=== PATIENT | male | born 1960 | race Caucasian/White ===

== ENCOUNTER → 2017-11-07 12:58 | Outpatient (CLI) | payer BC, MEDICAID, SELFPAY ==
--- NOTE | 2017-11-07 13:02 | VDLE_ITS ---
Reason For Study: F/U DVT LLE - previous exam not performed here RIGHT LEFT CFV is compressible, spontaneous, phasic, GSV is normal. competent and demonstrates normal CFV is compressible, spontaneous, phasic, augmentation. competent, and demonstrates normal Procedure augmentation. Exam performed in department. FV is compressible, spontaneous, phasic, A preliminary report was called and/or faxed competent and demonstrates normal to Dr. Colvin. augmentation. POP V is compressible, spontaneous, phasic, competent and demonstrates normal augmentation. T/P Trunk is compressible. PTV is compressible. LT PerV is compressible. Interpretation Summary Deep veins of the left lower extremity are patent and compressible segmentally. There is no evidence of left lower extremity deep vein thrombosis. Valvular competence appears intact within the proximal deep venous system on the left . The left greater saphenous vein appears patent and compressible segmentally. Ordering Physician: Dale Colvin Referring Physician: Dale Colvin Performed By: Destiny Hong RVT
== END ==
PROVIDERS: Family Provider Family Medicine; PCP Family Medicine; Visit Provider Family Medicine
DX: I82.402 Acute embolism and thrombosis of unspecified deep veins of left lower extremity (principal); S70.02XA Contusion of left hip, initial encounter; X58.XXXA Exposure to other specified factors, initial encounter; M79.89 Other specified soft tissue disorders
CPT/HCPCS: 93971

== ENCOUNTER → 2017-11-29 08:04 | Outpatient (CLI) | payer BC, MEDICAID, SELFPAY ==
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
== END ==
PROVIDERS: Family Provider Family Medicine; PCP Family Medicine; Visit Provider Nurse Practitioner Acute Care
DX: R20.0 Anesthesia of skin (principal); R20.2 Paresthesia of skin
CPT/HCPCS: 95886; 95909

== ENCOUNTER 2018-02-12 13:00 | Outpatient (RCR) | payer BC, MEDICAID, SELFPAY ==
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
== END 2018-02-12 19:00 | disposition home or self-care (01) ==
LOC: PT 13:00
PROVIDERS: Family Provider Family Medicine; PCP Family Medicine; Visit Provider Psychiatry & Neurology Neurology
DX: S32.10XD Unspecified fracture of sacrum, subsequent encounter for fracture with routine healing (principal); S32.402D Unspecified fracture of left acetabulum, subsequent encounter for fracture with routine healing; S72.142D Displaced intertrochanteric fracture of left femur, subsequent encounter for closed fracture with routine healing; S32.009D Unspecified fracture of unspecified lumbar vertebra, subsequent encounter for fracture with routine healing; X58.XXXD Exposure to other specified factors, subsequent encounter; R41.0 Disorientation, unspecified; R41.3 Other amnesia
CPT/HCPCS: 97110; 97116; 97140; 97163; 97530

== ENCOUNTER → 2018-02-27 11:51 | Outpatient (CLI) | payer BC, MEDICAID, SELFPAY ==
[2018-02-27 12:33] LABS: Absolute Lymphocyte Count 0.99 X10^3/ul (0.83-4.51); Absolute Neutrophil Count 4.1 X10^3/uL (2.0-7.7); Basophil# 0.01 X10^3/uL; Basophil% 0.2 % (0-1); Eosinophil# 0.14 X10^3/uL; Eosinophils% 2.5 % (0-5); Hematocrit 42.5 % (40-54); Hemoglobin 14.2 g/dl (13.0-16.5); Lymphocyte # 0.99 X10^3/ul (4.0); Lymphocyte % 17.4 % (19-41); Mean Corp Hgb Conc 33.4 g/gl (32-36); Mean Corpuscular Hgb 29.8 pg (27.0-32.0); Mean Corpuscular Volume 89.3 fL (80-94); Mean Platelet Vol. 9.2 fl (6.2-12.0); Monocyte# 0.47 X10^3/uL; Monocyte% 8.3 % (0-10); Neutrophil # 4.08 X10^3/uL (2.7-7.7); Neutrophil % 71.6 % (47-70); Platelet Count 237 K/mm3 (150-450); RBC Distribution Width CV 13.5 % (11.6-14.6); RBC Distribution Width SD 43.6 fl (35.1-43.9); Red Blood Count 4.76 M/mm3 (4.6-6.2); White Blood Count 5.7 K/mm3 (4.4-11.0)
[2018-02-27 12:37] LABS: POSITIVE COUNT NO; POSITIVE DIFFERENTIAL NO; POSITIVE MORPHOLOGY NO
[2018-02-27 13:18] LABS: AST(SGOT) 26 U/L (15-37); Alanine Aminotransfer ALT/SGPT 22 U/L (16-61); Albumin, Serum 3.8 g/dL (3.2-5.0); Alkaline Phosphatase 153 U/L (45-117); Anion Gap 6 (5-15); BUN 18 mg/dL (7-18); BUN/Creat Ratio 15.8 RATIO (10-20); Bilirubin, Direct 0.15 mg/dL (0.00-0.30); Chloride 105 mmol/L (98-107); Cholesterol 139 mg/dL (200); Creatinine, Serum 1.14 mg/dL (0.70-1.30); EST Glomerular Filtration Rate 70 mL/min (>60); Est Glom Filt Rate - Afr Amer 85 mL/min (>60); Globulin 4.2 g/dL (2.2-4.2); Glucose 91 mg/dL (74-106); High Density Lipoprotein 42 mg/dL; Potassium 4.1 mmol/L (3.5-5.1); Sodium Level 142 mmol/L (136-145); Thyroid Stim Hormone (TSH) 0.71 uIU/mL (0.358-3.74); Triglycerides 108 mg/dL; Very Low Density Lipoprotein 22 mg/dL (5-40)
== END ==
PROVIDERS: Family Provider Family Medicine; PCP Family Medicine; Visit Provider Internal Medicine Cardiovascular Disease
DX: I10 Essential (primary) hypertension (principal); E78.5 Hyperlipidemia, unspecified; B35.1 Tinea unguium; Z79.899 Other long term (current) drug therapy
CPT/HCPCS: 36415; 80048; 80061; 80076; 83735; 84443; 85025

== ENCOUNTER 2018-05-24 14:54 | Outpatient (RCR) | payer BC, MEDICAID, SELFPAY ==
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
== END 2018-05-24 19:00 | disposition home or self-care (01) ==
LOC: OT 14:54
PROVIDERS: Family Provider Family Medicine; PCP Family Medicine; Visit Provider Nurse Practitioner Acute Care
DX: R26.89 Other abnormalities of gait and mobility (principal)
CPT/HCPCS: 97165; 97166

== ENCOUNTER 2018-05-28 10:00 | Outpatient (RCR) | payer BC, MEDICAID, SELFPAY ==
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
== END 2018-05-28 19:00 | disposition home or self-care (01) ==
LOC: PT 10:00
PROVIDERS: Family Provider Family Medicine; PCP Family Medicine; Visit Provider Psychiatry & Neurology Neurology
DX: M25.562 Pain in left knee (principal); M17.12 Unilateral primary osteoarthritis, left knee
CPT/HCPCS: 97110; 97116; 97140; 97164; 97530

== ENCOUNTER → 2018-06-07 10:47 | Outpatient (CLI) | payer BC, MEDICAID, SELFPAY ==
[2018-06-07 11:34] LABS: Calcium,Total 9.1 mg/dL (8.5-10.1); Magnesium 1.9 mg/dL (1.6-2.6)
[2018-06-08 09:09] LABS: Vitamin B12 419 pg/mL (211-911)
== END ==
PROVIDERS: Family Provider Family Medicine; PCP Family Medicine; Visit Provider Clinical Nurse Specialist Acute Care
DX: R20.2 Paresthesia of skin (principal); R20.0 Anesthesia of skin
CPT/HCPCS: 36415; 82310; 82607; 83735

== ENCOUNTER → 2018-11-19 16:54 | Outpatient (CLI) | payer BC, SELFPAY ==
[2018-02-20 15:20] VITALS: BMI 33.2
--- NOTE | 2018-11-19 17:10 | RAD_ITS ---
STUDY: X-RAY - RIGHT FOOT CLINICAL: Male, 58 years old. Fissure in the right plantar surface of foot. Pain TECHNIQUE: 3 view(s) of the foot. COMPARISON: None. FINDINGS: Degenerative changes involving the interphalangeal joint of the big toe and the first and fourth MTP joints. No acute fractures of the forefoot. There is a severe deformity of the hindfoot with arthrodesis of the ankle mortise and subtalar joints and almost all the tarsal joints. There are no acute fractures. The soft tissues are within normal limits. RAD/Foot min 3 Views IMPRESSION: No acute fractures. Severe deformity of the hindfoot with fusion of the ankle mortise and subtalar joints and almost all the tarsal joints. Degenerative changes of the interphalangeal joint of the patella and at the first and fourth and joints. No cellulitis Electronically Signed: Mert Preston MD at 1:53 EST Tel , Service support ,
== END ==
PROVIDERS: Family Provider Family Medicine; PCP Family Medicine
DX: M79.671 Pain in right foot (principal)
CPT/HCPCS: 73630

== ENCOUNTER → 2018-12-10 16:27 | Outpatient (CLI) | payer BC, SELFPAY ==
--- NOTE | 2018-12-10 16:31 | VDLE_ITS ---
Reason For Study: Leg Pain/Swelling Procedure LEFT Exam performed in department. GSV is normal. A preliminary report was called and/or faxed CFV is compressible, spontaneous, phasic, to Dr. Colvin. competent, and demonstrates normal augmentation. FV is compressible, spontaneous, phasic, competent and demonstrates normal augmentation. POP V is compressible, spontaneous, phasic, competent and demonstrates normal augmentation. T/P Trunk is compressible. PTV is compressible. LT PerV is compressible. Vein wall thickening noted Lt GastrocV. Interpretation Summary Chronic vein wall thickening is noted in the left gastrocnemius vein. The remainder of the left lower extremity deep venous system is patent and compressible. Valvular competence appears intact within the proximal deep venous system on the left . The left greater saphenous vein appears patent and compressible segmentally. Ordering Physician: Dale Colvin Referring Physician: Nico Maldonado Performed By: Theresa Mishra RDCS, RVT
--- NOTE | 2018-12-10 17:12 | RAD_ITS ---
STUDY: X-RAY - LEFT HIP REASON FOR EXAM: Male, 58 years old. Pain in the left groin. TECHNIQUE: 2 views of the hip. COMPARISON: Comparison is made with prior study dated May 06, 2017. FINDINGS: The patient is status post intramedullary dio and compression screw fixation of the right intertrochanteric fracture. The fracture is healed. There is a widening of the right femoral neck suggestive of a impingement. There is osteoarthritic spur formation of the acetabular rim. There is moderate articular joint space narrowing. There is evidence of a open reduction and internal fixation of the left acetabular fracture utilizing mesh and screw fixation device. Healed left superior and inferior pubic rami fractures. RAD/HIP, UNI W/ Pelvis 2-3 Views IMPRESSION: Degenerative changes of the hip. Prior fixation of the right intertrochanteric fracture and left acetabular fracture. Electronically Signed: Bc Mayfield, at 13:15 EST , Service support ,
== END ==
PROVIDERS: Family Provider Family Medicine; PCP Family Medicine; Referring Provider Family Medicine; Visit Provider Family Medicine
DX: M25.552 Pain in left hip (principal); M79.605 Pain in left leg; Z86.718 Personal history of other venous thrombosis and embolism
CPT/HCPCS: 73502; 93971

== ENCOUNTER → 2019-01-07 07:25 | Outpatient (CLI) | payer BC, SELFPAY ==
[2019-01-07 08:00] LABS: Absolute Lymphocyte Count 1.12 X10^3/ul (0.83-4.51); Absolute Neutrophil Count 3.6 X10^3/uL (2.0-7.7); Basophil# 0.03 X10^3/uL; Basophil% 0.6 % (0-1); Eosinophil# 0.24 X10^3/uL; Eosinophils% 4.5 % (0-5); Hematocrit 44.3 % (40-54); Hemoglobin 14.9 g/dl (13.0-16.5); Lymphocyte # 1.12 X10^3/ul (4.0); Lymphocyte % 20.9 % (19-41); Mean Corp Hgb Conc 33.6 g/gl (32-36); Mean Corpuscular Volume 89.1 fL (80-94); Mean Platelet Vol. 9.4 fl (6.2-12.0); Monocyte# 0.41 X10^3/uL; Monocyte% 7.6 % (0-10); Neutrophil # 3.56 X10^3/uL (2.7-7.7); Neutrophil % 66.2 % (47-70); Platelet Count 237 K/mm3 (150-450); RBC Distribution Width CV 12.6 % (11.6-14.6); Red Blood Count 4.97 M/mm3 (4.6-6.2); White Blood Count 5.4 K/mm3 (4.4-11.0)
[2019-01-07 08:03] LABS: POSITIVE COUNT NO; POSITIVE DIFFERENTIAL NO; POSITIVE MORPHOLOGY NO
[2019-01-07 08:22] LABS: AST(SGOT) 23 U/L (15-37); Alanine Aminotransfer ALT/SGPT 27 U/L (16-61); Albumin, Serum 3.8 g/dL (3.2-5.0); Alkaline Phosphatase 139 U/L (45-117); Anion Gap 5 (5-15); BUN 20 mg/dL (7-18); BUN/Creat Ratio 17.1 RATIO (10-20); Calcium,Total 8.7 mg/dL (8.5-10.1); Chloride 105 mmol/L (98-107); Cholesterol 151 mg/dL (200); Creatinine, Serum 1.17 mg/dL (0.70-1.30); EST Glomerular Filtration Rate 68 mL/min (>60); Est Glom Filt Rate - Afr Amer 82 mL/min (>60); Globulin 3.7 g/dL (2.2-4.2); Glucose 98 mg/dL (74-106); High Density Lipoprotein 47 mg/dL; PSA,Total - Annual Screen 1.93 ng/mL (0.00-4.00); Potassium 4.1 mmol/L (3.5-5.1); Protein, Total 7.5 g/dL (6.4-8.2); Sodium Level 140 mmol/L (136-145); Triglycerides 97 mg/dL; Very Low Density Lipoprotein 19 mg/dL (5-40)
== END ==
PROVIDERS: Family Provider Family Medicine; PCP Family Medicine; Referring Provider Family Medicine; Visit Provider Family Medicine
DX: Z00.00 Encounter for general adult medical examination without abnormal findings (principal); Z12.5 Encounter for screening for malignant neoplasm of prostate; I25.10 Atherosclerotic heart disease of native coronary artery without angina pectoris; I10 Essential (primary) hypertension; E78.5 Hyperlipidemia, unspecified
CPT/HCPCS: 36415; 80053; 80061; 84153; 85025; G0103

== ENCOUNTER → 2019-02-22 | Outpatient (CLI) | payer BC, SELFPAY ==
--- NOTE | 2019-02-22 09:50 | ART_ITS ---
Reason For Study: Right foot ulcer Procedure A bilateral lower extremity continuous wave Doppler with analog waveform analysis,segmental pressures,and ankle brachial indexes without exercise. Left Segmental Pressures Left brachial= 106mmHg. Left posterior tibial artery = 142mmHg. Left dorsalis pedis artery = 129mmHg. Left digit = 103 mmHg. The left dorsalis pedis waveforms are triphasic. The left posterior tibial artery waveforms are triphasic. Right Segmental Pressures Right brachial= 109mmHg. Right calf = 134mmHg. Right posterior tibial artery = 23mmHg. Right dorsalis pedis artery = 86mmHg. Right digit = 41 mmHg. The right dorsalis pedis waveforms are biphasic. The right posterior tibial artery waveforms are monophasic. Indices The right ankle brachial index by the dorsalis pedis is 0.79. The right ankle brachial index by the posterior tibial artery is 0.21. The right digital-brachial index is 0.38. The left ankle brachial index by the dorsalis pedis is 1.18. The left ankle brachial index by the posterior tibial artery is 1.30. The left digital-brachial index is 0.94. Interpretation Summary Monophasic and biphasic Doppler waveforms are noted at ankle level on the right. Triphasic Doppler waveforms are noted at ankle level on the left. Pulse-volume recording waveform amplitudes are diminished at calf, ankle, and digital level on the right. The resting right ankle-brachial index is moderately diminished, though with evidence of severe arterial occlusive disease in certain angiosomal distributions. The resting left ankle-brachial index is normal. The right digital- brachial index is moderately diminished. The left digital-brachial index is normal. There is evidence of [id number] arterial occlusive disease in the right lower extremity. There is no evidence of significant arterial occlusive disease in the left lower extremity. Ordering Physician: Elsa Macario Referring Physician: Dale Colvin Performed By: Willinger, Vera, RVT
== END | disposition home or self-care (01) ==
PROVIDERS: Family Provider Family Medicine; PCP Family Medicine; Referring Provider Podiatrist; Visit Provider Podiatrist
DX: I73.9 Peripheral vascular disease, unspecified (principal); L97.519 Non-pressure chronic ulcer of other part of right foot with unspecified severity
CPT/HCPCS: 93923

== ENCOUNTER → 2019-03-27 | Outpatient (CLI) | payer BC, SELFPAY ==
[2019-03-05 10:28] VITALS: BMI 32.6
--- NOTE | 2019-03-27 06:39 | ECHOCS_ITS ---
Reason For Study: Chest Pain Procedure This was a 2D Doppler, Color Flow transthoracic echocardiogram. Contrast injection was performed. Exam performed in department. Left Ventricle Normal LV size. Left ventricular systolic function is normal. The estimated ejection fraction is 60 %. Stage 2 diastolic dysfunction. No regional wall motion abnormalities noted. Right Ventricle Normal RV size. Normal systolic function. Atria Normal left atrium. Normal right atrium. Mitral Valve Normal mitral valve. Tricuspid Valve Normal tricuspid valve. Aortic Valve The aortic valve is not well visualized. Pulmonic Valve The pulmonic valve is not well visualized. Great Vessels Normal aortic root. Pericardium/Pleural No pericardial effusion. Medication Diluted definity 3ml given slow IV push to enhance endocardial definition. MMode/2D Measurements & Calculations LVIDd: 6.1 cm IVSd: 1.3 cm Ao root diam: 3.5 cm LVIDs: 3.8 cm LVPWd: 1.2 cm RVDd: 5.0 cm FS: 37.2 % LAV(MOD-bp): 51.1 ml LVAd ap4: 36.2 cm2 SV(MOD-sp4): 73.4 ml LAV(MOD-bp) Indexed: 22.2 ml/m2 EDV(MOD-sp4): 111.0 ml LAV(MOD-sp2): 46.9 ml EDV(sp4-el): 114.1 ml LAV(MOD-sp4): 54.0 ml LVAs ap4: 18.5 cm2 ESV(MOD-sp4): 37.6 ml ESV(sp4-el): 34.7 ml EF(MOD-sp4): 66.1 % EF(sp4-el): 69.6 % SV(sp4-el): 79.4 ml LA A4 area: 19.2 cm2 LA dimension(2D): 4.3 cm RA A4 area: 16.6 cm2 Doppler Measurements & Calculations MV E max christo: 95.5 cm/sec Lat Peak E' Christo: 12.2 cm/sec Med Peak E' Christo: 8.8 cm/sec MV A max christo: 72.9 cm/sec E/E' lat: 7.8 E/E' med: 10.8 MV E/A: 1.3 Ao V2 max: 137.5 cm/sec LV V1 max: 117.8 cm/sec PA V2 max: 96.3 cm/sec Ao max P.6 mmHg LV V1 max P.5 mmHg Ao V2 mean: 89.5 cm/sec Ao mean P.6 mmHg Ao V2 VTI: 32.3 cm Interpretation Summary Normal LV size. Left ventricular systolic function is normal. The estimated ejection fraction is 60 %. Stage 2 diastolic dysfunction. Contrast injection was performed. Ordering Physician: Jimenez Nowak Referring Physician: Dale Colvin Performed By: Theresa Mishra, ROGER, RVT
--- NOTE | 2019-03-27 12:12 | STRESSREP ---
Stress Test Report Pharmacologic myocardial perfusion stress test. 59-year-old male with a history of previous angioplasty and stenting of the left circumflex artery. Stress protocol: Resting EKG demonstrates sinus bradycardia with a rate of 52 bpm normal intervals are noted resting blood pressures 146/78 mmHg. 0.4 mg of regadenoson was infused per usual protocol followed by rapid intravenous saline flush injection continuous EKG monitoring was performed. At rest there were no ST or T wave changes noted suggest abnormal flow reserve the maximum heart rate attained was 82 bpm which was 50% of maximum predicted heart rate. At peak infusion nonspecific ST-T wave changes were noted. The resting blood pressure was 146/78 final blood pressure was 138/78. Myocardial perfusion protocol. 14.3 mCi of technetium 99m sestamibi was injected at rest. 0.4 mg of regadenoson was infused per usual protocol peak infusion 44.5 mCi of technetium 99m sestamibi was injected stress images were obtained stress and rest images were reconstructed and compared in short axis vertical and horizontal long axis. Gated images were also obtained Perfusion SPECT analysis: Review of the stress images demonstrate normal uptake of tracer noted in all areas of the myocardium the resting images similarly demonstrate normal uptake of tracer noted in all areas of myocardium. No areas of reversibility are noted suggest ischemia. Gated SPECT analysis: The gated ejection fraction is noted to be 57%. Conclusion: Normal pharmacologic myocardial perfusion stress test. Preserved ejection fraction.
== END | disposition home or self-care (01) ==
LOC: CVS 06:38
PROVIDERS: Family Provider Family Medicine; PCP Family Medicine; Referring Provider Internal Medicine Cardiovascular Disease; Visit Provider Internal Medicine Cardiovascular Disease
DX: I25.10 Atherosclerotic heart disease of native coronary artery without angina pectoris (principal); I10 Essential (primary) hypertension
CPT/HCPCS: 78452; 93017; 93306; A9500; Q9957; A4216; C8929; J2785

== ENCOUNTER → 2019-05-01 | Outpatient (CLI) | payer BC, SELFPAY ==
[2019-03-05 10:28] VITALS: BMI 32.6
--- NOTE | 2019-05-01 17:11 | CT_ITS ---
We are attempting to reach an attending provider to discuss findings. An addendum with communication details will be sent when the communication is complete. STUDY: CTA OF THE ABDOMINAL AORTA AND BILATERAL LOWER EXTREMITIES REASON FOR EXAM: Male, 59 years old. Atherosclerosis of the right leg with ulceration of the foot RADIATION DOSAGE (If Supplied By Facility): CTDIvol = ( 7.61 ) mGy, DLP = ( 1693.19 ) mGycm TECHNIQUE: Axial CT angiography multi-detector data acquisition was obtained from the to the following intravenous administration of 100 IV Isovue 370. Axial images and MIP images were reconstructed from the axial data set. Post-processing of the angiographic images was performed, with multiplanar reformation and 3D reconstruction. Individualized dose optimization techniques were used for this CT. TECHNICAL QUALITY: Good COMPARISON: None. Descriptors of Narrowing: None (0%) Mild (< 50%) Moderate (50-70%) Severe (70-90%) Subtotal/Total Occlusion (90-100%) Non-Evaluable (technically non-diagnostic FINDINGS: Abdominal aorta: Mild multifocal calcification but no significant narrowing. Celiac and superior mesenteric arteries: No demonstrated narrowing. Inferior mesenteric artery: No demonstrated narrowing. Right renal artery(arteries): No demonstrated narrowing. Left renal artery(arteries): No demonstrated narrowing. Right common iliac artery: No demonstrated narrowing. Right external iliac artery: No demonstrated narrowing. Right internal iliac artery: No demonstrated narrowing. Left common iliac artery: No demonstrated narrowing. Left external iliac artery: No demonstrated narrowing. Left internal iliac artery: No demonstrated narrowing. RIGHT LOWER EXTREMITY Right common femoral artery: No demonstrated narrowing. Right profundus femoris: No demonstrated narrowing. Right superficial femoral: Distal superficial femoral artery is occluded Right popliteal artery: Diffusely calcified thrombosed popliteal artery. Reconstituted calf vessels with two-vessel runoff. LEFT LOWER EXTREMITY Left common femoral artery: No demonstrated narrowing. Left profundus femoris: No demonstrated narrowing. Left superficial femoral: No demonstrated narrowing. Left popliteal artery: No demonstrated narrowing. The calf vessels are patent and there is three-vessel runoff although there is mild multifocal calcific plaque. Incidental findings include mild fatty infiltration of the liver. Tiny calcified gallstones without evidence for acute inflammation. Small right renal cyst. Diverticular disease of the descending colon without evidence for acute diverticulitis CT/CTA Abd w/Runoff W/WO Contrast IMPRESSION: Atherosclerotic disease with most severe involvement of the right lower extremity with there is occlusion of the distal superficial femoral artery and popliteal with reconstitution of the runoff vessels with two-vessel runoff. Mild atherosclerotic changes involving the calf vessels in the left lower extremity Electronically Signed: Gerry Elizalde MD at 18:58 EDT , Service support ,
== END | disposition home or self-care (01) ==
LOC: CT 17:08
PROVIDERS: Family Provider Family Medicine; PCP Family Medicine; Referring Provider Surgery Vascular Surgery; Visit Provider Surgery Vascular Surgery
DX: I70.235 Atherosclerosis of native arteries of right leg with ulceration of other part of foot (principal); L97.919 Non-pressure chronic ulcer of unspecified part of right lower leg with unspecified severity
CPT/HCPCS: 75635; Q9967

== ENCOUNTER 2019-09-04 06:45 | Day surgery (SDC) | payer BC, SELFPAY ==
[2019-03-05 10:28] VITALS: BMI 32.6
[2019-09-02 14:32] VITALS: BMI 32.5
[2019-09-04 07:01] LABS: Hematocrit 44.6 % (40-54); Hemoglobin 14.8 g/dL (13.0-16.5); Mean Corp Hgb Conc 33.2 g/dL (32-36); Mean Corpuscular Hgb 30.5 pg (27.0-32.0); Mean Platelet Vol. 9.4 fl (6.2-12.0); Platelet Count 203 K/mm3 (150-450); RBC Distribution Width CV 12.2 % (11.6-14.6); RBC Distribution Width SD 41.1 fl (35.1-43.9); Red Blood Count 4.85 M/mm3 (4.6-6.2); White Blood Count 5.5 K/mm3 (4.4-11.0)
[2019-09-04 07:22] LABS: Albumin, Serum 4.2 g/dL (3.2-5.0); BUN 25 mg/dL (7-18); BUN/Creat Ratio 21.2 RATIO (10-20); Calcium,Total 9.3 mg/dL (8.5-10.1); Chloride 107 mmol/L (98-107); Creatinine, Serum 1.18 mg/dL (0.70-1.30); EST Glomerular Filtration Rate 67 mL/min (>60); Est Glom Filt Rate - Afr Amer 81 mL/min (>60); Estimated Creatinine Clearance 73.98 ml/min; Glucose 100 mg/dL (74-106); Phosphorus 3.1 mg/dL (2.5-4.9); Potassium 4.1 mmol/L (3.5-5.1); Sodium Level 142 mmol/L (136-145)
--- NOTE | 2019-09-04 10:59 | PCM.OPRPT ---
Problem List (1) PAD (peripheral artery disease) Status: Acute Report of Operation Date of Procedure: 09/04/19 Pre-Operative Diagnosis: Patient with PAD and previous slow healing wound Post-Operative Diagnosis: The same Surgery/Procedure Performed:: 1. Ultrasound-guided access retrograde left common femoral artery. 2. Right leg angiogram with catheter placed past the third order into the peroneal artery. 3. Balloon angioplasty from the tibial peroneal trunk through the popliteal artery with a 3.5-4.0 x 210 balloon. 4. Closure with Star close Type of Anesthesia:: Sedation,Conscious Description of Procedure: Patient brought to the operating room. Underwent the appropriate timeout consent. Underwent sedation. Was prepped and draped in a sterile fashion. We did ultrasound-guided access retrograde left common femoral artery and put in a 5 Bulgarian sheath. He was given 5000 units of heparin. We got up and over the bifurcation and did an angiogram from the right external iliac artery. This showed the common femoral artery, profunda, and SFA were widely patent. We put the catheter down the SFA and did an angiogram from here. It showed from the proximal to mid popliteal artery was occluded and had recanalized flow into the tibial peroneal trunk and anterior tibial artery. Posterior tibial artery was occluded throughout, anterior tibial and peroneal with a runoff into the ankle. We brought in a long 6 Bulgarian sheath and then using the quick cross and Glidewire got through the occlusion. We confirm we are into the tibioperoneal trunk to peroneal artery. We put in a 1 4 wire and then balloon through this lesion with a 3 mm balloon. We then ballooned with a 3.5 x 4 x 210 balloon for over 4 minutes. Completion was markedly improved with good inline flow now through the anterior tibial and the peroneal artery into the foot. We then removed out the sheath put a stiff Glidewire in. Deployed a Star close with good hemostasis. Sedation: This 59-year-old gentleman underwent moderate sedation given by Dr. Dale Gill. He was monitored EKG blood pressure and pulse ox for over the 30 minutes of the procedure. See the EMR for the complete record.
== END 2019-09-04 12:55 | disposition home or self-care (01) ==
PROVIDERS: Family Provider Family Medicine; PCP Family Medicine; Referring Provider Surgery Vascular Surgery; Visit Provider Surgery Vascular Surgery
DX: I70.235 Atherosclerosis of native arteries of right leg with ulceration of other part of foot (principal); I83.019 Varicose veins of right lower extremity with ulcer of unspecified site; L97.919 Non-pressure chronic ulcer of unspecified part of right lower leg with unspecified severity; M19.90 Unspecified osteoarthritis, unspecified site; E78.00 Pure hypercholesterolemia, unspecified; I11.9 Hypertensive heart disease without heart failure; I25.2 Old myocardial infarction; Z86.718 Personal history of other venous thrombosis and embolism; Z86.2 Personal history of diseases of the blood and blood-forming organs and certain disorders involving the immune mechanism; Z95.5 Presence of coronary angioplasty implant and graft; Z79.82 Long term (current) use of aspirin; Z79.899 Other long term (current) drug therapy
CPT/HCPCS: 36245; 36415; 37224; 75710; 76937; 80069; 85027; 99152; 99153; J7040; Q9967; C1725; C1760; C1769; C1887; C1894

== ENCOUNTER → 2019-10-28 13:39 | Outpatient (CLI) | payer BC, SELFPAY ==
[2019-09-02 14:32] VITALS: BMI 32.5
== END ==
PROVIDERS: PCP Family Medicine; Visit Provider Family Medicine
DX: R35.0 Frequency of micturition (principal); R31.9 Hematuria, unspecified
CPT/HCPCS: 87077; 87086; 87088; 87186

== ENCOUNTER → 2019-11-25 08:22 | Outpatient (CLI) | payer BC, SELFPAY ==
[2019-09-02 14:32] VITALS: BMI 32.5
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
== END ==
PROVIDERS: PCP Family Medicine; Referring Provider Psychiatry & Neurology Neurology; Visit Provider Psychiatry & Neurology Neurology
DX: R41.3 Other amnesia (principal)
CPT/HCPCS: 70450

== ENCOUNTER 2020-01-08 18:32 | Emergency (ER) | payer BC, SELFPAY ==
[2019-09-02 14:32] VITALS: BMI 32.5
[2020-01-08 18:33] VITALS: BP 101/71; PULSE 79; RESP 15; TEMP 37.7; O2SAT 98; BMI 32.5
--- NOTE | 2020-01-08 19:11 | ED.DCSUM_ITS ---
History of Present Illness Chief Complaint: Cough Informant: Patient Onset: Weeks Context: Gradual Onset Timing: Continuous Quality: Negative for: Dyspnea on exertion, Orthopnea, PND, Wheezing Associated Symptoms: Clear sputum, Cough. Negative for: Fever, Rhinorrhea, Sore throat Chest Pain: None Narrative: Patient is a 59-year-old male presenting with worsening chest congestion. He states for the past 2 weeks he has had cold. He has had a cough with clear sputum production. He states he feels like the cough moving more into his chest. He is worried is a pneumonia. He also notes he is been feeling more rundown and fatigued. He denies any fever. Denies any runny nose, sore throat or ear congestion. He denies any nausea, vomiting or diarrhea. He denies any chest pain. He had a telehealth of visit with his PCP 2 days ago. He was told just to watch out for signs of worsening symptoms or developing pneumonia. He denies any other complaints at this time. He does not use tobacco. Past Medical History - Allergies and Home Meds Allergies/Adverse Reactions: Allergies atorvastatin [From Lipitor] Adverse Reaction (Verified 01/08/20 18:33) Other Primary Care Physician: Dale Colvin DO [Primary Care Provider] - Past Medical History: - - Coronary artery disease, peripheral vascular disease Surgical History: - - ORIF right hip and Left Acetabulum Smoking Status: Never smoker - Family History Maternal Family History: Family History (Last Reviewed 03/05/19 @ 12:[address] Jimenez Nowak MD) Mother Hypertension Diabetes Father Hypertension CAD (coronary artery disease) Brother Cancer Family History: Reports: No pertinent history Paternal Family History: Family History (Last Reviewed 03/05/19 @ 12:[address] Jimenez Nowak MD) Mother Hypertension Diabetes Father Hypertension CAD (coronary artery disease) Brother Cancer Family History: Reports: No pertinent history Review of Systems General: Reports: Chills, Malaise. Denies: Fever, Sweats Cardiovascular: Denies: Chest pain, Palpitations Respiratory: Reports: Cough. Denies: Dyspnea, Dyspnea on exertion Gastrointestinal: Denies: Abdominal pain, Nausea, Vomiting, Diarrhea, Melena, Hematochezia Genitourinary: Denies: Dysuria, Hematuria, Frequency Skin: Denies: Rash Neurological: Denies: Headache, Weakness, Numbness Physical Exam Vital Signs/Narrative: Vital Signs Temp Pulse Resp BP Pulse Ox 01/08/20 18:33 99.8 F H 79 15 101/71 98 Inital Vital Signs reviewed: Yes General: Well nourished, Well developed Head: Normocephalic, Atraumatic Eyes: Perrl, EOMI Neck: Supple, Nontender Cardiovascular: Regular rate, Regular rhythm, No murmurs Respiratory: No distress, CTA bilaterally. Negative for: Rales, Rhonchi, Wheezing Abdomen: Soft, Nontender, Nondistended, Normal bowel sounds Back: Nontender, Normal Inspection Extremities: Nontender, No edema Skin: Normal color, No rash Neurological: Alert, Oriented x3, Cranial nerves II-XII grossly intact, Normal Strength, Normal Sensation Psychological: Normal affect Diagnostic/Tx/Re-eval Chest X-Ray - ED: 2 View, Read by ED Physician, Read by Radiologist, Left Infiltrate Re-Evaluation and Other Treatments: She is evaluated for worsening chest tightness and myalgias. He is a generalized fatigue. Patient is otherwise well-appearing. He has normal vital signs. X-ray does show a left lower lobe infiltrate. Clinically this fits his picture. Patient be treated with doxycycline. He is given first dose in the emergency room. He is given information on coronavirus however I am not convinced this is covid 19. Patient is counseled on return precautions. He verbalizes agreement understand this plan. He is discharged home in stable condition. He does not have associated chest pain. Is not have any hypoxia or tachycardia. Do not think blood work is indicated at this time. ED Disposition - Plan for ED Patient: Disposition: Home or Assisted Living Diagnosis: Left lower lobe pneumonia Instructions: ED PNEUMONITIS Adult Prescriptions: Doxycycline 100 mg PO BID #20 cap Transmission Status: Pending to [id number] Referrals: Dale Colvin DO [Primary Care Provider] -
--- NOTE | 2020-01-08 19:40 | RAD_ITS ---
STUDY: X-RAY CHEST REASON FOR EXAM: Male, 59 years old. Cough with sob TECHNIQUE: PA and lateral views of the chest. COMPARISON: 08/18/2017 FINDINGS: Cardiac silhouette unremarkable. Pulmonary vascularity unremarkable. Aorta unremarkable. Patchy opacity within the left base. No pleural effusions. Upper abdomen unremarkable. Osseous structures intact. No pneumothorax. RAD/Chest PA and Lateral IMPRESSION: Patchy left basilar opacity may indicate pneumonia in the proper clinical setting. Electronically Signed: Ramon Gallego, at 19:59 EDT Tel , Service support ,
[2020-01-08 20:09] VITALS: BP 101/71; PULSE 79; RESP 15; O2SAT 98
[2020-01-08] MEDS: Doxycycline 100 MG CAPSULE PO (20:14)
== END 2020-01-08 20:16 | disposition home or self-care (01) ==
PROVIDERS: Emergency Provider Emergency Medicine; PCP Family Medicine
DX: J18.9 Pneumonia, unspecified organism (principal); I25.10 Atherosclerotic heart disease of native coronary artery without angina pectoris; I73.9 Peripheral vascular disease, unspecified; Z79.82 Long term (current) use of aspirin; Z79.01 Long term (current) use of anticoagulants; Z79.899 Other long term (current) drug therapy
CPT/HCPCS: 71046; 99283

== ENCOUNTER → 2020-09-28 10:05 | Outpatient (CLI) | payer BC, SELFPAY ==
[2020-05-26 09:43] VITALS: BMI 34.2
--- NOTE | 2020-09-28 10:09 | RAD_ITS ---
CLINICAL HISTORY: Male, 60 years old. Chronic left shoulder pain. PROCEDURE: ARTHROGRAM - LEFT SHOULDER CONSENT: The procedure as well as the benefits and possible complications including infection and bleeding were explained to the patient. Informed consent was obtained. FLUOROSCOPY TIME (if supplied): (41 seconds) minutes/seconds. 4 images were obtained. Injection Information: 10 cc of dilute MRI contrast. Number of images obtained: 4 TECHNIQUE: (All elements of maximal sterile barrier technique followed, including US elements as applicable) The patient was in the supine position. The overlying skin was prepped and draped in the usual sterile fashion. Following local anesthetic application and under direct fluoroscopic guidance, a 22-gauge spinal needle was placed into the shoulder joint. 2 cc of ISOVUE-300 was injected for confirmation. Following this, 10 cc of dilute MRI contrast was injected. The patient tolerated the procedure well. A CT scan will be obtained. There is evidence of a rotator cuff tear. RAD/Arthrogram Shoulder IMPRESSION: Right shoulder arthrogram for CT examination. Evidence of a rotator cuff tear. The patient tolerated the procedure well. Electronically Signed: Bc Mayfield, at 11:09 EST , Service support ,
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
[2020-09-28 11:35] LABS: Absolute Lymphocyte Count 1.09 X10^3/uL (0.83-4.51); Absolute Neutrophil Count 2.9 X10^3/uL (2.0-7.7); Basophil# 0.05 X10^3/uL; Basophil% 1.1 % (0-1); Eosinophils% 4.3 % (0-5); Hematocrit 44.6 % (40-54); Hemoglobin 14.7 g/dL (13.0-16.5); Lymphocyte # 1.09 X10^3/ul (4.0); Lymphocyte % 23.6 % (19-41); Mean Corpuscular Hgb 30.8 pg (27.0-32.0); Mean Corpuscular Volume 93.3 fL (80-94); Mean Platelet Vol. 9.4 fl (6.2-12.0); Monocyte# 0.39 X10^3/uL; Monocyte% 8.5 % (0-10); NRBC Flagged by Analyzer 0 % (0-5); Neutrophil # 2.87 X10^3/uL (2.7-7.7); Neutrophil % 62.3 % (47-70); Platelet Count 196 K/mm3 (150-450); RBC Distribution Width CV 11.9 % (11.6-14.6); RBC Distribution Width SD 40.4 fl (35.1-43.9); Red Blood Count 4.78 M/mm3 (4.6-6.2); White Blood Count 4.6 K/mm3 (4.4-11.0)
[2020-09-28 12:12] LABS: ALB/GLOB Ratio 1.1 RATIO (0.9-2.4); AST(SGOT) 28 U/L (15-37); Alanine Aminotransfer ALT/SGPT 30 U/L (16-61); Albumin, Serum 3.8 g/dL (3.2-5.0); Alkaline Phosphatase 105 U/L (45-117); Anion Gap 5 (5-15); BUN 21 mg/dL (7-18); BUN/Creat Ratio 18.9 RATIO (10-20); Calcium,Total 8.8 mg/dL (8.5-10.1); Chloride 104 mmol/L (98-107); Cholesterol 159 mg/dL (200); Creatinine, Serum 1.11 mg/dL (0.70-1.30); EST Glomerular Filtration Rate 72 mL/min (>60); Est Glom Filt Rate - Afr Amer 87 mL/min (>60); Globulin 3.5 g/dL (2.2-4.2); Glucose 90 mg/dL (74-106); High Density Lipoprotein 55 mg/dL; PSA,Total - Annual Screen 1.32 ng/mL (0.00-4.00); Potassium 4.1 mmol/L (3.5-5.1); Protein, Total 7.3 g/dL (6.4-8.2); Sodium Level 140 mmol/L (136-145); Triglycerides 65 mg/dL; Very Low Density Lipoprotein 13 mg/dL (5-40)
[2020-09-29 06:59] LABS: SARS-COV-2 TOTAL ABS Reactive (Nonreactive)
== END ==
PROVIDERS: PCP Family Medicine; Referring Provider Physician Assistant; Visit Provider Physician Assistant
DX: M19.012 Primary osteoarthritis, left shoulder (principal); M75.42 Impingement syndrome of left shoulder; N29 Other disorders of kidney and ureter in diseases classified elsewhere
CPT/HCPCS: 23350; 36415; 73040; 73201; 80053; 80061; 84153; 85025; 86769; Q9967; A9575; G0103

== ENCOUNTER → 2020-11-16 07:53 | Outpatient (CLI) | payer BC, SELFPAY ==
[2020-05-26 09:43] VITALS: BMI 34.2
--- NOTE | 2020-11-16 08:20 | ART_ITS ---
Reason For Study: Atherosclerosis Procedure A bilateral lower extremity continuous wave Doppler with analog waveform analysis and ankle brachial indexes. Left Segmental Pressures Left brachial= 125mmHg. Left posterior tibial artery = 172mmHg. Left dorsalis pedis artery = 162mmHg. Left digit = 98 mmHg. The left dorsalis pedis waveforms are triphasic. The left posterior tibial artery waveforms are triphasic. Right Segmental Pressures Right brachial= 123mmHg. Right posterior tibial artery = 38mmHg. Right dorsalis pedis artery = 100mmHg. Right digit = 68 mmHg. The right dorsalis pedis waveforms are monophasic. The right posterior tibial artery waveforms are monophasic. Indices The right ankle brachial index by the dorsalis pedis is 0.80. The right ankle brachial index by the posterior tibial artery is 0.30. The right digital-brachial index is 0.54. The left ankle brachial index by the dorsalis pedis is 1.30. The left ankle brachial index by the posterior tibial artery is 1.38. The left digital-brachial index is 0.78. Interpretation Summary Right monophasic flow and RYAN 0.8 and left triphasic and RYAN 1.38. DBI 0.54 and 0.78. Ordering Physician: Dale Gill Referring Physician: Dale Colvin Performed By: Vera Thomas RVT
--- NOTE | 2020-11-16 08:20 | VDLE_ITS ---
Reason For Study: Varicose veins RIGHT CFV is compressible, spontaneous, phasic, competent and demonstrates normal augmentation. FV is compressible, spontaneous, phasic, competent and demonstrates normal augmentation. POP V is compressible, spontaneous, phasic, competent and demonstrates normal augmentation. T/P Trunk is compressible. PTV is compressible. RT PerV is compressible. SFJ is competent and measures 0.67 x 0.62 cm. GSV proximal thigh measures 0.42 x 0.41 cm. GSV at knee measures 0.32 x 0.37 cm. GSV INCOMPETENT throughout for greater than 0.5 seconds. ASV mid calf is INCOMPETENT for greater than 0.5 seconds and measures 0.27 x 0.30 cm. SSV at junction is competent and measures 0.45 x 0.49 cm. Procedure This is a venous duplex using B-mode, color flow and spectral Doppler. Exam performed in department. Interpretation Summary Right leg no DVT or SVT. Right GSV 4.2mm reflux throughout. Ordering Physician: Dale Gill Referring Physician: Dale Colvin Performed By: Vera Thomas RVT
--- NOTE | 2020-11-16 08:20 | ADUL_ITS ---
Reason For Study: Atherosclerosis Right Velocities Ext. Iliac Artery, dist = 124.2 cm./sec. Common Femoral Artery, mid = 86.9 cm./sec. Supf Femoral Artery, prox = 103.9 cm./sec. Supf Femoral Artery, mid = 69.5 cm./sec. Supf Femoral Artery, dist. = 107 cm./sec. Profunda Femoral Artery = 67.1 cm./sec. No flow noted in the Lucho and ACCELERATOR OPERATOR. Peroneal Artery, prox = 24.2 cm./sec. Peroneal Artery, mid = 27 cm./sec. Peroneal Artery,dist = 25.1 cm./sec. Ant. Tibial Artery, prox = 44 cm./sec. Ant. Tibial Artery, mid = 42.1 cm./sec. Ant. Tibial Artery, dist = 37.4 cm./sec. Procedure Exam performed in department. Interpretation Summary Right popliteal and posterior tibial artery occlussions. Ordering Physician: Dale Gill Referring Physician: Dale Colvin Performed By: Vera Thomas RVT
== END ==
PROVIDERS: PCP Family Medicine; Referring Provider Surgery Vascular Surgery; Visit Provider Surgery Vascular Surgery
DX: I83.891 Varicose veins of right lower extremity with other complications (principal); I70.213 Atherosclerosis of native arteries of extremities with intermittent claudication, bilateral legs; M79.89 Other specified soft tissue disorders; M21.379 Foot drop, unspecified foot; Z86.718 Personal history of other venous thrombosis and embolism; E78.00 Pure hypercholesterolemia, unspecified; I11.9 Hypertensive heart disease without heart failure
CPT/HCPCS: 93922; 93926; 93971

== ENCOUNTER → 2021-03-03 07:51 | Outpatient (CLI) | payer BC, SELFPAY ==
[2020-05-26 09:43] VITALS: BMI 34.2
--- NOTE | 2021-03-03 07:53 | ART_ITS ---
Reason For Study: Atherosclerosis Procedure A bilateral lower extremity continuous wave Doppler with analog waveform analysis and ankle brachial indexes. Left Segmental Pressures Left brachial= 115mmHg. Left posterior tibial artery = 183mmHg. Left dorsalis pedis artery = 174mmHg. Left digit = 97 mmHg. Right Segmental Pressures Right brachial= 115mmHg. Right posterior tibial artery = 81mmHg. Right dorsalis pedis artery = 125mmHg. Right digit = 41 mmHg. Indices The right ankle brachial index by the posterior tibial artery is 0.70. The right ankle brachial index by the dorsalis pedis is 1.09. The right digital-brachial index is 0.36. The left ankle brachial index by the posterior tibial artery is 1.59. The left ankle brachial index by the dorsalis pedis is 1.51. The left digital-brachial index is 0.84. VL/Ankle Brachial Index Interpretation Summary Right leg with an RYAN 1.09 and 0.7 with monophasic flow noted. Left leg with tr iphasic flow and an RYAN of 1.51 and 1.59. Digit brachial index 0.36 on the right 0.84 on the left. Ordering Physician: Dale Gill Referring Physician: Dale Gill Performed By: Theresa Mishra RDCS/RVT
== END ==
PROVIDERS: PCP Family Medicine; Referring Provider Surgery Vascular Surgery; Visit Provider Surgery Vascular Surgery
DX: I70.213 Atherosclerosis of native arteries of extremities with intermittent claudication, bilateral legs (principal); M79.89 Other specified soft tissue disorders; M79.606 Pain in leg, unspecified; I77.1 Stricture of artery; I83.891 Varicose veins of right lower extremity with other complications; M21.379 Foot drop, unspecified foot; Z86.718 Personal history of other venous thrombosis and embolism; E78.00 Pure hypercholesterolemia, unspecified; I11.9 Hypertensive heart disease without heart failure
CPT/HCPCS: 93922

== ENCOUNTER 2021-10-12 10:17 | Outpatient (CLI) | payer BC, SELFPAY ==
--- NOTE | 2021-10-12 10:20 | ART_ITS ---
Reason For Study: Atherosclerosis Procedure A bilateral lower extremity continuous wave Doppler with analog waveform analysis and ankle brachial indexes. Left Segmental Pressures Left brachial= 121mmHg. Left posterior tibial artery = 164mmHg. Left dorsalis pedis artery = 141mmHg. Left digit = 113 mmHg. The left dorsalis pedis waveforms are triphasic. The left posterior tibial artery waveforms are triphasic. Right Segmental Pressures Right brachial= 117mmHg. Right posterior tibial artery = 69mmHg. Right dorsalis pedis artery = 136mmHg. Right digit = 38 mmHg. The right dorsalis pedis waveforms are monophasic. The right posterior tibial artery waveforms are monophasic. Indices The right ankle brachial index by the dorsalis pedis is 1.12. The right ankle brachial index by the posterior tibial artery is 0.57. The right digital-brachial index is 0.31. The left ankle brachial index by the dorsalis pedis is 1.17. The left ankle brachial index by the posterior tibial artery is 1.36. The left digital-brachial index is 0.93. VL/Ankle Brachial Index Interpretation Summary Right lower extremity with monophasic flow and an RYAN of 0.57 and 1.12. Based o n waveform the 0.57 is probably the more accurate. Left lower extremity with triphasic flow and an RYAN of 1.36 and 1.17. Digit brachial index of 0.31 on the right 0.93 on the left. Ordering Physician: Dale Gill Referring Physician: Dale Colvin Performed By: Vera Thomas RVT
[2021-10-12 11:54] LABS: AST(SGOT) 24 U/L (15-37); Alanine Aminotransfer ALT/SGPT 33 U/L (16-61); Albumin, Serum 3.9 g/dL (3.2-5.0); Alkaline Phosphatase 121 U/L (45-117); Bilirubin, Direct 0.16 mg/dL (0.00-0.30); Cholesterol 176 mg/dL (200); Globulin 3.9 g/dL (2.2-4.2); High Density Lipoprotein 62 mg/dL; Protein, Total 7.8 g/dL (6.4-8.2); Triglycerides 78 mg/dL; Very Low Density Lipoprotein 16 mg/dL (5-40)
== END 2021-10-12 23:59 | disposition short-term general hospital (02) ==
PROVIDERS: PCP Family Medicine; Referring Provider Physician Assistant Medical; Visit Provider Surgery Vascular Surgery
DX: I25.10 Atherosclerotic heart disease of native coronary artery without angina pectoris (principal); I73.9 Peripheral vascular disease, unspecified; I48.92 Unspecified atrial flutter; I10 Essential (primary) hypertension; E78.00 Pure hypercholesterolemia, unspecified
CPT/HCPCS: 36415; 80061; 80076; 93922

== ENCOUNTER 2021-10-22 08:30 | Outpatient (RCR) | payer BC, SELFPAY ==
--- NOTE | 2021-07-28 17:43 | HP.PTEVAL_ITS ---
Patient's Visit Information MALDONADO BRIONES is a 61 year old M referred to Physical Therapy by Dr. 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 Date of Evaluation: 07/28/21 Physical Therapist: CANDY Bryant - Visit Plan Frequency: 2x /Week Duration: 3 Months Plan: 2X/ week for 12 weeks to follow protocol: (Protocol in the folder). for PROM 30 degrees ER and 130 degrees flexion (weeks 1-3). Week 4-6 start AAROM (see protocol). +++Sling use for 4 weeks ++++. HEP: pendulums - Subjective Pt reports that he had a L reverse total shoulder on 07-19-21. He spent the night in the hospital. He is Right handed. Pt did PT prior to surgery. The patient reports that his only restriction is that he can not work. He is in a sling. He goes back to see the Dr in 3-4 weeks and wants him in the sling that long. He is sleeping at night in the recliner. He works at the [employer]... he will probably go back in Oct sometime. 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 - Pain L shoulder pain Pain Intensity (Out of 10): 5 - Objective L shoulder PROM: 14 degrees PROM ER. 110 degrees PROM flexion. Instructed pt in L shoulder pendulums - Balance/Special Test Scores Quick DASH Score: 52.2725 - Goals Goal 1:: I HEP Goal Time Frame: 6-8 Weeks Goal 2:: Be able to complete AROM flex to 170 and ER to 70 Goal Time Frame: 6-8 Weeks Goal 3:: Increase L shoulder strength to 4/5 flex/abd and ER/IR Goal Time Frame: 6-8 Weeks Goal 4:: Complete ADL's with no pain Goal Time Frame: 8-12 Weeks - Rehabilitation Potential Rehabilitation Potential: Good - Anticipated Interventions Patient/Client Instruction: Educate patient on: Condition, Plan of Care For the Purpose of:: To decrease pain, To increase ROM, To improve nutrient delivery to tissue, To improve muscle performance and motor function, To improve ability to perform ADL's, To increase tolerance to activity/condition/position, To improve performance and independence with ADL's, To decrease level of supervision to perform tasks, To improve ability of physical actions for home/community/work/leisure, To improve health of tissue, To decrease soft tissue restriction, To increase flexibility/ROM Therapeutic Exercise to Include: Strength training, Postural training, Flexibilty training, Passive ROM, Active ROM, Scapular Strength/Stabilization For the Purpose of:: To decrease pain, To increase ROM, To improve nutrient delivery to tissue, To improve muscle performance and motor function, To improve ability to perform ADL's, To increase tolerance to activity/condition/position, To improve performance and independence with ADL's, To decrease level of supervision to perform tasks, To improve ability of physical actions for home /community/work/leisure, To improve health of tissue, To decrease soft tissue restriction, To increase flexibility/ROM Manual Therapy Techniques to Include: Passive ROM, Soft tissue mobilization For the Purpose of:: To decrease pain, To decrease swelling/inflammation, To increase ROM, To improve nutrient delivery to tissue, To improve muscle perfor lucien and motor function, To improve ability to perform ADL's, To increase tolerance to activity/condition/position, To improve performance and independence with ADL's, To decrease level of supervision to perform tasks, To improve ability of physical actions for home/community/work/leisure, To improve gait and locomotor functions, To improve health of tissue, To decrease soft tissue restriction, To increase flexibility/ROM Thank you for the opportunity to evaluate your patient. For Medicare and Medicare HMO plans, please review the plan of care and approve it. It will need to be FAXED BACK to us at [phone] for Medicare purposes. For Medicare only, by signing this I certify the plan of care. Please let me know if there are questions or concerns regarding this plan of care. Physician Signature: Date:
--- NOTE | 2021-10-12 09:34 | HP.PTREVAL ---
Dr. 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 Please see the progress note below for an update on the physical therapy plan of care! Subjective: Pt reports that he went to the Dr and he feels that he is doing ok. Pt feels that he is doing ok. He still can not lay flat. Pt reports that he is being release back to work on the . Objective/Function: Flex 134. ABD 134. ER 27 degrees. IR L4. ER/ IR 4-/5. Flex and abd 4/5 Plan Plan: Continue with PRE's as tolerated Balance/Gait/Functional tests - Balance/Special Test Scores Quick DASH Score: 27.0887 Goals Goal 1:: I HEP Goal Time Frame: 6-8 Weeks Goal 2:: Be able to complete AROM flex to 170 and ER to 70 Goal Time Frame: 6-8 Weeks Goal 3:: Increase L shoulder strength to 4/5 flex/abd and ER/IR Goal Time Frame: 6-8 Weeks Goal 4:: Complete ADL's with no pain Goal Time Frame: 8-12 Weeks Anticipated Interventions Patient/Client Instruction: Educate patient on: Condition, Plan of Care For the Purpose of:: To decrease pain, To increase ROM, To improve nutrient delivery to tissue, To improve muscle performance and motor function, To improve ability to perform ADL's, To increase tolerance to activity/condition/position, To improve performance and independence with ADL's, To decrease level of supervision to perform tasks, To improve ability of physical actions for home/community/work/leisure, To improve health of tissue, To decrease soft tissue restriction, To increase flexibility/ROM Therapeutic Exercise to Include: Strength training, Postural training, Flexibilty training, Passive ROM, Active ROM, Scapular Strength/Stabilization For the Purpose of:: To decrease pain, To increase ROM, To improve nutrient delivery to tissue, To improve muscle performance and motor function, To improve ability to perform ADL's, To increase tolerance to activity/condition/position, To improve performance and independence with ADL's, To decrease level of supervision to perform tasks, To improve ability of physical actions for home/community/work/leisure, To improve health of tissue, To decrease soft tissue restriction, To increase flexibility/ROM Manual Therapy Techniques to Include: Passive ROM, Soft tissue mobilization For the Purpose of:: To decrease pain, To decrease swelling/inflammation, To increase ROM, To improve nutrient delivery to tissue, To improve muscle performance and motor function, To improve ability to perform ADL's, To increase tolerance to activity/condition/position, To improve performance and independence with ADL's, To decrease level of supervision to perform tasks, To improve ability of physical actions for home/community/work/leisure, To improve gait and locomotor functions, To improve health of tissue, To decrease soft tissue restriction, To increase flexibility/ROM Please do not hesitate to contact me at [phone] by phone or if you have questions or concerns regarding this new plan of care! Sincerely, Keshia Mora MPT
--- NOTE | 2021-11-16 11:10 | HP.PTDCNRP_ITS ---
MALDONADO BRIONES was seen in my office for initial evaluation on 07/28/21. The following Plan of Care was established for this patient: Initial Frequency: 2x /Week Initial Duration: 3 Months Patient/Client Instruction: Educate patient on: Condition, Plan of Care For the Purpose of:: To decrease pain, To increase ROM, To improve nutrient delivery to tissue, To improve muscle performance and motor function, To improve ability to perform ADL's, To increase tolerance to activity/condition/position, To improve performance and independence with ADL's, To decrease level of supervision to perform tasks, To improve ability of physical actions for home/community/work/leisure, To improve health of tissue, To decrease soft tissue restriction, To increase flexibility/ROM Therapeutic Exercise to Include: Strength training, Postural training, Flexibilty training, Passive ROM, Active ROM, Scapular Strength/Stabilization For the Purpose of:: To decrease pain, To increase ROM, To improve nutrient delivery to tissue, To improve muscle performance and motor function, To improve ability to perform ADL's, To increase tolerance to activity/condition/position, To improve performance and independence with ADL's, To decrease level of supervi luzma to perform tasks, To improve ability of physical actions for home/community/work/leisure, To improve health of tissue, To decrease soft tissue restriction, To increase flexibility/ROM Manual Therapy Techniques to Include: Passive ROM, Soft tissue mobilization For the Purpose of:: To decrease pain, To decrease swelling/inflammation, To increase ROM, To improve nutrient delivery to tissue, To improve muscle performance and motor function, To improve ability to perform ADL's, To increase tolerance to activity/condition/position, To improve performance and independence with ADL's, To decrease level of supervision to perform tasks, To improve ability of physical actions for home/community/work/leisure, To improve gait and locomotor functions, To improve health of tissue, To decrease soft tissue restriction, To increase flexibility/ROM This patient was last seen in our office 10/22/21. Pertinent comments regarding their Physical therapy will appear below: DEANN PT. Pt called in and said he was released to go back to work and wishes to be discharged at this time. At this point I will be discontinuing this patient from physical therapy. I would be happy to see this patient again in the future if found appropriate by the physician. Thank you! Keshia Mora, MPT Balance/Gait/Functional tests - Balance/Special Test Scores Quick DASH Score: 27.8939
== END 2021-10-22 19:00 | disposition home or self-care (01) ==
LOC: PT 08:30
PROVIDERS: PCP Family Medicine; Referring Provider Orthopaedic Surgery; Visit Provider Orthopaedic Surgery
DX: Z96.612 Presence of left artificial shoulder joint (principal)
CPT/HCPCS: 97110; 97161

== ENCOUNTER → 2022-07-05 | Outpatient (CLI) | payer BC, SELFPAY ==
--- NOTE | 2022-07-05 13:47 | RAD_ITS ---
STUDY: X-RAY - PELVIS AND LEFT HIP REASON FOR EXAM: Male, 62 years old. Follow-up of fractures. TECHNIQUE: 4 views of the pelvis and hip. COMPARISON: 12/10/2018. FINDINGS: There is a non-specific bowel gas pattern. Normal visualized soft tissue structures. Stable intramedullary dio within the right femur with dynamic hip screw and distal interlocking cancellus screw. Healed intertrochanteric fracture with deformity, unchanged from comparison study. Mild arthrosis of the right hip. Malleable plate and screw fixation of the left acetabulum with increase in osteoarthritic changes of the left hip. Phleboliths. RAD/HIP, UNI W/ Pelvis 2-3 Views IMPRESSION: ORIF of right femur and left acetabulum unchanged without complications. Increased osteoarthritic changes of the left hip since the prior study. Electronically Signed: Hammad Baptiste, at 10:39 EDT ,
== END | disposition home or self-care (01) ==
LOC: RAD 13:46
PROVIDERS: PCP Family Medicine; Referring Provider Chiropractor; Visit Provider Chiropractor
DX: S76.012A Strain of muscle, fascia and tendon of left hip, initial encounter (principal); Z98.890 Other specified postprocedural states
CPT/HCPCS: 73502

== ENCOUNTER → 2022-08-19 | Outpatient (CLI) | payer BC, SELFPAY ==
[2022-08-19 11:49] LABS: Absolute Lymphocyte Count 0.88 X10^3/uL (0.83-4.51); Absolute Neutrophil Count 3.2 X10^3/uL (2.0-7.7); Basophil# 0.05 X10^3/uL; Eosinophil# 0.27 X10^3/uL; Eosinophils% 5.5 % (0-5); Hematocrit 43.6 % (40-54); Hemoglobin 14.7 g/dL (13.0-16.5); Lymphocyte # 0.88 X10^3/ul (0.83-4.51); Mean Corp Hgb Conc 33.7 g/dL (32-36); Mean Corpuscular Hgb 31.4 pg (27.0-32.0); Mean Corpuscular Volume 93.2 fL (80-94); Mean Platelet Vol. 9.5 fl (6.2-12.0); Monocyte# 0.43 X10^3/uL; Monocyte% 8.8 % (0-10); NRBC Flagged by Analyzer 0 % (0-5); Neutrophil # 3.19 X10^3/uL (2.7-7.7); Neutrophil % 65.1 % (47-70); Platelet Count 224 K/mm3 (150-450); RBC Distribution Width CV 11.9 % (11.6-14.6); RBC Distribution Width SD 40.9 fl (35.1-43.9); Red Blood Count 4.68 M/mm3 (4.6-6.2); White Blood Count 4.9 K/mm3 (4.4-11.0)
[2022-08-19 12:21] LABS: ALB/GLOB Ratio 1.1 RATIO (0.9-2.4); AST(SGOT) 21 U/L (15-37); Alanine Aminotransfer ALT/SGPT 27 U/L (16-61); Albumin, Serum 3.9 g/dL (3.2-5.0); Alkaline Phosphatase 114 U/L (45-117); Anion Gap 8 (5-15); BUN 29 mg/dL (7-18); BUN/Creat Ratio 20.7 RATIO (10-20); Chloride 106 mmol/L (98-107); Cholesterol 140 mg/dL (200); EST Glomerular Filtration Rate 55 mL/min (>60); Est Glom Filt Rate - Afr Amer 66 mL/min (>60); Globulin 3.7 g/dL (2.2-4.2); Glucose 94 mg/dL (74-106); High Density Lipoprotein 58 mg/dL; PSA,Total - Annual Screen 1.66 ng/mL (0.00-4.00); Potassium 4.1 mmol/L (3.5-5.1); Protein, Total 7.6 g/dL (6.4-8.2); Sodium Level 141 mmol/L (136-145); Triglycerides 45 mg/dL; Very Low Density Lipoprotein 9 mg/dL (5-40)
== END | disposition home or self-care (01) ==
LOC: BFHLAB 08:03
PROVIDERS: PCP Family Medicine; Visit Provider Family Medicine
DX: Z00.00 Encounter for general adult medical examination without abnormal findings (principal); Z12.5 Encounter for screening for malignant neoplasm of prostate
CPT/HCPCS: 36415; 80053; 80061; 84153; 85025; G0103

== ENCOUNTER → 2022-10-24 | Outpatient (CLI) | payer BC, SELFPAY ==
--- NOTE | 2022-10-24 15:18 | STRESSREP ---
Stress Test Report Pharmacologic myocardial perfusion stress test. 62-year-old man with a history of coronary artery disease Resting EKG demonstrates sinus bradycardia with a rate of 54 bpm. Resting blood pressure is 126/82 mmHg. 0.4 mg of regadenoson was infused per usual protocol followed by rapid intravenous saline flush injection. Continuous EKG monitoring was performed. The maximum heart rate was 68 bpm which was 43% max predicted heart rate the maximum workload was 1 metabolic equivalent. At rest there were no ST or T wave changes noted to suggest ischemia and at peak infusion nonspecific ST changes were noted with did not meet the criteria for ischemia. No clinical angina is noted. The final blood pressure was 118/78 mmHg. Myocardial perfusion protocol. 14.6 mCi of technetium 99m sestamibi was injected at rest. 0.4 mg of regadenoson was infused per usual protocol. At peak infusion 44.7 mCi of technetium 99m sestamibi was injected stress images were obtained stress and rest images were reconstructed and compared in the short axis vertical long and horizontal long axis. Gated images were also obtained. Perfusion SPECT analysis: Review of the stress images demonstrate normal uptake of tracer noted in all areas of the myocardium. The resting images similar demonstrated normal uptake of tracer noted in all areas of the myocardium. No areas of reversibility are noted to suggest ischemia and no previous infarct is noted. Gated SPECT analysis: The gated ejection fraction is 58%. Conclusion: Normal pharmacologic myocardial perfusion stress test. Preserved ejection fraction.
== END | disposition home or self-care (01) ==
LOC: CVS 06:49
PROVIDERS: PCP Family Medicine; Visit Provider Internal Medicine Cardiovascular Disease
DX: Z95.5 Presence of coronary angioplasty implant and graft (principal); R00.1 Bradycardia, unspecified; I25.10 Atherosclerotic heart disease of native coronary artery without angina pectoris
CPT/HCPCS: 78452; 93017; A9500; A4216; J2785

== ENCOUNTER → 2023-01-27 | Outpatient (CLI) | payer BC, SELFPAY ==
--- NOTE | 2023-01-27 09:23 | ART_ITS ---
Reason For Study: Aftercare Procedure A bilateral lower extremity continuous wave Doppler with analog waveform analysis and ankle brachial indexes. Left Segmental Pressures Left brachial= 120mmHg. Left posterior tibial artery = 171mmHg. Left dorsalis pedis artery = 124mmHg. Left digit = 129 mmHg. The left posterior tibial artery waveforms are triphasic. The left dorsalis pedis waveforms are triphasic. Right Segmental Pressures Right brachial= 112mmHg. Right posterior tibial artery = 57mmHg. Right dorsalis pedis artery = 95mmHg. Right digit = 32 mmHg. The right posterior tibial artery waveforms are monophasic. The right dorsalis pedis waveforms are monophasic. Indices The right ankle brachial index by the posterior tibial artery is 0.48. The right ankle brachial index by the dorsalis pedis is 0.79. The right digital-brachial index is 0.27. The left ankle brachial index by the posterior tibial artery is 1.43. The left ankle brachial index by the dorsalis pedis is 1.03. The left digital-brachial index is 1.08. VL/Ankle Brachial Index Interpretation Summary Right moderate with monophasic flow and RYAN 0.79. Left normal triphasic and RYAN 1.43. DBI 0.27 and 1.08. Ordering Physician: Dale Gill Referring Physician: Dale Colvin Performed By: Kike Lindsay RVT
== END | disposition home or self-care (01) ==
PROVIDERS: PCP Family Medicine; Referring Provider Surgery Vascular Surgery; Visit Provider Family Medicine
DX: G47.10 Hypersomnia, unspecified (principal); I77.1 Stricture of artery; I73.9 Peripheral vascular disease, unspecified; G47.30 Sleep apnea, unspecified; R06.83 Snoring; Z48.812 Encounter for surgical aftercare following surgery on the circulatory system
CPT/HCPCS: 93922; 95806

== ENCOUNTER → 2023-09-25 | Outpatient (CLI) | payer BC, SELFPAY ==
[2023-09-25 17:49] LABS: Absolute Neutrophil Count 4.1 X10^3/uL (2.0-7.7); Basophil# 0.04 X10^3/uL; Basophil% 0.7 % (0-1); Eosinophil# 0.18 X10^3/uL; Eosinophils% 3.2 % (0-5); Hematocrit 41.9 % (40-54); Hemoglobin 13.5 g/dL (13.0-16.5); Lymphocyte % 15.9 % (19-41); Mean Corp Hgb Conc 32.2 g/dL (32-36); Mean Corpuscular Hgb 30.3 pg (27.0-32.0); Mean Corpuscular Volume 93.9 fL (80-94); Mean Platelet Vol. 9.2 fl (6.2-12.0); Monocyte# 0.41 X10^3/uL; Monocyte% 7.2 % (0-10); NRBC Flagged by Analyzer 0 % (0-5); Neutrophil # 4.13 X10^3/uL (2.7-7.7); Neutrophil % 72.8 % (47-70); Platelet Count 261 K/mm3 (150-450); RBC Distribution Width SD 41.3 fl (35.1-43.9); Red Blood Count 4.46 M/mm3 (4.6-6.2); White Blood Count 5.7 K/mm3 (4.4-11.0)
[2023-09-25 18:35] LABS: ALB/GLOB Ratio 1.2 RATIO (0.9-2.4); AST(SGOT) 21 U/L (15-37); Alanine Aminotransfer ALT/SGPT 22 U/L (16-61); Albumin, Serum 3.8 g/dL (3.2-5.0); Alkaline Phosphatase 89 U/L (45-117); Anion Gap 6 (5-15); BUN 22 mg/dL (7-18); BUN/Creat Ratio 17.6 RATIO (10-20); Calcium,Total 8.7 mg/dL (8.5-10.1); Chloride 105 mmol/L (98-107); Cholesterol 149 mg/dL (200); Creatinine, Serum 1.25 mg/dL (0.70-1.30); EST Glomerular Filtration Rate 62 mL/min (>60); Est Glom Filt Rate - Afr Amer 75 mL/min (>60); Globulin 3.3 g/dL (2.2-4.2); Glucose 108 mg/dL (74-106); High Density Lipoprotein 57 mg/dL; PSA,Total - Annual Screen 1.74 ng/mL (0.00-4.00); Potassium 3.9 mmol/L (3.5-5.1); Protein, Total 7.1 g/dL (6.4-8.2); Sodium Level 141 mmol/L (136-145); Triglycerides 95 mg/dL; Very Low Density Lipoprotein 19 mg/dL (5-40)
== END | disposition home or self-care (01) ==
LOC: BFHLAB 14:13
PROVIDERS: PCP Family Medicine; Visit Provider Family Medicine
DX: I25.10 Atherosclerotic heart disease of native coronary artery without angina pectoris (principal); N18.31 Chronic kidney disease, stage 3a; I12.9 Hypertensive chronic kidney disease with stage 1 through stage 4 chronic kidney disease, or unspecified chronic kidney disease; Z12.5 Encounter for screening for malignant neoplasm of prostate
CPT/HCPCS: 36415; 80053; 80061; 84153; 85025; G0103

== ENCOUNTER → 2023-10-23 | Outpatient (CLI) | payer BC, SELFPAY ==
--- NOTE | 2023-10-23 15:05 | RAD_ITS ---
STUDY: X-RAY CHEST REASON FOR EXAM: Male, 63 years old. COUGH/MILD RALES RLL TECHNIQUE: PA and lateral views of the chest. COMPARISON: 01/08/2020 FINDINGS: Mild prominent interstitial markings with left lower lung basilar atelectasis present. There is no demonstrated pleural abnormality. Normal size heart. Normal mediastinum and corby. Normal visualized pulmonary arteries. Normal visualized aortic arch and descending thoracic aorta. Normal visualized thoracic spine. Normal visualized ribs, clavicles, and shoulders. There is no demonstrated abnormality of the visualized soft tissue structures of the upper abdomen. RAD/Chest PA and Lateral IMPRESSION: Left lower lung basilar atelectasis with mild superimposed infiltrate not excluded in the infectious setting. Electronically Signed: Sundar Catalan DO at 16:27 EST ,
== END | disposition home or self-care (01) ==
LOC: MTRAD 15:02
PROVIDERS: PCP Family Medicine; Referring Provider Family Medicine; Visit Provider Family Medicine
DX: R05.9 Cough, unspecified (principal)
CPT/HCPCS: 71046

== ENCOUNTER 2024-02-02 10:00 | Outpatient (RCR) | payer BC, SELFPAY ==
--- NOTE | 2024-01-02 16:16 | HP.PTEVAL_ITS ---
Patient's Visit Information Visit Information Visit Information: MALDONADO BRIONES is a 63 year old M referred to Physical Therapy by MARÍA HSIEH with a diagnosis of L SADAF (DOS: 12/20/23). Date of Evaluation: 01/02/24 Physical Therapist: Kurtis Ga DPT Visit Plan Frequency: 2x /Week Duration: 6 Weeks Plan: posterolateral L hip precautions -hip and knee strengthening (gave GTB for HEP....ask about level of soreness, could use ankle weights, pt fairly strong but muscular endurance lacking) -static and dynamic balance act -gait training, progressing to use no AD -hip/LE stretching as needed (HEP: standing hip circles, GTB 3 way hip, supine ITB strap assisted stretch (NO MIDLINE), standing banded march, STS from elevated surface) Subjective Subjective: Pt presents to PT s/p L posterolateral SADAF performed on 12/19/23. Pt presents using FWW, but has been weaning to a cane and went on a walk with it yesterday for approx. 10 minutes (sore afterwards). Pt as been sleeping in both a bed and recliner at home with some discomfort, has stairs in house but no issues with them so far. Pt lives with his and major thing she is helping with is putting pts shoes on for him d/t hip precautions. Rest, ice, and pain meds have been helping with pain. 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 Pt has a f/u with surgeon next Monday. Goals: be able to return to work, be able to get in and out of boat when fishing, and spend time with grandkids (getting up off the floor). Pain Left Hip: Pain Intensity (Out of 10): 4 Pain Intensity Range: 2 and 7 Objective Objective: ROM: L hip - ext approx 10 deg, hip flex 85 deg with tightness in post hip MMT: L - hip flex 4-/5, knee flex 4/5, knee ext 4+/5 R - hip flex 4/5, knee flex 4+/5, knee ext 4+/5 did not test prone hip ext d/t pt having hx of back pain/sx and is unable to obtain position, pt wears darling AFOs and has difficulty attempting a bridge GAIT: pt arrived to therapy using FWW, trialed SPC and pt had no difficulty, did not achieve full hip ext in L stance phase but pt able to correct with VCs STAIRS: step-to pattern to ascend and descend using HR and SPC, pt has darling AFOs affecting pattern STS: using darling UE to push up, especially from low chair TU.97s with SPC OBSERVATIONS: incision healing well, no sign of infection, late stage healing bruise with some swelling Pt overall doing very well, able to increase ex to using GTB with no difficulty and good ROM, some difficulty with balance. Pt demo's good understanding of hip precautions, I did decide to give supine L ITB strap assisted stretch as needed d/t reports of tightness/irritation but pt HEAVILY educated on proper technique to maintain precautions (do not cross midline, do not flex above 90, do not IR foot to end range). Balance/Special Test Scores Lower Extremity Functional Score: 33 Goals Goal 1:: Pt will demonstrate full L hip ROM with 0/10 pain Goal Time Frame: 4-6 Weeks Goal 2:: Pt demonstrates symmetrical hip strength with <2/10 pain Goal Time Frame: 6-8 Weeks Goal 3:: Pt is able to amb. for 30+ minutes with no breaks and no AD Goal Time Frame: 6-8 Weeks Goal 4:: Pt will be able to stand for 1+ hours with no AD and <2/10 pain Goal Time Frame: 6-8 Weeks Goal 5:: Pt will perform floor transfer indep with <2/10 pain Goal Time Frame: 8-12 Weeks Goal 6:: Pt will be able to don/doff shoes indep with 0/10 pain Goal Time Frame: 6-8 Weeks Rehabilitation Potential Physical Therapy Diagnosis: Pt presents to PT with L hip pain, decreased ROM, decreased tissue extensibility, weakness, and gait deficits. Pt would benefit from skilled PT services to address pain, indep with ADLs, hip strength, and gait with no AD to allow pt to return to [place]. Rehabilitation Potential: Excellent Anticipated Interventions Patient/Client Instruction: Educate patient on: Plan of Care For the Purpose of:: To decrease pain, To decrease swelling/inflammation, To increase ROM, To improve nutrient delivery to tissue, To improve muscle performance and motor function, To improve ability to perform ADL's, To increase tolerance to activity/condition/position, To improve performance and independence with ADL's, To decrease level of supervision to perform tasks, To improve ability of physical actions for home/community/work/leisure, To improve gait and locomotor functions, To improve health of tissue, To decrease soft tissue restriction, To increase flexibility/ROM, To improve balance, To improve safety with gait, To assume or resume ADL's, To improve safety, To improve health and function, To foster healthy habits, To improve decision making, To improve self management, To improve ability to perform tasks related to life management and To improve tolerance to ADL's Therapeutic Exercise to Include: Strength training, Balance training, Body mechanics, Postural training, Flexibilty training, Gait and locomotor training, Neuromotor development, Passive ROM and Active ROM For the Purpose of:: To decrease pain, To decrease swelling/inflammation, To increase ROM, To improve muscle performance and motor function, To improve ability to perform ADL's, To increase tolerance to activity/condition/position, To improve performance and independence with ADL's, To improve ability of physical actions for home/community/work/leisure, To improve gait and locomotor functions, To improve health of tissue, To decrease soft tissue restriction, To increase flexibility/ROM, To improve balance, To improve safety with gait, To assume or resume ADL's, To improve safety, To improve health and function, To foster healthy habits, To improve self management, To improve ability to perform tasks related to life management and To improve tolerance to ADL's Manual Therapy Techniques to Include: Scar massage, Mobilization, Passive ROM and Soft tissue mobilization For the Purpose of:: To decrease pain, To decrease swelling/inflammation, To increase ROM, To improve ability to perform ADL's, To improve health of tissue, To decrease soft tissue restriction and To increase flexibility/ROM Cryotherapy (ice pack, ice massage): Yes For the Purpose of:: To decrease pain, To decrease swelling/inflammation and To increase ROM Text: Thank you for the opportunity to evaluate your patient. For Medicare and Medicare HMO plans, please review the plan of care and approve it. It will need to be FAXED BACK to us at [phone] for Medicare purposes. For Medicare only, by signing this I certify the plan of care. Please let me know if there are questions or concerns regarding this plan of care. Physician Signature: Date:
== END 2024-02-02 19:00 | disposition home or self-care (01) ==
LOC: PT 10:00
PROVIDERS: PCP Family Medicine
DX: M16.52 Unilateral post-traumatic osteoarthritis, left hip (principal)
CPT/HCPCS: 97110; 97161

== ENCOUNTER → 2024-03-01 | Outpatient (CLI) | payer BC, SELFPAY ==
--- NOTE | 2024-03-01 10:53 | ART_ITS ---
Reason For Study: Stricture of artery Procedure A bilateral lower extremity continuous wave Doppler with analog waveform analysis and ankle brachial indexes. Left Segmental Pressures Left brachial= 120mmHg. Left posterior tibial artery = 188mmHg. Left dorsalis pedis artery = 165mmHg. Left digit = 127 mmHg. The left dorsalis pedis waveforms are triphasic. The left posterior tibial artery waveforms are triphasic. Right Segmental Pressures Right brachial= 122mmHg. Right posterior tibial artery = 86mmHg. Right dorsalis pedis artery = 157mmHg. Right digit = 30 mmHg. The right dorsalis pedis waveforms are monophasic. The right posterior tibial artery waveforms are monophasic. Indices The right ankle brachial index by the dorsalis pedis is 1.29. The right ankle brachial index by the posterior tibial artery is 0.70. The right digital-brachial index is 0.25. The left ankle brachial index by the dorsalis pedis is 1.35. The left ankle brachial index by the posterior tibial artery is 1.54. The left digital-brachial index is 1.04. VL/Ankle Brachial Index Interpretation Summary Right RYAN 0.7 and 1.29 and monophasic flow. Left triphasic flow and RYAN 1.35. D igits 0.25 and 1.04. Ordering Physician: Dale Gill Referring Physician: Dale Colvin Performed By: Vera Thomas RVT
== END | disposition home or self-care (01) ==
LOC: CVS 10:51
PROVIDERS: PCP Family Medicine; Referring Provider Surgery Vascular Surgery; Visit Provider Surgery Vascular Surgery
DX: I77.1 Stricture of artery (principal); Z48.812 Encounter for surgical aftercare following surgery on the circulatory system; I73.9 Peripheral vascular disease, unspecified
CPT/HCPCS: 93922

== ENCOUNTER → 2024-05-14 | Outpatient (CLI) | payer BC, SELFPAY ==
--- NOTE | 2024-05-14 16:07 | RAD_ITS ---
EXAM: XR LEFT FOOT COMPLETE, 3 OR MORE VIEWS CLINICAL INDICATION: LEFT GREAT TOE PAIN TECHNIQUE: Frontal, lateral and oblique views of the left foot. COMPARISON: No relevant prior studies available. FINDINGS: BONES/JOINTS: Old postoperative changes 5th metatarsal. 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 No acute fracture. No subluxation. Normal alignment. No sclerotic or destructive changes observed. SOFT TISSUES: Soft tissue swelling of the great toe. No radiopaque foreign body. VASCULATURE: Diffuse vascular calcifications. RAD/Foot min 3 Views IMPRESSION: 1. Soft tissue swelling of the great toe. 2. 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 Electronically Signed: Marco A Jensen MD at 4:14 EDT ,
== END | disposition home or self-care (01) ==
LOC: MTRAD 16:05
PROVIDERS: PCP Family Medicine; Referring Provider Nurse Practitioner Family; Visit Provider Nurse Practitioner Family
DX: M79.675 Pain in left toe(s) (principal)
CPT/HCPCS: 73630

== ENCOUNTER → 2024-10-14 | Outpatient (CLI) | payer BC, SELFPAY ==
[2024-10-14 10:26] LABS: Absolute Lymphocyte Count 1.03 X10^3/uL (0.83-4.51); Absolute Neutrophil Count 3.6 X10^3/uL (2.0-7.7); Basophil# 0.04 X10^3/uL; Basophil% 0.7 % (0-1); Color, Urine Yellow (Yellow); Eosinophil# 0.39 X10^3/uL; Glucose, Dipstick Normal (Normal); Hematocrit 44.3 % (40-54); Hemoglobin 14.6 g/dL (13.0-16.5); Ketone-Dipstick Negative (Negative); Leukocyte Esterase-Dipstick Negative /ul (Negative); Lymphocyte # 1.03 X10^3/ul (0.83-4.51); Lymphocyte % 18.5 % (19-41); Mean Corpuscular Hgb 30.2 pg (27.0-32.0); Mean Corpuscular Volume 91.5 fL (80-94); Mean Platelet Vol. 9.2 fl (6.2-12.0); Monocyte# 0.47 X10^3/uL; Monocyte% 8.5 % (0-10); NRBC Flagged by Analyzer 0 % (0-5); Neutrophil # 3.61 X10^3/uL (2.7-7.7); Neutrophil % 64.9 % (47-70); Nitrite-Dipstick Negative (Negative); Occult Blood-Urine Negative /ul (Negative); Platelet Count 230 K/mm3 (150-450); Protein-Dipstick 15 mg/dl (Negative); RBC Distribution Width CV 12.6 % (11.6-14.6); RBC Distribution Width SD 41.5 fl (35.1-43.9); Red Blood Count 4.84 M/mm3 (4.6-6.2); Urine Bilirubin Dipstick Negative (Negative); Urine Clarity Clear (Clear); Urine Urobilinogen Normal (Normal); White Blood Count 5.6 K/mm3 (4.4-11.0)
[2024-10-14 11:17] LABS: ALB/GLOB Ratio 1.1 RATIO (0.9-2.4); AST(SGOT) 21 U/L (15-37); Alanine Aminotransfer ALT/SGPT 32 U/L (16-61); Albumin, Serum 4.1 g/dL (3.2-5.0); Alkaline Phosphatase 97 U/L (45-117); Anion Gap 4 (5-15); BUN 28 mg/dL (7-18); Calcium,Total 9.5 mg/dL (8.5-10.1); Chloride 106 mmol/L (98-107); Cholesterol 164 mg/dL (200); Creatinine, Serum 1.27 mg/dL (0.70-1.30); EST Glomerular Filtration Rate 61 mL/min (>60); Est Glom Filt Rate - Afr Amer 73 mL/min (>60); Globulin 3.8 g/dL (2.2-4.2); Glucose 100 mg/dL (74-106); High Density Lipoprotein 70 mg/dL; Potassium 4.2 mmol/L (3.5-5.1); Protein, Total 7.9 g/dL (6.4-8.2); Sodium Level 140 mmol/L (136-145); Triglycerides 54 mg/dL; Very Low Density Lipoprotein 11 mg/dL (5-40)
[2024-10-14 12:20] LABS: Hemoglobin A1c 5.1 % (3.8-5.6)
== END | disposition home or self-care (01) ==
PROVIDERS: PCP Family Medicine; Referring Provider Family Medicine; Visit Provider Family Medicine
DX: Z00.00 Encounter for general adult medical examination without abnormal findings (principal); Z12.5 Encounter for screening for malignant neoplasm of prostate; R73.01 Impaired fasting glucose
CPT/HCPCS: 36415; 80053; 80061; 81002; 83036; 84153; 85025; G0103

== ENCOUNTER → 2024-10-24 | Outpatient (CLI) | payer BC, SELFPAY ==
--- NOTE | 2024-10-24 10:00 | RAD_ITS ---
STUDY: X-RAY - PELVIS AND RIGHT HIP REASON FOR EXAM: Male, 64 years old. PAIN / HX ORIF TECHNIQUE: 4 views of the pelvis and right hip. COMPARISON: Pelvis and left hip radiographs dated 07/05/2022. FINDINGS: There is a non-specific bowel gas pattern. Normal visualized soft tissue structures. Stable intramedullary nail within the right femur with dynamic hip screw and distal interlocking cancellus screw. Healed intertrochanteric fracture with deformity, unchanged from comparison study. Stable mild arthrosis of the right hip. There is an unchanged malleable plate and screw fixation of the left acetabulum. There is a new left hip arthroplasty in place, with no periprosthetic fracture. RAD/HIP, UNI W/ Pelvis 2-3 Views IMPRESSION: ORIF of right femur and left acetabulum unchanged without complications. Stable mild arthrosis of the right hip. New left hip arthroplasty in place, with no periprosthetic fracture. Electronically Signed: Zander Villareal MD at 14:42 EST ,
== END | disposition home or self-care (01) ==
LOC: RAD 09:53
PROVIDERS: PCP Family Medicine; Referring Provider Family Medicine; Visit Provider Family Medicine
DX: M25.551 Pain in right hip (principal)
CPT/HCPCS: 73502

== ENCOUNTER → 2025-05-13 | Outpatient (CLI) | payer BC, SELFPAY ==
--- NOTE | 2025-05-13 12:38 | RAD_ITS ---
PROCEDURE: FOOT MIN 3 VIEWS 05/13/2025 REASON FOR EXAM: LEFT LATERAL PAIN, BASE OF 5TH MT, INJURY/FALL TECHNIQUE: FOOT MIN 3 VIEWS COMPARISON: Prior study dated May 16, 2024. FINDINGS: Bones: The patient is status post screw fixation of the distal 5th metatarsal. Joints: Moderate degree of joint space narrowing at the 1st metatarsophalangeal joint with Berto valgus deformity. Soft tissues: Vascular calcification. Other: Calcaneal spurs. RAD/Foot min 3 Views IMPRESSION: 2 screws are seen in the distal shaft of the 5th metatarsal. This is unchanged. Degenerative changes of the 1st metatarsophalangeal joint with hallux valgus de formity. Calcaneal spurs. Reading Location: [facility]
--- OUTSIDE RECORDS SUMMARY | 2025-05-13 19:09 | XMS RPT_ITS | CCD ---
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 1.002-1.030 [facility] Comment on above: Order Comment: Urine , Random Performed By: #### L 501.9910, L500.4100, L501.9985, L400.2011, L100.0100, L500.4050 #### [facility] [address] [place], [address] UROBILI Normal Normal Normal [facility] Comment on above: Order Comment: Urine , Random Performed By: #### L 501.9910, L500.4100, L501.9985, L400.2011, L100.0100, L500.4050 #### [facility] [address] [place], [address] Foot min 3 Viewson 4 Foot min 3 Views [facility] [address] [place] [address] Foot min 3 Views MR#: [id number] Acct: [id number] Name: MALDONADO BRIONES Rep #: [id number] : 1960 M 64 From: Marco A Vincent PCP: Dr. Macho Colvin, DO Status: REG CLI Study: Foot min 3 Views Date of Exam: 05/14/24 Exam# [id number] Ordering Dr: Theresa Miller [employer] [id number] EXAM: XR LEFT FOOT COMPLETE, 3 OR MORE VIEWS CLINICAL INDICATION: LEFT GREAT TOE PAIN TECHNIQUE: Frontal, lateral and oblique views of the left foot. COMPARISON: No relevant prior studies available. FINDINGS: BONES/JOINTS: Old postoperative changes 5th metatarsal. 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 No acute fracture. No subluxation. Normal alignment. No sclerotic or destructive changes observed. SOFT TISSUES: Soft tissue swelling of the great toe. No radiopaque foreign body. VASCULATURE: Diffuse vascular calcifications. RAD/Foot min 3 Views IMPRESSION: 1. Soft tissue swelling of the great toe. 2. 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 Electronically Signed: Marco A Jensen MD at 4:14 EDT , CC: DAVID Miller; Dr. Macho Colvin DO Plugger Man: Signed [facility] 12-27-2023 CNPN Telephone (HCSIND) MALDONADO BRIONES ([id number]) 1960 M Date Time Provider Department 12/27/23 MEALNIE SOTELO HCSIND During your visit today, we recorded the following information about you: Allergies As of Date: 12/27/2023 Noted Allergy Reaction LIPITOR (ATORVASTATIN CALCIUM) 04/30/2009 5 - Intolerance Comments: crippled POISON MAYRA 05/23/2005 Date Reviewed: 12/25/2023 Reviewed by: Porsha Mccullough PTA - Fully Assessed Reason for Visit: Home Care [4073] Cmt: Dressing removal Prescriptions as of 12/27/2023 - aspirin (ASPIR-81 ORAL) Take 1 tablet by mouth once daily. - omeprazole (PRILOSEC) 20 mg capsule Take 20 mg by mouth once daily. - TURMERIC ORAL Take 1 capsule by mouth once daily. - lisinopril (ZESTRIL) 20 mg tablet Take 20 mg by mouth two times a day. - aspirin 81 mg chewable tablet Take 1 tablet by mouth two times a day for 21 days. Once 2 times a day dosing completed in 21 days, then resume daily home dose. Patient should start on December 20, 2023. - oxyCODONE IR (ROXICODONE) 5 mg immediate release tablet Take 1 tablet by mouth every 6 hours as needed for pain for up to 7 days. - cilostazol (PLETAL) 100 mg tablet Take 1 tablet by mouth every 12 hours. - temazepam (RESTORIL) 30 mg cap Take 30 mg by mouth at bedtime as needed (insomnia). - Glucosamine HCl 1,500 mg tab Take 1,500 mg by mouth once daily. - diphenhydrAMINE (BENADRYL) 25 mg capsule Take 25 mg by mouth at bedtime as needed for sedation. Patient should start on December 21, 2023. - hydroCHLOROthiazide 25 mg tablet Take 25 mg by mouth once daily. - metoprolol tartrate, short acting, (LOPRESSOR) 25 mg tablet Take 25 mg by mouth two times a day. - rosuvastatin (CRESTOR) 20 mg tablet Take 1 tablet by mouth every 48 hours. - meclizine (ANTIVERT) 25 mg tab Take 1 tablet by mouth every 6 hours as needed. FOR DIZZINESS - clopidogrel (PLAVIX) 75 mg ORAL Tab Take one(1) tablet by mouth daily. 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] 10/12/2011 Hypotestosteronism [E34.9] 12/13/2011 ED (erectile dysfunction) [N52.9] 12/13/2011 ASHD (arteriosclerotic heart disease) [I25.10] 08/12/2012 Presence of stent in coronary artery [Z95.5] 08/12/2012 Coronary artery disease [I25.10] 11/30/2012 Chronic leg pain [M79.606, G89.29] 03/04/2014 Pain management [R52] 06/13/2014 Closed displaced intertrochanteric fracture of *07/12/2017 Closed pelvic ring fracture (HCC) [S32.810A] 07/13/2017 Displaced fracture of posterior column of left *07/13/2017 Left foot drop [M21.372] 07/13/2017 Post-traumatic osteoarthritis of left hip [M16.*09/02/2022 Paroxysmal atrial flutter (HCC) [I48.92] 10/10/2023 Peripheral vascular disease (HCC) [I73.9] 10/10/2023 Essential (primary) hypertension [I10] 07/07/2017 Pre-op exam [Z01.818] 10/10/2023 PEA (Pulseless electrical activity) (HCC) [I46.*10/10/2023 Gastroesophageal reflux disease without esophag*10/10/2023 Primary osteoarthritis of left hip [M16.12] 12/02/2023 Arthritis, hip [M16.10] 12/19/2023 Encounter Status:Closed by MELANIE SOTELO on 12/27/[address] [facility] Juanito 12-20-2023 CNPN Telephone (HCSIND) MALDONADO BRIONES ([id number]) 1960 M Date Time Provider Department 12/20/23 LICHA BAE HCSIND During your visit today, we recorded the following information about you: Licha Bae PSS 12/20/2023 9:54 AM Signed ATTEMPT Date/Time: 12/20/2023 9:43 AM No answer in patient room [id number] [phone]. Messages left on patient' cell [phone] and spouse's cell ( Emi) [phone]. BLAIR Rich 12/20/2023 9:54 AM Licha Bae PSS 12/20/2023 1:11 PM Signed Date/Time: 12/20/2023 1:06 PM Spoke with PATIENT @ phone #: [phone] - Preferred # for contact: [phone] Have you received help from a home care company in the last 60 days? NO Are you agreeable to [facility] services? YES What address will we be seeing you at? [address] [address] Do you have any upcoming appointments or things we need to schedule around? NO Do you have a teachable CG or can you manage your care independently? YES Allergies As of Date: 12/20/2023 Noted Allergy Reaction LIPITOR (ATORVASTATIN CALCIUM) 04/30/2009 5 - Intolerance Comments: crippled POISON MAYRA 05/23/2005 Date Reviewed: 12/19/2023 Reviewed by: Apurva Greco RN - Fully Assessed Reason for Visit: Home Care [4073] Cmt: CONFIRMATION CALL Prescriptions as of 12/20/2023 - lisinopril (ZESTRIL) 20 mg tablet Take 20 mg by mouth two times a day. - aspirin 81 mg chewable tablet Take 1 tablet by mouth two times a day for 21 days. Once 2 times a day dosing completed in 21 days, then resume daily home dose. Patient should start on December 20, 2023. - oxyCODONE IR (ROXICODONE) 5 mg immediate release tablet Take 1 tablet by mouth every 6 hours as needed for pain for up to 7 days. - cilostazol (PLETAL) 100 mg tablet Take 1 tablet by mouth every 12 hours. - temazepam (RESTORIL) 30 mg cap Take 30 mg by mouth at bedtime as needed. - Glucosamine HCl 1,500 mg tab Take 1,500 mg by mouth. - diphenhydrAMINE (BENADRYL) 25 mg capsule Take 25 mg by mouth at bedtime as needed. - hydroCHLOROthiazide 25 mg tablet Take 25 mg by mouth once daily. - metoprolol tartrate, short acting, (LOPRESSOR) 25 mg tablet Take 25 mg by mouth two times a day. - pantoprazole (PROTONIX) 40 mg grps Take 40 mg by mouth DAILY (6 AM). - rosuvastatin (CRESTOR) 20 mg tablet Take 1 tablet by mouth every 48 hours. - meclizine (ANTIVERT) 25 mg tab Take 1 tablet by mouth every 6 hours as needed. FOR DIZZINESS - ASPIRIN 81 MG TAB Take by mouth once daily. - clopidogrel (PLAVIX) 75 mg ORAL Tab Take one(1) tablet daily. Facility-Administered Medications as of 12/20/2023 - rosuvastatin 20 mg tab(s) (CRESTOR) - cilostazol 100 mg tab(s) (PLETAL) - clopidogrel 75 mg tab(s) (PLAVIX) - pantoprazole 40 mg oral liquid (PROTONIX) - temazepam 30 mg cap(s) (RESTORIL) - NaCl 0.9% iv flush bag - NaCl 0.9% iv infusion - acetaminophen 1,000 mg CUP (TYLENOL) - ondansetron 4 mg tab(s) (ZOFRAN) - ondansetron (PF) 4 mg injection (ZOFRAN) - magnesium hydroxide 400 mg/5 mL 30 mL (MOM) - bisacodyl EC 10 mg tab(s) (DULCOLAX) - aluminum-magnesium hydroxide-simethicone 200-200-20 mg/5 mL 30 mL - ferrous sulfate 325 mg tab(s) - ascorbic acid (vitamin C) 500 mg tab(s) (VITAMIN C) - senna 17.2 mg tab(s) (SENOKOT) - aspirin 81 mg chewable tab(s) - metoprolol tartrate (short acting) 25 mg tab(s) (LOPRESSOR) - lisinopril 20 mg tab(s) (ZESTRIL) - hydroCHLOROthiazide 25 mg tab(s) - oxyCODONE IR 5-10 mg tab(s) (ROXICODONE) - HYDROmorphone (PF) 0.4 mg injection (DILAUDID) Problem List As Of Date 12/20/2023 Noted Resolved CELLULITIS OF ARM [[id number]] 05/23/2005 Unspecified essential hypertension [I10] 10/18/2005 Pure hypercholesterolemia [E78.00] 03/20/2007 ACUTE CORONARY INSUFF [I24.89] 03/20/2007 SKIN HYPERTRO/ATROPH NOS [L91.9, L90.9] 06/19/2007 VIRAL WARTS NOS [B07.9] 06/19/2007 SEBORRHEIC KERATOSIS NOS [L82.1] 06/19/2007 CHR SOLAR SKIN DAMAGE NOS [L57.8] 06/19/2007 Carpal Tunnel Syndrome [G56.00] 08/03/2009 Trigger Finger (Acquired) [M65.30] 09/17/2009 Osteoarthritis [M19.90] 08/31/2010 Hand arthritis [M19.049] 03/02/2011 Neuropathy [G62.9] 05/02/2011 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] 10/12/2011 Hypotestosteronism [E34.9] 12/13/2011 ED (erectile dysfunction) [N52.9] 12/13/2011 ASHD (arteriosclerotic heart disease) [I25.10] 08/12/2012 Presence of stent in coronary artery [Z95.5] 08/12/2012 Coronary artery disease [I25.10] 11/30/2012 Chronic leg pain [M79.606, G89.29] 03/04/2014 Pain management [R52] 06/13/2014 Closed displaced intertrochanteric fracture of *07/12/2017 Closed pelvic ring fracture (HCC) [S32.810A] 07/13/2017 Displaced fracture of posterior column of left *07/13/2017 Left foot drop [M21.372] 07/13/2017 Post-traumatic osteoarthritis of left hip [M16.*09/02/2022 Paroxysmal atrial flutter (HCC) [I48.92] 10/10 (more content not included)... Normal [facility] Absolute lymphocyte countOrd ered By: Macoh Colvin on 09-25-2023 Lymphocytes Auto (Unsp spec) [#/Vol] 0.90 10*3/uL 0.83-4.51 [facility] Basophil percentageOrdered B y: Macho Criselda on 09-25-2023 Basophils/100 WBC (Bld) 0.7 % 0-1 [facility] Bilirubin [Mass/Vol] 0.50 mg/dL 0.20-1.00 [facility] Comment on above: For patients on eltr ombopag therapy, use of Dim[employer] [place] TBIL is not recommended. Chloride [Moles/Vol] 105 mmol/L 98-107 [facility] Cholesterol [Mass/Vol] 149 mg/dL <200 [facility] Comment on above: <200 mg/dL Desirable 200-240 mg/dL Borderline >240 mg/dL High Risk Eosinophils/100 WBC (Bld) 3.2 % 0-5 [facility] Glucose [Mass/Vol] 108 mg/dL 74-106 [facility] Comment on above: Fasting Glucose resu lt from 100 to 125 mg/dL suggests IMPAIRED HOMEOSTASIS per A.D.A. criteria. Neutrophils (Bld) [#/Vol] 4.1 10*3/uL 2.0-7.7 [facility] Neutrophils/100 WBC (Bld) 72.8 % 47-70 [facility] Potassium [Moles/Vol] 3.9 mmol/L 3.5-5.1 [facility] Protein [Mass/Vol] 7.1 g/dL 6.4-8.2 [facility] Sodium [Moles/Vol] 141 mmol/L 136-145 [facility] Triglyceride [Mass/Vol] 95 mg/dL <199 [facility] Comment on above: The drugs N-Acetylcy steine and Metamizole may falsely depress this assay.Serum Triglycerides Reference Interval Normal <150 mg/dL Borderline high 150 - 199 mg/dL High 200 - 499 mg/dL Very High > or = 500 mg/dL WBC (Bld) [#/Vol] 5.7 10*3/uL 4.4-11.0 [facility] Blood erythrocytes count (nu mber/volume)Ordered By: Macho Colvin on 09-25-2023 RBC (Bld) [#/Vol] 4.46 10*6/uL 4.6-6.2 [facility] Blood hemoglobin measurement (mass/volume)Ordered By: Macho Colvin on 09-25-2023 Hemoglobin (Bld) [Mass/Vol] 13.5 g/dL 13.0-16.5 [facility] Blood lymphocytes/100 leukoc ytesOrdered By: Macho Colvin on 09-25-2023 Lymphocytes/100 WBC (Bld) 15.9 % 19-41 [facility] Blood monocytes/100 leukocyt esOrdered By: Macho Colvin on 09-25-2023 Monocytes/100 WBC (Bld) 7.2 % 0-10 [facility] Blood platelet mean volumeOr dered By: Macho Colvin on 09-25-2023 Platelet mean volume (Bld) [Entitic vol] 9.2 fL 6.2-12.0 [facility] Determination of erythrocyte mean corpuscular volume (MCV)Ordered By: Macho Colvin on 09-25-2023 MCV (RBC) [Entitic vol] 93.9 fL 80-94 [facility] Hematocrit Auto (Bld) [Volum e fraction]Ordered By: Macho Colvin on 09-25-2023 Hematocrit (Bld) [Volume fraction] 41.9 % 40-54 [facility] - Chemistry and C hemistry - challengeOrdered By: Macoh Colvin on 09-25-2023 ALP [Catalytic activity/Vol] 89 U/L 45-117 [facility] ALT [Catalytic activity/Vol] 22 U/L 16-61 [facility] CO2 [Moles/Vol] 30.0 mmol/L 21.0-32.0 [facility] Globulin (S) [Mass/Vol] 3.3 g/dL 2.2-4.2 [facility] Urea nitrogen/Creatinine [Mass ratio] 17.6 mg/mg 10-20 [facility] - Hematology and Cell countsOrdered By: Macho Colvin on 09-25-2023 Erythrocyte distribution width (RBC) [Entitic vol] 41.3 fL 35.1-43.9 [facility] Erythrocyte distribution width (RBC) [Ratio] 12.0 % 11.6-14.6 [facility] Immature granulocytes/100 WBC (Bld) 0.200 % 0.0-0.9 [facility] Comment on above: IG% - Immature Granu locytes (promyelocytes, myelocytes and metamyelocytes) > 1% indicates that a LEFT SHIFT is Present. MCH (RBC) [Entitic mass] 30.3 pg 27.0-32.0 [facility] Nucleated RBC/100 WBC (Bld) [Ratio] 0 % 0-5 [facility] MCHC Auto (RBC) [Mass/Vol]Or dered By: Macho Colvin on 09-25-2023 MCHC (RBC) [Mass/Vol] 32.2 g/dL 32-36 [facility] No Panel InformationOrdered By: Macho Colvin on 09-25-2023 Estimated GFR (MDRD) Amer 75 mL/min >60 [facility] Comment on above: GFR Calc Estimated GFR (MDRD) Non-Af Amer 62 mL/min >60 [facility] Comment on above: Non- GFR Calc Prostate Specific Antigen Screen 1.74 ng/mL 0.00-4.00 [facility] Comment on above: This test was perfor med using the TPSA assay method for [employer] chemistry system. Values obtained with differentassay methods cannot be used interchangably.When changing PSA assays in the course of monitoring apatient, additional sequential testing should be carriedout to confirm baseline values. Platelets bldOrdered By: Yanna Colvin on 09-25-2023 Platelets (Bld) [#/Vol] 261 10*3/uL 150-450 [facility] Serum or plasma albumin andrea urement (mass/volume)Ordered By: Macho Colvin on 09-25-2023 Albumin [Mass/Vol] 3.8 g/dL 3.2-5.0 [facility] Serum or plasma albumin/glob ulin mass ratioOrdered By: Macho Colvin on 09-25-2023 Albumin/Globulin [Mass ratio] 1.2 {ratio} 0.9-2.4 [facility] Serum or plasma calcium andrea urement (mass/volume)Ordered By: Macho Colvin on 09-25-2023 Calcium [Mass/Vol] 8.7 mg/dL 8.5-10.1 [facility] Serum or plasma cholesterol in HDL measurement (mass/volume)Ordered By: Macho Colvin on 09-25-2023 Cholesterol in HDL [Mass/Vol] 57 mg/dL >40 [facility] Comment on above: The drugs N-Acetylcy steine and Metamizole may falsely depress this assay. Reference Range HDL <40 mg/dL Low HDL Cholesterol HDL >or= 60 mg/dL High HDL Cholesterol Serum or plasma cholesterol in VLDL measurement (mass/volume)Ordered By: Macho Colvin on 12-18-2023 Cholesterol in VLDL [Mass/Vol] 19 mg/dL 5-40 [facility] Serum or plasma creatinine m easurement (mass/volume)Ordered By: Macho Colvin on 09-25-2023 Creatinine [Mass/Vol] 1.25 mg/dL 0.70-1.30 [facility] Comment on above: The validity of the calculated GFR & GFRAA in patients over 70 years has not been determined. Clinical correlation is essential. Serum or plasma low density lipoprotein (LDL) cholesterol measurement (mass/volume)Ordered By: Macho Colvin on 09-25-2023 Cholesterol in LDL [Mass/Vol] 73 mg/dL 0-130 [facility] Serum or plasma urea nitroge n measurement (mass/volume)Ordered By: Macho Colvin on 09-25-2023 Urea nitrogen [Mass/Vol] 22 mg/dL -18 [facility] Thin prep Papanicolaou smear with manual screeningOrdered By: Macho Colvin on 09-25-2023 Thin prep Papanicolaou smear with manual screening 21 U/L 15-37 [facility] Thin prep Papanicolaou smear with manual screening 6 5-15 [facility] IR INJECTION LARGE JT/BURSA LT (AK)on 03-27-2023 [facility] Absolute lymphocyte countOrd ered By: Dr. Colvin on 08-19-2022 Lymphocytes Auto (Unsp spec) [#/Vol] 0.88 10*3/uL 0.83-4.51 [facility] Basophil percentageOrdered B y: Dr. Colvin on 08-19-2022 Basophils/100 WBC (Bld) 1.0 % 0-1 [facility] Bilirubin [Mass/Vol] 0.40 mg/dL 0.20-1.00 [facility] [facility] Comment on above: For patients on eltr ombopag therapy, use of [employer] TBIL is not recommended. Chloride [Moles/Vol] 106 mmol/L 98-107 [facility] Cholesterol [Mass/Vol] 140 mg/dL <200 [facility] Comment on above: <200 mg/dL Desirable 200-240 mg/dL Borderline >240 mg/dL High Risk Eosinophils/100 WBC (Bld) 5.5 % 0-5 [facility] Glucose [Mass/Vol] 94 mg/dL 74-106 [facility] Neutrophils (Bld) [#/Vol] 3.2 10*3/uL 2.0-7.7 [facility] Neutrophils/100 WBC (Bld) 65.1 % 47-70 [facility] Potassium [Moles/Vol] 4.1 mmol/L 3.5-5.1 [facility] Protein [Mass/Vol] 7.6 g/dL 6.4-8.2 [facility] Sodium [Moles/Vol] 141 mmol/L 136-145 [facility] Triglyceride [Mass/Vol] 45 mg/dL <199 [facility] Comment on above: The drugs N-Acetylcy steine and Metamizole may falsely depress this assay.Serum Triglycerides Reference Interval Normal <150 mg/dL Borderline high 150 - 199 mg/dL High 200 - 499 mg/dL Very High > or = 500 mg/dL WBC (Bld) [#/Vol] 4.9 10*3/uL 4.4-11.0 [facility] Blood erythrocytes count (nu mber/volume)Ordered By: Dr. Colvin on 08-19-2022 RBC (Bld) [#/Vol] 4.68 10*6/uL 4.6-6.2 [facility] Blood hemoglobin measurement (mass/volume)Ordered By: Dr. Colvin on 08-19-2022 Hemoglobin (Bld) [Mass/Vol] 14.7 g/dL 13.0-16.5 [facility] Blood lymphocytes/100 leukoc ytesOrdered By: Dr. Colvin on 08-19-2022 Lymphocytes/100 WBC (Bld) 18.0 % 19-41 [facility] Blood monocytes/100 leukocyt esOrdered By: Dr. Colvin on 08-19-2022 Monocytes/100 WBC (Bld) 8.8 % 0-10 [facility] Blood platelet mean volumeOr dered By: Dr. Colvin on 08-19-2022 Platelet mean volume (Bld) [Entitic vol] 9.5 fL 6.2-12.0 [facility] Determination of erythrocyte mean corpuscular volume (MCV)Ordered By: Dr. Colvin on 08-19-2022 MCV (RBC) [Entitic vol] 93.2 fL 80-94 [facility] Hematocrit Auto (Bld) [Volum e fraction]Ordered By: Dr. Colvin on 08-19-2022 Hematocrit (Bld) [Volume fraction] 43.6 % 40-54 [facility] Laboratory - Chemistry and C hemistry - challengeOrdered By: Dr. Colvin on 08-19-2022 ALP [Catalytic activity/Vol] 114 U/L 45-117 [facility] ALT [Catalytic activity/Vol] 27 U/L 16-61 [facility] CO2 [Moles/Vol] 27.0 mmol/L 21.0-32.0 [facility] Globulin (S) [Mass/Vol] 3.7 g/dL 2.2-4.2 [facility] Urea nitrogen/Creatinine [Mass ratio] 20.7 mg/mg 10-20 [facility] Laboratory - Hematology and Cell countsOrdered By: Dr. Colvin on 08-19-2022 Erythrocyte distribution width (RBC) [Entitic vol] 40.9 fL 35.1-43.9 [facility] Erythrocyte distribution width (RBC) [Ratio] 11.9 % 11.6-14.6 [facility] Immature granulocytes/100 WBC (Bld) 1.600 % 0.0-0.9 [facility] Comment on above: IG% - Immature Granu locytes (promyelocytes, myelocytes and metamyelocytes) > 1% indicates that a LEFT SHIFT is Present. MCH (RBC) [Entitic mass] 31.4 pg 27.0-32.0 [facility] Nucleated RBC/100 WBC (Bld) [Ratio] 0 % 0-5 [facility] MCHC Auto (RBC) [Mass/Vol]Or dered By: Dr. Colvin on 08-19-2022 MCHC (RBC) [Mass/Vol] 33.7 g/dL 32-36 [facility] No Panel InformationOrdered By: Dr. Colvin on 08-19-2022 Estimated GFR (MDRD) Amer 66 mL/min >60 [facility] Comment on above: GFR Calc Estimated GFR (MDRD) Non-Af Amer 55 mL/min >60 [facility] Comment on above: Non- GFR Calc Prostate Specific Antigen Screen 1.66 ng/mL 0.00-4.00 [facility] Comment on above: This test was perfor med using the TPSA assay method for the[employer] chemistry system. Values obtained with differentassay methods cannot be used interchangably.When changing PSA assays in the course of monitoring apatient, additional sequential testing should be carriedout to confirm baseline values. Platelets bldOrdered By: Dr. Colvin on 08-19-2022 Platelets (Bld) [#/Vol] 224 10*3/uL 150-450 [facility] Serum or plasma albumin andrea urement (mass/volume)Ordered By: Dr. Colvin on 08-19-2022 Albumin [Mass/Vol] 3.9 g/dL 3.2-5.0 [facility] Serum or plasma albumin/glob ulin mass ratioOrdered By: Dr. Clovin on 08-19-2022 Albumin/Globulin [Mass ratio] 1.1 {ratio} 0.9-2.4 [facility] Serum or plasma calcium andrea urement (mass/volume)Ordered By: Dr. Colvin on 08-19-2022 Calcium [Mass/Vol] 9.0 mg/dL 8.5-10.1 [facility] Serum or plasma cholesterol in HDL measurement (mass/volume)Ordered By: Dr. Colvin on 08-19-2022 Cholesterol in HDL [Mass/Vol] 58 mg/dL >40 [facility] Comment on above: The drugs N-Acetylcy steine and Metamizole may falsely depress this assay. Reference Range HDL <40 mg/dL Low HDL Cholesterol HDL >or= 60 mg/dL High HDL Cholesterol Serum or plasma cholesterol in VLDL measurement (mass/volume)Ordered By: Dr. Colvin on 08-19-2022 Cholesterol in VLDL [Mass/Vol] 9 mg/dL 5-40 [facility] Serum or plasma creatinine m easurement (mass/volume)Ordered By: Dr. Colvin on 08-19-2022 Creatinine [Mass/Vol] 1.40 mg/dL 0.70-1.30 [facility] Comment on above: The validity of the calculated GFR & GFRAA in patients over 70 years has not been determined. Clinical correlation is essential. Serum or plasma low density lipoprotein (LDL) cholesterol measurement (mass/volume)Ordered By: Dr. Colvin on 08-19-2022 Cholesterol in LDL [Mass/Vol] 73 mg/dL 0-130 [facility] Serum or plasma urea nitroge n measurement (mass/volume)Ordered By: Dr. Colvin on 08-19-2022 Urea nitrogen [Mass/Vol] 29 mg/dL 7-18 [facility] Thin prep Papanicolaou smear with manual screeningOrdered By: Dr. Colvin on 08-19-2022 Thin prep Papanicolaou smear with manual screening 21 U/L 15-37 [facility] Thin prep Papanicolaou smear with manual screening 8 5-15 [facility] BMPon 12-04-2020 Anion gap [Moles/Vol] 3 mmol/L Low 5-16 [facility] Comment on above: Order Comment: Campu s: M Performed By: #### L 500.93982, L500.81429 #### [facility] [address] [place] [address] Calcium [Mass/Vol] 9.7 mg/dL Normal 8.5-10.5 [facility] Comment on above: Order Comment: Campu s: M Result Comment: NOTE NEW NORMAL RANGE DUE TO REAGENT CHANGE Performed By: #### L 500.52320, L500.00196 #### [facility] [address] [place] [address] Chloride [Moles/Vol] 110 mmol/L High 98-107 [facility] Comment on above: Order Comment: Campu s: M Performed By: #### L 500.32132, L500.49274 #### [facility] [place] [address] CO2 [Moles/Vol] 30.0 mmol/L Normal 21-32 [facility] Comment on above: Order Comment: Campu s: M Performed By: #### L 500.98548, L500.93881 #### [facility] [place] [address] Creatinine [Mass/Vol] 1.22 mg/dL Normal 0.5-1.4 [facility] Comment on above: Order Comment: Campu s: M Result Comment: NOTE NEW NORMAL RANGE DUE TO REAGENT CHANGE Patients receiving either N-Acetylcysteine (NAC) or Metamizole prior to venipuncture, may have falsely depressed results. Performed By: #### L 500.53042, L500.34829 #### [facility] [place] [address] Glucose [Mass/Vol] 103 mg/dL High 70-100 [facility] Comment on above: Order Comment: Campu s: M Result Comment: 70-1 00- Normal Fasting; 100-125 Impaired Fasting; greater than 126 on more than one result- Diabetes. ADA guidelines. Results may be falsely elevated after the administration of Sulfapyridine. Results may be falsely depressed after the administration of Sulfasalazine. Performed By: #### L 500.86696, L500.93827 #### [facility] [address] [place] [address] Potassium [Moles/Vol] 4.7 mmol/L Normal 3.5-5.1 [facility] Comment on above: Order Comment: Campu s: M Performed By: #### L 500.37131, L500.44221 #### [facility] [address] [place] [address] Sodium [Moles/Vol] 142 mmol/L Normal 136-145 [facility] Comment on above: Order Comment: Campu s: M Performed By: #### L 500.56243, L500.50690 #### [facility] [address] [place] [address] Urea nitrogen [Mass/Vol] 29 mg/dL High 7-26 [facility] Comment on above: Order Comment: Campu s: M Performed By: #### L 500.31786, L500.02074 #### [facility] [address] [place], [place] [id number] Urea nitrogen/Creatinine [Mass ratio] 24 mg/mg Normal 15-24 [facility] Comment on above: Order Comment: Campu s: M Performed By: #### L 500.34988, L500.57170 #### [facility] [address] [place] [address] CBC W/DIFFon 12-04-2020 BASO ABS 0.10 K/CU MM Normal 0-0.2 [facility] Comment on above: Order Comment: Campu s: M Performed By: #### L 200.25873 #### [facility] [address]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 ability as evidenced by ambulation 100 feet with front wheeled walker independently with AD, to return to safe household and community ambulation, in order to transition to OP PT , to be achieved by 12/29/23 . PT Impaired gait No Improved Balance Description: LTG: Patient will demonstrate improved standing balance to meet functional goals as evidenced by TUG score of <40 to be achieved by 12/29/23. PT Impaired balance No Manage Orthopedic Condition Description: Improve patient and/or caregiver understanding of post surgical and/or non-surgical orthopedic intervention management as evidenced by patient and/or caregiver able to verbalize, demonstrate, and teach back instruction, to be achieved by 12/29/23 . PT Orthopedic Condition No Demonstrate understanding of education Description: Patient and/or caregiver will understand educational instruction to be achieved by 12/29/23 . PT Learning Assessment No Interventions Intervention Associated Problem/Goal Status Variance Visit Notes Medication Education Description: Evaluate/instruct patient/caregiver on obtaining, storing, identifying and administering ordered medications as well as keeping accurate medication list in the home and adhereing to medication schedule Problem:Medication Education Goal:Patient/caregi juan will demonstrate ability to obtain, store, identify and administer ordered medications, keep accurate medication list in home, and adhere to medication schedule Completed Patient instructed on importance of keeping accurate medication list in home. SPO2 Description: Notify Dr. [place] if pulse ox is <92% at rest. Problem:Physician Specific Parameters Goal:Patient to maintain parameters within physician-specified ranges throughout certification period Completed Instruct on individual fall risk factors and strategies to prevent falls and injuries caused by falls. Problem:Risk for Falls Goal:Manage Risk for falls Completed PT: Patient instructed on Managing Impaired Functional Mobility: Use assistive device(s): front wheeled walker Instruct on pain and instruct on strategies to control pain Problem:Pain Goal:Manage Pain Completed patient instructed on techniques to control pain including Pharmacological measures and Non-Pharmacological measures; positioning/elevatio n and use of thermal modalities, apply ice to affected area for the following prescribed frequency: prn. Opioids- educated on high risk medication Problem:High Risk Medications Goal:Patient/caregi juan will teach back high risk medication side effect and precaution education Completed patient educated on taking medication(s) as prescribed by provider. Do not stop medication or alter doses without speaking with your provider. Discuss medication effectiveness or side effect concerns with your provider and home care team. Only take opioids as prescribed, do not share your medications, and take proper precautions in storing and properly disposing of opioids once no longer needed. Possible side effects of opioid medication including sedation, decreased rate of breathing, and constipation. Report over sedation to prescribing provider and practice deep breathing techniques every hour while awake. Prevent constipation by increasing water and fiber intake, increasing activity as tolerated, and use stool softener(s) as prescribed. Instruct on ongoing discharge plan Problem:Discharge Goal:Manage discharge planning Completed Ongoing Discharge plan: Discharge plan discussed with patient including frequency and duration for home PT and plan for transition to: outpatient therapy. Instruct on importance of follow-up appts and continued monitoring with medical provider &/or chronic care clinic Problem:Discharge Goal:Manage discharge planning Completed Education provided on importance of compliance with follow-up appointment(s). Recommendations: None Physical Therapy Therapeutic Exercises Problem:PT Impaired muscle performance and/or ROM Goal:Improved Muscle Performance and/or ROM Completed patient instructed on strengthening exercises including quad and glut sets, hip abd and add, saq and heel slides x's 10 each. standing lle hip abd and hams curls x's 10 each with verbal, visual and written cues for correct form and hold times. patient instructed to perform home exercise program twice a day which included above ex. Physical Therapy Stair Training Problem:PT Impaired gait Goal:Improved Stair Climbing Patient requested to defer to next visit Physical Therapy Gait Training Problem:PT Impaired gait Goal:Improved Gait Completed Gait training and instruction to patient on safe ambulation with front wheeled walker for 2x's 20 and x's 50 feet with supervision, with verbal cues for corrections of gait deviations including increased step length and height.. Physical Therapy Balance Training Problem:PT Impaired balance Goal:Improved Balance Completed Developed, implemented, and instructed patient on standing balance exercises including side stepping at counter x's 4 laps . Instruct on orthopedic precautions and weight bearing restrictions Description: Orthopedic precautions including left posterior hip: no hip flexion > 90 degrees, no adduction and no IR/ER rotation of involved extermity. Weight bearing restrictions include: WBAT of involved extremity. Problem:PT Orthopedic Condition Goal:Manage Orthopedic Condition Completed patient instructed on orthopedic precautions. Instruct on management of edema Problem:PT Orthopedic Condition Goal:Manage Orthopedic Condition Completed Instruct patient on management of edema including elevation of LLE above the level of the heart and ice. Instruct on self-management of post surgical and/or non-surgical orthopedic intervention Problem:PT Orthopedic Condition Goal:Manage Orthopedic Condition Completed patient instructed on managagement of orthopedic condition, staying well hydrated, signs and symptoms of infection, signs and symptoms of DVT/PE, instructed on when to call provider and instructed on when to call 911. Instruct and educate on knowledge deficits Problem:PT Learning Assessment Goal:Demonstrate understanding of education Completed patient verbalize and/or demonstrate understanding of physical therapy education including surgical precautions, pain management and home exercise program. Education methods include: verbal cues. Further education required to improve knowledge and compliance with home exercise program. [facility] Visit Details Visit Type -PT ROUTINE Discipline -Physical Therapy Problems Problem Description Start Date Status Goals Interve ntions Physician Specific Parameters Disciplines: Skilled Services 12/21/2023 Active 1 goal linked to scheduled/document ed intervention 1 goal intervention scheduled/document ed in this visit Risk for Falls Disciplines: Skilled Services 12/21/2023 Active 1 goal linked to scheduled/document ed intervention 1 goal intervention scheduled/document ed in this visit Pain Disciplines: Skilled Services 12/21/2023 Active 1 goal linked to scheduled/document ed intervention 1 goal intervention scheduled/document ed in this visit PT Impaired muscle performance and/or ROM Disciplines: PT 12/21/2023 Active 1 goal linked to scheduled/document ed intervention 1 goal intervention scheduled/document ed in this visit PT Impaired gait Disciplines: PT 12/21/2023 Active 1 goal linked to scheduled/document ed intervention 1 goal intervention scheduled/document ed in this visit PT Impaired balance Disciplines: PT 12/21/2023 Active 1 goal linked to scheduled/document ed intervention 1 goal intervention scheduled/document ed in this visit PT Orthopedic Condition Disciplines: PT 12/21/2023 Active 1 goal linked to scheduled/document ed intervention 4 goal interventions scheduled/document ed in this visit PT Learning Assessment Disciplines: PT 12/21/2023 Active 1 goal linked to scheduled/document ed intervention 1 goal intervention scheduled/document ed in this visit Goals Goal Associated Problem Outcome Goal Met? Visit Notes Patient to maintain parameters within physician-specified ranges throughout certification period Physician Specific Parameters No Manage Risk for falls Description: Patient/caregiver will verbalize knowledge of individualized fall prevention strategies by 02/18/24. . Risk for Falls No Manage Pain Description: Patient/caregiver will verbalize knowledge and understanding of appropriate techniques to control pain, including pain medication and non-pharmacological techniques. Patient will verbalize or demonstrate an acceptable level of pain as evidenced by a pain score of <5/10 and improvement in ability to perform activities of daily living to be achieved by 02/18/24. . Pain No Improved Muscle Performance and/or ROM Description: LTG: Patient will demonstrate improved muscle performance to meet functional goals as evidenced by ability to tolerate 5-8 minutes of standing activity, to be achieved by 12/29/23 . STG: Patient and/or caregiver will verbalize/demonstrate independence with home exercise program, to improve functional mobility, to be achieved by 12/25/23. PT Impaired muscle performance and/or ROM No Improved Gait Description: LTG: Patient will demonstrate improved gait ability as evidenced by ambulation 100 feet with front wheeled walker independently with AD, to return to safe household and community ambulation, in order to transition to OP PT , to be achieved by 12/29/23 . PT Impaired gait No Improved Balance Description: LTG: Patient will demonstrate improved standing balance to meet functional goals as evidenced by TUG score of <40 to be achieved by 12/29/23. PT Impaired balance No Manage Orthopedic Condition Description: Improve patient and/or caregiver understanding of post surgical and/or non-surgical orthopedic intervention management as evidenced by patient and/or caregiver able to verbalize, demonstrate, and teach back instruction, to be achieved by 12/29/23 . PT Orthopedic Condition No Demonstrate understanding of education Description: Patient and/or caregiver will understand educational instruction to be achieved by 12/29/23 . PT Learning Assessment No Interventions Intervention Associated Problem/Goal Status Variance Visit Notes SPO2 Description: Notify Dr. Montana if pulse ox is <92% at rest. Problem:Physician Specific Parameters Goal:Patient to maintain parameters within physician-specified ranges throughout certification period Completed Instruct on individual fall risk factors and strategies to prevent falls and injuries caused by falls. Problem:Risk for Falls Goal:Manage Risk for falls Completed PT: Patient instructed on Eliminating Environmental Hazards: Keep pathways clear, Remove unsafe rugs, Move furniture from pathways and Wear supportive shoes or non-skid socks Managing Impaired Functional Mobility: Use assistive device(s): front wheeled walker Managing Pain Instruct on pain and instruct on strategies to control pain Problem:Pain Goal:Manage Pain Completed patient instructed on techniques to control pain including Pharmacological measures and Non-Pharmacological measures; rest, positioning/elevation and use of thermal modalities, apply ice to affected area . Physical Therapy Therapeutic Exercises Problem:PT Impaired muscle performance and/or ROM Goal:Improved Muscle Performance and/or ROM Completed patient instructed on strengthening exercises including quad and glut sets, hip abd and add, saq and heel slides x's 10 each. standing lle hip abd and hams curls x's 10 each with verbal, visual and written cues for correct form and hold times. patient instructed to perform home exercise program twice a day which included above ex. Physical Therapy Gait Training Problem:PT Impaired gait Goal:Improved Gait Completed Gait training and instruction to patient on safe ambulation with front wheeled walker for 35' x 2 feet with supervision, with verbal cues for corrections of gait deviations including marching gait with no AFO's on . Physical Therapy Balance Training Problem:PT Impaired balance Goal:Improved Balance Completed Developed, implemented, and instructed patient on standing balance exercises including side stepping at the counter . Instruct on orthopedic precautions and weight bearing restrictions Description: Orthopedic precautions including left posterior hip: no hip flexion > 90 degrees, no adduction and no IR/ER rotation of involved extermity. Weight bearing restrictions include: WBAT of involved extremity. Problem:PT Orthopedic Condition Goal:Manage Orthopedic Condition Completed patient instructed on weight bearing restrictions. Instruct on management of edema Problem:PT Orthopedic Condition Goal:Manage Orthopedic Condition Completed Instruct patient on management of edema including elevation of LLE above the level of the heart and ice. Physical therapy to perform surgical incision/wound management Description: Removal of post-op dressing on 7-10 ( 12/25/21). If no drainage is present, leave open to air; if drainage is present, cover with clean dressing and contact provider. Problem:PT Orthopedic Condition Goal:Manage Orthopedic Condition Completed Intervention completed this date. Dressign removed -incision clean dry and covered with steri strips . With pts pernmission a photo was uploaded for MD to review Instruct on self-management of post surgical and/or non-surgical orthopedic intervention Problem:PT Orthopedic Condition Goal:Manage Orthopedic Condition Completed patient instructed on managagement of orthopedic condition, staying well hydrated, eating foods with high protein, signs and symptoms of infection, signs and symptoms of DVT/PE and instructed on when to call provider. Instruct and educate on knowledge deficits Problem:PT Learning Assessment Goal:Demonstrate understanding of education Completed patient verbalize and/or demonstrate understanding of physical therapy education including orthopedic condition management, weight bearing precautions, pain management and fall prevention strategies. Education methods include: verbal cues. Further education required to improve knowledge and compliance with fall prevention strategies, home safety, functional activity and home exercise program. [facility] Visit Details Visit Type -PT AGENCY DEANN W Kayden MYERS Discipline -Physical Therapy Problems Problem Description Start Date Status Goals Interve ntions Medication Education Disciplines: Skilled Services 12/21/2023 Resolved on 12/29/2023 1 goal linked to scheduled/document ed intervention Physician Specific Parameters Disciplines: Skilled Services 12/21/2023 Resolved on 12/29/2023 1 goal linked to scheduled/document ed intervention 1 goal intervention scheduled/document ed in this visit Risk for Falls Disciplines: Skilled Services 12/21/2023 Resolved on 12/29/2023 1 goal linked to scheduled/document ed intervention 1 goal intervention scheduled/document ed in this visit Pain Disciplines: Skilled Services 12/21/2023 Resolved on 12/29/2023 1 goal linked to scheduled/document ed intervention 1 goal intervention scheduled/document ed in this visit High Risk Medications Disciplines: Skilled Services 12/21/2023 Resolved on 12/29/2023 1 goal linked to scheduled/document ed intervention Discharge Disciplines: Skilled Services 12/21/2023 Resolved on 12/29/2023 1 goal linked to scheduled/document ed intervention PT Impaired muscle performance and/or ROM Disciplines: PT 12/21/2023 Resolved on 12/29/2023 1 goal linked to scheduled/document ed intervention 1 goal intervention scheduled/document ed in this visit PT Impaired mobility Disciplines: PT 12/21/2023 Resolved on 12/29/2023 1 goal linked to scheduled/document ed intervention 1 goal intervention scheduled/document ed in this visit PT Impaired gait Disciplines: PT 12/21/2023 Resolved on 12/29/2023 2 goals linked to scheduled/document ed interventions 2 goal interventions scheduled/document ed in this visit PT Impaired balance Disciplines: PT 12/21/2023 Resolved on 12/29/2023 1 goal linked to scheduled/document ed intervention 1 goal intervention scheduled/document ed in this visit PT Orthopedic Condition Disciplines: PT 12/21/2023 Resolved on 12/29/2023 1 goal linked to scheduled/document ed intervention 3 goal interventions scheduled/document ed in this visit PT Learning Assessment Disciplines: PT 12/21/2023 Resolved on 12/29/2023 1 goal linked to scheduled/document ed intervention 1 goal intervention scheduled/document ed in this visit Goals Goal Associated Problem Outcome Goal Met? Visit Notes Patient/caregiver will demonstrate ability to obtain, store, identify and administer ordered medications, keep accurate medication list in home, and adhere to medication schedule Description: Patient/caregiver will demonstrate ability to obtain, store, identify and administer ordered medications, keep accurate medication list in home, and adhere to medication schedule by 02/18/24. Medication Education Completed Yes Patient to maintain parameters within physician-specified ranges throughout certification period Physician Specific Parameters Completed Yes Manage Risk for falls Description: Patient/caregiver will verbalize knowledge of individualized fall prevention strategies by 02/18/24. . Risk for Falls Completed Yes Manage Pain Description: Patient/caregiver will verbalize knowledge and understanding of appropriate techniques to control pain, including pain medication and non-pharmacological techniques. Patient will verbalize or demonstrate an acceptable level of pain as evidenced by a pain score of <5/10 and improvement in ability to perform activities of daily living to be achieved by 02/18/24. . Pain Completed Yes Patient/caregiver will teach back high risk medication side effect and precaution education Description: STG Patient/caregiver will verbalize understanding of high risk medication side effects and precautions to be achieved by 12/21/23. LTG Patient/caregiver will continue to verbalize understanding of high risk medication side effects and precautions throughout certification period. High Risk Medications Completed Yes Manage discharge planning Description: Patient/caregiver will verbalize understanding of ongoing discharge plan provided related to disease management, arrangements for outpatient and/or community services, obtaining medications, supplies, and DME, as needed throughout certification period. Discharge Completed Yes Improved Muscle Performance and/or ROM Description: LTG: Patient will demonstrate improved muscle performance to meet functional goals as evidenced by ability to tolerate 5-8 minutes of standing activity, to be achieved by 12/29/23 . STG: Patient and/or caregiver will verbalize/demonstrate independence with home exercise program, to improve functional mobility, to be achieved by 12/25/23. PT Impaired muscle performance and/or ROM Completed Yes Improved Transfers Description: LTG: Patient will demonstrate safe transfers to/from bed, chair, toilet, couch and car independently with AD, to be achieved by 12/29/23 . PT Impaired mobility Completed Yes Improved Stair Climbing Description: LTG: Patient will demonstrate improved stair negotiation as evidenced by ascend/descend 2 steps with railing and with cane independently, to safely access community and exit home, to be achieved by 12/29/23 . PT Impaired gait Completed Yes Improved Gait Description: LTG: Patient will demonstrate improved gait ability as evidenced by ambulation 100 feet with front wheeled walker independently with AD, to return to safe household and community ambulation, in order to transition to OP PT , to be achieved by 12/29/23 . PT Impaired gait Completed Yes Improved Balance Description: LTG: Patient will demonstrate improved standing balance to meet functional goals as evidenced by TUG score of <40 to be achieved by 12/29/23. PT Impaired balance Completed Yes Manage Orthopedic Condition Description: Improve patient and/or caregiver understanding of post surgical and/or non-surgical orthopedic intervention management as evidenced by patient and/or caregiver able to verbalize, demonstrate, and teach back instruction, to be achieved by 12/29/23 . PT Orthopedic Condition Completed Yes Demonstrate understanding of education Description: Patient and/or caregiver will understand educational instruction to be achieved by 12/29/23 . PT Learning Assessment Completed Yes Interventions Intervention Associated Problem/Goal Status Variance Visit Notes SPO2 Description: Notify Dr. Montana if pulse ox is <92% at rest. Problem:Physician Specific Parameters Goal:Patient to maintain parameters within physician-specified ranges throughout certification period Completed Instruct on individual fall risk factors and strategies to prevent falls and injuries caused by falls. Problem:Risk for Falls Goal:Manage Risk for falls Completed PT: Patient instructed on Eliminating Environmental Hazards: Keep pathways clear, Remove unsafe rugs, Move furniture from pathways, Keep rooms and walkways well lit and Wear supportive shoes or non-skid socks Managing Impaired Functional Mobility: Use assistive device(s): front wheeled walker and single point cane Managing Pain Instruct on pain and instruct on strategies to control pain Problem:Pain Goal:Manage Pain Completed patient instructed on techniques to control pain including Pharmacological measures and Non-Pharmacological measures; rest, positioning/elevation and use of thermal modalities, apply ice to affected area. Physical Therapy Therapeutic Exercises Problem:PT Impaired muscle performance and/or ROM Goal:Improved Muscle Performance and/or ROM Completed patient instructed on strengthening exercises including quad and glut sets, hip abd and add, saq and heel slides x's 10 each. standing knee flexion, hip flexion, hip abd 10 each bilaterally .with verbal, visual and written cues for correct form and hold times. patient instructed to perform home exercise program twice a day which included above ex. Physical Therapy Transfer Training Problem:PT Impaired mobility Goal:Improved Transfers Completed KARON transfers with safe/ proper technque Physical Therapy Stair Training Problem:PT Impaired gait Goal:Improved Stair Climbing Completed up and down 1 flight with rail + cane and steps together sequence Physical Therapy Gait Training Problem:PT Impaired gait Goal:Improved Gait Completed Indep amb with WW or st cane with steady recip pattern , limp created by r ankle fusion and L foot fdrop with AFO Physical Therapy Balance Training Problem:PT Impaired balance Goal:Improved Balance Completed pt demonstrates improved dynamic standing balacne as evidenced by a tug of [address] cane Instruct on orthopedic precautions and weight bearing restrictions Description: Orthopedic precautions including left posterior hip: no hip flexion > 90 degrees, no adduction and no IR/ER rotation of involved extermity. Weight bearing restrictions include: WBAT of involved extremity. Problem:PT Orthopedic Condition Goal:Manage Orthopedic Condition Completed patient instructed on orthopedic precautions. Instruct on management of edema Problem:PT Orthopedic Condition Goal:Manage Orthopedic Condition Completed Instruct patient on management of edema including elevation of LLE above the level of the heart and ice. Instruct on self-management of post surgical and/or non-surgical orthopedic intervention Problem:PT Orthopedic Condition Goal:Manage Orthopedic Condition Completed patient instructed on measures to avoid skin breakdown, eating foods with high protein, signs and symptoms of infection, signs and symptoms of DVT/PE and instructed on when to call provider. Instruct and educate on knowledge deficits Problem:PT Learning Assessment Goal:Demonstrate understanding of education Completed patient verbalize and/or demonstrate understanding of physical therapy education including orthopedic condition management, surgical precautions, fall prevention strategies, home safety, functional activity and home exercise program. Education methods include: verbal cues. [facility] Diagnostic Procedure Only (Routine) - Pending Review Specialty Diagnoses / Procedures Referred By Carissa connor Referred To Contact XR IMAGING Diagnoses Status post left hip replacement Procedures XR PELVIS 1V AP RADIOLOGIC EXAMINATION PELVIS 1/2 VIEWS Ed Montana MD [address] [address] Xr Imaging [id number] Referral ID Status Reason Start Date Expiration Date Visits Requested Visits Authorized [id number] Pending Review Auto-Generat ed Referral 01/08/2024 02/06/2025 1 1 [facility] Summary Purpose Family History No Family History Records Found Relationship Condition Age at Onset Recorded Date/T osmany mother Hypertension Unknown Diabetes mellitus Unknown father Hypertension Unknown Coronary artery disease Unknown brother Malignant neoplasm Unknown Advance Directives No Advanced Directives Records Found Advance Directive Response Recorded Date/ Time Advance Directives No August 8:07am Living Will No January 08, 2020 6:53pm Power of It Compliance Analyst No January 07 0 6:53pm Advance Directive Response Recorded Date/ Time Advance Directives No August 7:07am Living Will No January 08, 2020 5:53pm Power of It Compliance Analyst No January 07 0 5:53pm Date Activated Date Inactivated Comments 12/21/2023 3:12 PM Date Activated Date Inactivated Comments 12/21/2023 3:12 PM Chief Complaint and Reason for Visit Chief Complaint hip strain Chief Complaint hip strain 1 Y FU Presence of coronary angioplasty implant and graft Presence of coronary angioplasty implant and graft Reason for Visit Essential (primary) hypertension Hyperlipemia PAD (peripheral artery disease) History of coronary artery stent placement Chief Complaint Presence of coronary angioplasty implant and graft Presence of coronary angioplasty implant and graft HYPERSOMNIA, WITNESS APNEA; AFTERCARE Chief Complaint 1 Y FU Reason for Visit Essential (primary) hypertension Hyperlipemia PAD (peripheral artery disease) History of coronary artery stent placement Medications Administered Section Inactive Administered Medications - up to 3 most recent administrations Medication Order MAR Action Action Date Dose Rate Site BUPivacaine (PF) 0.25 % (2.5 mg/mL) injection (SENSORCAINE MPF) INTRA-ARTICULAR, X (OR/PROCEDURE) PRN, Starting on Mon03/27/23 at 1007, Until Mon03/28/23 at 0303, Intraprocedure Given 03/27/2023 10:07 AM EDT 1.5 mL lidocaine (PF) 10 mg/mL (1 %) injection (XYLOCAINE) SUBCUTANEOUS, X (OR/PROCEDURE) PRN, Starting on Mon03/27/23 at 1004, Until Mon03/28/23 at 0303, Intraprocedure Given 03/27/2023 10:04 AM EDT 10 mL Hip, Left lidocaine (PF) 10 mg/mL (1 %) injection (XYLOCAINE) SUBCUTANEOUS, X (OR/PROCEDURE) PRN, Starting on Mon03/27/23 at 1006, Until Mon03/28/23 at 0303, Intraprocedure Given 03/27/2023 10:06 AM EDT 1.5 mL Hip, Left triamcinolone acetonide injection (KeNALog 40) INTRA-ARTICULAR, X (OR/PROCEDURE) PRN, Starting on Mon03/27/23 at 1007, Until Mon03/28/23 at 0303, Intraprocedure Given 03/27/2023 10:07 AM EDT 80 mg Hip, Left Reason for Referral Specialty Diagnoses / Procedures Referred By Carissa t Referred To Contact Orthopedics Diagnoses Closed displaced fracture of posterior column of left acetabulum with routine healing, subsequent encounter Post-traumatic osteoarthritis of left hip Procedures CONSULT TO ORTHOPAEDICS OFFICE/OUTPATIENT [facility] MDM [id number] MINUTES Jarad Phelan MD [address] [place] [address] Ed Montana MD [address] [place] [address] Referral ID Status Reason Start Date Expiration Date Visits Requested Visits Authorized [id number] Pending Review PCP Requested Referral 05/10/2023 08/08/2023 1 1 Specialty Diagnoses / Procedures Referred By Carissa connor Referred To Contact [facility] Diagnoses Post-traumatic osteoarthritis of left hip Procedures CONSULT TO PHYSICAL THERAPY PHYSICAL THERAPY EVALUATION [facility] 45 MINS Ed Montana MD [address] [place] [address] [facility] [facility] [address] [place] [id number] Referral ID Status Reason Start Date Expiration Date Visits Requested Visits Authorized [id number] Pending Review Auto-Generat ed Referral 11/08/2023 06/28/2024 1 1 Specialty Diagnoses / Procedures Referred By Carissa connor Referred To Contact Diagnoses Post-traumatic osteoarthritis of left hip Status post left hip replacement Ed Montana MD [address] [place] [address] Referral ID Status Reason Start Date Expiration Date Visits Re quested Visits Authorized [id number] Closed 1 1 Additional Source Comments (unrecognized sect ion and content) No Status Records FoundNo Status Records FoundNo Status Records FoundNo Status Records FoundNo Status Records FoundNo Status Records FoundNo Status Records FoundNo Status Records Found INFORMATION SOURCE (unrecogn ized section and content) DATE CREATED AUTHOR 04/04/2018 [employer] [facility] [employer] DATE CREATED AUTHOR AUTHOR'S ORGANIZ ATION 09/16/2018 [facility] DATE CREATED AUTHOR AUTHOR'S ORGANIZ ATION 12/09/2020 [facility] DATE CREATED AUTHOR AUTHOR'S ORGANIZ ATION 12/29/2023 [facility] DATE CREATED AUTHOR AUTHOR'S ORGANIZ ATION 03/15/2025 [facility] DATE CREATED AUTHOR AUTHOR'S ORGANIZ ATION 05/05/2025 [facility] DATE CREATED AUTHOR AUTHOR'S ORGANIZ ATION 05/05/2025 [facility] DATE CREATED AUTHOR AUTHOR'S ORGANIZ ATION 05/13/2025 [facility] Source Comments (unrecognize d section and content) In the event this informatio n is protected by the Federal Confidentiality of Alcohol and Drug Abuse Patient Records regulations: The Federal rules restrict any use of the information to criminally investigate or prosecute any alcohol or drug abuse patient.[facility] the event this information is protected by the Federal Confidentiality of Alcohol and Drug Abuse Patient Records regulations: The Federal rules restrict any use of the information to criminally investigate or prosecute any alcohol or drug abuse patient.[facility] the event this information is protected by the Federal Confidentiality of Alcohol and Drug Abuse Patient Records regulations: The Federal rules restrict any use of the information to criminally investigate or prosecute any alcohol or drug abuse patient.[facility] the event this information is protected by the Federal Confidentiality of Alcohol and Drug Abuse Patient Records regulations: The Federal rules restrict any use of the information to criminally investigate or prosecute any alcohol or drug abuse patient.[facility] HospitalIn the event this information is protected by the Federal Confidentiality of Alcohol and Drug Abuse Patient Records regulations: The Federal rules restrict any use of the information to criminally investigate or prosecute any alcohol or drug abuse patient.[facility] HospitalIn the event this information is protected by the Federal Confidentiality of Alcohol and Drug Abuse Patient Records regulations: The Federal rules restrict any use of the information to criminally investigate or prosecute any alcohol or drug abuse patient.[facility]In the event this information is protected by the Federal Confidentiality of Alcohol and Drug Abuse Patient Records regulations: The Federal rules restrict any use of the information to criminally investigate or prosecute any alcohol or drug abuse patient.[facility] HospitalIn the event this information is protected by the Federal Confidentiality of Alcohol and Drug Abuse Patient Records regulations: The Federal rules restrict any use of the information to criminally investigate or prosecute any alcohol or drug abuse patient.[facility] HospitalIn the event this information is protected by the Federal Confidentiality of Alcohol and Drug Abuse Patient Records regulations: The Federal rules restrict any use of the information to criminally investigate or prosecute any alcohol or drug abuse patient.[facility] HospitalIn the event this information is protected by the Federal Confidentiality of Alcohol and Drug Abuse Patient Records regulations: The Federal rules restrict any use of the information to criminally investigate or prosecute any alcohol or drug abuse patient.[facility] HospitalIn the event this information is protected by the Federal Confidentiality of Alcohol and Drug Abuse Patient Records regulations: The Federal rules restrict any use of the information to criminally investigate or prosecute any alcohol or drug abuse patient.[facility] HospitalIn the event this information is protected by the Federal Confidentiality of Alcohol and Drug Abuse Patient Records regulations: The Federal rules restrict any use of the information to criminally investigate or prosecute any alcohol or drug abuse patient.[facility] HospitalIn the event this information is protected by the Federal Confidentiality of Alcohol and Drug Abuse Patient Records regulations: The Federal rules restrict any use of the information to criminally investigate or prosecute any alcohol or drug abuse patient.[facility] HospitalIn the event this information is protected by the Federal Confidentiality of Alcohol and Drug Abuse Patient Records regulations: The Federal rules restrict any use of the information to criminally investigate or prosecute any alcohol or drug abuse patient.[facility] HospitalIn the event this information is protected by the Federal Confidentiality of Alcohol and Drug Abuse Patient Records regulations: The Federal rules restrict any use of the information to criminally investigate or prosecute any alcohol or drug abuse patient.[facility] HospitalIn the event this information is protected by the Federal Confidentiality of Alcohol and Drug Abuse Patient Records regulations: The Federal rules restrict any use of the information to criminally investigate or prosecute any alcohol or drug abuse patient.[facility] HospitalIn the event this information is protected by the Federal Confidentiality of Alcohol and Drug Abuse Patient Records regulations: The Federal rules restrict any use of the information to criminally investigate or prosecute any alcohol or drug abuse patient.[facility] HospitalIn the event this information is protected by the Federal Confidentiality of Alcohol and Drug Abuse Patient Records regulations: The Federal rules restrict any use of the information to criminally investigate or prosecute any alcohol or drug abuse patient.[facility] HospitalIn the event this information is protected by the Federal Confidentiality of Alcohol and Drug Abuse Patient Records regulations: The Federal rules restrict any use of the information to criminally investigate or prosecute any alcohol or drug abuse patient.[facility] HospitalIn the event this information is protected by the Federal Confidentiality of Alcohol and Drug Abuse Patient Records regulations: The Federal rules restrict any use of the information to criminally investigate or prosecute any alcohol or drug abuse patient.[facility] HospitalIn the event this information is protected by the Federal Confidentiality of Alcohol and Drug Abuse Patient Records regulations: The Federal rules restrict any use of the information to criminally investigate or prosecute any alcohol or drug abuse patient.[facility] HospitalIn the event this information is protected by the Federal Confidentiality of Alcohol and Drug Abuse Patient Records regulations: The Federal rules restrict any use of the information to criminally investigate or prosecute any alcohol or drug abuse patient.[facility] HospitalIn the event this information is protected by the Federal Confidentiality of Alcohol and Drug Abuse Patient Records regulations: The Federal rules restrict any use of the information to criminally investigate or prosecute any alcohol or drug abuse patient.[facility] HospitalIn the event this information is protected by the Federal Confidentiality of Alcohol and Drug Abuse Patient Records regulations: The Federal rules restrict any use of the information to criminally investigate or prosecute any alcohol or drug abuse patient.[facility] HospitalIn the event this information is protected by the Federal Confidentiality of Alcohol and Drug Abuse Patient Records regulations: The Federal rules restrict any use of the information to criminally investigate or prosecute any alcohol or drug abuse patient.[facility] HospitalIn the event this information is protected by the Federal Confidentiality of Alcohol and Drug Abuse Patient Records regulations: The Federal rules restrict any use of the information to criminally investigate or prosecute any alcohol or drug abuse patient.[facility] HospitalIn the event this information is protected by the Federal Confidentiality of Alcohol and Drug Abuse Patient Records regulations: The Federal rules restrict any use of the information to criminally investigate or prosecute any alcohol or drug abuse patient.[facility] HospitalIn the event this information is protected by the Federal Confidentiality of Alcohol and Drug Abuse Patient Records regulations: The Federal rules restrict any use of the information to criminally investigate or prosecute any alcohol or drug abuse patient.[facility] HospitalIn the event this information is protected by the Federal Confidentiality of Alcohol and Drug Abuse Patient Records regulations: The Federal rules restrict any use of the information to criminally investigate or prosecute any alcohol or drug abuse patient.[facility] HospitalIn the event this information is protected by the Federal Confidentiality of Alcohol and Drug Abuse Patient Records regulations: The Federal rules restrict any use of the information to criminally investigate or prosecute any alcohol or drug abuse patient.[facility] HospitalIn the event this information is protected by the Federal Confidentiality of Alcohol and Drug Abuse Patient Records regulations: The Federal rules restrict any use of the information to criminally investigate or prosecute any alcohol or drug abuse patient.[facility] HospitalIn the event this information is protected by the Federal Confidentiality of Alcohol and Drug Abuse Patient Records regulations: The Federal rules restrict any use of the information to criminally investigate or prosecute any alcohol or drug abuse patient.[facility] HospitalIn the event this information is protected by the Federal Confidentiality of Alcohol and Drug Abuse Patient Records regulations: The Federal rules restrict any use of the information to criminally investigate or prosecute any alcohol or drug abuse patient.[facility] HospitalIn the event this information is protected by the Federal Confidentiality of Alcohol and Drug Abuse Patient Records regulations: The Federal rules restrict any use of the information to criminally investigate or prosecute any alcohol or drug abuse patient.[facility] HospitalIn the event this information is protected by the Federal Confidentiality of Alcohol and Drug Abuse Patient Records regulations: The Federal rules restrict any use of the information to criminally investigate or prosecute any alcohol or drug abuse patient.[facility] HospitalIn the event this information is protected by the Federal Confidentiality of Alcohol and Drug Abuse Patient Records regulations: The Federal rules restrict any use of the information to criminally investigate or prosecute any alcohol or drug abuse patient.[facility] HospitalIn the event this information is protected by the Federal Confidentiality of Alcohol and Drug Abuse Patient Records regulations: The Federal rules restrict any use of the information to criminally investigate or prosecute any alcohol or drug abuse patient.[facility] HospitalIn the event this information is protected by the Federal Confidentiality of Alcohol and Drug Abuse Patient Records regulations: The Federal rules restrict any use of the information to criminally investigate or prosecute any alcohol or drug abuse patient.[facility] HospitalIn the event this information is protected by the Federal Confidentiality of Alcohol and Drug Abuse Patient Records regulations: The Federal rules restrict any use of the information to criminally investigate or prosecute any alcohol or drug abuse patient.[facility] HospitalIn the event this information is protected by the Federal Confidentiality of Alcohol and Drug Abuse Patient Records regulations: The Federal rules restrict any use of the information to criminally investigate or prosecute any alcohol or drug abuse patient.[facility] Reason for Visit (unrecogniz ed section and content) Reason Comments New Specialty Diagnoses / Procedures Referred By Contac t Referred To Contact Orthopedics Diagnoses Post-traumatic osteoarthritis of right hip Procedures CONSULT TO ORTHOPAEDICS OFFICE/OUTPATIENT NEW [facility] 60 MINUTES Ed Montana MD [address] [place] [address] Phone: tel: fax: Josh Koo MD [address] [place] [address] Phone: tel: fax: Referral ID Status Reason Start Date Expiration Date Visits Re quested Visits Authorized [id number] Closed 01/13/2025 04/13/2025 1 1 Reason Comments Appointment Reason Comments Established Patient Follow Up Reason Comments Orders Reason Comments Injections Reason Comments Patient Update Specialty Diagnoses / Procedures Referred By Contac t Referred To Contact Diagnoses Post-traumatic osteoarthritis of left hip Procedures ARTHROCENTESIS ASPIR&/INJ MAJOR JT/BURSA W/O US INJECT HIP LEFT [facility] Interventional Radiology [address] [place] [address] Referral ID Status Reason Start Date Expiration Date Visits Re quested Visits Authorized [id number] 1 1 Reason Comments Established Patient Reason Onset Date Comments PreOp Call 09/21/2023 Reason Onset Date Comments PreOp Call 09/28/2023 Reason Comments Home Care CONFIRMATION CALL Specialty Diagnoses / Procedures Referred By Contac t Referred To Contact HOME CARE SERVICES [facility] Home Care [address] [place] [address] Referral ID Status Reason Start Date Expiration Date Visits Re quested Visits Authorized [id number] 1 1 Reason Onset Date Comments Post Op Call 12/25/2023 Reason Comments Home Care Dressing removal Reason Comments Refill Request Reason Onset Date Comments Post Op Call 01/01/2024 Reason Comments Post Op Reason Comments Post Op Reason Comments Patient Question Reason Comments Established Patient Pain Reason Comments Established Patient Pain Pre-Op Visit Reason Onset Date Comments PreOp Call 04/22/2025 Reason Onset Date Comments 05/12/2025 Reason Onset Date Comments PreOp Call 05/12/2025 Care Teams (unrecognized sec tion and content) [employer] And [employer] Maker Relationship Specialty Start Date End Date Nico Maldonado MD PCP - General Family Medicine 07/12/17 Model And Mold Maker Relationship Specialty Start Date End Date Nico Maldonado MD PCP - General Family Medicine 07/12/17 Model And Mold Maker Relationship Specialty Start Date End Date Nico Maldonado MD PCP - General Family Medicine 07/12/17 Model And Mold Maker Relationship Specialty Start Date End Date Nico Maldonado MD PCP - General Family Medicine 07/12/17 Team Status: Active Member Role Status Dates Dr. Macho Colvin DO Family Provider Active Dr. Macho Colvin DO Primary Care Provider Active Team Status: Inactive Member Role Status Dates Dr. Macho Colvin DO Primary Care Provider, Referrin g Provider Active Dr. Jimenez Nowak MD Attending Provider Active Team Status: Active Member Role Status Dates Dr. Macho Colvin DO Primary Care Provider Active Dr. Jimenez Nowak MD Attending Provider, Other Provide r Active Team Status: Inactive Member Role Status Dates Dr. Macho Colvin DO Primary Care Provider Active Dr. Cullen Solorzano DC Attending Provider, Referring P bhargav Active Team Status: Inactive Member Role Status Dates Dr. Macho Colvin DO Primary Care Provider, Attendin g Provider Active Team Status: Inactive Member Role Status Dates Dr. Macho Colvin DO Primary Care Provider Active Dr. Jimenez Nowak MD Attending Provider Active Model And Mold Maker Relationship Specialty Start Date End Date Nico Maldonado MD PCP - General Family Medicine 07/12/17 Team Status: Inactive Member Role Status Dates Dr. Macho Colvin DO Primary Care Provider, Attendin g Provider Active Dr. Dale Feldman MD Referring Provider Active Model And Mold Maker Relationship Specialty Start Date End Date Nico Maldonado MD PCP - General Family Medicine 07/12/17 Model And Mold Maker Relationship Specialty Start Date End Date Nico Maldonado MD PCP - General Family Medicine 07/12/17 Model And Mold Maker Relationship Specialty Start Date End Date Nico Maldonado MD PCP - General Family Medicine 07/12/17 Model And Mold Maker Relationship Specialty Start Date End Date Nico Maldonado MD PCP - General Family Medicine 07/12/17 Model And Mold Maker Relationship Specialty Start Date End Date Nico Maldonado MD PCP - General Family Medicine 07/12/17 Model And Mold Maker Relationship Specialty Start Date End Date Nico Maldonado MD PCP - General Family Medicine 07/12/17 Team Status: Inactive Member Role Status Dates Dr. Macho Colvin DO Primary Care Provider, Referrin g Provider Active Vidhi Campos PA, PA Attending Provider Active Model And Mold Maker Relationship Specialty Start Date End Date Nico Maldonado MD PCP - General Family Medicine 07/12/17 Team Status: Inactive Member Role Status Dates Dr. Macho Colvin DO Primary Care Prov ider, Attending Provider, Referring Provider Active Model And Mold Maker Relationship Specialty Start Date End Date Nico Maldonado MD PCP - General Family Medicine 07/12/17 Model And Mold Maker Relationship Specialty [place] [address] [place] [address] PCP - General Family Medicine 12/19/23 Jacqui Waters, ADRIANNE Specialty Field Broomer Orthopedics 12/19/23 01/26/24 Ed Montana MD [address] [address] Home Care Provider Orthopedics 12/20/23 Mallika Paris APRN.DEALER ANALYST [address] [place] [address] Referring Internal Medicine 12/20/23 Melanie Sotelo, PT [address] [place] [address] Broadcast Correspondent Post Acute Care 12/20/23 Model And Mold Maker Relationship Specialty Start Date End Date CriseldaMacho DO [address] [place] [address] PCP - General Family Medicine 12/19/23 Jacqui Waters, ADRIANNE Specialty Field Broomer Orthopedics 12/19/23 01/26/24 Ed Montana MD [address] [address] Home Care Provider Orthopedics 12/20/23 Mallika Paris APRN.DEALER ANALYST [address] [place] [address] Referring Internal Medicine 12/20/23 Melanie Sotelo, PT [address] [place] [address] Broadcast Correspondent Post Acute Care 12/20/23 Model And Mold Maker Relationship Specialty Start Date End Date Macho Colvin DO [address] [facility] [place] [place] [address] PCP - General Family Medicine 12/19/23 Jacqui Waters, ADRIANNE Specialty Field Broomer Orthopedics 12/19/23 01/26/24 Ed Montana MD [address] [address] Home Care Provider Orthopedics 12/20/23 Mallika Paris APRN.DEALER ANALYST [address] [place] [address] Referring Internal Medicine 12/20/23 Melanie Sotelo, PT [address] [place], [place] [id number] Broadcast Correspondent Post Acute Care 12/20/23 Model And Mold Maker Relationship Specialty Start Date End Date CriseldaMacho TuckerDO [address] [place] [address] PCP - General Family Medicine 12/19/23 Jacqui Waters, ADRIANNE Specialty Field Broomer Orthopedics 12/19/23 01/26/24 Ed Montana MD [address] [address] Home Care Provider Orthopedics 12/20/23 Mallika Paris APRN.DEALER ANALYST [address] [place] [address] Referring Internal Medicine 12/20/23 Melanie Sotelo, PT [address] [place] [address] Broadcast Correspondent Post Acute Care 12/20/23 Model And Mold Maker Relationship Specialty Start Date End Date CriseldaMacho DO [address] [facility] [place] [place] [address] PCP - General Family Medicine 12/19/23 Jacqui Waters, ADRIANNE Specialty Field Broomer Orthopedics 12/19/23 01/26/24 Ed Montana MD [address] [address] Home Care Provider Orthopedics 12/20/23 Mallika Paris APRN.DEALER ANALYST [address] [place] [address] Referring Internal Medicine 12/20/23 Melanie Sotelo, PT [address] [place], [place] [id number] Broadcast Correspondent Post Acute Care 12/20/23 Model And Mold Maker Relationship Specialty Start Date End Date CriseldaMacho TuckerDO [address] [place] [address] PCP - General Family Medicine 12/19/23 Jacqui Waters, ADRIANNE Specialty Field Broomer Orthopedics 12/19/23 01/26/24 Ed Montana MD [address] [address] Home Care Provider Orthopedics 12/20/23 Mallika Paris APRN.DEALER ANALYST [address] [place] [address] Referring Internal Medicine 12/20/23 Melanie Sotelo, PT [address] [place] [address] Broadcast Correspondent Post Acute Care 12/20/23 Model And Mold Maker Relationship Specialty Start Date End Date CriseldaMacho DO [address] [facility] [place] [place] [address] PCP - General Family Medicine 12/19/23 Jacqui Waters, ADRIANNE Specialty Field Broomer Orthopedics 12/19/23 01/26/24 Ed Montana MD [address] [address] Home Care Provider Orthopedics 12/20/23 Mallika Paris APRN.DEALER ANALYST [address] [place] [address] Referring Internal Medicine 12/20/23 Melanie Sotelo, PT [address] [place], [place] [id number] Broadcast Correspondent Post Acute Care 12/20/23 Model And Mold Maker Relationship Specialty Start Date End Date Criselda Macho CeballosDO [address] [place], [place] [address] PCP - General Family Medicine 12/19/23 Jacqui Waters, ADRIANNE Specialty Field Broomer Orthopedics 12/19/23 01/26/24 Ed Montana MD [address] [place] [address] Home Care Provider Orthopedics 12/20/23 Mallika Paris, JULIETA.DEALER ANALYST [address] [place] [address] Referring Internal Medicine 12/20/23 Melanie Sotleo, PT [address] [place] [address] Broadcast Correspondent Post Acute Care 12/20/23 Model And Mold Maker Relationship Specialty Start Date End Date CriseldaMacho DO [address] [facility] [place] [place] [address] PCP - General Family Medicine 12/19/23 Ed Montana MD [address] [place] [address] Home Care Provider Orthopedics 12/20/23 Mallika Paris, JINGLE WRITER.DEALER ANALYST [address] [place] [address] Referring Internal Medicine 12/20/23 Melanie Sotelo, PT [address] [place] [address] Broadcast Correspondent Post Acute Care 12/20/23 Model And Mold Maker Relationship Specialty Start Date End Date Nico Maldonado MD PCP - General Family Medicine 07/12/17 12/18/23 CriseldaMacho DO [address] [place] [address] PCP - General Family Medicine 12/19/23 Jacqui Waters, ADRIANNE Specialty Field Broomer Orthopedics 12/19/23 01/26/24 Ed Montana MD [address] [address] Home Care Provider Orthopedics 12/20/23 Mallika Paris APRN.DEALER ANALYST [address] [place] [address] Referring Internal Medicine 12/20/23 Melanie Sotelo, PT [address] [place] [address] Broadcast Correspondent Post Acute Care 12/20/23 Model And Mold Maker Relationship Specialty Start Date End Date CriseldaMacho goldmanDO [address] [place] [address] PCP - General Family Medicine 12/19/23 Ed Montana MD [address] [address] Home Care Provider Orthopedics 12/20/23 Mallika Paris APRN.DEALER ANALYST [address] [place] [address] Referring Internal Medicine 12/20/23 Melanie Sotelo, PT [address] [place], [place] [id number] Broadcast Correspondent Post Acute Care 12/20/23 Model And Mold Maker Relationship Specialty Start Date End Date Macho Colvin DO [address] [place] [address] PCP - General Family Medicine 12/19/23 Ed Montana MD [address] [place] [address] Home Care Provider Orthopedics 12/20/23 Mallika Paris, JINGLE WRITER.DEALER ANALYST [address] [place], [place] [phone] Referring Internal Medicine 12/20/23 Melanie Sotelo, PT [address] [place] [address] Broadcast Correspondent Post Acute Care 12/20/23 Model And Mold Maker Relationship Specialty Start Date End Date Macho Colvin DO [address] [address] PCP - General Family Medicine 12/19/23 Ed Montana MD [address] [place] [id number] Home Care Provider Orthopedics 12/20/23 Mallika Paris, JINGLE WRITER.DEALER ANALYST [address] [place] [address] Referring Internal Medicine 12/20/23 Melanie Sotelo, PT [address] [place] [address] Broadcast Correspondent Post Acute Care 12/20/23 Model And Mold Maker Relationship Specialty Start Date End Date Macho Colvin DO [address] [address] PCP - General Family Medicine 12/19/23 Ed Montana MD [address] [place] [id number] Home Care Provider Orthopedics 12/20/23 Mallika Paris APRN.DEALER ANALYST 1 [place] [address] Referring Internal Medicine 12/20/23 Model And Mold Maker Relationship Specialty Start Date End Date Macho Colvin DO [address] [place] [address] PCP - General Family Medicine 12/19/23 Ed Montana MD [address] [address] Home Care Provider Orthopedics 12/20/23 Mallika Paris APRN.DEALER ANALYST 1 [facility] [place] [address] Referring Internal Medicine 12/20/23 Model And Mold Maker Relationship Specialty Start Date End Date Macho Colvin DO [address] [place] [address] PCP - General Family Medicine 12/19/23 Ed Montana MD [address] [address] Home Care Provider Orthopedics 12/20/23 Mallika Paris APRN.DEALER ANALYST 1 [place] [address] Referring Internal Medicine 12/20/23 Model And Mold Maker Relationship Specialty Start Date End Date Criselda Macho DO Tucker [address] [address] PCP - General Family Medicine 12/19/23 Ed Montana MD [address] [place], [place] [phone] Home Care Provider Orthopedics 12/20/23 Mallika Paris APRN.DEALER ANALYST [address] [place], [place] [phone] Referring Internal Medicine 12/20/23 Model And Mold Maker Relationship Specialty Start Date End Date Macho Colvin DO [address] [address] PCP - General Family Medicine 12/19/23 Ed Montana MD [address] [id number] Home Care Provider Orthopedics 12/20/23 Mallika Paris APRN.DEALER ANALYST 1 [place] [address] Referring Internal Medicine 12/20/23 Model And Mold Maker Relationship Specialty Start Date End Date Macho Colvin DO [address] [place] [place], [place] [address] PCP - General Family Medicine 12/19/23 Ed Montana MD [address] [address] Home Care Provider Orthopedics 12/20/23 Mallika Paris APRN.DEALER ANALYST [address] [place], [place] [phone] Referring Internal Medicine 12/20/23 Model And Mold Maker Relationship Specialty Start Date End Date CriseldaMacho DO [address] [place], [place] [address] PCP - General Family Medicine 12/19/23 Ed Montana MD [address] [place] [phone] Home Care Provider Orthopedics 12/20/23 Mallika aPris APRN.DEALER ANALYST [address] [place], [place] [phone] Referring Internal Medicine 12/20/23 Model And Mold Maker Relationship Specialty Start Date End Date Macho Colvin DO [address] [place] [place], [place] [address] PCP - General Family Medicine 12/19/23 Ed Montana MD [address] [place] [phone] Home Care Provider Orthopedics 12/20/23 Mallika Paris APRN.DEALER ANALYST [address] [place], [place] [phone] Referring Internal Medicine 12/20/23 Model And Mold Maker Relationship Specialty Start Date End Date Macho Colvin DO [address] [place] [address] PCP - General Family Medicine 12/19/23 Ed Montana MD [address] [place] [address] Home Care Provider Orthopedics 12/20/23 Mallika Paris APRN.CNP 1 [place] [address] Referring Internal Medicine 12/20/23 Goals (unrecognized section and content) Goals may be documented in a n alternate sectionGoals may be documented in an alternate sectionGoals may be documented in an alternate sectionGoals may be documented in an alternate sectionGoals may be documented in an alternate sectionGoals may be documented in an alternate section PRN Active and Recently Administ ered Medications (unrecognized section and content) Medication Order 03/25/2023 03/26/2023 03/27/2023 BUPivacaine (PF) 0.25 % (2.5 mg/mL) injection (SENSORCAINE MPF) INTRA-ARTICULAR, X (OR/PROCEDURE) PRN, Starting on Mon03/27/23 at 1007, Until Tu03/28/23 at 0303, Intraprocedure 1007 (Given - Provid er: Aurelio Gabriel APRN.CNP) lidocaine (PF) 10 mg/mL (1 %) injection (XYLOCAINE) SUBCUTANEOUS, X (OR/PROCEDURE) PRN, Starting on Mon03/27/23 at 1004, Until Mon03/28/23 at 0303, Intraprocedure 1004 (Given - Provid er: Aurelio Gabriel APRN.CNP) lidocaine (PF) 10 mg/mL (1 %) injection (XYLOCAINE) SUBCUTANEOUS, X (OR/PROCEDURE) PRN, Starting on Mon03/27/23 at 1006, Until Mon03/28/23 at 0303, Intraprocedure 1006 (Given - Provid er: Aurelio Gabriel APRN.CNP - Comment: joint space) triamcinolone acetonide injection (KeNALog 40) INTRA-ARTICULAR, X (OR/PROCEDURE) PRN, Starting on Mon03/27/23 at 1007, Until Tu23 at 0303, Intraprocedure 1007 (Given - Provid er: Aurelio Gabriel APRN.CNP) FOR RECORDS PERTAINING TO PATIENTS WHO ARE OR HAVE BEEN ENROLLED IN A CHEMICAL DEPENDENCY/SUBSTANCEABUSE PROGRAM, SOME INFORMATION MAY BE OMITTED. This clinical summary was aggregated from multiple sources. Caution should be exercised in using it in the provision of clinical care. This summary normalizes information from multiple sources, and as a consequence, information in this document may materially change the coding, format and clinical context of patient data. In addition, data may be omitted in some cases. CLINICAL DECISIONS SHOULD BE BASED ON THE PRIMARY CLINICAL RECORDS. [employer] [facility]. provides no warranty or guarantee of the accuracy or completeness of information in this document.
== END | disposition home or self-care (01) ==
LOC: MTRAD 12:37
PROVIDERS: PCP Family Medicine; Referring Provider Chiropractor; Visit Provider Chiropractor
DX: S93.602A Unspecified sprain of left foot, initial encounter (principal)
CPT/HCPCS: 73630

== ENCOUNTER 2025-07-22 10:30 | Outpatient (RCR) | payer BC, SELFPAY ==
--- NOTE | 2025-06-04 17:42 | HP.PTEVAL_ITS ---
Patient's Visit Information Visit Information Visit Information: MALDONADO BRIONES is a 65 year old M referred to Physical Therapy by MARÍA HSIEH with a diagnosis of RIGHT SADAF. Date of Evaluation: 06/04/25 Physical Therapist: Heath Gonzáles, PT, Cert MDT, OCS Visit Plan Frequency: 2x /Week Duration: 6 Weeks Plan: s/p SADAF RIGHT May WITH POSTERIOR LATERAL HIP PRECAUTIONS PRECAUTIONS DECREASE ROM RIGHT KNEE NEEDS TKA PT INTERVENTIONS ROM RIGHT HIP ,STRENGTHENING QUADS/HAMS/HIP ,FUNCTIONAL STRENGTHENING ,GAIT AND BALANCE TRAINING Subjective Subjective: This 65 y/o male presents to physical therapy with s/p right SADAF posterior lateral on May 14 at [facility] . Patient d/c May 16 . Patient surgery also consisted removing hardware from previous hip fx. Patient has right SADAF precautions . Patient had [facility] PT 2 weeks.Seen Monday x-rays looked good. Patient has mod edema in right leg/hip. Patient is on Antibiotic to prevent infection. Patient did have excess drainage. RTD in 2 weeks. Pain in right hip 2-3/10. Denies paresthesia/tingling -. Patient has left foot drop needs AFL and brace right ankle with fusion . Does need right TKA. Medication oxycodone . Pain affects sleeping ,sleeps in recliner or bed.Patient lives in 1 story home with steps with 3 rail. Walk-in shower. Spouse assist with dressing lower .Spouse does cooking cleaning. Patient condition comorbities influences condition. Patient goals walk normal and travel. 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 Pain Right Hip: Pain Intensity (Out of 10): 3 Pain Intensity Range: 5 Objective Objective: POSTURE: midl forward posture hips/knees flexed GAIT: ambulates with fww slow meliza hips/knees flexed reciprocal pattern with AFO bilateral ankles NEURO: denies paresthesia/tingling SKIN: well approximate did have prior drainage EDEMA: 2+ thigh AROM: supine knee flexion 80 degrees,hip flexion 40 degrees ,abduction 35 degrees MMT: ( peak force) left hip extension 0 ,hip flexion 10.2 ,quads 23.1,hamstrings 15.6 STAIRS: one step at time with rails Balance/Special Test Scores Lower Extremity Functional Score: 20 TUG Test Time Seconds: 24.6 WOMAC Total Score: 52 WOMAC Percentatge: 43.4800 Goals Goal 1:: Patient to be I with HEP for SADAF Goal Time Frame: 4-6 Weeks Goal 2:: Patient to improve AROM hip /knee by 5-10 degrees to improve gait and stairs Goal Time Frame: 4-6 Weeks Goal 3:: Patient to improve peak force quads/hams/hip by 5-10 # to improve function and gait Goal Time Frame: 4-6 Weeks Goal 4:: Patient to improve LFES score by 5 -10points to improve QOL Goal Time Frame: 4-6 Weeks Goal 5:: Patient to improve WOMAC by 5-10 points to improve QOL Goal Time Frame: 4-6 Weeks Goal 6:: Patient to improve TUG score ,20 seconds to improve safe gait Goal Time Frame: 4-6 Weeks Rehabilitation Potential Physical Therapy Diagnosis: This patient underwent s/p right SADAF posterior lateral with hip precautions with WBAT RLE with FWW with pain ,decrease ROM , weakness hip /knee but needs TKA impairs ADL's thus benefit from skilled PT Rehabilitation Potential: Good Anticipated Interventions Patient/Client Instruction: Educate patient on: Condition and Plan of Care For the Purpose of:: To decrease pain, To improve muscle performance and motor function, To increase tolerance to activity/condition/position, To improve ability of physical actions for home/community/work/leisure, To improve gait and locomotor functions, To increase flexibility/ROM, To improve endurance, To improve balance and To improve tolerance to ADL's Therapeutic Exercise to Include: Strength training, Endurance training, Gait and locomotor training and Active ROM Comment: QUADS/HAMS/HIP For the Purpose of:: To increase ROM, To improve muscle performance and motor function, To improve ability to perform ADL's, To increase tolerance to activity/condition/position, To improve ability of physical actions for home/community/work/leisure, To improve gait and locomotor functions, To improve health of tissue, To decrease soft tissue restriction, To increase flexibility/ROM, To improve endurance, To improve balance and To improve t olerance to ADL's Text: Thank you for the opportunity to evaluate your patient. For Medicare and Medicare HMO plans, please review the plan of care and approve it. It will need to be FAXED BACK to us at [phone] for Medicare purposes. For Medicare only, by signing this I certify the plan of care. Please let me know if there are questions or concerns regarding this plan of care. Physician Signature: Date:
--- NOTE | 2025-06-04 17:45 | HP.PTEVAL ---
Patient's Visit Information Visit Information Visit Information: MALDONADO BRIONES is a 65 year old M referred to Physical Therapy by MARÍA HSIEH with a diagnosis of POST TRAUMATIC HIP ARTHRITIS. Date of Evaluation: 06/04/25 Physical Therapist: Heath Gonzáles PT, Cert MDT, OCS Visit Plan Frequency: 2x /Week Duration: 6 Weeks Plan: s/p SADAF RIGHT May WITH POSTERIOR LATERAL HIP PRECAUTIONS PRECAUTIONS DECREASE ROM RIGHT KNEE NEEDS TKA PT INTERVENTIONS ROM RIGHT HIP ,STRENGTHENING QUADS/HAMS/HIP ,FUNCTIONAL STRENGTHENING ,GAIT AND BALANCE TRAINING Subjective Subjective: This 65 y/o male presents to physical therapy with s/p right SADAF posterior lateral on May 14 at [facility] . Patient d/c May 16 . Patient surgery also consisted removing hardware from previous hip fx. Patient has right SADAF precautions . Patient had [facility] PT 2 weeks.Seen Monday x-rays looked good. Patient has mod edema in right leg/hip. Patient is on Antibiotic to prevent infection. Patient did have excess drainage. RTD in 2 weeks. Pain in right hip 2-3/10. Denies paresthesia/tingling -. Patient has left foot drop needs AFL and brace right ankle with fusion . Does need right TKA. Medication oxycodone . Pain affects sleeping ,sleeps in recliner or bed.Patient lives in 1 story home with steps with 3 rail. Walk-in shower. Spouse assist with dressing lower .Spouse does cooking cleaning. Patient condition comorbities influences condition. Patient goals walk normal and travel. 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 Pain Right Hip: Pain Intensity (Out of 10): 3 Pain Intensity Range: 5 Objective Objective: POSTURE: midl forward posture hips/knees flexed GAIT: ambulates with fww slow meliza hips/knees flexed reciprocal pattern with AFO bilateral ankles NEURO: denies paresthesia/tingling SKIN: well approximate did have prior drainage EDEMA: 2+ thigh AROM: supine knee flexion 80 degrees,hip flexion 40 degrees ,abduction 35 degrees MMT: ( peak force) left hip extension 0 ,hip flexion 10.2 ,quads 23.1,hamstrings 15.6 STAIRS: one step at time with rails Balance/Special Test Scores Lower Extremity Functional Score: 20 TUG Test Time Seconds: 24.6 WOMAC Total Score: 52 WOMAC Percentatge: 43.4800 Goals Goal 1:: Patient to be I with HEP for SADAF Goal Time Frame: 4-6 Weeks Goal 2:: Patient to improve AROM hip /knee by 5-10 degrees to improve gait and stairs Goal Time Frame: 4-6 Weeks Goal 3:: Patient to improve peak force quads/hams/hip by 5-10 # to improve function and gait Goal Time Frame: 4-6 Weeks Goal 4:: Patient to improve LFES score by 5 -10points to improve QOL Goal Time Frame: 4-6 Weeks Goal 5:: Patient to improve WOMAC by 5-10 points to improve QOL Goal Time Frame: 4-6 Weeks Goal 6:: Patient to improve TUG score ,20 seconds to improve safe gait Goal Time Frame: 4-6 Weeks Rehabilitation Potential Physical Therapy Diagnosis: This patient underwent s/p right SADAF posterior lateral with hip precautions with WBAT RLE with FWW with pain ,decrease ROM , weakness hip /knee but needs TKA impairs ADL's thus benefit from skilled PT Rehabilitation Potential: Good Anticipated Interventions Patient/Client Instruction: Educate patient on: Condition and Plan of Care For the Purpose of:: To decrease pain, To improve muscle performance and motor function, To increase tolerance to activity/condition/position, To improve ability of physical actions for home/community/work/leisure, To improve gait and locomotor functions, To increase flexibility/ROM, To improve endurance, To improve balance and To improve tolerance to ADL's Therapeutic Exercise to Include: Strength training, Endurance training, Gait and locomotor training and Active ROM Comment: QUADS/HAMS/HIP For the Purpose of:: To increase ROM, To improve muscle performance and motor function, To improve ability to perform ADL's, To increase tolerance to activity/condition/position, To improve ability of physical actions for home/community/work/leisure, To improve gait and locomotor functions, To improve health of tissue, To decrease soft tissue restriction, To increase flexibility/ROM, To improve endurance, To improve balance and To improve tolerance to ADL's Text: Thank you for the opportunity to evaluate your patient. For Medicare and Medicare HMO plans, please review the plan of care and approve it. It will need to be FAXED BACK to us at [phone] for Medicare purposes. For Medicare only, by signing this I certify the plan of care. Please let me know if there are questions or concerns regarding this plan of care. Physician Signature: Date:
--- NOTE | 2025-07-22 11:03 | HP.PTDCSUM ---
Discharge Summary D/C summary: It has been my pleasure to treat MALDONADO BRIONES referred by MARÍA HSIEH, with the diagnosis of POST TRAUMATIC HIP ARTHRITIS for a total of 11 visit(s). Discharge Date: 07/22/25 Please see the following information for a summary of their discharge status. Subjective Subjective: Hip is doing great Plan to see DR for knee and maybe get injection and hope to get TKA Pain Right Hip: Pain Intensity (Out of 10): 0 R knee: Pain Intensity (Out of 10): 8 Overall Improvement % Improvement: 100 Objective Objective/Function: POSTURE: midl forward posture hips/knees flexed GAIT: ambulates with cane slow meliza hips/knees flexed reciprocal pattern with AFO bilateral ankles NEURO: denies paresthesia/tingling SKIN: well approximate EDEMA: absent AROM: supine knee flexion 80 degrees,hip flexion 90 degrees ,abduction 35 degrees MMT: ( peak force) left hip extension 40 ,hip flexion 32.2 ,quads 25.1,hamstrings 19.6 STAIRS: one step at time with rails Goals Goal 1:: Patient to be I with HEP for SADAF Goal Progress: Goal Met Goal 2:: Patient to improve AROM hip /knee by 5-10 degrees to improve gait and stairs Goal Progress: Goal Met Goal 3:: Patient to improve peak force quads/hams/hip by 5-10 # to improve function and gait Goal Progress: Goal Met Goal 4:: Patient to improve LFES score by 5 -10points to improve QOL Goal 5:: Patient to improve WOMAC by 5-10 points to improve QOL Goal Progress: Goal Met Goal 6:: Patient to improve TUG score ,20 seconds to improve safe gait Goal Progress: Goal Met Plan Plan: D/C D/C Information Discharge Comments: HEP d/c sentence: If there are questions or concerns regarding this patient's physical therapy, please feel free to call me at [phone]. Thank you for the referral of this patient. Sincerely, Heath Gonzáles, PT, Cert MDT, OCS Balance/Gait/Functional tests Balance/Special Test Scores Lower Extremity Functional Score: 48 TUG Test Time Seconds: 18.2 Tug Test: <20 sec.=mostly independent WOMAC Total Score: 15 WOMAC Percentage: 83.7000 Improvement % Improvement: 100
== END 2025-07-22 19:00 | disposition home or self-care (01) ==
LOC: PT 10:30
PROVIDERS: PCP Family Medicine
DX: M16.51 Unilateral post-traumatic osteoarthritis, right hip (principal)
CPT/HCPCS: 97110; 97162; 97530

== ENCOUNTER → 2025-07-25 | Outpatient (CLI) | payer BC, SELFPAY ==
--- NOTE | 2025-07-25 11:54 | CYSPIN_PTH ---
PATIENT: MALDONADO BRIONES LOC: [facility] U#:[id number] AGE/SX: 65/M ROOM: RE07/25/[address]: Dr. Dale Colvin DO : 1960 BED: DIS: 07/25/2025 SPEC #: [id number] RECD: 07/28/25 08:39 STATUS: JOSE JUAN SPENSER #: [id number] MAGNOLIA: 07/25/25 11:[address]: Dale Colvin DEPT: CYTOLOGY RECD BY: Vanessa Rock Tissues: Urine Procedures: Pap Stain (control) Special Stain Group II Cytospin Fluid HEADER OPERATION: Not noted PRE-OP DIAGNOSIS: Hematuria TISSUE SUBMITTED: A- Urine for cytology - voided DIAGNOSIS CYTOLOGY A. Urine, cytology: * No malignant cells are identified CYTOLOGY STUDY Slides are reviewed. CYTOLOGY GROSS A. Received is 15 ml of yellow-cloudy fluid labeled with the patient's name and and designated per the requisition as urine. Submitted for cytology preparation. Mr 07/28/2025 CPT: 11558
--- NOTE | 2025-07-25 11:54 | CYSPIN_PTH ---
PATIENT: MALDONADO BRIONES LOC: [facility] U#:[id number] AGE/SX: 65/M ROOM: RE07/25/[address]: Dr. Dale Colvin DO : 1960 BED: DIS: 07/25/2025 SPEC #: [id number] RECD: 07/28/25 08:39 STATUS: JOSE JUAN SPENSER #: [id number] MAGNOLIA: 07/25/25 11:[address]: Dale Colvin DEPT: CYTOLOGY RECD BY: Vanessa Rock Tissues: Urine Procedures: Pap Stain (control) Special Stain Group II Cytospin Fluid HEADER OPERATION: Not noted PRE-OP DIAGNOSIS: Hematuria TISSUE SUBMITTED: A- Urine for cytology - voided DIAGNOSIS CYTOLOGY A. Urine, cytology: * No malignant cells are identified CYTOLOGY STUDY Slides are reviewed. CYTOLOGY GROSS A. Received is 15 ml of yellow-cloudy fluid labeled with the patient's name and and designated per the requisition as urine. Submitted for cytology preparation. Mr 07/28/2025 CPT: 33809
--- OUTSIDE RECORDS SUMMARY | 2025-07-25 15:21 | XMS RPT_ITS | CCD ---
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 Gait, Step length decreased Gait Distance (feet): 100 x 2 Stairs Minimal Assistance Stairs Device: Rail Number of Stairs: 3 GOALS Patient will demonstrate understanding of importance of mobility during hospital stay and resolve all functional needs identified. Transfer Supine to/from Sit with: Supervision Transfer Sit to/from Stand with: Supervision Ambulate with: Supervision Distance: 80 Device: Wheeled Walker Ambulate Up and Down Steps with: Supervision Number of Steps: 2 Device: Rail Rehab Potential: Good Good Rehab Potential Due To: Good support system/ coping skills, Good motivation ACUTE CARE TREATMENT PLAN PT Frequency: Once Daily Treatment Interventions: Education, Functional Mobility Training, Balance Training, Neuromuscular Re-education Plan for Next Visit: Fall Prevention, Gait Training, Stair Training SIGNATURE: Nazia Sellers PT PATIENT NAME: Maldonado Briones DATE: May 15, 2025 TIME: 12:[address] [facility] THERAPY NT HNO ID: [id number] Author: CLARENCE VALERIO OTR/L Service: ? Author Type: Occupational Therapist Type: Therapy (PT/OT/Speech/Resp) Filed: 05/15/2025 11:14 Note Text: Occupational Therapy Evaluation Summary SERVICE DATE: 05/15/2025 SERVICE TIME: 1002 to 1030 ROOM: [place] [id number] OT 6 Clicks Score: 19 DISCHARGE RECOMMENDATIONS Home OT Recommended Discharge Disposition Comments: OT recommends to continue with POC Anticipated Discharge Needs: Supervision at Home, Physical Assist at Home Physical Assist at Home for: Transportation, Shopping, Meals, Laundry, Cleaning Supervision at Home due to: Decreased safety awareness Recommended Discharge Equipment: No equipment needs anticipated ASSESSMENT Response to Therapy Interventions: Good Participation in Activities Pt tolerated eval well. Is pleasant and motivated. Demos CGA-min A for most ADLs. Requires steadying when up. anticipate pt will continue to progress PRECAUTIONS Posterior Hip Precautions, Weight Bearing Restrictions Right Lower Extremity Weight Bearing Status: WBAT CURRENT HOSPITAL COURSE Pt admitted for scheduled SADAF by Dr. Montana on 05/14, medical management on Relevant Past Medical History: prior recontruction RLE fused right ankle, left foot drop, wears AFO HOME LIVING Patient Lives With: Spouse Assistance Available: 24-Hour Entry To Home: Stairs Number Of Stairs Into Home: 2 Number Of Stairs To Bed/Bath: 0 Tub/Shower Type: walk in shower and tub shower Laundry: spouse can complete Equipment Owned: Cane, Walker- Wheeled PRIOR FUNCTIONAL LEVEL Within Functional Limits P reports independence with all ADLs/IADLs at baseline. Utilizes a eastern philosophy professor and sock aid for dressing at baseline. Utilizes a cane. Denies falls Baseline Cognition: Oriented to self, Oriented to place, Oriented to time, Oriented to situation SUBJECTIVE Pt agreeable and pleasant COGNITION Responsiveness: Alert, Awake Follows Commands: 3-step Commands THERAPY DIAGNOSIS Reduced mobility-other, Decreased activities of daily living (ADL), Muscle Weakness (generalized), Unsteadiness on feet, General symptoms and signs-other TREATMENT INTERVENTIONS Evaluation, Self Mcc Management (17312) Timed Code Treatment (minutes): 13 Skilled Treatment Time (minutes): 28 TRAINING AND EDUCATION PROVIDED Activity Adaptation/Compensatory Strategies, Bed Mobility, Benefits of In-Hospital Mobility, Discharge Planning, Expected Functional Level, Functional Mobility Involving ADLs, Grooming Tasks, Insight into Deficits, Lower Extremity Dressing, Safety/Judgment, Role of Occupational Therapy, Sitting Balance to Improve [place] with ADLs/Self-Care, Transfer - Sit to Stand, Standing Balance to Improve [place] with ADLs/Self-Care THERAPEUTIC SKILLS USED Activity Dosing, Cues for Sequencing/Proper Technique for Activity, Cuing Tactile, Cuing Verbal, Cuing Visual, Physical Assist, Therapeutic Use of Self FUNCTIONAL STATUS Activities of Daily Living Assist Level Additional Information Feeding Set Up Grooming Contact Guard Assistance, Additional Information Pt able to stand sink side to engage in oral hygiene. Minimal swaying throughout Bathing Upper Body Contact Guard Assistance Bathing Lower Body Minimal Assistance Dressing Upper Body Contact Guard Assistance Dressing Lower Body Minimal Assistance, Additional Information Min A to jessi pants with eastern philosophy professor Toileting Minimal Assistance Mobility Assist Level Additional Information Bed Mobility Sit To Supine: Moderate Assistance, Additional Information Mod A for LB management back into bed Sit to Stand Minimal Assistance, Additional Information min a to stand. Once in standing denied SOB or light headedness. Required CGA once up Stand to Sit Minimal Assistance, Additional Information Cued to kick surgical leg out Bed to Chair Toilet/Commode Shower Functional Mobility Minimal Assistance, Additional Information Functional Mobility Device: Wheeled Walker Pt able to mobilize from chair to sink to bed (~ 10 ft) with min A for steadying throughout. Denied SOB or light headedness Hand Dominance: Right Range of Motion: WFL Strength: WFL GOALS Patient will demonstrate understanding of importance of mobility during hospital stay and resolve all self-care, cognitive and/or coping needs identified. Able to perform HEP with: Modified Independent (Gross BUE and core strengthening) Grooming with: Supervision Upper Body Bathing with: Supervision Upper Body Dressing with: Supervision Lower Body Bathing with: Supervision Lower Body Dressing with: Supervision Toilet Hygiene with: Supervision Chair Transfer with: Supervision Toilet Transfer with: Supervision Additional Goal 1: Pt will demo min-supervision for bed mobility in prep for ADLs by d/c Additional Goal 2: Pt will verbalize and demo 3-5 fall prevention strategies by d/c Rehab Potential: Good Good (more content not included)... Normal [facility] ANES POSTPROC EVALon 025 ANES POSTPROC EVAL HNO ID: [id number] Author: ALEX HILLIARD MD Service: Anesthesiology Author Type: Anesthesiologist Type: Anesthesia Postprocedure Evaluation Filed: 05/14/2025 16:11 Note Text: POST ANESTHESIA EVALUATION NOTE : 1960 Procedure Summary Date: 05/14/25 Room / Location: OR / OR Anesthesia Start: 1011 Anesthesia Stop: 1354 Procedure: ARTHROPLASTY TOTAL HIP CONVERSION AFTER PREVIOUS HIP SURG (Right: Hip) Diagnosis: Post-traumatic osteoarthritis of right hip (Post-traumatic osteoarthritis of right hip [M16.51]) Surgeons: Ed Montana MD Responsible Provider: Jarrell Cheney DO Anesthesia Type: general ASA Status: 3 Anesthesia Type: general Airway Type: ETT Last Vitals Vitals Value Taken Time BP 128/74 05/14/25 1558 Temp 36.5 ?C (97.7 ?F) 05/14/25 1558 Pulse 55 05/14/25 1558 Resp 18 05/14/25 1558 SpO2 99 % 05/14/25 1558 Post Anesthesia Patient Status Patient Evaluation: PACU. Anticipated Disposition: inpatient floor planned admission. Neurological Status: aware and responsive. Pulmonary Status: breathing comfortably on supplemental oxygen Airway Control: returned to baseline unsupported. Cardiovascular Status: stable. Pain Management: clinically adequate Postoperative Hydration: acceptable. Intraoperative Events: no significant anesthesia events Post Operative Nausea/Vomiting Status: no significant post operative nausea or vomiting Recommendation: further care per PACU/ICU/floor team. Anesthesia Observations No Documentation SIGNATURE: Alex Hilliard MD PATIENT NAME: Maldonado Nuratt DATE: May 14, 2025 TIME: 4:11 PM CSN: [id number] [facility] ANES PRE-OPon 05-14-2025 ANES PRE-OP HNO ID: [id number] Author: DANNY BAL DO Service: Anesthesiology Author Type: Anesthesiologist Type: Anesthesia Preprocedure Evaluation Filed: 05/14/2025 08:52 Note Text: ANESTHESIOLOGY DAY OF SURGERY NOTE : 1960 Procedure Information Date/Time: 05/14/25929 Procedure: ARTHROPLASTY TOTAL HIP CONVERSION AFTER PREVIOUS HIP SURG (Right: Hip) Location: MR OR 06 / MR OR Surgeons: Ed Montana MD Estimated body mass index is 31.87 kg/m? as calculated from the following: Height as of this encounter: 182.9 cm (6'). Weight as of this encounter: 106.6 kg (235 lb 0.2 oz). Most recent hematocrit and potassium results: Hematocrit 43.9 05/01/2025 Potassium 4.6 05/01/2025 Relevant Problems CARDIO (+) ASHD (arteriosclerotic heart disease) (+) Acute embolism and thrombosis of unspecified femoral vein (HCC) (+) Atrial fibrillation (HCC) (+) Coronary artery disease (+) Essential (primary) hypertension (+) PEA (Pulseless electrical activity) (HCC) (+) Paroxysmal atrial flutter (HCC) (+) Presence of stent in coronary artery (+) Unspecified essential hypertension (+) Venous insufficiency GI (+) Gastroesophageal reflux disease without esophagitis (+) Multiple gastric ulcers -RENAL (+) Acute renal failure d/t procedure (+) Chronic kidney disease, stage III (moderate) (HCC) (+) Liver failure, acute (HCC) Other (+) Arthritis, hip (+) Hand arthritis (+) Osteoarthritis (+) Osteoarthritis of CMC joint of thumb (+) Post-traumatic osteoarthritis of left hip (+) Primary osteoarthritis of left hip I - PHYSICAL EVALUATION AIRWAY Patient intubated: No. Tracheostomy tube not present Mallampati: II. TM distance: >3 FB. Neck ROM: full ROM without neurological symptoms. Mouth opening: adequate. Short neck: no. Thick neck: no DENTAL Dental findings: teeth intact. Additional exam findings: yes. CARDIOVASCULAR Normal cardiovascular observations. PULMONARY Normal pulmonary observations. II - ANESTHESIA PLAN ASA Score: 3 Anesthetic Plan: general Airway type: ETT NPO Status: adequate Beta Manohar Monitoring Plan Monitoring plan: standard ASA. Post Procedure Analgesic Plan Postoperative analgesic plan: parenteral or oral opioids and multimodal analgesia. Informed Consent Anesthetic risks, benefits, alternatives, personnel and consent discussed: yes. Patient / Responsible Constitution Party agrees to proceed: yes Patient / Surrogate agrees to blood products: Yes Significant changes in the patient condition since the History and Physical, not otherwise documented in primary service progress note: no. Potential Anesthesia issues that may suggest increased risk of complications or contraindication to planned procedure: none. Discussed the possibility of lip / dental damage: yes Vitals Value Taken Time BP 144/80 05/14/25 0750 Pulse 50 05/14/25 0749 Resp 18 05/14/25 0747 Temp 36.7 ?C (98.1 ?F) 05/14/25 0747 SpO2 99 % 05/14/25 0749 Vitals shown include unfiled device data. Facility-Administered Medications as of 05/14/2025 Medication Dose Route Frequency lidocaine (PF) 10 mg/mL (1 %) 2 mg injection (XYLOCAINE) 0.2 mL INTRADERMAL PRN NaCl 0.9% iv infusion 30 mL/hr INTRAVENOUS CONTINUOUS NaCl 0.9% iv flush bag 20 mL INTRAVENOUS PRN ceFAZolin iv piggyback 2 g in D5W (iso-osmotic) 100 mL (ANCEF) 2 g INTRAVENOUS ONCE tranexamic acid (CYKLOKAPRON) in NaCl 0.7% 1,000 mg 100 mL 1,000 mg INTRAVENOUS ONCE tranexamic acid (CYKLOKAPRON) in NaCl 0.7% 1,000 mg 100 mL 1,000 mg INTRAVENOUS ONCE ropivacaine 2.46 mg/mL-EPINEPHrine 0.005 mg/mL-cloNIDine 0.0008 mg/mL-ketorolac 0.3 mg/mL 50 mL injection (R.E.C.K.) 50 mL periarticular ONCE Outpatient Medications as of 05/14/2025 Medication Sig naproxen sodium 220 mg cap Take 220 mg by mouth once daily. OTC, WILL CALL DR MONTANA FOR INSTRUCTIONS oxyCODONE-acetaminophen (PERCOCET) 5-325 mg tablet Take 1 tablet by mouth every 8 hours as needed for pain. PER PRIMARY chlorhexidine (HIBICLENS) 4 % external liquid Apply to affected area once daily as needed for up to 5 days. Patient should start on May 14, 2025. omeprazole (PRILOSEC) 20 mg capsule Take 20 [...] Patient should start on December 20, 2023. (Patient taking differently: Take 81 mg by mouth once daily. NO INSTRUCTIONS FROM DR MONTANA, PRESCRIBED BY DR ELIU VALDOVINOS) cilostazol (PLETAL) 100 mg tablet Take 100 mg by mouth two times a day. PAD DR FELDMAN ORDERS, NO INSTRUCTIONS FROM DR MONTANA RE BLOOD THINNERS temazepam (RESTORIL) 30 mg cap Take 30 mg by mouth at bedtime as needed (insomnia). Glucosamine HCl 1,500 mg tab Take 1,500 mg by mouth once (more content not included)... [facility]DON[facility] BRIONES ([id number]) 1960 M Date Time Provider Department 05/14/25 [facility] During [facility] today, we recorded the following information about you: Licha Bae PSS 05/14/2025 9:19 AM Signed Date/Time: 05/14/2025 9:14 AM Attempt Messages: patient's and Emi Briones (Spouse) . BLAIR Rich Cathy Jo PSS 05/14/2025 4:49 PM Signed I attempted to reach patient on room phone [phone]. answered and said it is not a good time, and she will call us back in the morning. Ghada Sapp, PSS 05/14/2025 4:49 PM Ghada Sapp, PSS 05/15/2025 3:04 PM Signed Date/Time: 05/15/2025 3:01 PM Spoke with albino Middleton @ phone #: room phone [phone] - Preferred # for contact: [phone] or Emi [phone] Have you received help from a home care company in the last 60 days? no Are you agreeable to [facility] services? yes What address will we be seeing you at? [address] [address] Do you have any upcoming appointments or things we need to schedule around? no Do you have a teachable CG or can you manage your care independently? yes Who? DEANN tbd Notified to secure animals and weapons Ghada Sapp, PSS 05/15/2025 3:04 PM Allergies As of Date: 05/14/2025 Noted Allergy Reaction LIPITOR (ATORVASTATIN CALCIUM) 04/30/2009 5 - Intolerance 17 - Myalgia POISON MAYRA 05/23/2005 9 - Itching Date Reviewed: 05/14/2025 Reviewed by: Mary Moreland, RN - Fully Assessed Reason for Visit: Home Care [4073] Cmt: Confirmation Call Prescriptions as of 05/15/2025 - naproxen sodium 220 mg cap Take [...] every 6 hours as needed. FOR DIZZINESS Facility-Administered Medications as of 05/15/2025 - aspirin 81 mg chewable tab(s) - diphenhydrAMINE 25 mg capsule (BENADRYL) - rosuvastatin 20 mg tab(s) (CRESTOR) - lisinopril 20 mg tab(s) (ZESTRIL) - metoprolol tartrate (short acting) 25 mg tab(s) (LOPRESSOR) - cilostazol 100 mg tab(s) (PLETAL) - temazepam 30 mg cap(s) (RESTORIL) - oxyCODONE IR 5-10 mg tab(s) (ROXICODONE) - ondansetron 4 mg tab(s) (ZOFRAN) - ondansetron (PF) 4 mg injection (ZOFRAN) - bisacodyl EC 10 mg tab(s) (DULCOLAX) - aluminum-magnesium hydroxide-simethicone 200-200-20 mg/5 mL 30 mL - ferrous sulfate 325 mg tab(s) - ascorbic acid (vitamin C) 500 mg tab(s) (VITAMIN C) - senna 17.2 mg tab(s) (SENOKOT) - lactated ringers iv infusion - morphine 2 mg injection - polyethylene glycol 3350 17 g packet - acetaminophen 1,000 mg tab(s) (TYLENOL) - erythromycin 5 mg/gram (0.5 %) ophthalmic ointment (ROMYCIN) - pantoprazole DR 20 mg tab(s) (PROTONIX) Problem List As Of Date 05/14/2025 Noted Resolved CELLULITIS OF ARM [[id number]] 05/23/2005 Unspecified essential hypertension [I10] 10/18/2005 Pure [...] of CMC joint of thumb [M18.9] 10/12/2011 Hypotestosteroni (more content not included)... Normal [facility] HISTORY PHYSICALon HISTORY PHYSICAL HNO ID: [id number] Author: ED MONTANA MD Service: Orthopaedic Surgery Author Type: Physician Type: H&P Filed: 05/14/2025 10:12 Note Text: UPDATED HISTORY AND PHYSICAL EXAMINATION SERVICE DATE: 05/14/2025 SERVICE TIME: 1015 PHYSICAL EXAM MUST BE COMPLETED ON ADMISSION The History and Physical (completed in the past 30 days) has been reviewed and the patient has been examined. The contents accurately reflect the patient's condition with the following additions or revisions since the HANDP was completed. Examination indicates no changes. This HANDP can be found in the Electronic Medical Record. SIGNATURE: Ed Montana MD PATIENT NAME: Maldonado Briones DATE: May 14, 2025 TIME: 10:11 AM Normal [facility] NURSING PROGon 05-14-2025 NURSING PROG HNO ID: [id number] Author: MARY MORELAND RN Service: Nursing Author Type: Registered Nurse Type: Nursing Progress Note Filed: 05/14/2025 17:46 Note Text: Patient arrived to floor complaining of eye pain. Per report from PACU, patient was having this issue downstairs and was ordered and given eye ointment. Patient's states she is upset, states she wants to talk to someone from surgery so that she can find out what happened to his eye. Secure message sent to anesthesia and Dr. Montana. Advised by Dr. Montana to contact PACU nurse. Secure message sent to PACU nurse, response received. Patient and updated. [facility] OPERATIVE NOon 05-14-2025 OPERATIVE NO HNO ID: [id number] Author: ED MONTANA MD Service: Orthopaedic Surgery Author Type: Physician Type: Operative Report Filed: 05/14/2025 13:30 Note Text: [employer] [facility] [address]. [place], [place] [address] OPERATIVE/PROCEDURE REPORT LOG ID: [id number] SURGERY/PROCEDURE DATE: 05/14/2025 INCISION/PROCEDURE START TIME: 10:44 AM INCISION CLOSE/PROCEDURE END TIME: NAME: Maldonado Briones Attending: Ed Montana MD MR:[id number] OPE RATIVE REPORT PREOPERATIVE DIAGNOSIS: Right hip advanced degenerative joint disease; retained orthopedic hardware, intertrochanteric hip fracture with malunion POSTOPERATIVE DIAGNOSIS: Right hip advanced degenerative joint disease; retained orthopedic hardware, intertrochanteric hip fracture with malunion OPERATION: Right conversion of previous hip surgery to POSTERIOR total hip arthroplasty using the adventist modular revision hip system, 20mm x 155mm stem, 21 mm +0mm body, 58 mmTrident II Acetabular component, 36mm X3 ten degree polyethylene liner, 36mm +0mm Biolox Delta ceramic Head. SURGEON AND ASSISTANTS: Surgeons and Role: * Ed Montana MD - Primary * Evan Walters MD - Resident - Assisting Lead Advisor: Robi Childers SA EYEGLASS ASSEMBLER: Lead Advisor: Robi Childers SA ANESTHESIA: General plus local ESTIMATED BLOOD LOSS: 500 cc's MEDICATIONS: Ancef 2 grams IV, TXA 1gram IV x2, 50cc ropivacaine 2.46 mg/mL-EPINEPHrine 0.005 mg/mL-cloNIDine 0.0008 mg/mL-ketorolac 0.3 mg/mL injection (R.E.C.K.) HISTORY: This is a patient with advanced hip arthritis as well as a previous intertrochanteric femur fracture that went on to heal in malunion. Patient continues with synovitis, and pain despite nonoperative measures. The patient wished to proceed with surgical intervention after failing nonoperative treatment. The risks, complications and benefits of surgery were discussed with the patient prior to surgery. Patient has documented evidence of arthritis with osteophytes, joint space narrowing and bone on bone wear. Patient has failed nonoperative care including possible injections, NSAIDs, physical therapy, time, and weight loss and education. Daily activities have become increasingly difficult. Significant wear noted to femoral head and acetabulum. The surgical safety checklist was performed and verified by staff during a preoperative meeting at the bedside huddle and in the operating room. DESCRIPTION OF PROCEDURE: The patient was brought in the operating theater, given general anesthetic without complications. They were then placed in a lateral decubitus position using the Stulberg hip positioner. All bony prominences were well padded. Anesthesia was in control of the head, neck, and airway throughout the remainder of the case. The patient's right lower extremity was prepped and draped in the usual sterile fashion. Following time-out, incision was marked out of the posterior lateral aspect of his right hip approximately 12 cm in length. Incision was made down through skin and subcutaneous tissues. The iliotibial band and gluteal fascia was identified and incised. Charnley retractor was then positioned and a posterior approach through the short external rotators and posterior capsule was then performed. The hip was then dislocated and the femoral head was exposed through the wound. At this point attention was turned to the femoral hardware. We utilized fluoroscopy to locate all of the hardware due to bony overgrowth. This was eventually removed without difficulty or significant bone loss. Neck osteotomy was performed 10 mm from the lesser trochanter. The osteotomized portion of the head and neck removed from the wound. Periacetabular retractors placed, the acetabulum was serially reamed up to a size 58 mm reamer. A 58mm Trident II Tritanium cluster hole cup was impacted into position. A trial liner was then secured into the acetabular component. Acetabular Retractors were then removed. Attention was turned to the proximal femur. Femoral elevating retractors were placed into position, and proper exposure was made to the proximal femur. Once I was pleased with the exposure, the femoral canal was identified with a blunt tip curette, box osteotomy was performed, entry reamer was used, and the femur was sequentially reamed up to a 20 mm reamer for a 155mm stem adventist modular. Preparation was then done for a 21 mm body. The final stem was opened and implanted at this point. This was followed by a trial 21mm +0mm body and a 36mm +0mm head. The hip trial implants were taken into reduction. I was pleased with soft tissue tension during reduction as well as the overall stability in both and anterior . Clinically, I was pleased with the leg lengths as well as the soft tissue tensioning dur reduction. Intraoperative radiograph was then obtained to evaluate implant size, (more content not included)... Normal [facility] Pathology biopsy report Chetan (Tiss)on 05-14-2025 CASE REPORT Normal [facility] Comment on above: Order Comment: Speci reza Type: DEVICE SPECIMENOrdering Facility: [facility] Address: [address] [place] [address] Result Comment: Surg [facility] Pathology Report Case: [id number] Authorizing Provider: Ed Montana MD Collected: 05/14/2025 12:14 PM Ordering Location: [facility] Surgery Received: 05/14/2025 02:25 PM Pathologist: Frankie Cervantes MD Specimen: Hardware/Device/Foreign Body, Retained hardware right hip, for gross exam Performed By: #### 6 6121-5 ####[facility] LABORATORYCLIA [id number] [address] CLINICAL HISTORY Normal [facility] Comment on above: Order Comment: Speci reza Type: DEVICE SPECIMENOrdering Facility: [facility] Address: [address] [place] [address] Result Comment: Pre- op diagnosis: Post-traumatic osteoarthritis of right hip [M16.51] Performed By: #### 6 6121-5 ####[facility] LABORATORYCLIA [id number] [address] [place] FINAL DIAGNOSIS Normal [facility] Comment on above: Order Comment: Speci men Type: DEVICE SPECIMENOrdering Facility: [facility] Address: [address] [place] [address] Result Comment: Hard melgoza/device, right hip, explantation: -Orthopedic hardware including rods and screw; gross diagnosis only. at 1505 EDT Performed By: #### 6 6121-5 ####[facility] LABORATORYCLIA [id number] [address] OF [facility] FINAL PERFORMING LAB Normal [facility] Comment on above: Order Comment: Speci men Type: DEVICE SPECIMENOrdering Facility: [facility] Address: [address] [place] [address] Result Comment: Diag nostic interpretation performed at: [facility], [address] [place] [address] CLIA# [id number] Wrap Yarn Sorter: Krissy Fountain MD Performed By: #### 6 6121-5 ####[facility] LABORATORYCLIA [id number] [address] GROSS DESCRIPTION Normal [facility] Comment on above: Order Comment: Speci men Type: DEVICE SPECIMENOrdering Facility: [facility] Address: [address] [place] [address] Result Comment: A. H ardware/Device/Foreign Body Received fresh and designated retained hardware right hip for gross exam is medical hardware grossly consistent with 2 rods, 10.7 x 1.0 x 1.0 cm and 17.0 x 1.5 x 1.5 cm. Also received is a screw, 3.6 x 0.6 x 0.6 cm. No tissue is identified. Gross only. Gross examination performed at [facility] [address] [place] [address] KMM 05/14/25 2:47 PM Performed By: #### 6 6121-5 ####[facility] LABORATORYCLIA [id number] [address] MICROSCOPIC DESCRIPTION Gross examination only. Normal [facility] Comment on above: Order Comment: Speci men Type: DEVICE SPECIMENOrdering Facility: [facility] Address: [address] [id number] Performed By: #### 6 6121-5 ####[facility] LABORATORYCLIA [id number] [place] [address] [place] XR FLUOROSCOPYon 05-14-2025 XR FLUOROSCOPY * * *Final Report* * * DATE OF EXAM: May 14 2025 12:00PM RHX 5513 - XR FLUOROSCOPY / PROCEDURE REASON: RT HIP REVISION * * * * Physician Interpretation * * * * XR FLUOROSCOPY Ordering Physician: ED [place] FLUOROSCOPY AND RADIOGRAPHS UTILIZED IN THE OR Clinical Statement: Right hip revision FINDINGS: 1 second fluoroscopy time utilized. A single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 Normal [facility] HIP, UNI W/ Pelvis 2-3 Views on 10-24-2024 HIP, UNI W/ Pelvis 2-3 Views [facility] [address] [place] [address] [id number] HIP, UNI W/ Pelvis 2-3 Views MR#: [id number] Acct: [id number] Name: MALDONADO BRIONES Rep #: [id number] : 1960 M 64 From: Zander Villareal MD PCP: Dr. Macho Aburto DO Status: REG CLI Study: HIP, UNI W/ Pelvis 2-3 Views Date of Exam: Exam# [id number] Ordering [place]: [place] [id number] STUDY: X-RAY - PELVIS AND RIGHT HIP [...] Signed: Zander Villareal MD at 14:42 EST , CC: Dr. Macho Aburto DO [employer] Installer: Signed Normal [facility] CBC W/Diff, Automatedon Absolute Lymph 1.03 X10 3/uL Normal 0.83-4.51 [facility] Comment on above: Performed By: #### L 501.9910, L500.4100, L501.9985, L400.2010, L100.0100, L500.4050 #### [facility] [address] [place], [address] Absolute Neut 3.6 X10 3/uL Normal 2.0-7.7 [facility] Comment on above: Performed By: #### L 501.9910, L500.4100, L501.9985, L400.2010, L100.0100, L500.4050 #### [facility] [address] [place], [address] Basophils/100 WBC (Bld) 0.7 % Normal 0-1 [facility] Comment on above: Performed By: #### L 501.9910, L500.4100, L501.9985, L400.2010, L100.0100, L500.4050 #### [facility] [address] [place], [address] Eosinophils/100 WBC (Bld) 7.0 % High 0-5 [facility] Comment on above: Performed By: #### L 501.9910, L500.4100, L501.9985, L400.2010, L100.0100, L500.4050 #### [facility] [address] [place], [address] Erythrocyte distribution width (RBC) [Ratio] 12.6 % Normal 11.6-14.6 [facility] Comment on above: Performed By: #### L 501.9910, L500.4100, L501.9985, L400.2010, L100.0100, L500.4050 #### [facility] [address] [place], [address] Hematocrit (Bld) [Volume fraction] 44.3 % Normal 40-54 [facility] Comment on above: Performed By: #### L 501.9910, L500.4100, L501.9985, L400.2010, L100.0100, L500.4050 #### [facility] [address] [place], [address] Hemoglobin (Bld) [Mass/Vol] 14.6 g/dL Normal 13.0-16.5 [facility] Comment on above: Performed By: #### L 501.9910, L500.4100, L501.9985, L400.2010, L100.0100, L500.4050 #### [facility] [address] [place], [address] IG% 0.400 Normal 0.0-0.9 [facility] Comment on above: Result Comment: IG% - Immature Granulocytes (promyelocytes, myelocytes and metamyelocytes) > 1% indicates that a LEFT SHIFT is Present. Performed By: #### L 501.9910, L500.4100, L501.9985, L400.2010, L100.0100, L500.4050 #### [facility] [address] [place], [address] Lymphocytes/100 WBC (Bld) 18.5 % Low 19-41 [facility] Comment on above: Performed By: #### L 501.9910, L500.4100, L501.9985, L400.2010, L100.0100, L500.4050 #### [facility] [address] [place], [address] MCH (RBC) [Entitic mass] 30.2 pg Normal 27.0-32.0 [facility] Comment on above: Performed By: #### L 501.9910, L500.4100, L501.9985, L400.2010, L100.0100, L500.4050 #### [facility] [address] [place], [address] MCHC (RBC) [Mass/Vol] 33.0 g/dL Normal 32-36 [facility] Comment on above: Performed By: #### L 501.9910, L500.4100, L501.9985, L400.2010, L100.0100, L500.4050 #### [facility] [address] [place], [address] MCV (RBC) [Entitic vol] 91.5 fL Normal 80-94 [facility] Comment on above: Performed By: #### L 501.9910, L500.4100, L501.9985, L400.2010, L100.0100, L500.4050 #### [facility] [address] [place], [address] Monocytes/100 WBC (Bld) 8.5 % Normal 0-10 [facility] Comment on above: Performed By: #### L 501.9910, L500.4100, L501.9985, L400.2010, L100.0100, L500.4050 #### [facility] [address] [place], [address] Neutrophils/100 WBC (Bld) 64.9 % Normal 47-70 [facility] Comment on above: Performed By: #### L 501.9910, L500.4100, L501.9985, L400.2010, L100.0100, L500.4050 #### [facility] [address] [place], [address] Nucleated RBC (Bld) [#/Vol] 0 10*3/uL Normal 0-5 [facility] Comment on above: Performed By: #### L 501.9910, L500.4100, L501.9985, L400.2010, L100.0100, L500.4050 #### [facility] [address] [place], [address] Platelet mean volume (Bld) [Entitic vol] 9.2 fL Normal 6.2-12.0 [facility] Comment on above: Performed By: #### L 501.9910, L500.4100, L501.9985, L400.2011, L100.0100, L500.4050 #### [facility] [address] [place], [address] Platelets (Bld) [#/Vol] 230 10*3/uL Normal 150-450 [facility] Comment on above: Performed By: #### L 501.9910, L500.4100, L501.9985, L400.2011, L100.0100, L500.4050 #### [facility] [address] [place], [address] RBC (Bld) [#/Vol] 4.84 10*6/uL Normal 4.6-6.2 [facility] Comment on above: Performed By: #### L 501.9910, L500.4100, L501.9985, L400.2010, L100.0100, L500.4050 #### [facility] [address] [place], [address] RDW SD 41.5 fl Normal 35.1-43.9 [facility] Comment on above: Performed By: #### L 501.9910, L500.4100, L501.9985, L400.2010, L100.0100, L500.4050 #### [facility] [address] [place], [address] WBC (Bld) [#/Vol] 5.6 10*3/uL Normal 4.4-11.0 [facility] Comment on above: Performed By: #### L 501.9910, L500.4100, L501.9985, L400.2010, L100.0100, L500.4050 #### [facility] [address] [place], [address] Comprehensive Metabolic Prof ilon 10-14-2024 Albumin [Mass/Vol] 4.1 g/dL Normal 3.2-5.0 [facility] Comment on above: Performed By: #### L 501.9910, L500.4100, L501.9985, L400.2011, L100.0100, L500.4050 #### [facility] [address] [place], [address] Albumin/Globulin [Mass ratio] 1.1 {ratio} Normal 0.9-2.4 [facility] Comment on above: Performed By: #### L 501.9910, L500.4100, L501.9985, L400.2010, L100.0100, L500.4050 #### [facility] [address] [place], [address] ALK P 97 U/L Normal 45-117 [facility] Comment on above: Performed By: #### L 501.9910, L500.4100, L501.9985, L400.2010, L100.0100, L500.4050 #### [facility] [address] [place], [address] ALT [Catalytic activity/Vol] 32 U/L Normal 16-61 [facility] Comment on above: Performed By: #### L 501.9910, L500.4100, L501.9985, L400.2010, L100.0100, L500.4050 #### [facility] [address] [place], [address] AST [Catalytic activity/Vol] 21 U/L Normal 15-37 [facility] Comment on above: Performed By: #### L 501.9910, L500.4100, L501.9985, L400.2010, L100.0100, L500.4050 #### [facility] [address] [place], [address] Bilirubin [Mass/Vol] 0.60 mg/dL Normal 0.20-1.00 [facility] Comment on above: Result Comment: For patients on eltrombopag therapy, use of Dimension [place] TBIL is not recommended. Performed By: #### L 501.9910, L500.4100, L501.9985, L400.2010, L100.0100, L500.4050 #### [facility] [address] [place], [address] BUN/CRE 22.0 RATIO High 10-20 [facility] Comment on above: Performed By: #### L 501.9910, L500.4100, L501.9985, L400.2010, L100.0100, L500.4050 #### [facility] [address] [place], [address] CA,Total 9.5 mg/dL Normal 8.5-10.1 [facility] Comment on above: Performed By: #### L 501.9910, L500.4100, L501.9985, L400.2010, L100.0100, L500.4050 #### [facility] [address] [place], [address] Chloride [Moles/Vol] 106 mmol/L Normal 98-107 [facility] Comment on above: Performed By: #### L 501.9910, L500.4100, L501.9985, L400.2010, L100.0100, L500.4050 #### [facility] [address] [place], [address] CO2 [Moles/Vol] 29.0 mmol/L Normal 21.0-32.0 [facility] Comment on above: Performed By: #### L 501.9910, L500.4100, L501.9985, L400.2010, L100.0100, L500.4050 #### [facility] [address] [place], [address] Creatinine [Mass/Vol] 1.27 mg/dL Normal 0.70-1.30 [facility] Comment on above: Result Comment: The validity of the calculated GFR GFRAA in patients over 70 years has not been determined. Clinical correlation is essential. Performed By: #### L 501.9910, L500.4100, L501.9985, L400.2010, L100.0100, L500.4050 #### [facility] [address] [place], [address] EST GFR - AA 73 mL/min Normal >60 [facility] Comment on above: Result Comment: Afri can [place] GFR Calc Performed By: #### L 501.9910, L500.4100, L501.9985, L400.2010, L100.0100, L500.4050 #### [facility] [address] [place], [address] GAP 4 Low 5-15 [facility] Comment on above: Performed By: #### L 501.9910, L500.4100, L501.9985, L400.2010, L100.0100, L500.4050 #### [facility] [address] [place], [address] GFR/1.73 sq M.predicted among non-blacks MDRD (S/P/Bld) [Vol rate/Area] 61 mL/min/{1.73_m2} Normal >60 [facility] Comment on above: Result Comment: Non- GFR Calc Performed By: #### L 501.9910, L500.4100, L501.9985, L400.2010, L100.0100, L500.4050 #### [facility] [address] [place], [address] Globulin (S) [Mass/Vol] 3.8 g/dL Normal 2.2-4.2 [facility] Comment on above: Performed By: #### L 501.9910, L500.4100, L501.9985, L400.2010, L100.0100, L500.4050 #### [facility] [address] [place], [address] Glucose [Mass/Vol] 100 mg/dL Normal 74-106 [facility] Comment on above: Result Comment: Fast ing Glucose result from 100 to 125 mg/dL suggests IMPAIRED HOMEOSTASIS per A.D.A. criteria. Performed By: #### L 501.9910, L500.4100, L501.9985, L400.2010, L100.0100, L500.4050 #### [facility] [address] [place], [address] Potassium [Moles/Vol] 4.2 mmol/L Normal 3.5-5.1 [facility] Comment on above: Performed By: #### L 501.9910, L500.4100, L501.9985, L400.2010, L100.0100, L500.4050 #### [facility] [address] [place], [address] Sodium [Moles/Vol] 140 mmol/L Normal 136-145 [facility] Comment on above: Performed By: #### L 501.9910, L500.4100, L501.9985, L400.2010, L100.0100, L500.4050 #### [facility] [address] [place], [address] T PROT 7.9 g/dL Normal 6.4-8.2 [facility] Comment on above: Performed By: #### L 501.9910, L500.4100, L501.9985, L400.2010, L100.0100, L500.4050 #### [facility] [address] [place], [address] Urea nitrogen [Mass/Vol] 28 mg/dL High 7-18 [facility] Comment on above: Performed By: #### L 501.9910, L500.4100, L501.9985, L400.2010, L100.0100, L500.4050 #### [facility] [address] [place], [address] Hemoglobin A1con 10-14-2024 HbA1c (Bld) [Mass fraction] 5.1 % Normal 3.8-5.6 [facility] Comment on above: Result Comment: Norm al < 5.7 % Prediabetic 5.7 - 6.4 % Diabetic >or= 6.5 % Please note range changes. Performed By: #### L 501.9910, L500.4100, L501.9985, L4, L100.0100, L500.4050 ####[facility] [address] [place], [address] Lipid Profileon 10-14-2024 Cholesterol [Mass/Vol] 164 mg/dL Normal 200 [facility] Comment on above: Result Comment: <200 mg/dL Desirable 200-240 mg/dL Borderline >240 mg/dL High Risk Performed By: #### L 501.9910, L500.4100, L501.9985, L4, L100.0100, L500.4050 #### [facility] [address] [place], [address] Cholesterol in HDL [Mass/Vol] 70 mg/dL Normal [facility] Comment on above: Result Comment: The drugs N-Acetylcysteine and Metamizole may falsely depress this assay. Reference Range HDL <40 mg/dL Low HDL Cholesterol HDL >or= 60 mg/dL High HDL Cholesterol Performed By: #### L 501.9910, L500.4100, L501.9985, L400.2010, L100.0100, L500.4050 #### [facility] [address] [place], [address] Cholesterol in LDL [Mass/Vol] 83 mg/dL Normal 0-130 [facility] Comment on above: Performed By: #### L 501.9910, L500.4100, L501.9985, L400.2010, L100.0100, L500.4050 #### [facility] [address] [place], [address] Cholesterol in VLDL [Mass/Vol] 11 mg/dL Normal 5-40 [facility] Comment on above: Performed By: #### L 501.9910, L500.4100, L501.9985, L400.2010, L100.0100, L500.4050 #### [facility] [address] [place], [address] Triglyceride [Mass/Vol] 54 mg/dL Normal [facility] Comment on above: Result Comment: The drugs N-Acetylcysteine and Metamizole may falsely depress this assay. Serum Triglycerides Reference Interval Normal <150 mg/dL Borderline high 150 - 199 mg/dL High 200 - 499 mg/dL Very High > or = 500 mg/dL Performed By: #### L 501.9910, L500.4100, L501.9985, L400.2010, L100.0100, L500.4050 #### [facility] [address] [place], [address] PSA,Total - Annual Screenon 10-14-2024 PSA,TOT SCREEN 1.30 ng/mL Normal 0.00-4.00 [facility] Comment on above: Result Comment: This test was performed using the TPSA assay method for the [employer] chemistry system. Values obtained with different assay methods cannot be used interchangably. When changing PSA assays in the course of monitoring a patient, additional sequential testing should be carried out to confirm baseline values. Performed By: #### L 501.9910, L500.4100, L501.9985, L400.2010, L100.0100, L500.4050 #### [facility] [address] [place], [address] Urinalysis, Routine (Dipstic k)on 01-06-2025 BILIRUBIN URINE Negative Normal Negative [facility] Comment on above: Order Comment: Urine , Random Performed By: #### L 501.9910, L500.4100, L501.9985, L400.2010, L100.0100, L500.4050 #### [facility] [address] [place], [address] Clarity (U) Clear Normal Clear [facility] Comment on above: Order Comment: Urine , Random Performed By: #### L 501.9910, L500.4100, L501.9985, L400.2010, L100.0100, L500.4050 #### [facility] [address] [place], [address] Color (U) Yellow Normal Yellow [facility] Comment on above: Order Comment: Urine , Random Performed By: #### L 501.9910, L500.4100, L501.9985, L400.2010, L100.0100, L500.4050 #### [facility] [address] [place], [address] GLUCOSE, UR Normal Normal Normal [facility] Comment on above: Order Comment: Urine , Random Performed By: #### L 501.9910, L500.4100, L501.9985, L400.2010, L100.0100, L500.4050 #### [facility] [address] [place], [address] KETONE UR Negative Normal Negative [facility] Comment on above: Order Comment: Urine , Random Performed By: #### L 501.9910, L500.4100, L501.9985, L400.2010, L100.0100, L500.4050 #### [facility] [address] [place], [address] LEUK ESTERASE Negative Normal Negative [facility] Comment on above: Order Comment: Urine , Random Performed By: #### L 501.9910, L500.4100, L501.9985, L400.2010, L100.0100, L500.4050 #### [facility] [address] [place], [address] Nitrite Ql (U) Negative Normal Negative [facility] Comment on above: Order Comment: Urine , Random Performed By: #### L 501.9910, L500.4100, L501.9985, L400.2010, L100.0100, L500.4050 #### [facility] [address] [place], [address] OCCULT BLOOD-UR Negative Normal Negative [facility] Comment on above: Order Comment: Urine , Random Performed By: #### L 501.9910, L500.4100, L501.9985, L400.2010, L100.0100, L500.4050 #### [facility] [address] [place], [address] pH UR 5.0 Normal 5.0 - 8.0 [facility] Comment on above: Order Comment: Urine , Random Performed By: #### L 501.9910, L500.4100, L501.9985, L400.2010, L100.0100, L500.4050 #### [facility] [address] [place], [address] PROT DIPSTX 15 mg/dl Abnormal Negative [facility] Comment on above: Order Comment: Urine , Random Performed By: #### L 501.9910, L500.4100, L501.9985, L400.2010, L100.0100, L500.4050 #### [facility] [address] [place], [address] SP.GR. DIPSTX 1.020 Normal 1.002-1.030 [facility] Comment on above: Order Comment: Urine , Random Performed By: #### L 501.9910, L500.4100, L501.9985, L400.2010, L100.0100, L500.4050 #### [facility] [address] [place], [address] UROBILI Normal Normal Normal [facility] Comment on above: Order Comment: Urine , Random Performed By: #### L 501.9910, L500.4100, L501.9985, L400.2011, L100.0100, L500.4050 #### [facility] [address] [place], [address] Absolute lymphocyte countOrd ered By: Macho Aburto on 09-25-2023 Lymphocytes Auto (Unsp spec) [#/Vol] 0.90 10*3/uL 0.83-4.51 [facility] Basophil percentageOrdered B y: Macho Aburto on 09-25-2023 Basophils/100 WBC (Bld) 0.7 % 0-1 [facility] Bilirubin [Mass/Vol] 0.50 mg/dL 0.20-1.00 [facility] Comment on above: For patients on eltr ombopag therapy, use of Dimension [place] TBIL is not recommended. Chloride [Moles/Vol] 105 mmol/L 98-107 [facility] Cholesterol [Mass/Vol] 149 mg/dL <200 [facility] Comment on above: <200 mg/dL Desirable 200-240 mg/dL Borderline >240 mg/dL High Risk Eosinophils/100 WBC (Bld) 3.2 % 0-5 [facility] Glucose [Mass/Vol] 108 mg/dL 74-106 [facility] Comment on above: Fasting Glucose resu lt from 100 to 125 mg/dL suggests IMPAIRED HOMEOSTASIS per A.D.A. criteria. Neutrophils (Bld) [#/Vol] 4.1 10*3/uL 2.0-7.7 [facility] Neutrophils/100 WBC (Bld) 72.8 % 47-70 [facility] Potassium [Moles/Vol] 3.9 mmol/L 3.5-5.1 [facility] Protein [Mass/Vol] 7.1 g/dL 6.4-8.2 [facility] Sodium [Moles/Vol] 141 mmol/L 136-145 [facility] Triglyceride [Mass/Vol] 95 mg/dL <199 [facility] Comment on above: The drugs N-Acetylcy steine and Metamizole may falsely depress this assay.Serum Triglycerides Reference Interval Normal <150 mg/dL Borderline high 150 - 199 mg/dL High 200 - 499 mg/dL Very High > or = 500 mg/dL WBC (Bld) [#/Vol] 5.7 10*3/uL 4.4-11.0 [facility] Blood erythrocytes count (nu mber/volume)Ordered By: Macho Aburto on 09-25-2023 RBC (Bld) [#/Vol] 4.46 10*6/uL 4.6-6.2 [facility] Blood hemoglobin measurement (mass/volume)Ordered By: Macho Aburto on 09-25-2023 Hemoglobin (Bld) [Mass/Vol] 13.5 g/dL 13.0-16.5 [facility] Blood lymphocytes/100 leukoc ytesOrdered By: Macho Aburto on 09-25-2023 Lymphocytes/100 WBC (Bld) 15.9 % 19-41 [facility] Blood monocytes/100 leukocyt esOrdered By: Macho bAurto on 09-25-2023 Monocytes/100 WBC (Bld) 7.2 % 0-10 [facility] Blood platelet mean volumeOr dered By: Macho Aburto on 09-25-2023 Platelet mean volume (Bld) [Entitic vol] 9.2 fL 6.2-12.0 [facility] Determination of erythrocyte mean corpuscular volume (MCV)Ordered By: Macho Aburto on 09-25-2023 MCV (RBC) [Entitic vol] 93.9 fL 80-94 [facility] Hematocrit Auto (Bld) [Volum e fraction]Ordered By: Macho Aburto on 09-25-2023 Hematocrit (Bld) [Volume fraction] 41.9 % 40-54 [facility] - Chemistry and C hemistry - challengeOrdered By: Macho Aburto on 09-25-2023 ALP [Catalytic activity/Vol] 89 U/L 45-117 [facility] ALT [Catalytic activity/Vol] 22 U/L 16-61 [facility] CO2 [Moles/Vol] 30.0 mmol/L 21.0-32.0 [facility] Globulin (S) [Mass/Vol] 3.3 g/dL 2.2-4.2 [facility] Urea nitrogen/Creatinine [Mass ratio] 17.6 mg/mg 10-20 [facility] - Hematology and Cell countsOrdered By: Macho Aburto on 09-25-2023 Erythrocyte distribution width (RBC) [Entitic vol] 41.3 fL 35.1-43.9 [facility] Erythrocyte distribution width (RBC) [Ratio] 12.0 % 11.6-14.6 [facility] Immature granulocytes/100 WBC (Bld) 0.200 % 0.0-0.9 [facility] Comment on above: IG% - Immature Granu locytes (promyelocytes, myelocytes and metamyelocytes) > 1% indicates that a LEFT SHIFT is Present. MCH (RBC) [Entitic mass] 30.3 pg 27.0-32.0 [facility] Nucleated RBC/100 WBC (Bld) [Ratio] 0 % 0-5 [facility] MCHC Auto (RBC) [Mass/Vol]Or dered By: Macho Aburto on 09-25-2023 MCHC (RBC) [Mass/Vol] 32.2 g/dL 32-36 [facility] No Panel InformationOrdered By: Macho Aburto on 09-25-2023 Estimated GFR (MDRD) Amer 75 mL/min >60 [facility] Comment on above: GFR Calc Estimated GFR (MDRD) Non-Af Amer 62 mL/min >60 [facility] Comment on above: Non- GFR Calc Prostate Specific Antigen Screen 1.74 ng/mL 0.00-4.00 [facility] Comment on above: This test was perfor med using the TPSA assay method for the[employer] chemistry system. Values obtained with differentassay methods cannot be used interchangably.When changing PSA assays in the course of monitoring apatient, additional sequential testing should be carriedout to confirm baseline values. Platelets bldOrdered By: Yanna Aburto on 09-25-2023 Platelets (Bld) [#/Vol] 261 10*3/uL 150-450 [facility] Serum or plasma albumin andrea urement (mass/volume)Ordered By: Macho Aburto on 09-25-2023 Albumin [Mass/Vol] 3.8 g/dL 3.2-5.0 [facility] Serum or plasma albumin/glob ulin mass ratioOrdered By: Macho Aburto on 09-25-2023 Albumin/Globulin [Mass ratio] 1.2 {ratio} 0.9-2.4 [facility] Serum or plasma calcium andrea urement (mass/volume)Ordered By: Macho Aburto on 09-25-2023 Calcium [Mass/Vol] 8.7 mg/dL 8.5-10.1 [facility] Serum or plasma cholesterol in HDL measurement (mass/volume)Ordered By: Macho Aburto on 09-25-2023 Cholesterol in HDL [Mass/Vol] 57 mg/dL >40 [facility] Comment on above: The drugs N-Acetylcy steine and Metamizole may falsely depress this assay. Reference Range HDL <40 mg/dL Low HDL Cholesterol HDL >or= 60 mg/dL High HDL Cholesterol Serum or plasma cholesterol in VLDL measurement (mass/volume)Ordered By: Macho Aburto on 09-25-2023 Cholesterol in VLDL [Mass/Vol] 19 mg/dL 5-40 [facility] Serum or plasma creatinine m easurement (mass/volume)Ordered By: Macho Aburto on 09-25-2023 Creatinine [Mass/Vol] 1.25 mg/dL 0.70-1.30 [facility] Comment on above: The validity of the calculated GFR & GFRAA in patients over 70 years has not been determined. Clinical correlation is essential. Serum or plasma low density lipoprotein (LDL) cholesterol measurement (mass/volume)Ordered By: Macho Aburto on 09-25-2023 Cholesterol in LDL [Mass/Vol] 73 mg/dL 0-130 [facility] Serum or plasma urea nitroge n measurement (mass/volume)Ordered By: Macho Aburto on 09-25-2023 Urea nitrogen [Mass/Vol] 22 mg/dL 7-18 [facility] Thin prep Papanicolaou smear with manual screeningOrdered By: Macho Aburto on 09-25-2023 Thin prep Papanicolaou smear with manual screening 21 U/L 15-37 [facility] Thin prep Papanicolaou smear with manual screening 6 5-15 [facility] IR INJECTION LARGE JT/BURSA LT (AK)on 03-27-2023 [facility] Absolute lymphocyte countOrd ered By: Dr. Aburto on 08-19-2022 Lymphocytes Auto (Unsp spec) [#/Vol] 0.88 10*3/uL 0.83-4.51 [facility] Basophil percentageOrdered B y: Dr. Aburto on 08-19-2022 Basophils/100 WBC (Bld) 1.0 % 0-1 [facility] Bilirubin [Mass/Vol] 0.40 mg/dL 0.20-1.00 [facility] Comment on above: For patients on eltr ombopag therapy, use of Dimension [place] TBIL is not recommended. Chloride [Moles/Vol] 106 mmol/L 98-107 [facility] Cholesterol [Mass/Vol] 140 mg/dL <200 [facility] Comment on above: <200 mg/dL Desirable 200-240 mg/dL Borderline >240 mg/dL High Risk Eosinophils/100 WBC (Bld) 5.5 % 0-5 [facility] Glucose [Mass/Vol] 94 mg/dL 74-106 [facility] Neutrophils (Bld) [#/Vol] 3.2 10*3/uL 2.0-7.7 [facility] Neutrophils/100 WBC (Bld) 65.1 % 47-70 [facility] Potassium [Moles/Vol] 4.1 mmol/L 3.5-5.1 [facility] Protein [Mass/Vol] 7.6 g/dL 6.4-8.2 [facility] Sodium [Moles/Vol] 141 mmol/L 136-145 [facility] Triglyceride [Mass/Vol] 45 mg/dL <199 [facility] Comment on above: The drugs N-Acetylcy steine and Metamizole may falsely depress this assay.Serum Triglycerides Reference Interval Normal <150 mg/dL Borderline high 150 - 199 mg/dL High 200 - 499 mg/dL Very High > or = 500 mg/dL WBC (Bld) [#/Vol] 4.9 10*3/uL 4.4-11.0 [facility] Blood erythrocytes count (nu mber/volume)Ordered By: Dr. Aburto on 08-19-2022 RBC (Bld) [#/Vol] 4.68 10*6/uL 4.6-6.2 [facility] Blood hemoglobin measurement (mass/volume)Ordered By: Dr. Aburto on 08-19-2022 Hemoglobin (Bld) [Mass/Vol] 14.7 g/dL 13.0-16.5 [facility] Blood lymphocytes/100 leukoc ytesOrdered By: Dr. Aburto on 08-19-2022 Lymphocytes/100 WBC (Bld) 18.0 % 19-41 [facility] Blood monocytes/100 leukocyt esOrdered By: Dr. Aburto on 08-19-2022 Monocytes/100 WBC (Bld) 8.8 % 0-10 [facility] Blood platelet mean volumeOr dered By: Dr. Aburto on 08-19-2022 Platelet mean volume (Bld) [Entitic vol] 9.5 fL 6.2-12.0 [facility] Determination of erythrocyte mean corpuscular volume (MCV)Ordered By: Dr. Aburto on 08-19-2022 MCV (RBC) [Entitic vol] 93.2 fL 80-94 [facility] Hematocrit Auto (Bld) [Volum e fraction]Ordered By: Dr. Aburto on 08-19-2022 Hematocrit (Bld) [Volume fraction] 43.6 % 40-54 [facility] - Chemistry and C hemistry - challengeOrdered By: Dr. Aburto on 08-19-2022 ALP [Catalytic activity/Vol] 114 U/L 45-117 [facility] ALT [Catalytic activity/Vol] 27 U/L 16-61 [facility] CO2 [Moles/Vol] 27.0 mmol/L 21.0-32.0 [facility] Globulin (S) [Mass/Vol] 3.7 g/dL 2.2-4.2 [facility] Urea nitrogen/Creatinine [Mass ratio] 20.7 mg/mg 10-20 [facility] - Hematology and Cell countsOrdered By: Dr. Aburto on 08-19-2022 Erythrocyte distribution width (RBC) [Entitic vol] 40.9 fL 35.1-43.9 [facility] Erythrocyte distribution width (RBC) [Ratio] 11.9 % 11.6-14.6 [facility] Immature granulocytes/100 WBC (Bld) 1.600 % 0.0-0.9 [facility] Comment on above: IG% - Immature Granu locytes (promyelocytes, myelocytes and metamyelocytes) > 1% indicates that a LEFT SHIFT is Present. MCH (RBC) [Entitic mass] 31.4 pg 27.0-32.0 [facility] Nucleated RBC/100 WBC (Bld) [Ratio] 0 % 0-5 [facility] MCHC Auto (RBC) [Mass/Vol]Or dered By: Dr. Aburto on 08-19-2022 MCHC (RBC) [Mass/Vol] 33.7 g/dL 32-36 [facility] No Panel InformationOrdered By: Dr. Aburto on 08-19-2022 Estimated GFR (MDRD) Amer 66 mL/min >60 [facility] Comment on above: GFR Calc Estimated GFR (MDRD) Non-Af Amer 55 mL/min >60 [facility] Comment on above: Non- GFR Calc Prostate Specific Antigen Screen 1.66 ng/mL 0.00-4.00 [facility] Comment on above: This test was perfor med using the TPSA assay method for the[facility] system. Values obtained with differentassay methods cannot be used interchangably.When changing PSA assays in the course of monitoring apatient, additional sequential testing should be carriedout to confirm baseline values. Platelets bldOrdered By: Dr. Aburto on 08-19-2022 Platelets (Bld) [#/Vol] 224 10*3/uL 150-450 [facility] Serum or plasma albumin andrea urement (mass/volume)Ordered By: Dr. Aburto on 08-19-2022 Albumin [Mass/Vol] 3.9 g/dL 3.2-5.0 [facility] Serum or plasma albumin/glob ulin mass ratioOrdered By: Dr. Aburto on 08-19-2022 Albumin/Globulin [Mass ratio] 1.1 {ratio} 0.9-2.4 [facility] Serum or plasma calcium andrea urement (mass/volume)Ordered By: Dr. Aburto on 08-19-2022 Calcium [Mass/Vol] 9.0 mg/dL 8.5-10.1 [facility] Serum or plasma cholesterol in HDL measurement (mass/volume)Ordered By: Dr. Aburto on 08-19-2022 Cholesterol in HDL [Mass/Vol] 58 mg/dL >40 [facility] Comment on above: The drugs N-Acetylcy steine and Metamizole may falsely depress this assay. Reference Range HDL <40 mg/dL Low HDL Cholesterol HDL >or= 60 mg/dL High HDL Cholesterol Serum or plasma cholesterol in VLDL measurement (mass/volume)Ordered By: Dr. Aburto on 08-19-2022 Cholesterol in VLDL [Mass/Vol] 9 mg/dL 5-40 [facility] Serum or plasma creatinine m easurement (mass/volume)Ordered By: Dr. Aburto on 08-19-2022 Creatinine [Mass/Vol] 1.40 mg/dL 0.70-1.30 [facility] Comment on above: The validity of the calculated GFR & GFRAA in patients over 70 years has not been determined. Clinical correlation is essential. Serum or plasma low density lipoprotein (LDL) cholesterol measurement (mass/volume)Ordered By: Dr. Aburto on 08-19-2022 Cholesterol in LDL [Mass/Vol] 73 mg/dL 0-130 [facility] Serum or plasma urea nitroge n measurement (mass/volume)Ordered By: Dr. Aburto on 08-19-2022 Urea nitrogen [Mass/Vol] 29 mg/dL 7-18 [facility] Thin prep Papanicolaou smear with manual screeningOrdered By: Dr. Aburto on 08-19-2022 Thin prep Papanicolaou smear with manual screening 21 U/L 15-37 [facility] Thin prep Papanicolaou smear with manual screening 8 5-15 [facility] BMPon 12-04-2020 Anion gap [Moles/Vol] 3 mmol/L Low 5-16 [facility] Comment on above: Order Comment: Chelsey s: M Performed By: #### L 500.53294, L500.11577 #### [facility] [address] [place] [address] Calcium [Mass/Vol] 9.7 mg/dL Normal 8.5-10.5 [facility] Comment on above: Order Comment: Campu s: M Result Comment: NOTE NEW NORMAL RANGE DUE TO REAGENT CHANGE Performed By: #### L 500.64095, L500.82309 #### [facility] [address] [place] [address] Chloride [Moles/Vol] 110 mmol/L High 98-107 [facility] Comment on above: Order Comment: Campu s: M Performed By: #### L 500.22984, L500.52660 #### [facility] [address] [place] [address] CO2 [Moles/Vol] 30.0 mmol/L Normal 21-32 [facility] Comment on above: Order Comment: Campu s: M Performed By: #### L 500.42054, L500.93550 #### [facility] [address] [place] [address] Creatinine [Mass/Vol] 1.22 mg/dL Normal 0.5-1.4 [facility] Comment on above: Order Comment: Campu s: M Result Comment: NOTE NEW NORMAL RANGE DUE TO REAGENT CHANGE Patients receiving either N-Acetylcysteine (NAC) or Metamizole prior to venipuncture, may have falsely depressed results. Performed By: #### L 500.09620, L500.16528 #### [facility] [address] [place], [place] [id number] Glucose [Mass/Vol] 103 mg/dL High 70-100 [facility] Comment on above: Order Comment: Campu s: M Result Comment: 70-1 00- Normal Fasting; 100-125 Impaired Fasting; greater than 126 on more than one result- Diabetes. ADA guidelines. Results may be falsely elevated after the administration of Sulfapyridine. Results may be falsely depressed after the administration of Sulfasalazine. Performed By: #### L 500.86618, L500.40280 #### [facility] [address] [place] [address] Potassium [Moles/Vol] 4.7 mmol/L Normal 3.5-5.1 [facility] Comment on above: Order Comment: Campu s: M Performed By: #### L 500.49808, L500.57484 #### [facility] [address] [place] [address] Sodium [Moles/Vol] 142 mmol/L Normal 136-145 [facility] Comment on above: Order Comment: Campu s: M Performed By: #### L 500.27230, L500.96363 #### [facility] [address] [place] [address] Urea nitrogen [Mass/Vol] 29 mg/dL High 7-26 [facility] Comment on above: Order Comment: Campu s: M Performed By: #### L 500.96463, L500.42889 #### [facility] [address] [place] [address] Urea nitrogen/Creatinine [Mass ratio] 24 mg/mg Normal 15-24 [facility] Comment on above: Order Comment: Campu s: M Performed By: #### L 500.26905, L500.47648 #### [facility] [address] [place] [address] CBC W/DIFFon 12-04-2020 BASO ABS 0.10 K/CU MM Normal 0-0.2 [facility] Comment on above: Order Comment: Campu s: M Performed By: #### L 200.37160 #### [facility] [address] [place], [place] [id number] Basophils/100 WBC (Bld) 1.0 % Normal 0-2 [facility] Comment on above: Order Comment: Campu s: M Performed By: #### L 200.15383 #### [facility] [address] [place], [place] [id number] EOS ABS 0.30 K/CU MM Normal 0-0.5 [facility] Comment on above: Order Comment: Campu s: M Performed By: #### L 200.72088 #### [facility] [address] [place] [address] Eosinophils/100 WBC (Bld) 5.0 % Normal 0-5 [facility] Comment on above: Order Comment: Campu s: M Performed By: #### L 200.95614 #### [facility] [address] [place] [address] Erythrocyte distribution width (RBC) [Ratio] 12.3 % Normal 11-14.5 [facility] Comment on above: Order Comment: Campu s: M Performed By: #### L 200.57146 #### [facility] [address] [place] [address] Hematocrit (Bld) [Volume fraction] 45.4 % Normal 41.0-53.0 [facility] Comment on above: Order Comment: Campu s: M Performed By: #### L [id number] #### [facility] [address] [place] [address] Hemoglobin (Bld) [Mass/Vol] 14.8 g/dL Normal 13.5-17.5 [facility] Comment on above: Order Comment: Campu s: M Performed By: #### L 200.52387 #### [facility] [address] [place] [address] IMMATR GRAN ABS 0.00 K/CU MM Normal Less than 2 [facility] Comment on above: Order Comment: Campu s: M Performed By: #### L 200.09287 #### [facility] [address] [place] [address] IMMATURE GRAN % 0.2 % Normal Less than 2 [facility] Comment on above: Order Comment: Campu s: M Performed By: #### L 200.07474 #### [facility] [address] [place] [address] Lymphocytes (Bld) [#/Vol] 1.00 K/CU MM Normal 0.9-4.4 [facility] Comment on above: Order Comment: Campu s: M Performed By: #### L 200.45193 #### [facility] [address] [place] [address] Lymphocytes/100 WBC (Bld) 18.9 % Low 20-40 [facility] Comment on above: Order Comment: Campu s: M Performed By: #### L [id number] #### [facility] [address] [place] [address] MCHC (RBC) [Mass/Vol] 32.6 g/dL Normal 32.0-36.0 [facility] Comment on above: Order Comment: Campu s: M Performed By: #### L 200.43550 #### [facility] [facility] [address] [place] [address] MCV (RBC) [Entitic vol] 93.0 fL Normal 80.0-99.0 [facility] Comment on above: Order Comment: Campu s: M Performed By: #### L [id number] #### [facility] [address] [place] [address] MONO ABS 0.40 K/CU MM Normal 0.1-1.1 [facility] Comment on above: Order Comment: Campu s: M Performed By: #### L [id number] #### [facility] [address] [place] [address] Monocytes/100 WBC (Bld) 8.3 % Normal 2-10 [facility] Comment on above: Order Comment: Campu s: M Performed By: #### L [id number] #### [facility] [address] [place] [address] NEUTROPHIL ABS 3.40 K/CU MM Normal 2.0-8.3 [facility] Comment on above: Order Comment: Campu s: M Performed By: #### L [id number] #### [facility] [address] [place] [address] Neutrophils/100 WBC (Bld) 66.6 % Normal 45-75 [facility] Comment on above: Order Comment: Campu s: M Performed By: #### L [id number] #### [facility] [address] [place] [address] Nucleated RBC/100 WBC (Bld) [Ratio] 0.0 % Normal Less than 1 [facility] Comment on above: Order Comment: Campu s: M Performed By: #### L [id number] #### [facility] [address] [place] [address] Platelet mean volume (Bld) [Entitic vol] 9.1 fL Low 9.4-12.4 [facility] Comment on above: Order Comment: Campu s: M Performed By: #### L [id number] #### [facility] [address] [place] [address] Platelets (Bld) [#/Vol] 206 K/CU MM Normal 150-450 [facility] Comment on above: Order Comment: Campu s: M Performed By: #### L [id number] #### [facility] [address] [place] [address] RBC (Bld) [#/Vol] 4.88 M/CU MM Normal 4.50-6.00 [facility] Comment on above: Order Comment: Campu s: M Performed By: #### L [id number] #### [facility] [address] [place] [address] WBC (Bld) [#/Vol] 5.0 K/CUMM Normal 4.5-11.0 [facility] Comment on above: Order Comment: Campu s: M Performed By: #### L [id number] #### [facility] [address] [place] [address] GFR ESTon 12-04-2020 IF AMER Greater than [address] [facility] Comment on above: Order Comment: Campu s: M Performed By: #### L 500.25181, L500.23721 #### [facility] [address] [place] [address] IF non-AFR AMER Greater than [address] [facility] Comment on above: Order Comment: Campu s: M Performed By: #### L 500.56756, L500.03051 #### [facility] [address] [place] [address] OR.OPRPTon 12-04-2020 Operative Report Normal [facility] OR.OPRPT [facility] Patient Name: MALDONADO BRIONES [address] [place] [address] Date of : [address] [address] Unit Number: [id number] Operative Report [place] [facility] [place]ending Doctor: Dale Feldman MD Service Date: 12/04/20 1106 Operative Report Procedure Date: 12/04/20 Attending Physician: Dale Feldman MD Procedure: Preoperative Diagnosis: PAD right leg Postoperative Diagnosis: Same Procedure Type: 1. Ultrasound-guided access retrograde left common femoral artery. 2. Right lower extremity angiogram catheter placed into the popliteal artery. 3. Balloon angioplasty SFA to popliteal with a 5 mm Singer. 4. Closure with Vascade Anesthesia: Sedation Complications: None Procedure Details: Patient brought to the operating room. Underwent the appropriate timeout consent. Patient was prepped and draped in a sterile fashion. We did ultrasound- guided access retrograde left common femoral artery. Put a Glidewire up and then a 6 Croatian sheath. Gave 5000 units of heparin and then an additional 2000 to heparin. We got up and over the bifurcation and then down the right leg. We then brought in a long 6 Croatian sheath. We did the angiogram and it [...] SFA to popliteal with a 5 mm Singer for over 2 minutes. Completion was improved [...] Dale Feldman MD Verified/Reviewed by 12/04/20 1114 [facility] Cult and Smr JOLENE and AERon 0 11-03-2017 Cult and Smr JOLENE and AER Test performed at [facility] No anaerobic organisms cultured Rare WBC No organisms seen ORGANISM: Staphylococcus species not aureus (ID: 1) Few Normal [facility] Comment on above: Performed By: #### C _ANA ####[address] [address] Hemogram/Diffon 11-03-2017 Abs Immature Grans 0.02 thou/cmm Normal 0.00-0.05 [facility] Comment on above: Performed By: #### C BCD1 ####[place] [address] Abs. Baso 0.03 thou/cmm Normal 0.01-0.08 [facility] Comment on above: Performed By: #### C BCD1 ####[facility] [place], [place] [address] Abs. Furnas 0.50 thou/cmm Normal 0.30-0.82 [facility] Comment on above: Performed By: #### C BCD1 ####[address] [address] Abs. Neut 5.56 thou/cmm High 1.78-5.38 [facility] Comment on above: Performed By: #### C BCD1 ####[place] [address] Basophils/100 WBC Auto (Bld) 0.4 % Normal [facility] Comment on above: Performed By: #### C BCD1 ####[place] [address] Eosinophils Auto #/vol (Bld) 0.15 thou/cmm Normal 0.04-0.54 [facility] Comment on above: Performed By: #### C BCD1 ####[place] [address] Eosinophils/100 WBC Auto (Bld) 2.1 % Normal [facility] Comment on above: Performed By: #### C BCD1 ####[place] [address] Erythrocyte distribution width Auto Ratio (RBC) 11.6 % Normal 11.6-14.4 [facility] Comment on above: Performed By: #### C BCD1 ####[place] [address] Hematocrit Auto Volume Fraction (Bld) 37.9 % Low 40.1-51.0 [facility] Comment on above: Performed By: #### C BCD1 ####[place] [address] Hemoglobin mass conc (Bld) 12.8 g/dL Low 13.7-17.5 [facility] Comment on above: Performed By: #### C BCD1 ####[place] [address] Immature Grans 0.30 % Normal [facility] Comment on above: Performed By: #### C BCD1 ####[address] [address] Lymphocytes Auto #/vol (Bld) 0.93 thou/cmm Normal 0.84-2.85 [facility] Comment on above: Performed By: #### C BCD1 ####[address] [address] Lymphocytes/100 WBC Auto (Bld) 12.9 % Normal [facility] Comment on above: Performed By: #### C BCD1 ####[address] [address] MCH Auto Entitic mass (RBC) 28.9 pg Normal 25.7-32.2 [facility] Comment on above: Performed By: #### C BCD1 ####[address] [address] MCHC Auto mass conc (RBC) 33.8 % Normal 32.3-36.5 [facility] Comment on above: Performed By: #### C BCD1 ####[address] [address] MCV Auto Entitic volume (RBC) 85.6 fL Normal 83.2-95.6 [facility] Comment on above: Performed By: #### C BCD1 ####[address] [address] Monocytes/100 WBC Auto (Bld) 7.0 % Normal [facility] Comment on above: Performed By: #### C BCD1 ####[address] [address] Platelet mean volume Auto Entitic volume (Bld) 9.3 fL Normal 8.7-12.0 [facility] Comment on above: Performed By: #### C BCD1 ####[address] [address] Platelets Auto #/vol (Bld) 301 thou/cmm Normal 141-365 [facility] Comment on above: Performed By: #### C BCD1 ####[address], [place] [address] RBC Auto #/vol (Bld) 4.43 mil/cmm Low 4.63-6.08 [facility] Comment on above: Performed By: #### C BCD1 ####[facility] [place], [place] [address] RDW SD 36.1 fl Normal 36.1-45.8 [facility] Comment on above: Performed By: #### C BCD1 ####[facility] [place], [place] [address] Seg Neutrophil 77.3 % Normal [facility] Comment on above: Performed By: #### C BCD1 ####[facility] [place], [place] [address] WBC Auto #/vol (Bld) 7.19 thou/cmm Normal 4.23-9.[address] [facility] Comment on above: Performed By: #### C BCD1 ####[address] [address] [address] HIP WO CONTRAST LTon 10-10 CT HIP WO CONTRAST LT Performed at [facility] APPROVED BY: Tyson Fallon MD EXAM TITLE: [...] known left acetabular and sacral fractures. Normal [facility] No Panel Information [facility] [place] Vital Signs Date Time Vital Sign Value Performing Clinician Facility 06-16-2025 14:03-0400 Body height 182.9 cm Ed Montana MD Work Phone: [facility] [place] 06-16-2025 14:03-0400 Body mass index (BMI) [Ratio] 31.87 kg/m2 Ed Montana MD Work Phone: [facility] [place] 06-16-2025 14:03-0400 Body weight 106.59 kg Ed Montana MD Work Phone: [facility] [place] 06-16-2025 14:03-0400 Respiratory rate 18 /min Ed Montana MD Work Phone: [facility] [place] 06-02-2025 14:270400 Body height 182.9 cm Ed Montana MD Work Phone: [facility] [place] 06-02-2025 14:27-0400 Body mass index (BMI) [Ratio] 31.87 kg/m2 Ed Montana MD Work Phone: [facility] [place] 06-02-2025 14:27-0400 Body weight 106.59 kg Ed Montana MD Work Phone: [facility] [place] 06-02-2025 14:27-0400 Respiratory rate 17 /min Ed Montana MD Work Phone: [facility] [place] 05-29-2025 15:41-0400 Body temperature 97.3 [degF] Melanie BenitezBurch PT Work Phone: [facility] [place] 05-29-2025 15:41-0400 Diastolic blood pressure 72 mm[Hg] Melanie HalbriannaavaniBurch PT Work Phone: [facility] [place] 05-29-2025 15:41-0400 Heart rate 62 /min Melanie HalbriannaGutierrez PT Work Phone: [facility] [place] 05-29-2025 15:41-0400 Respiratory rate 16 /min Melanie Sotelo PT Work Phone: [facility] [place] 05-29-2025 15:41-0400 SaO2% (BldA) [Mass fraction] 96 % Melanie Sotelo PT Work Phone: [facility] [place] 05-29-2025 15:41-0400 Systolic blood pressure 110 mm[Hg] Melanie HalbriannaGutierrez PT Work Phone: [facility] [place] 05-26-2025 09:15-0400 Body temperature 97.3 [degF] Porsha Sadia REAL ESTATE TRANSACTION COORDINATOR Work Phone: [facility] [place] 05-26-2025 09:15-0400 Diastolic blood pressure 66 mm[Hg] Porsha Sadia REAL ESTATE TRANSACTION COORDINATOR Work Phone: [facility] [place] 05-26-2025 09:15-0400 Heart rate 74 /min Porsha Sadia REAL ESTATE TRANSACTION COORDINATOR Work Phone: [facility] [place] 05-26-2025 09:15-0400 Respiratory rate 18 /min Porsha Sadia REAL ESTATE TRANSACTION COORDINATOR Work Phone: [facility] [place] 05-26-2025 09:15-0400 SaO2% (BldA) [Mass fraction] 95 % Porsha Sadia REAL ESTATE TRANSACTION COORDINATOR Work Phone: [facility] [place] 05-26-2025 09:15-0400 Systolic blood pressure 110 mm[Hg] Porsha Sadia REAL ESTATE TRANSACTION COORDINATOR Work Phone: [facility] [place] 05-23-2025 09:25-0400 Body temperature 97.3 [degF] Porsha Sadia REAL ESTATE TRANSACTION COORDINATOR Work Phone: [facility] [place] 05-23-2025 09:25-0400 Diastolic blood pressure 68 mm[Hg] Porsha Sadia REAL ESTATE TRANSACTION COORDINATOR Work Phone: [facility] [place] 05-23-2025 09:25-0400 Heart rate 68 /min Porsha Sadia REAL ESTATE TRANSACTION COORDINATOR Work Phone: [facility] [place] 05-23-2025 09:25-0400 Respiratory rate 18 /min Posrha Sadia REAL ESTATE TRANSACTION COORDINATOR Work Phone: [facility] 05-23-2025 09:25-0400 SaO2% (BldA) [Mass fraction] 95 % Porsha Sadia REAL ESTATE TRANSACTION COORDINATOR Work Phone: [facility] [place] 05-23-2025 09:25-0400 Systolic blood pressure 110 mm[Hg] Porsha Sadia REAL ESTATE TRANSACTION COORDINATOR Work Phone: [facility] [place] 05-21-2025 11:10-0400 Body temperature 97.3 [degF] Porsha Sadia REAL ESTATE TRANSACTION COORDINATOR Work Phone: [facility] 05-21-2025 11:10-0400 Diastolic blood pressure 70 mm[Hg] Porsha Sadia REAL ESTATE TRANSACTION COORDINATOR Work Phone: [facility] 05-21-2025 11:10-0400 Heart rate 84 /min Porsha Sadia REAL ESTATE TRANSACTION COORDINATOR Work Phone: [facility] [place] 05-21-2025 11:10-0400 Respiratory rate 18 /min Porsha Sadia REAL ESTATE TRANSACTION COORDINATOR Work Phone: [facility] 05-21-2025 11:10-0400 SaO2% (BldA) [Mass fraction] 98 % Porsha Sadia REAL ESTATE TRANSACTION COORDINATOR Work Phone: [facility] [place] 05-21-2025 11:10-0400 Systolic blood pressure 110 mm[Hg] Porsha Sadia REAL ESTATE TRANSACTION COORDINATOR Work Phone: [facility] [place] 05-19-2025 13:58-0400 Body temperature 97.3 [degF] Melanie Sotelo PT Work Phone: [facility] [place] 05-19-2025 13:58-0400 Diastolic blood pressure 80 mm[Hg] Melanie Halderman-Burch PT Work Phone: [facility] [place] 05-19-2025 13:58-0400 Heart rate 95 /min Melanie Russoman-Burch PT Work Phone: [facility] [place] 05-19-2025 13:58-0400 Respiratory rate 16 /min Melanie Owusuderman-Burch PT Work Phone: [facility] [place] 05-19-2025 13:58-0400 SaO2% (BldA) [Mass fraction] 96 % Melanie Owusuderman-Burch PT Work Phone: [facility] [place] 05-19-2025 13:58-0400 Systolic blood pressure 134 mm[Hg] Melanie Halderman-Burch PT Work Phone: [facility] [place] 05-01-2025 10:12-0400 Diastolic blood pressure 77 mm[Hg] Pacc 2 Work Phone: [facility] [place] 05-01-2025 10:12-0400 Systolic blood pressure 123 mm[Hg] Pacc 2 Work Phone: [facility] [place] 05-01-2025 10:08-0400 Body mass index (BMI) [Ratio] 34.12 kg/m2 Pacc 2 Work Phone: [facility] [place] 05-01-2025 10:08-0400 Body weight 114.13 kg Pacc 2 Work Phone: [facility] [place] 05-01-2025 10:08-0400 Heart rate 63 /min Pacc 2 Work Phone: [facility] [place] 05-01-2025 10:08-0400 Respiratory rate 18 /min Pacc 2 Work Phone: [facility] [place] 05-01-2025 10:08-0400 SaO2% (BldA) [Mass fraction] 95 % Pacc 2 Work Phone: [facility] [place] 04-17-2025 14:52-0400 Body height 182.9 cm Ed Montana MD Work Phone: [facility] [place] 04-17-2025 14:52-0400 Body mass index (BMI) [Ratio] 33.23 kg/m2 Ed Montana MD Work Phone: [facility] [place] 04-17-2025 14:52-0400 Body weight 111.13 kg Ed Montana MD Work Phone: [facility] [place] 04-17-2025 14:52-0400 Respiratory rate 16 /min Ed Montana MD Work Phone: [facility] [place] 01-27-2025 14:36-0400 Body height 182.9 cm Josh Koo MD Work Phone: [facility] [place] 01-27-2025 14:36-0400 Body mass index (BMI) [Ratio] 32.55 kg/m2 Josh Koo MD Work Phone: [facility] [place] 01-27-2025 14:36-0400 Body weight 108.86 kg Josh Koo MD Work Phone: [facility] [place] 01-27-2025 14:36-0400 Respiratory rate 16 /min Josh Koo MD Work Phone: [facility] [place] 01-13-2025 10:38-0400 Body height 182.9 cm Ed Montana MD Work Phone: [facility] [place] 01-13-2025 10:38-0400 Body mass index (BMI) [Ratio] 32.55 kg/m2 Ed Montana MD Work Phone: [facility] [place] 01-13-2025 10:38-0400 Body weight 108.86 kg Ed Montana MD Work Phone: [facility] [place] 01-13-2025 10:38-0400 Respiratory rate 18 /min Ed Montana MD Work Phone: [facility] [place] 01-29-2024 15:01-0400 Body height 182.9 cm Ed Montana MD Work Phone: [facility] [place] 01-29-2024 15:01-0400 Body mass index (BMI) [Ratio] 32.55 kg/m2 Ed Montana MD Work Phone: [facility] [place] 01-29-2024 15:010400 Body weight 108.86 kg Ed Montana MD Work Phone: [facility] [place] 01-29-2024 15:010400 Respiratory rate 18 /min Ed Montana MD Work Phone: [facility] [place] 01-08-2024 15:040400 Body height 182.9 cm Ed Montana MD Work Phone: [facility] [place] 01-08-2024 15:040400 Body weight 108.86 kg Ed Montana MD Work Phone: [facility] [place] 01-08-2024 [id number] Respiratory rate 18 /min Ed Montana MD Work Phone: [facility] [place] 12-29-2023 14:29-0400 Body temperature 97.39 [degF] Melanie Sotelo PT Work Phone: [facility] [place] 12-29-2023 14:29-0400 Diastolic blood pressure 64 mm[Hg] Melanie Sotelo PT Work Phone: [facility] [place] 12-29-2023 14:29-0400 Heart rate 78 /min Melanie Sotelo PT Work Phone: [facility] [place] 12-29-2023 14:29-0400 Respiratory rate 18 /min Melanie Sotelo PT Work Phone: [facility] [place] 12-29-2023 14:29-0400 SaO2% (BldA) [Mass fraction] 98 % Melanie Sotelo PT Work Phone: [facility] [place] 12-29-2023 14:29-0400 Systolic blood pressure 122 mm[Hg] Melanie Sotelo PT Work Phone: [facility] [place] 12-27-2023 16:27-0400 Body temperature 97.2 [degF] Melanie Sotelo PT Work Phone: [facility] [place] 12-27-2023 16:27-0400 Diastolic blood pressure 80 mm[Hg] Melanie UmerbriannajonesRocío PT Work Phone: [facility] [place] 12-27-2023 16:27-0400 Heart rate 67 /min Melanie OwusubriannajonesRocío PT Work Phone: [facility] [place] 12-27-2023 16:27-0400 Respiratory rate 18 /min Melanie HalbriannajonesRocío PT Work Phone: [facility] [place] 12-27-2023 16:27-0400 SaO2% (BldA) [Mass fraction] 98 % Melanie HalbriannajonesRocío PT Work Phone: [facility] [place] 12-27-2023 16:27-0400 Systolic blood pressure 120 mm[Hg] Melanie Umerbriannajones-Burch PT Work Phone: [facility] [place] 12-25-2023 10:05-0400 Body temperature 98.01 [degF] Porsha Sadia REAL ESTATE TRANSACTION COORDINATOR Work Phone: [facility] [place] 12-25-2023 10:05-0400 Diastolic blood pressure 66 mm[Hg] Porsha Sadia REAL ESTATE TRANSACTION COORDINATOR Work Phone: [facility] [place] 12-25-2023 10:05-0400 Heart rate 66 /min Porsha Sadia REAL ESTATE TRANSACTION COORDINATOR Work Phone: [facility] [place] 12-25-2023 10:05-0400 Respiratory rate 18 /min Oprsha Sadia REAL ESTATE TRANSACTION COORDINATOR Work Phone: [facility] [place] 12-25-2023 10:05-0400 SaO2% (BldA) [Mass fraction] 96 % Porsha Sadia REAL ESTATE TRANSACTION COORDINATOR Work Phone: [facility] [place] 12-25-2023 10:05-0400 Systolic blood pressure 108 mm[Hg] Porsha Sadia REAL ESTATE TRANSACTION COORDINATOR Work Phone: [facility] [place] 12-21-2023 14:08-0400 Body temperature 97.7 [degF] Melanie Pineda-Burch PT Work Phone: [facility] [place] 12-21-2023 14:08-0400 Diastolic blood pressure 60 mm[Hg] Melanie Sotelo PT Work Phone: [facility] [place] 12-21-2023 14:08-0400 Heart rate 63 /min Melanie Sotelo PT Work Phone: [facility] [place] 12-21-2023 14:08-0400 Respiratory rate 18 /min Melanie Sotelo PT Work Phone: [facility] [place] 12-21-2023 14:08-0400 SaO2% (BldA) [Mass fraction] 96 % Melanie Sotelo PT Work Phone: [facility] [place] 12-21-2023 14:08-0400 Systolic blood pressure 110 mm[Hg] Melanie Sotelo PT Work Phone: [facility] [place] 08-18-2023 09:03-0500 Diastolic blood pressure 90 mm[Hg] Dr. Macho Aburto Work Phone: [facility] 08-18-2023 09:03-0500 Systolic blood pressure 128 mm[Hg] Dr. Macho Aburto Work Phone: [facility] 08-18-2023 08:31-0500 Body height 182.[address] Macho Aburto Work Phone: [facility] 08-18-2023 08:31-0500 Body mass index (BMI) [Ratio] 32 kg/m2 Dr. Macho Aburto Work Phone: [facility] 08-18-2023 08:31-0500 Body weight 107.[address] Macho Aburto Work Phone: [facility] 08-18-2023 08:31-0500 Heart rate 53 /min Dr. Macho Aburto Work Phone: [facility] 08-18-2023 08:31-0500 Respiratory rate 18 /min Dr. Macho Aburto Work Phone: [facility] 08-18-2023 08:31-0500 SaO2% (BldA) [Mass fraction] 96 % Dr. Macho Aburto Work Phone: [facility] 06-29-2023 07:53-0400 Body height 182.9 cm Ed Montana MD Work Phone: [facility] [place] 06-29-2023 07:53-0400 Body weight 111.13 kg Ed Montana MD Work Phone: [facility] [place] 06-29-2023 07:53-0400 Respiratory rate 16 /min Ed Montana MD Work Phone: [facility] [place] 05-10-2023 09:20-0400 Body height 182.9 cm Jarad Phelan MD Work Phone: [facility] [place] 05-10-2023 09:20-0400 Body weight 111.13 kg Jarad Phelan MD Work Phone: [facility] [place] 05-10-2023 09:20-0400 Respiratory rate 16 /min Jarad Phelan MD Work Phone: [facility] [place] 08-24-2022 09:55-0500 Body height 182.[address] Mahco Aburto Work Phone: [facility] 08-24-2022 09:52-0500 Body mass index (BMI) [Ratio] 33 kg/m2 Dr. Macho Aburto Work Phone: [facility] 08-24-2022 09:52-0500 Body weight 110.[address] Macho Aburto Work Phone: [facility] 08-24-2022 09:52-0500 Diastolic blood pressure 84 mm[Hg] Dr. Macho Aburto Work Phone: [facility] 08-24-2022 09:52-0500 Heart rate 60 /min Dr. Macho Aburto Work Phone: [facility] 08-24-2022 09:52-0500 Respiratory rate 16 /min Dr. Macho Aburto Work Phone: [facility] 08-24-2022 09:52-0500 Systolic blood pressure 128 mm[Hg] Dr. Macho Aburto Work Phone: [facility] 07-07-2022 14:19-0400 Body height 182.9 cm Jarad Phelan MD Work Phone: [facility] [place] 07-07-2022 14:19-040 Body weight 111.13 kg Jarad Phelan MD Work Phone: [facility] [place] 07-07-2022 14:190400 Respiratory rate 20 /min Jarad Phelan MD Work Phone: [facility] [place] Encounters Encounter Date Encounter Type Care Provider Facility Start: 08-04-2025 ambulatory Dale Feldman Facility :[facility] Start: 07-22-2025 End: 07-22-2025 ambulatory ROCHELLE LUND Facility:[facility] Start: 07-18-2025 End: 07-18-2025 ambulatory MACHO ABURTO Facility:[facility] Start: 06-16-2025 End: 06-16-2025 ambulatory [place] Facility:[facility] Start: 06-16-2025 End: 06-16-2025 Patient encounter procedure Ed Montana MD Work Phone: [facility] Comment on above: Status post total hi p replacement, right (Primary Dx) Start: 06-03-2025 End: 06-03-2025 Refill Ed Montana MD Work Phone: [facility] Comment on above: Refill Request Start: 06-02-2025 End: 06-02-2025 Patient encounter procedure Ed Montana MD Work Phone: [facility] Comment on above: Status post total hi p replacement, right (Primary Dx) Start: 06-02-2025 End: 06-02-2025 ambulatory ED [place] Facility:[facility] Start: 05-29-2025 End: 05-29-2025 Home visit Melanie Sotelo PT Work Phone: [facility] Comment on above: PT AGENCY DC W VISIT Start: 05-28-2025 End: 05-28-2025 Home visit Melanie Sotelo PT Work Phone: [facility] Comment on above: PT ATTEMPTED VISIT Start: 05-27-2025 End: 05-27-2025 Telephone encounter Jacqui Waters RN [facility] Comment on above: Post Op Call Start: 05-26-2025 End: 05-26-2025 Home visit Porsha Finnegan REAL ESTATE TRANSACTION COORDINATOR Work Phone: [facility] Comment on above: REAL ESTATE TRANSACTION COORDINATOR ROUTINE Start: 05-23-2025 End: 05-23-2025 Home visit Porsha Vegaion REAL ESTATE TRANSACTION COORDINATOR Work Phone: [facility] Comment on above: REAL ESTATE TRANSACTION COORDINATOR ROUTINE Start: 05-22-2025 End: 05-22-2025 Telephone encounter Jacqui Waters RN [facility] Comment on above: Post Op Call Start: 05-21-2025 End: 05-21-2025 Telephone encounter Porsha Finnegan REAL ESTATE TRANSACTION COORDINATOR Work Phone: [facility] Comment on above: Home Care (Bandage r emoval) Start: 05-21-2025 End: 05-23-2025 Home visit Porsha Vegaion REAL ESTATE TRANSACTION COORDINATOR Work Phone: [facility] Comment on above: REAL ESTATE TRANSACTION COORDINATOR ROUTINE CARE COORDINATION Refill Request Start: 05-19-2025 End: 05-19-2025 Telephone encounter Melanie Sotelo PT Work Phone: [facility] Comment on above: Home Care (Medicatio n interaction) Start: 05-19-2025 End: 05-19-2025 Home visit Melanie Sotelo PT Work Phone: [facility] Comment on above: PT SOC Start: 05-18-2025 End: 05-18-2025 Telephone encounter Ed Montana MD Work Phone: [facility] Comment on above: Home Care (Delayed S OC) Start: 05-17-2025 End: 05-17-2025 Home visit Luis Carmona PT Work Phone: [facility] Comment on above: PT ATTEMPTED VISIT Start: 05-14-2025 End: 05-16-2025 Evaluation and management of inpatient ED [place] Facility:[id number] Start: 05-13-2025 End: 05-13-[address] Macho Aburto DO Work Phone: -Radiology [place] Start: 05-13-2025 End: 05-13-[address] Cullen Solorzano AL -[facility] [place] Work Phone: Start: 05-13-2025 End: 05-13-2025 ambulatory Cullen Solorzano Facility:[facility] Start: 05-12-2025 End: 05-12-2025 Telephone encounter Jacqui Waters [facility] Comment on above: Home Care Arrangemen ts PreOp Call Start: 05-01-2025 Encounter for other preprocedural examination MACHO [facility] Start: 05-01-2025 End: 05-01-2025 Office outpatient new 45 [place] [address] Work Phone: Pre Anesthesia Comment on above: [...] atrial flutter (HCC); Coronary artery disease involving grayling coronary artery of grayling heart without angina pectoris; Arthritis of right hip; Left foot drop; Antiplatelet or antithrombotic long-term use Start: 05-01-2025 End: 05-01-2025 Patient encounter status Pacc 2 Work Phone: [facility] Work Phone: Start: 05-01-2025 End: 05-01-2025 Preoperative state Pac 2 Work Phone: [facility] Start: 05-01-2025 End: 05-01-2025 ambulatory MACHO MORRELLMAN Facility:[id number] Start: 05-01-2025 Encounter for other preprocedural examination [facility] Start: 04-22-2025 End: 04-22-2025 Telephone encounter Jacqui Waters [facility] Comment on above: PreOp Call Start: 04-18-2025 End: 04-20-2025 Orders Only Ed Montana MD Work Phone: [facility] Comment on above: Post-traumatic osteo arthritis of right hip (Primary Dx) Primary osteoarthrit is of right hip (Primary Dx); Preoperative clearance Start: 04-18-2025 End: 04-20-2025 Preoperative state Ed Montana MD Work Phone: [facility] Work Phone: Start: 04-17-2025 End: 04-17-2025 ambulatory ED [place] Facility:[facility] Start: 04-17-2025 End: 04-17-2025 Patient encounter procedure Ed Montana MD Work Phone: [facility] Comment on above: Post-traumatic osteo arthritis of right hip (Primary Dx); Status post left hip replacement Start: 01-27-2025 End: 01-27-2025 Patient encounter procedure Josh Koo MD Work Phone: [facility] Comment on above: Post-traumatic osteo arthritis of right hip (Primary Dx) Start: 01-27-2025 End: 01-27-2025 ambulatory JOSH KOO [facility] Start: 01-14-2025 End: 01-14-2025 Emergency department patient visit NONE PHYSICIAN Facility:[facility] Start: 01-13-2025 End: 01-13-2025 Patient encounter procedure Ed Montana MD Work Phone: [facility] Comment on above: Status post left hip replacement (Primary Dx); Post-traumatic osteoarthritis of right hip Start: 01-13-2025 End: 01-13-2025 ambulatory ED [place] Facility:[facility] Start: 11-07-2024 Encounter for alie l adult medical examination without abnormal findings [facility] Start: 10-24-2024 End: 10-24-2024 ambulatory Jimenez Nowak Facility:[facility] Start: 10-24-2024 End: 10-24-2024 ambulatory [facility] Facility:[facility] Start: 10-14-2024 End: 10-14-2024 ambulatory [facility] Facility:[facility] Start: 03-06-2024 Telephone encounter Ed garcia MD Work Phone: [facility] Start: 02-12-2024 Telephone encounter Ed garcia MD Work Phone: [facility] Comment on above: Patient Question Start: 01-29-2024 End: 01-29-2024 Patient encounter procedure Ed Montana MD Work Phone: [employer] [facility] [employer] Comment on above: Status post left hip replacement (Primary Dx) Start: 01-08-2024 End: 01-08-2024 Patient encounter procedure Ed Montana MD Work Phone: OR[facility] [employer] Comment on above: Status post left hip replacement (Primary Dx) Start: 01-01-2024 Telephone [place] [id number] ORTH[facility]EDIC Comment on above: Post Op Call Start: 12-29-2023 End: 12-29-2023 Home visit Melanie Sotelo PT Work Phone: [facility] Comment on above: PT AGENCY DC W VISIT Start: 12-28-2023 Refill Ed Montana MD Work Phone: [facility] Comment on above: Refill Request Start: 12-27-2023 End: 12-27-2023 Home visit Melanie Sotelo PT Work Phone: [facility] Comment on above: PT ROUTINE Start: 12-27-2023 Telephone encounter Melanie Sotelo PT Work Phone: [facility] Comment on above: Home Care (Dressing removal ) Start: 12-25-2023 Telephone [place] [id number] [facility]IC Comment on above: Post Op Call Start: 12-25-2023 End: 12-25-2023 Home visit Porsha Finnegan REAL ESTATE TRANSACTION COORDINATOR Work Phone: [facility] Comment on above: REAL ESTATE TRANSACTION COORDINATOR ROUTINE Start: 12-22-2023 Home visit Marcela (Rn) Leah agarwal RN Work Phone: [facility] Comment on above: CARE COORDINATION Start: 12-22-2023 Telephone encounter Ed garcia MD Work Phone: [facility] Start: 12-21-2023 End: 12-21-2023 Home visit Melanie Sotelo PT Work Phone: [facility] Comment on above: PT SOC Start: 12-20-2023 Telephone encounter Licha Bae PSS [facility] Comment on above: Home Care (CONFIRMAT ION CALL) Start: 12-18-2023 Telephone encounter Ed garcia MD Work Phone: [facility] Start: 10-23-2023 End: 10-23-[address] Macho Aburto Work Phone: [facility] Work Phone: Start: 10-23-2023 End: 10-23-[address] Macho Aburto Work Phone: [facility]-Radiology, [place] Work Phone: Start: 10-10-2023 Preprocedural examination done Ed Montana MD Work Phone: [facility] Work Phone: Start: 09-28-2023 Telephone [place] [id number] ORTHOPEDIC Comment on above: PreOp Call Start: 09-25-2023 End: 09-25-[address] Macho Aburto Work Phone: [facility] Work Phone: Start: 09-25-2023 End: 09-25-[address] Macho Aburto Work Phone: [facility]-Sofie Stevens [facility] Start: 09-21-2023 Telephone [place] [id number] [facility]THOPEDIC Comment on above: PreOp Call Start: 08-18-2023 End: 08-18-[address] Macho Aburto Work Phone: [facility] Work Phone: Start: 06-29-2023 End: 06-29-2023 Patient encounter procedure Ed Montana MD Work Phone: [facility] Comment on above: Post-traumatic osteo arthritis of left hip (Primary Dx) Start: 05-10-2023 End: 05-10-2023 Patient encounter procedure Jarad Phelan MD Work Phone: [facility] Comment on above: Closed displaced fra cture of posterior column of left acetabulum with routine healing, subsequent encounter (Primary Dx); Post-traumatic osteoarthritis of left hip Start: 04-27-2023 Telephone encounter Jarad Phelan MD Work Phone: [facility] Comment on above: Appointment Start: 03-27-2023 End: 03-27-2023 Subsequent hospital visit by physician Aurelio Gabriel APRN.OFFSET ASSISTANT PRESS OPERATOR Work Phone: [facility] Comment on above: Post-traumatic osteo arthritis of left hip [M16.52] Start: 02-10-2023 Telephone encounter Jarad Phelan MD Work Phone: [facility] Comment on above: Orders Start: 01-27-2023 End: 01-27-[address] Macho Aburto Work Phone: [facility] Work Phone: Start: 01-27-2023 End: 01-27-[address] Macho Aburto Work Phone: [facility]-Sleep Lab Start: 11-25-2022 Telephone encounter Jarad Phelan MD Work Phone: [facility] Comment on above: Patient Update Start: 10-24-2022 Non-patient / Non-visit Dr. Jose Aburto Work Phone: [facility] Start: 10-24-2022 End: 10-24-[address] Macho Aburto Work Phone: [facility] Work Phone: Start: 10-24-2022 End: 10-24-[address] Macho Aburto Work Phone: [facility]-Cardiovascular Services Start: 08-24-2022 End: 08-24-[address] Macho Aburto Work Phone: [facility] Start: 08-19-2022 Telephone encounter Jarad Phelan MD Work Phone: [facility] Comment on above: Injections Start: 08-19-2022 End: 08-19-2022 ambulatory [facility] Work Phone: Start: 08-19-2022 End: 08-19-2022 Patient encounter procedure [facility]-Laboratory Sofie Ruckerclaudio [facility] Start: 08-15-2022 Telephone encounter Jarad Phelan MD Work Phone: [facility] Comment on above: Orders Start: 07-07-2022 End: 07-07-2022 Patient encounter procedure Jarad Phelan MD Work Phone: [facility] Comment on above: Closed displaced fra cture of posterior column of left acetabulum with routine healing, subsequent encounter (Primary Dx); Post-traumatic osteoarthritis of left hip Start: 07-05-2022 Telephone encounter Ag Orth Work Phone: [facility] Comment on above: Appointment Start: 07-05-2022 End: 07-05-2022 ambulatory [facility] Work Phone: Start: 07-05-2022 End: 07-05-2022 Patient encounter procedure [facility]-Radiology, [facility] Start: 08-15-2018 End: 08-15-2018 Patient encounter procedure JARAD DINICOLA Facility:[facility] Start: 07-25-2018 Patient encounter procedure JARAD DINICOLA Facility:[facility] Start: 04-25-2018 End: 04-25-2018 Patient encounter procedure JARAD DINICOLA Facility:[facility] Start: 01-24-2018 Patient encounter procedure JARAD DINICOLA Facility:[facility] Start: 01-11-2018 End: 01-11-2018 Patient encounter procedure JARAD DINICOLA Facility:[facility] Start: 11-15-2017 End: 11-15-2017 Patient encounter procedure JARAD DINICOLA Facility:[facility] Start: 11-03-2017 Patient encounter procedure JARAD DINICOLA Facility:[facility] Start: 11-03-2017 End: 11-03-2017 Evaluation and management of inpatient JARAD DINICOLA Facility:[facility] Start: 10-31-2017 Patient encounter procedure JARAD DINICOLA Facility:[facility] Start: 10-27-2017 Patient encounter procedure JARAD DINICOLA Facility:[facility] Start: 10-26-2017 End: 10-26-2017 Patient encounter procedure JARAD DINICOLA Facility:[facility] Start: 07-09-2017 Ambulatory [facility] Procedures Date Procedure Procedure Detail Performing Clinician Start: 05-13-2025 X-ray of foot, three or more views Dr. Macho Aburto DO Work Phone: Start: 05-01-2025 Ecg routine ecg w/le ast 12 lds trcg only w/o i&r [facility] Provider Start: 05-01-2025 Basic metabolic pane l calcium total Ed Montana MD Work Phone: Start: 04-17-2025 Radiologic examinati on pelvis 1/2 views Ed Montana MD Work Phone: Start: 01-27-2025 Arthrocentesis aspir &/inj major jt/bursa w/us Josh Koo MD Work Phone: Start: 10-23-2023 Plain chest X-ray Dr. Leonard Aburto Work Phone: Start: 05-10-2023 Radex hip unilateral with pelvis 1 view Jarad Phelan MD Work Phone: Start: 03-27-2023 Arthrocentesis aspir &/inj major jt/bursa w/o us Jarad Phelan MD Work Phone: Start: 10-24-2022 Cardiovascular stres s test using pharmacologic stress agent Dr. Macho Aburto Work Phone: Start: 07-17-2022 Radex hip unilateral with pelvis 1 view Jarad Phelan MD Work Phone: Start: 07-05-2022 Plain x-ray of pelvi s and lower extremity Start: 12-04-2020 Ecg routine ecg w/le ast 12 lds i&r only Start: 11-10-2015 Lipid 1996 panel - S rad or Plasma Ed Montana MD Work Phone: Start: 01-31-2007 History of placement of stent for coronary artery disease History of coronary artery stent placement Comment on above: [id number] w/ 2.5 x 12 mm MiniVision Stent 01/31/2007 Plan of Treatment Date Care Activity Detail Author Start: 02-27-2035 RSV Vaccine (1 - 1-d ose 75+ series) RSV Vaccine (1 - 1-dose 75+ series) [facility] Start: 05-15-2028 Diabetes Screening Diabetes Screenin [facility] Start: 05-01-2028 Diabetes Screening Diabetes Screenin [facility] Start: 05-07-2027 Urine microalbumin profile DTaP,Tdap,Td Vaccine (3 - Td or Tdap) [facility] Start: 12-19-2026 Diabetes Screening Diabetes Screenin g [facility] Start: 12-04-2026 Diabetes Screening Diabetes Screenin g [facility] Start: 05-15-2026 Creatinine measurement Serum Creatin ine [facility] Start: 05-01-2026 Creatinine measurement Serum Creatin ine [facility] Start: 08-01-2025 End: 08-01-2025 Patient encounter procedure 08/01/2025 1:45 PM EDT Office Visit ORTH [facility] [address] [place] [address] Ed Montana MD [address] [place] [address] [phone] right hip sx 05-14-25 [facility] Comment on above: right hip sx 05-14-25 Start: 06-16-2025 End: 06-16-2025 Patient encounter procedure 06/16/2025 2:00 PM EDT Office Visit ORTH [facility] [address] [place], [place] [id number] Ed Montana MD [address] [place] [address] [phone] R SADAF sx:05-14-25 wound check ORTH [facility] Comment on above: R SADAF sx:05-14-25 woun d check Start: 06-09-2025 Influenza vaccination Influenza Vacc ine (#1) [facility] Start: 06-05-2025 End: 06-05-2025 Patient encounter procedure 06/05/2025 3:00 PM EDT Office Visit [facility] [address] [place], [place] [id number] Ed Montana MD [address] [place] [id number] RIGHT HUP SX 05/14 [facility] Comment on above: RIGHT HUP SX 05/14 Start: 06-02-2025 End: 06-02-2025 Patient encounter procedure 06/02/2025 2:30 PM EDT Office Visit ORTH [facility] [address] [place] [address] [phone] Ed Montana MD [address] [place] [address] [phone] RIGHT HUP SX 8/6 [facility] Comment on above: RIGHT HUP SX 8/6 Start: 05-14-2025 End: 08-13-2025 Basic metabolic 2000 panel - Serum or Plasma BASIC METABOLIC PANEL Lab Routine Primary osteoarthritis of right hip Expected: 05/14/2025 (Approximate), Expires: 08/13/2025 [facility] Comment on above: Expected: 05/14/2025 (Approximate), Expires: 08/13/2025 Start: 05-14-2025 End: 08-13-2025 CBC panel - Blood by Automated count COMPLETE BLOOD COUNT Lab Routine Primary osteoarthritis of right hip Preoperative clearance Expected: 05/14/2025 (Approximate), Expires: 08/13/2025 [facility] Work Phone: Comment on above: Expected: 05/14/2025 (Approximate), Expires: 08/13/2025 Start: 05-14-2025 End: 05-14-2025 Admission to same day surgery center [facility] Comment on above: ARTHROPLASTY TOTAL H IP CONVERSION AFTER PREVIOUS HIP SURG Start: 05-14-2025 End: 05-14-2025 Conv prev hip tot hip arthrp w/wo agrft/algrft MR OR Start: 05-14-2025 Subsequent hospital visit by physician [facility] Comment on above: Post-traumatic osteo arthritis of right hip [M16.51] Start: 05-01-2025 End: 07-31-2025 Hemoglobin A1c in Blood [facility] Work Phone: Comment on above: Expected: 05/01/2025 , Expires: 07/31/2025 Start: 05-01-2025 End: 05-01-2025 Anesthesia consultation 05/01/2025 10:00 AM EDT PAT Pre Anesthesia [address] [place] [address] ARTHROPLASTY TOTAL HIP CONVERSION AFTER PREVIOUS HIP SURG [55] - Hip - Right/emiliano-05/14 Pre Anesthesia Comment on above: ARTHROPLASTY TOTAL H IP CONVERSION AFTER PREVIOUS HIP SURG [6655] - Hip - Right/emiliano-05/14 Start: 02-27-2025 Advance Directive Discussion Advance Directive Discussion [facility] Start: 01-27-2025 End: 01-27-2025 Patient encounter procedure 01/27/2025 2:45 PM EDT Office Visit [facility] [address] [place] [address] Josh Koo MD [address] [place] [address] RT HIP US INJ [facility] Comment on above: RT HIP US INJ Start: 12-28-2024 BP Controlled (<130/80) BP Controlle d (<130/80) [facility] Start: 12-24-2024 BP Controlled (<130/80) BP Controlle d (<130/80) [facility] Start: 12-20-2024 BP Controlled (<130/80) BP Controlle d (<130/80) [facility] Start: 12-16-2024 End: 12-16-2024 Patient encounter procedure 12/16/2024 9:45 AM EDT Office Visit [facility]TH [facility] [address] [place] [address] Ed Montana MD [address] [place] [address] LEFT HIP SX 12-19-23 [facility]TH [facility] Comment on above: LEFT HIP SX 12-19-23 Start: 12-04-2024 BP Controlled (<130/80) BP Controlle d (<130/80) [facility] Start: 07-07-2024 Urine microalbumin profile [facility] Start: 06-09-2024 Covid-19 Vaccine ( season) Covid-19 Vaccine ( season) [facility] Start: 06-09-2024 Influenza vaccination C [facility] Start: 12-04-2023 DIABETES SCREEN DIABETES SCREEN [facility] Start: 12-04-2023 Diabetes Screening Diabetes Screenin g [facility] Start: 10-11-2023 End: 12-11-2023 Basic metabolic 2000 panel - Serum or Plasma BASIC METABOLIC PNL Lab Routine Post-traumatic osteoarthritis of left hip Expected: 10/11/2023, Expires: 12/11/2023 [facility] Work Phone: Comment on above: Expected: 10/11/2023 , Expires: 12/11/2023 Start: 10-11-2023 End: 12-11-2023 CBC panel - Blood by Automated count CBC Lab Routine Post-traumatic osteoarthritis of left hip Expected: 10/11/2023, Expires: 12/11/2023 [facility] Work Phone: Comment on above: Expected: 10/11/2023 , Expires: 12/11/2023 Start: 10-11-2023 End: 12-11-2023 PT panel - Platelet poor plasma by Coagulation assay PROTHROMBIN TIME/PT Lab Routine Post-traumatic osteoarthritis of left hip Expected: 10/11/2023, Expires: 12/11/2023 [facility] Work Phone: Comment on above: Expected: 10/11/2023 , Expires: 12/11/2023 Start: 10-09-2023 Behavioral Health Screening Behavioral Health Screening [facility] Start: 10-09-2023 [facility] Start: 06-09-2023 Covid-19 Vaccine ( season) Covid-19 Vaccine ( season) [facility] Start: 06-09-2023 Influenza vaccination [facility] Start: 10-09-2022 DEPRESSION ASSESSMENT DEPRESSION ASS ESSMENT [facility] Start: 06-09-2022 Influenza vaccination INFLUENZA (#1) [facility] Start: 10-09-2021 DEPRESSION ASSESSMENT DEPRESSION ASS ESSMENT [facility] Start: 08-24-2021 COVID-19 VACCINE (3 - Booster for Pfizer series) COVID-19 VACCINE (3 - Booster for Pfizer series) [facility] Start: 08-24-2021 COVID-19 VACCINE (3 - Pfizer series) COVID-19 VACCINE (3 - Pfizer series) [facility] Start: 11-10-2020 Lipid 1996 panel - S rad or Plasma Lipid Screening [facility] Start: 11-10-2020 Lipid panel Lipid Screening [facility] Start: 11-10-2020 LIPID SCREEN LIPID SCREEN [facility] Start: 2020 RSV Vaccine (1 - 1-d ose 60+ series) RSV Vaccine (1 - 1-dose 60+ series) [facility] Start: 2020 RSV Vaccine (1 - Ris k 60-74 years 1-dose series) RSV Vaccine (1 - Risk 60-74 years 1-dose series) [facility] Start: 11-02-2018 PROSTATE CANCER SCREENING DISCUSSION PROSTATE CANCER SCREENING DISCUSSION [facility] Start: 11-02-2018 Prostate specific antigen measurement Prostate Cancer Screening Discussion [facility] Start: 11-02-2014 Hepatitis B surface antibody level LDL CHOLESTEROL [facility] Start: 02-27-2010 Pneumococcal Vaccine : 50+ (1 of 1 - PCV) Pneumococcal Vaccine: 50+ (1 of 1 - PCV) [facility] Start: 02-27-2010 SHINGRIX VACCINE (1 of 2) SHINGRIX VACCINE (1 of 2) [facility] Start: 02-27-2005 COLOGUARD (FIT-DNA) COLOGUARD (FIT-D NA) [facility] Start: 02-27-2005 Colonoscopy COLONOSCOPY [facility] Start: 02-27-2005 COLORECTAL CANCER SCREENING COLORECTAL CANCER SCREENING [facility] Start: 02-27-[address] COLONOGRAPHY [facility] Start: 02-27-2005 FECAL OCCULT BLOOD FECAL OCCULT BLOO D [facility] Start: 02-27-2005 Screening for malign ant neoplasm of colon [facility] Start: 02-27-2005 SIGMOIDOSCOPY SIGMOIDOSCOPY [facility] Start: 02-27-1978 ANNUAL PCP TEAM TAPE CALENDER LUNA DISEASE VISIT ANNUAL PCP TEAM CHRONIC DISEASE VISIT [facility] Start: 02-27-1978 Anxiety Screening Anxiety Screening [facility] Start: 02-27-1978 BP CONTROLLED (<130/80) BP CONTROLLE D (<130/80) [facility] Start: 02-27-1978 Depression Screening Depression Scre ening [facility] Start: 02-27-1978 HEPATITIS C SCREENING HEPATITIS C [facility] Start: 02-27-1978 Hepatitis C screening Hepatitis C [facility] Start: 02-27-1978 HIV SCREENING HIV SCREENING [facility] Start: 02-27-1978 HIV screening HIV Screening [facility] Start: 1960 COVID-19 VACCINE (#1) COVID-19 VACCI NE (#1) [facility] ECG B/O W INTERP (ME D OFFICE) ECG B/O W INTERP (MED OFFICE) ECG Routine Preop testing Ordered: 04/30/2025 [facility] Comment on above: Ordered: 04/30/2025 INJECTION HIP JOINT (AG) INJECTI ON HIP JOINT (AG) Radiology Routine Post-traumatic osteoarthritis of left hip Ordered: 08/15/2022 [facility] Work Phone: Comment on above: Ordered: 08/15/2022 XR Pelvis AP XR PELVIS 1V AP Radiology Routine Status post left hip replacement Ordered: 01/08/2024 [facility] Work Phone: Comment on above: Ordered: 01/08/2024 XR Pelvis AP XR PELVIS 1V AP Radiology Routine Status post left hip replacement Post-traumatic osteoarthritis of right hip Ordered: 01/13/2025 [facility] Work Phone: Comment on above: Ordered: 01/13/2025 XR Pelvis AP XR PELVIS 1V AP Radiology Routine Status post total hip replacement, right Ordered: 06/02/2025 [facility] Work Phone: Comment on above: Ordered: 06/02/2025 [facility] [place] [facility] Immunizations Immunization Date Immunization Notes Care Provider [facility] 05-07-2017 tetanus toxoid, redu ashok diphtheria toxoid, and acellular pertussis vaccine, adsorbed [facility] 04-12-2016 influenza virus vaccine, unspecified formulation Ed Montana MD Work Phone: [facility] 07-07-2014 tetanus toxoid, redu ashok diphtheria toxoid, and acellular pertussis vaccine, adsorbed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 written instructions. Further education required to improve knowledge and compliance with cardiac disease management, orthopedic condition management, s urgical precautions, pain management, fall prevention strategies, home safety, functional activity and home exercise program. Instruct on signs, symptoms, and management of secondary cardiovascular disease Problem:PT Cardiovascular Disease Goal:Manage Secondary Cardiovascular disease Performed Instructed patient on blood pressure tracking. Physical Therapy Therapeutic Exercises Problem:PT Impaired muscle performance and/or ROM Goal:Improved Muscle Performance and/or ROM Performed patient instructed on strengthening exercises including Supine : GS,QS, HIP ADD, HIP ABD, HEEL SLIDES ,SAQ X 10 with verbal, tactile and written cues for technique . patient instructed to perform home exercise program twice a day which included hourly am bulation. 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 ROUTINE Discipline -Physical Therapy Problems Problem Description Start Date Status Goals Interve ntions Medication Education Disciplines: Skilled Services 05/19/2025 Active 1 goal linked to scheduled/documen candace intervention 1 goal intervention scheduled/document ed in this visit Sepsis Disciplines: Skilled Services 05/19/2025 Active 1 goal linked to scheduled/documen candace intervention 1 goal intervention scheduled/document ed in this visit Physician Specific Parameters Disciplines: Skilled Services 05/19/2025 Active 1 goal linked to scheduled/documen candace intervention 1 goal intervention scheduled/document ed in this visit Risk for Falls Disciplines: Skilled Services 05/19/2025 Active 1 goal linked to scheduled/documen candace intervention 1 goal intervention scheduled/document ed in this visit Pain Disciplines: Skilled Services 05/19/2025 Active 1 goal linked to scheduled/documen candace intervention 1 goal intervention scheduled/document ed in this visit High Risk Medications Disciplines: Skilled Services 05/19/2025 Active 1 goal linked to scheduled/documen candace intervention 1 goal intervention scheduled/document ed in this visit Discharge Disciplines: Skilled Services 05/19/2025 Active 1 goal linked to scheduled/documen candace intervention 1 goal intervention scheduled/document ed in this visit PT Impaired gait Disciplines: PT 05/19/2025 Active 1 goal linked to scheduled/documen candace intervention 1 goal intervention scheduled/document ed in this visit PT Orthopedic Condition Disciplines: PT 05/19/2025 Active 1 goal linked to scheduled/documen candace intervention 4 goal interventions scheduled/document ed in this visit PT Learning Assessment Disciplines: PT 05/19/2025 Active 1 goal linked to scheduled/documen candace intervention 1 goal intervention scheduled/document ed in this visit PT Cardiovascular Disease Disciplines: PT 05/19/2025 Active 1 goal linked to scheduled/documen candace intervention 1 goal intervention scheduled/document ed in this visit PT Impaired muscle performance and/or ROM Disciplines: PT 05/19/2025 Active 1 goal linked to scheduled/documen candace [...] home, and adhere to medication schedule by 07/17/25. . Medication Education No Patient/caregiver will be able to identify and report symptoms of sepsis Description: Patient/caregiver will be able to identify signs/symptoms of sepsis infection and will verbalize actions to take if suspected by 07/17/25. . Sepsis No Patient to maintain parameters within physician-specified ranges. Description: Patient to maintain parameters within physician-specified ranges to be achieved by 07/17/25. Physician Specific Parameters No Manage Risk for falls Description: Patient/caregiver will verbalize knowledge of individualized fall prevention strategies by 07/17/25. . Risk for Falls No Manage Pain Description: Patient/caregiver will verbalize knowledge and understanding of appropriate techniques to control pain, including pain medication and non-pharmacological techniques. Patient will verbalize or demonstrate an acceptable level of pain as evidenced by a pain score of <5/10 and improvement in ability to perform activities of daily living to be achieved by 07/17/25. . Pain No Patient/caregiver will teach back high risk medication side effect and precaution education Description: STG Patient/caregiver will verbalize understanding of high risk medication side effects and precautions to be achieved by 05/19/25. LTG Patient/caregiver will continue to verbalize understanding of high risk medication side effects and precautions to be achieved by 07/17/25. . High Risk Medications No Manage discharge planning Description: Patient/caregiver will verbalize understanding of ongoing discharge plan provided related to disease management, arrangements for outpatient and/or community services, obtaining medications, supplies, and DME, to be achieved by 07/17/25. Discharge No Improved Gait Description: STG: Patient will demonstrate improved gait ability as evidenced by ambulation 150 feet with front wheeled walker independently with AD, to return to safe household and community ambulation, in order to transition to OP PT, to be achieved by 05/31/25. . PT Impaired gait No Manage Orthopedic Condition Description: Improve patient and/or caregiver understanding of post surgical and/or non-surgical orthopedic intervention management as evidenced by patient and/or caregiver able to verbalize, demonstrate, and teach back instruction, to be achieved by 05/31/25. . PT Orthopedic Condition No Demonstrate understanding of education Description: Patient and/or caregiver will understand educational instruction to be achieved by 05/31/25. . PT Learning Assessment No Manage Secondary Cardiovascular disease Description: Improve patient and/or caregiver understanding of secondary cardiovascular disease management as evidenced by patient and/or caregiver able to verbalize, demonstrate, and teach back instruction, to be achieved by 05/31/25. PT Cardiovascular Disease No Improved Muscle Performance and/or ROM Description: STG: Patient will demonstrate improved muscle performance to meet functional goals as evidenced by ability to tolerate 10-15 minutes of therapeutic activity, to be achieved by 05/31/25. . STG: Patient and/or caregiver will verbalize/demonstrate inde pendence with home exercise program, to improve functional mobility, to be achieved by 05/24/25. PT Impaired muscle performance and/or ROM No Interventions Intervention Associated Problem/Goal Status Variance Visit Notes Medication Education Description: Evaluate/instruct patient/caregiver on obtaining, storing, identifying and administering ordered medications as well as keeping accurate medication list in the home and adhereing to medication schedule Problem:Medication Education Goal:Patient/caregive r will demonstrate ability to obtain, store, identify and administer ordered medications, keep accurate medication list in home, and adhere to medication schedule Performed Patient instructed on adhering to medication schedule and how to order refills. Risk of Sepsis Description: Patient is at risk for sepsis. Monitor closely for s/s of sepsis. Problem:Sepsis Goal:Patient/caregive r will be able to identify and report symptoms of sepsis Performed SPO2 Description: Notify Dr. [place] if pulse ox is <92% at rest. Problem:Physician Specific Parameters Goal:Patient to maintain parameters within physician-specified ranges. Performed Instruct on individual fall risk factors and strategies to prevent falls and injuries caused by falls. Problem:Risk for Falls Goal:Manage Risk for falls Performed PT: Patient instructed on Managing Impaired Functional Mobility: Use assistive device(s): front wheeled walker Managing Pain Instruct on pain and instruct on strategies to control pain Problem:Pain Goal:Manage Pain Performed patient instructed on techniques to control pain including Pharmacological measures and Non-Pharmacological measures; positioning/elevation and use of thermal modalities, apply ice to affected area for the following prescribed frequency: prn. Opioids- educated on high risk medication Problem:High Risk Medications Goal:Patient/caregive r will teach back high risk medication side effect and precaution education Performed patient educated on taking medication(s) as prescribed [...] as tolerated, and use stool softener(s) as pre scribed. Instruct on ongoing discharge plan Problem:Discharge Goal:Manage discharge planning Performed Ongoing Discharge plan: Discharge plan discussed with patient including frequency and duration for home PT and plan for transition to:OP pT Physical Therapy Gait Training Problem:PT Impaired gait Goal:Improved Gait Performed Gait training and instruction to patient on safe ambulation with front wheeled walker for 50 feet with stand by assist, with verbal cues for corrections of gait deviations including posture and increased step length. Instruct on orthopedic precautions and weight bearing restrictions Description: Orthopedic precautions including right posterior hip: no hip flexion > 90 degrees, no adduction and no IR/ER rotation of involved extermity. Weight bearing restrictions include: WBAT of involved extremity. Problem:PT Orthopedic Condition Goal:Manage Orthopedic Condition Performed patient instructed on orthopedic precautions and weight bearing restrictions. Instruct on management of edema Problem:PT Orthopedic Condition Goal:Manage Orthopedic Condition Performed Instruct patient on management of edema including elevation of rle above the level of the heart and ice. Physical therapy to perform surgical incision/wound management Description: Removal of post-op dressing on pod 7-10 ( 05/21-16). If no drainage is present, leave open to air; if drainage is present, cover with clean dressing and contact provider. Problem:PT Orthopedic Condition Goal:Manage Orthopedic Condition Performed Intervention completed this date. Instruct on self-management of post surgical and/or non-surgical orthopedic intervention Problem:PT Orthopedic Condition Goal:Manage Orthopedic Condition Performed patient instructed on incision care: no lotions, creams or rubbing, signs and symptoms of infection, signs and symptoms of DVT/PE, follow provider guidance for showering , instructed on when to call provider and instructed on when to call 911. Instruct and educate on knowledge deficits Problem:PT Learning Assessment Goal:Demonstrate understanding of education Performed patient verbalize and/or demonstrate understanding of physical therapy education including surgical precautions, pain management, integumentary and incision/wound care management and home exercise program. Education methods include: verbal cues, writt en instructions and visual cues. Further education required to improve knowledge and compliance with home exercise program. Instruct on signs, symptoms, and management of secondary cardiovascular disease Problem:PT Cardiovascular Disease Goal:Manage Secondary Cardiovascular disease Performed Instructed patient on blood pressure tracking and instructed on when to call provider. Physical Therapy Therapeutic Exercises Problem:PT Impaired muscle performance and/or ROM Goal:Improved Muscle Performance and/or ROM Performed patient instructed on strengthening exercises including qs,gs,hip abd and add, saq and heel slides x's 10 each with verbal and visual cues for form and hold times. patient instructed to perform home exercise program twice a day which included above ex. 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 ROUTINE Discipline -Physical Therapy Problems Problem Description Start Date Status Goals Interve ntions Medication Education Disciplines: Skilled Services 05/19/2025 Active 1 goal linked to scheduled/documen candace intervention 1 goal intervention scheduled/document ed in this visit Sepsis Disciplines: Skilled Services 05/19/2025 Active 1 goal linked to scheduled/documen candace intervention 1 goal intervention scheduled/document ed in this visit Physician Specific Parameters Disciplines: Skilled Services 05/19/2025 Active 1 goal linked to scheduled/documen candace intervention 1 goal intervention scheduled/document ed in this visit Risk for Falls Disciplines: Skilled Services 05/19/2025 Active 1 goal linked to scheduled/documen candace intervention 1 goal intervention scheduled/document ed in this visit Pain Disciplines: Skilled Services 05/19/2025 Active 1 goal linked to scheduled/documen candace intervention 1 goal intervention scheduled/document ed in this visit Discharge Disciplines: Skilled Services 05/19/2025 Active 1 goal linked to scheduled/documen candace intervention 1 goal intervention scheduled/document ed in this visit PT Impaired gait Disciplines: PT 05/19/2025 Active 1 goal linked to scheduled/documen candace intervention 1 goal intervention scheduled/document ed in this visit PT Impaired balance Disciplines: PT 05/19/2025 Active 1 goal linked to scheduled/documen candace intervention 1 goal intervention scheduled/document ed in this visit PT Orthopedic Condition Disciplines: PT 05/19/2025 Active 1 goal linked to scheduled/documen candace intervention 3 goal interventions scheduled/document ed in this visit PT Learning Assessment Disciplines: PT 05/19/2025 Active 1 goal linked to scheduled/documen candace intervention 1 goal intervention scheduled/document ed in this visit PT Cardiovascular Disease Disciplines: PT 05/19/2025 Active 1 goal linked to scheduled/documen candace intervention 1 goal intervention scheduled/document ed in this visit PT Impaired muscle performance and/or ROM Disciplines: PT 05/19/2025 Active 1 goal linked to scheduled/documen candace [...] home, and adhere to medication schedule by 07/17/25. . Medication Education No Patient/caregiver will be able to identify and report symptoms of sepsis Description: Patient/caregiver will be able to identify signs/symptoms of sepsis infection and will verbalize actions to take if suspected by 07/17/25. . Sepsis No Patient to maintain parameters within physician-specified ranges. Description: Patient to maintain parameters within physician-specified ranges to be achieved by 07/17/25. Physician Specific Parameters No Manage Risk for falls Description: Patient/caregiver will verbalize knowledge of individualized fall prevention strategies by 07/17/25. . Risk for Falls No Manage Pain Description: Patient/caregiver will verbalize knowledge and understanding of appropriate techniques to control pain, including pain medication and non-pharmacological techniques. Patient will verbalize or demonstrate an acceptable level of pain as evidenced by a pain score of <5/10 and improvement in ability to perform activities of daily living to be achieved by 07/17/25. . Pain No Manage discharge planning Description: Patient/caregiver will verbalize understanding of ongoing discharge plan provided related to disease management, arrangements for outpatient and/or community services, obtaining medications, supplies, and DME, to be achieved by 07/17/25. Discharge No Improved Gait Description: STG: Patient will demonstrate improved gait ability as evidenced by ambulation 150 feet with front wheeled walker independently with AD, to return to safe household and community ambulation, in order to transition to OP PT, to be achieved by 05/31/25. . PT Impaired gait No Improved Balance Description: STG: Patient will demonstrate improved standing balance to meet functional goals as evidenced by TUG score of <30 to be achieved by 05/31/25. . PT Impaired balance No Manage Orthopedic Condition Description: Improve patient and/or caregiver understanding of post surgical and/or non-surgical orthopedic intervention management as evidenced by patient and/or caregiver able to verbalize, demonstrate, and teach back instruction, to be achieved by 05/31/25. . PT Orthopedic Condition No Demonstrate understanding of education Description: Patient and/or caregiver will understand educational instruction to be achieved by 05/31/25. . PT Learning Assessment No Manage Secondary Cardiovascular disease Description: Improve patient and/or caregiver understanding of secondary cardiovascular disease management as evidenced by patient and/or caregiver able to verbalize, demonstrate, and teach back instruction, to be achieved by 05/31/25. PT Cardiovascular Disease No Improved Muscle Performance and/or ROM Description: STG: Patient will demonstrate improved muscle performance to meet functional goals as evidenced by ability to tolerate 10-15 minutes of therapeutic activity, to be achieved by 05/31/25. . STG: Patient and/or caregiver will verbalize/demonstrate inde pendence with home exercise program, to improve functional mobility, to be achieved by 05/24/25. PT Impaired muscle performance and/or ROM No Interventions Intervention Associated Problem/Goal Status Variance Visit Notes Medication Education Description: Evaluate/instruct patient/caregiver on obtaining, storing, identifying and administering ordered medications as well as keeping accurate medication list in the home and adhereing to medication schedule Problem:Medication Education Goal:Patient/caregive r will demonstrate ability to obtain, store, identify and administer ordered medications, keep accurate medication list in home, and adhere to medication schedule Performed Patient instructed on importance of keeping accurate medication list in home and adhering to medication schedule. Risk of Sepsis Description: Patient is at risk for sepsis. Monitor closely for s/s of sepsis. Problem:Sepsis Goal:Patient/caregive r will be able to identify and report symptoms of sepsis Performed SPO2 Description: Notify Dr. [place] if pulse ox is <92% at rest. Problem:Physician Specific Parameters Goal:Patient to maintain parameters within physician-specified ranges. Performed Instruct on individual fall risk factors and strategies to prevent falls and injuries caused by falls. Problem:Risk for Falls Goal:Manage Risk for falls Performed PT: Patient instructed on Managing Impaired Functional Mobility: Use assistive device(s): front wheeled walker Instruct on pain and instruct on strategies to control pain Problem:Pain Goal:Manage Pain Performed patient instructed on techniques to control pain including Pharmacological measures and Non-Pharmacological measures; positioning/elevation and use of thermal modalities, apply ice to affected area for the following prescribed frequency: prn. Instruct on ongoing discharge plan Problem:Discharge Goal:Manage discharge planning Performed Ongoing Discharge plan: Discharge plan discussed with patient including frequency and duration for home PT and plan for transition to: outpatient therapy. Physical Therapy Gait Training Problem:PT Impaired gait Goal:Improved Gait Performed Gait training and instruction to patient on safe ambulation with front wheeled walker for 2x'75 feet with supervision, with verbal cues for corrections of gait deviations including posture. Physical Therapy Balance Training Problem:PT Impaired balance Goal:Improved Balance Performed Developed, implemented, and instructed patient on standing balance exercises including standing ex. Instruct on orthopedic precautions and weight bearing restrictions Description: Orthopedic precautions including right posterior hip: no hip flexion > 90 degrees, no adduction and no IR/ER rotation of involved extermity. Weight bearing restrictions include: WBAT of involved extremity. Problem:PT Orthopedic Condition Goal:Manage Orthopedic Condition Performed patient instructed on orthopedic precautions. Instruct on management of edema Problem:PT Orthopedic Condition Goal:Manage Orthopedic Condition Performed Instruct patient on management of edema including elevation of rle above the level of the heart and ice. Instruct on self-management of post surgical and/or non-surgical orthopedic intervention Problem:PT Orthopedic Condition Goal:Manage Orthopedic Condition Performed patient instructed on signs and symptoms of infection, signs and symptoms of DVT/PE, instructed on when to call provider and instructed on when to call 911. Instruct and educate on knowledge deficits Problem:PT Learning Assessment Goal:Demonstrate understanding of education Performed patient verbalize and/or demonstrate understanding of physical therapy education including surgical precautions, pain management and home exercise program. Education methods include: verbal cues, tactile cues, written instructions and visual cues. Further education required to improve knowledge and compliance with home exercise program. Instruct on signs, symptoms, and management of secondary cardiovascular disease Problem:PT Cardiovascular Disease Goal:Manage Secondary Cardiovascular disease Performed Instructed patient on edema management. Physical Therapy Therapeutic Exercises Problem:PT Impaired muscle performance and/or ROM Goal:Improved Muscle Performance and/or ROM Performed patient instructed on strengthening exercises including qs,gs,hip abd and add, saq and heel slides x's 12 each. standing hams curls and hip flexion x's 10 each with verbal, tactile, visual and written cues for form and posture w/ standing ex. patient ins tructed to perform home exercise program twice a day which included above ex. 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 ROUTINE Discipline -Physical Therapy Problems Problem Description Start Date Status Goals Interve ntions Medication Education Disciplines: Skilled Services 05/19/2025 Active 1 goal linked to scheduled/document ed intervention 1 goal intervention scheduled/documen candace in this visit Sepsis Disciplines: Skilled Services 05/19/2025 Active 1 goal linked to scheduled/document ed intervention 1 goal intervention scheduled/documen candace in this visit Physician Specific Parameters Disciplines: Skilled Services 05/19/2025 Active 1 goal linked to scheduled/document ed intervention 1 goal intervention scheduled/documen candace in this visit Risk for Falls Disciplines: Skilled Services 05/19/2025 Active 1 goal linked to scheduled/document ed intervention 1 goal intervention scheduled/documen candace in this visit Pain Disciplines: Skilled Services 05/19/2025 Active 1 goal linked to scheduled/document ed intervention 1 goal intervention scheduled/documen candace in this visit High Risk Medications Disciplines: Skilled Services 05/19/2025 Active 1 goal linked to scheduled/document ed intervention 1 goal intervention scheduled/documen candace in this visit Discharge Disciplines: Skilled Services 05/19/2025 Active 1 goal linked to scheduled/document ed intervention 3 goal interventions scheduled/documen candace in this visit PT Impaired mobility Disciplines: PT 05/19/2025 Active 2 goals linked to scheduled/document ed interventions 2 goal interventions scheduled/documen candace in this visit PT Impaired gait Disciplines: PT 05/19/2025 Active 2 goals linked to scheduled/document ed interventions 2 goal interventions scheduled/documen candace in this visit PT Impaired balance Disciplines: PT 05/19/2025 Active 1 goal linked to scheduled/document ed intervention 1 goal intervention scheduled/documen candace in this visit PT Orthopedic Condition Disciplines: PT 05/19/2025 Active 1 goal linked to scheduled/document ed intervention 3 goal interventions scheduled/documen candace in this visit PT Learning Assessment Disciplines: PT 05/19/2025 Active 1 goal linked to scheduled/document ed intervention 1 goal intervention scheduled/documen candace in this visit PT Cardiovascular Disease Disciplines: PT 05/19/2025 Active 1 goal linked to scheduled/document ed intervention 1 goal intervention scheduled/documen candace in this visit PT Impaired muscle performance and/or ROM Disciplines: PT 05/19/2025 Active 1 goal linked to scheduled/document ed intervention 1 goal intervention scheduled/pilar maria in this visit Goals Goal Associated Problem Outcome Goal Met? Visit Notes Patient/caregiver will demonstrate ability to obtain, store, identify and administer ordered medications, keep accurate medication list in home, and adhere to medication schedule Description: Patient/caregiver will demonstrate ability to obtain, store, identify and administer ordered medications, keep accurate medication list in home, and adhere to medication schedule by 07/17/25. . Medication Education No Patient/caregiver will be able to identify and report symptoms of sepsis Description: Patient/caregiver will be able to identify signs/symptoms of sepsis infection and will verbalize actions to take if suspected by 07/17/25. . Sepsis No Patient to maintain parameters within physician-specified ranges. Description: Patient to maintain parameters within physician-specified ranges to be achieved by 07/17/25. Physician Specific Parameters No Manage Risk for falls Description: Patient/caregiver will verbalize knowledge of individualized fall prevention strategies by 07/17/25. . Risk for Falls No Manage Pain Description: Patient/caregiver will verbalize knowledge and understanding of appropriate techniques to control pain, including pain medication and non-pharmacological techniques. Patient will verbalize or demonstrate an acceptable level of pain as evidenced by a pain score of <5/10 and improvement in ability to perform activities of daily living to be achieved by 07/17/25. . Pain No Patient/caregiver will teach back high risk medication side effect and precaution education Description: STG Patient/caregiver will verbalize understanding of high risk medication side effects and precautions to be achieved by 05/19/25. LTG Patient/caregiver will continue to verbalize understanding of high risk medication side effects and precautions to be achieved by 07/17/25. . High Risk Medications No Manage discharge planning Description: Patient/caregiver will verbalize understanding of ongoing discharge plan provided related to disease management, arrangements for outpatient and/or community services, obtaining medications, supplies, and DME, to be achieved by 07/17/25. Discharge No Improved Transfers Description: STG: Patient will demonstrate safe transfers to/from bed, chair, toilet, shower/tub and car independently with AD, to be achieved by 05/31/25. . PT Impaired mobility No Improved Bed Mobility Description: STG: Patient will demonstrate improved bed mobility, ability to position self and supine <> sit independently to be achieved by 05/31/25. . PT Impaired mobility No Improved Stair Climbing Description: STG:: Patient will demonstrate improved stair negotiation as evidenced by ascend/descend 2 steps with railing and with cane independently to safely exit home , to be achieved by 05/31/25. . PT Impaired gait No Improved Gait Description: STG: Patient will demonstrate improved gait ability as evidenced by ambulation 150 feet with front wheeled walker independently with AD, to return to safe household and community ambulation, in order to transition to OP PT, to be achieved by 05/31/25. . PT Impaired gait No Improved Balance Description: STG: Patient will demonstrate improved standing balance to meet functional goals as evidenced by TUG score of <30 to be achieved by 05/31/25. . PT Impaired balance No Manage Orthopedic Condition Description: Improve patient and/or caregiver understanding of post surgical and/or non-surgical orthopedic intervention management as evidenced by patient and/or caregiver able to verbalize, demonstrate, and teach back instruction, to be achieved by 05/31/25. . PT Orthopedic Condition No Demonstrate understanding of education Description: Patient and/or caregiver will understand educational instruction to be achieved by 05/31/25. . PT Learning Assessment No Manage Secondary Cardiovascular disease Description: Improve patient and/or caregiver understanding of secondary cardiovascular disease management as evidenced by patient and/or caregiver able to verbalize, demonstrate, and teach back instruction, to be achieved by 05/31/25. PT Cardiovascular Disease No Improved Muscle Performance and/or ROM Description: STG: Patient will demonstrate improved muscle performance to meet functional goals as evidenced by ability to tolerate 10-15 minutes of therapeutic activity, to be achieved by 05/31/25. . STG: Patient and/or caregiver will verbalize/demonstrate inde pendence with home exercise program, to improve functional mobility, to be achieved by 05/24/25. PT Impaired muscle performance and/or ROM No Interventions Intervention Associated Problem/Goal Status Variance Visit Notes Medication Education Description: Evaluate/instruct patient/caregiver on obtaining, storing, identifying and administering ordered medications as well as keeping accurate medication list in the home and adhereing to medication schedule Problem:Medication Education Goal:Patient/caregiv er will demonstrate ability to obtain, store, identify and administer ordered medications, keep accurate medication list in home, and adhere to medication schedule Performed Patient instructed on adhering to medication schedule. Risk of Sepsis Description: Patient is at risk for sepsis. Monitor closely for s/s of sepsis. Problem:Sepsis Goal:Patient/caregiv er will be able to identify and report symptoms of sepsis Performed SPO2 Description: Notify Dr. [place] if pulse ox is <92% at rest. Problem:Physician Specific Parameters Goal:Patient to maintain parameters within physician-specified ranges. Performed Instruct on individual fall risk factors and strategies to prevent falls and injuries caused by falls. Problem:Risk for Falls Goal:Manage Risk for falls Performed PT: Patient instructed on Managing Impaired Functional Mobility: Use assistive device(s): front wheeled walker Managing Pain Instruct on pain and instruct on strategies to control pain Problem:Pain Goal:Manage Pain Performed patient instructed on techniques to control pain including Pharmacological measures and Non-Pharmacological measures; positioning/elevatio n and use of thermal modalities, apply ice to affected area for the following prescribed frequency: prn. Opioids- educated on high risk medication Problem:High Risk Medications Goal:Patient/caregiv er will teach back high risk medication side effect and precaution education Performed patient educated on taking medication(s) as prescribed [...] as tolerated, and use stool softener(s) as pre scribed. Deliver [facility] Problem:Discharge Goal:Manage discharge planning Performed Delivered [facility] on 05/26/25 for discharge date of 05/29/25. Instruct on ongoing discharge plan Problem:Discharge Goal:Manage discharge planning Performed Ongoing Discharge plan: Discharge plan discussed with patient including frequency and duration for home PT and plan for transition to: outpatient therapy. Instruct on importance of follow-up appts and continued monitoring with medical provider &/or chronic care clinic Problem:Discharge Goal:Manage discharge planning Performed Education provided on importance of compliance with follow-up appointment(s). Recommendations: patient/caregiver to follow up with scheduling appointment(s) for post-acute/primary care provider/chronic care clinic Physical Therapy Transfer Training Problem:PT Impaired mobility Goal:Improved Transfers Performed Transfer training and instruction to patient on safe transfers to and from chair with independent Physical Therapy Bed Mobility Training Problem:PT Impaired mobility Goal:Improved Bed Mobility Performed Bed mobility training and instruction to patient, including supine<>sit with independent Physical Therapy Stair Training Problem:PT Impaired gait Goal:Improved Stair Climbing Patient having increased pain Physical Therapy Gait Training Problem:PT Impaired gait Goal:Improved Gait Performed Gait training and instruction to patient on safe ambulation with front wheeled walker for 100 feet with supervision, with verbal cues for corrections of gait deviations including posture. Physical Therapy Balance Training Problem:PT Impaired balance Goal:Improved Balance Performed Developed, implemented, and instructed patient on standing balance exercises including standing ex. Instruct on orthopedic precautions and weight bearing restrictions Description: Orthopedic precautions including right posterior hip: no hip flexion > 90 degrees, no adduction and no IR/ER rotation of involved extermity. Weight bearing restrictions include: WBAT of involved extremity. Problem:PT Orthopedic Condition Goal:Manage Orthopedic Condition Performed patient instructed on orthopedic precautions. Instruct on management of edema Problem:PT Orthopedic Condition Goal:Manage Orthopedic Condition Performed Instruct patient on management of edema including elevation of rle above the level of the heart and ice. Instruct on self-management of post surgical and/or non-surgical orthopedic intervention Problem:PT Orthopedic Condition Goal:Manage Orthopedic Condition Performed patient instructed on staying well hydrated, signs and symptoms of infection, signs and symptoms of DVT/PE, instructed on when to call provider and instructed on when to call 911. Instruct and educate on knowledge deficits Problem:PT Learning Assessment Goal:Demonstrate understanding of education Performed patient verbalize and/or demonstrate understanding of physical therapy education including surgical precautions, pain management and home exercise program. Education methods include: verbal cues and visual cues. Further education required to improv e knowledge and compliance with home exercise program. Instruct on signs, symptoms, and management of secondary cardiovascular disease Problem:PT Cardiovascular Disease Goal:Manage Secondary Cardiovascular disease Performed Instructed patient on blood pressure tracking and instructed on when to call provider. Physical Therapy Therapeutic Exercises Problem:PT Impaired muscle performance and/or ROM Goal:Improved Muscle Performance and/or ROM Performed patient instructed on strengthening exercises including qs,gs,saq and hip add x's 20 each, standing rle hams curls and hip abd x's 10 each with verbal and visual cues for posture. patient instructed to perform home exercise program twice a day which incl uded above ex. [facility] Visit Details Visit Type -PT AGENCY DC W V ISIT Discipline -Physical Therapy Problems Problem Description Start Date Status Goals Interve ntions Medication Education Disciplines: Skilled Services 05/19/2025 Resolved on 05/29/2025 1 goal linked to scheduled/documen candace intervention Sepsis Disciplines: Skilled Services 05/19/2025 Resolved on 05/29/2025 1 goal linked to scheduled/documen candace intervention 1 goal intervention scheduled/documen candace in this visit Physician Specific Parameters Disciplines: Skilled Services 05/19/2025 Resolved on 05/29/2025 1 goal linked to scheduled/documen candace intervention 1 goal intervention scheduled/documen candace in this visit Risk for Falls Disciplines: Skilled Services 05/19/2025 Resolved on 05/29/2025 1 goal linked to scheduled/documen candace intervention 1 goal intervention scheduled/documen candace in this visit Pain Disciplines: Skilled Services 05/19/2025 Resolved on 05/29/2025 1 goal linked to scheduled/documen candace intervention 1 goal intervention scheduled/documen candace in this visit High Risk Medications Disciplines: Skilled Services 05/19/2025 Resolved on 05/29/2025 1 goal linked to scheduled/documen candace intervention Discharge Disciplines: Skilled Services 05/19/2025 Resolved on 05/29/2025 1 goal linked to scheduled/documen candace intervention PT Impaired mobility Disciplines: PT 05/19/2025 Resolved on 05/29/2025 2 goals linked to scheduled/documen candace interventions 2 goal interventions scheduled/documen candace in this visit PT Impaired gait Disciplines: PT 05/19/2025 Resolved on 05/29/2025 2 goals linked to scheduled/documen candace interventions 2 goal interventions scheduled/documen candace in this visit PT Impaired balance Disciplines: PT 05/19/2025 Resolved on 05/29/2025 1 goal linked to scheduled/documen candace intervention 1 goal intervention scheduled/documen candace in this visit PT Orthopedic Condition Disciplines: PT 05/19/2025 Resolved on 05/29/2025 1 goal linked to scheduled/documen candace intervention 3 goal interventions scheduled/documen candace in this visit PT Learning Assessment Disciplines: PT 05/19/2025 Resolved on 05/29/2025 1 goal linked to scheduled/documen candace intervention 1 goal intervention scheduled/documen candace in this visit PT Cardiovascular Disease Disciplines: PT 05/19/2025 Resolved on 05/29/2025 1 goal linked to scheduled/documen candace intervention PT Impaired muscle performance and/or ROM Disciplines: PT 05/19/2025 Resolved on 05/29/2025 1 goal linked to scheduled/documen candace intervention 1 goal intervention scheduled/documen candace in this visit Goals Goal Associated Problem Outcome Goal Met? Visit Notes Patient/caregiver will demonstrate ability to obtain, store, identify and administer ordered medications, keep accurate medication list in home, and adhere to medication schedule Description: Patient/caregiver will demonstrate ability to obtain, store, identify and administer ordered medications, keep accurate medication list in home, and adhere to medication schedule by 07/17/25. . Medication Education Completed Yes Patient/caregiver will be able to identify and report symptoms of sepsis Description: Patient/caregiver will be able to identify signs/symptoms of sepsis infection and will verbalize actions to take if suspected by 07/17/25. . Sepsis Completed Yes Patient to maintain parameters within physician-specified ranges. Description: Patient to maintain parameters within physician-specified ranges to be achieved by 07/17/25. Physician Specific Parameters Completed Yes Manage Risk for falls Description: Patient/caregiver will verbalize knowledge of individualized fall prevention strategies by 07/17/25. . Risk for Falls Completed Yes Manage Pain Description: Patient/caregiver will verbalize knowledge and understanding of appropriate techniques to control pain, including pain medication and non-pharmacological techniques. Patient will verbalize or demonstrate an acceptable level of pain as evidenced by a pain score of <5/10 and improvement in ability to perform activities of daily living to be achieved by 07/17/25. . Pain Completed Yes Patient/caregiver will teach back high risk medication side effect and precaution education Description: STG Patient/caregiver will verbalize understanding of high risk medication side effects and precautions to be achieved by 05/19/25. LTG Patient/caregiver will continue to verbalize understanding of high risk medication side effects and precautions to be achieved by 07/17/25. . High Risk Medications Completed Yes Manage discharge planning Description: Patient/caregiver will verbalize understanding of ongoing discharge plan provided related to disease management, arrangements for outpatient and/or community services, obtaining medications, supplies, and DME, to be achieved by 07/17/25. Discharge Completed Yes Improved Transfers Description: STG: Patient will demonstrate safe transfers to/from bed, chair, toilet, shower/tub and car independently with AD, to be achieved by 05/31/25. . PT Impaired mobility Completed Yes Improved Bed Mobility Description: STG: Patient will demonstrate improved bed mobility, ability to position self and supine <> sit independently to be achieved by 05/31/25. . PT Impaired mobility Completed Yes Improved Stair Climbing Description: STG:: Patient will demonstrate improved stair negotiation as evidenced by ascend/descend 2 steps with railing and with cane independently to safely exit home , to be achieved by 05/31/25. . PT Impaired gait Completed Yes Improved Gait Description: STG: Patient will demonstrate improved gait ability as evidenced by ambulation 150 feet with front wheeled walker independently with AD, to return to safe household and community ambulation, in order to transition to OP PT, to be achieved by 05/31/25. . PT Impaired gait Completed Yes Improved Balance Description: STG: Patient will demonstrate improved standing balance to meet functional goals as evidenced by TUG score of <30 to be achieved by 05/31/25. . PT Impaired balance Completed Yes Manage Orthopedic Condition Description: Improve patient and/or caregiver understanding of post surgical and/or non-surgical orthopedic intervention management as evidenced by patient and/or caregiver able to verbalize, demonstrate, and teach back instruction, to be achieved by 05/31/25. . PT Orthopedic Condition Completed Yes Demonstrate understanding of education Description: Patient and/or caregiver will understand educational instruction to be achieved by 05/31/25. . PT Learning Assessment Completed Yes Manage Secondary Cardiovascular disease Description: Improve patient and/or caregiver understanding of secondary cardiovascular disease management as evidenced by patient and/or caregiver able to verbalize, demonstrate, and teach back instruction, to be achieved by 05/31/25. PT Cardiovascular Disease Completed Yes Improved Muscle Performance and/or ROM Description: STG: Patient will demonstrate improved muscle performance to meet functional goals as evidenced by ability to tolerate 10-15 minutes of therapeutic activity, to be achieved by 05/31/25. . STG: Patient and/or caregiver will verbalize/demonstrate inde pendence with home exercise program, to improve functional mobility, to be achieved by 05/24/25. PT Impaired muscle performance and/or ROM Completed Yes Interventions Intervention Associated Problem/Goal Status Variance Visit Notes Risk of Sepsis Description: Patient is at risk for sepsis. Monitor closely for s/s of sepsis. Problem:Sepsis Goal:Patient/caregive r will be able to identify and report symptoms of sepsis Performed SPO2 Description: Notify Dr. Montana if pulse ox is <92% at rest. Problem:Physician Specific Parameters Goal:Patient to maintain parameters within physician-specified ranges. Performed Instruct on individual fall risk factors and strategies to prevent falls and injuries caused by falls. Problem:Risk for Falls Goal:Manage Risk for falls Performed PT: Patient instructed on Eliminating Environmental Hazards: Keep pathways clear, Remove unsafe rugs, Move furniture from pathways, Keep rooms and walkways well lit, Install hand rails/grab bars and Wear supportive shoes or non-skid socks Managing I mpaired Functional Mobility: Use assistive device(s): front wheeled walker and single point cane Managing Pain Instruct on pain and instruct on strategies to control pain Problem:Pain Goal:Manage Pain Performed patient instructed on techniques to control pain including Pharmacological measures and Non-Pharmacological measures; rest and positioning/elevation. Physical Therapy Transfer Training Problem:PT Impaired mobility Goal:Improved Transfers Performed KARON transfers with safe/proper techniqu e Physical Therapy Bed Mobility Training Problem:PT Impaired mobility Goal:Improved Bed Mobility Performed KARON bed mobility Physical Therapy Stair Training Problem:PT Impaired gait Goal:Improved Stair Climbing Performed up and down 12 steps with rail + cane and step together sequence Physical Therapy Gait Training Problem:PT Impaired gait Goal:Improved Gait Performed Indep amb with WW household distances surfaces. Marching gait L as he does not have AFO on Physical Therapy Balance Training Problem:PT Impaired balance Goal:Improved Balance Performed pt demonstrates imporved dynamic standing balance as evidenced by atug of 28 Instruct on orthopedic precautions and weight bearing restrictions Description: Orthopedic precautions including right posterior hip: no hip flexion > 90 degrees, no adduction and no IR/ER rotation of involved extermity. Weight bearing restrictions include: WBAT of involved extremity. Problem:PT Orthopedic Condition Goal:Manage Orthopedic Condition Performed patient instructed on orthopedic precautions and weight bearing restrictions. Instruct on management of edema Problem:PT Orthopedic Condition Goal:Manage Orthopedic Condition Performed Instruct patient on management of edema including elevation of RLE above the level of the heart and ice. Instruct on self-management of post surgical and/or non-surgical orthopedic intervention Problem:PT Orthopedic Condition Goal:Manage Orthopedic Condition Performed patient instructed on managagement of orthopedic condition, measures to avoid skin breakdown, staying well hydrated, eating foods with high protein, signs and symptoms of infection and signs and symptoms of DVT/PE. Instruct and educate on knowledge deficits Problem:PT Learning Assessment Goal:Demonstrate understanding of education Performed patient verbalize and/or demonstrate understanding of physical therapy education including orthopedic condition management, weight bearing precautions, surgical precautions, pain management, fall prevention strategies, home safety, functional activity an d home exercise program. Education methods include: verbal cues and written instructions. Physical Therapy Therapeutic Exercises Problem:PT Impaired muscle performance and/or ROM Goal:Improved Muscle Performance and/or ROM Performed patient instructed on strengthening exercises including qs,gs,saq and hip add x's 20 each, standing rle hams curls and hip abd x's 10 done bilaterallyeach with verbal and visual cues for posture. patient instructed to perform home exercise program twice a day which included above ex. documented in this encounter [facility] for referral (narrative)* Diagnostic Procedure Only (Routine) - Pending Review Specialty Diagnoses / Procedures Referred By Carissa connor Referred To Contact XR IMAGING Diagnoses Status post left hip replacement Procedures XR PELVIS 1V AP RADIOLOGIC EXAMINATION PELVIS 1/2 VIEWS Ed Montana MD [address] [place] [address] Referral ID Status Reason Start Date Expiration Date Visits Requested Visits Authorized [id number] Pending Review Auto-Generat ed Referral 01/08/2024 02/06/2025 1 1 [facility] for referral (narrative)No reason for referral information [facility] Phone: Reason for visit Narrative* Auth/Cert (Routine) Specialty Diagnoses / Procedures Referred By Carissa connor Referred To Contact [facility] [address] [place] [id number] Phone: tel: Referral ID Status Reason Start Date Expiration Date Visits Re quested Visits Authorized [id number] 1 1 [facility] [place] Summary Purpose Family History No Family History Records Found Relationship Condition Age at Onset Recorded Date/T osmany mother Hypertension Unknown Diabetes mellitus Unknown father Hypertension Unknown Coronary artery disease Unknown brother Malignant neoplasm Unknown Advance Directives No Advanced Directives Records Found Advance Directive Response Recorded Date/ Time Advance Directives No August 8:07am Living Will No January 08, 2020 6:53pm Power of Shelving Supervisor No January 07 0 6:53pm Advance Directive Response Recorded Date/ Time Advance Directives No August 7:07am Living Will No January 08, 2020 5:53pm Power of Shelving Supervisor No January 07 0 5:53pm Date Activated Date Inactivated Comments 12/21/2023 3:12 PM Date Activated Date Inactivated Comments 12/21/2023 3:12 PM Date Activated Date Inactivated Comments 05/15/2025 8:57 PM 05/16/2025 7:37 PM Question Answer Comments Full Code Order Discussed With: Discussion Not M edically Appropriate Date Activated Date Inactivated Comments 12/21/2023 3:12 PM 05/14/2025 7:36 AM Date Activated Date Inactivated Comments 05/19/2025 3:37 PM Date Activated Date Inactivated Comments 05/15/2025 8:57 PM 05/16/2025 7:37 PM Question Answer Comments Full Code Order Discussed With: Discussion Not M edically Appropriate Date Activated Date Inactivated Comments 12/21/2023 3:12 PM 05/14/2025 7:36 AM Date Activated Date Inactivated Comments 05/19/2025 3:37 PM Date Activated Date Inactivated Comments 05/15/2025 8:57 PM 05/16/2025 7:37 PM Question Answer Comments Full Code Order Discussed With: Discussion Not M edically Appropriate Date Activated Date Inactivated Comments 12/21/2023 3:12 PM 05/14/2025 7:36 AM Advance Directive Response Recorded Date/ Time Advance Directives No August 8:07am Chief Complaint and Reason for Visit Chief [...] of coronary artery stent placement Chief Complaint Admit Date LEFT FOOT May 13, 2025 12: 36pm Medications Administered Section Inactive Administered Medications - [...] Referred By Carissa connor Referred To Contact Orthopedics Diagnoses Closed displaced fracture of posterior column of left acetabulum with routine healing, subsequent encounter Post-traumatic osteoarthritis of left hip Procedures CONSULT TO ORTHOPAEDICS OFFICE/OUTPATIENT [facility] 60-74 MINUTES Jarad Phelan MD [address] [address] Ed Montana MD [address] [place] [id number] Referral ID Status Reason Start Date Expiration Date Visits Requested Visits Authorized [id number] Pending Review PCP Requested Referral 05/10/2023 08/08/2023 1 1 Specialty Diagnoses / Procedures Referred By Carissa connor Referred To Contact [facility] Diagnoses Post-traumatic osteoarthritis of left hip Procedures CONSULT TO PHYSICAL THERAPY PHYSICAL THERAPY EVALUATION HIGH COMPLEX 45 MINS Ed Montana MD [address] [place] [address] [facility] [address] [place] [address] Referral ID Status Reason Start Date Expiration Date Visits Requested Visits Authorized [id number] Pending Review Auto-Generat ed Referral 11/08/2023 06/28/2024 1 1 Specialty Diagnoses / Procedures Referred By Carissa connor Referred To Contact Diagnoses Post-traumatic osteoarthritis of left hip Status post left hip replacement Ed Montana MD [address] [place] [address] Referral ID Status Reason Start Date Expiration Date Visits Re quested Visits Authorized [id number] Closed 1 1 Additional Source Comments (unrecognized sect ion and content) No Status Records FoundNo Status Records FoundNo Status Records FoundNo Status Records FoundNo Status Records FoundNo Status Records FoundNo Status Records FoundNo Status Records Found INFORMATION SOURCE (unrecogn ized section and content) DATE CREATED AUTHOR 04/04/2018 [facility] DATE CREATED AUTHOR AUTHOR'S ORGANIZ ATION 09/16/2018 [facility] DATE CREATED AUTHOR AUTHOR'S ORGANIZ ATION 12/09/2020 [facility] DATE CREATED AUTHOR AUTHOR'S ORGANIZ ATION 03/15/2025 [facility] DATE CREATED AUTHOR AUTHOR'S ORGANIZ ATION 05/19/2025 [facility] DATE CREATED AUTHOR AUTHOR'S ORGANIZ ATION 06/13/2025 [facility] DATE CREATED AUTHOR AUTHOR'S ORGANIZ ATION 07/20/2025 [facility] DATE CREATED AUTHOR AUTHOR'S ORGANIZ ATION 07/23/2025 [facility] Source Comments (unrecognize d section and content) In the event this informatio n is protected by the Federal Confidentiality of Alcohol and Drug Abuse Patient Records regulations: The Federal rules restrict any use of the information to criminally investigate or prosecute any alcohol or drug abuse patient.[facility] [place] the event this information is protected by the Federal Confidentiality of Alcohol and Drug Abuse Patient Records regulations: The Federal rules restrict any use of the information to criminally investigate or prosecute any alcohol or drug abuse patient.[facility] [place]In the event this information is protected by the Federal Confidentiality of Alcohol and Drug Abuse Patient Records regulations: The Federal rules restrict any use of the information to criminally investigate or prosecute any alcohol or drug abuse patient.[facility] [place]In the event this information is protected by the Federal Confidentiality of Alcohol and Drug Abuse Patient Records regulations: The Federal rules restrict any use of the information to criminally investigate or prosecute any alcohol or drug abuse patient.[facility] [place]In the event this information is protected by the Federal Confidentiality of Alcohol and Drug Abuse Patient Records regulations: The Federal rules restrict any use of the information to criminally investigate or prosecute any alcohol or drug abuse patient.[facility] [place]In the event this information is protected by the Federal Confidentiality of Alcohol and Drug Abuse Patient Records regulations: The Federal rules restrict any use of the information to criminally investigate or prosecute any alcohol or drug abuse patient.[facility] [place]In the event this information is protected by the Federal Confidentiality of Alcohol and Drug Abuse Patient Records regulations: The Federal rules restrict any use of the information to criminally investigate or prosecute any alcohol or drug abuse patient.[facility] [place]In the event this information is protected by the Federal Confidentiality of Alcohol and Drug Abuse Patient Records regulations: The Federal rules restrict any use of the information to criminally investigate or prosecute any alcohol or drug abuse patient.[facility] [place]In the event this information is protected by the Federal Confidentiality of Alcohol and Drug Abuse Patient Records regulations: The Federal rules restrict any use of the information to criminally investigate or prosecute any alcohol or drug abuse patient.[facility] [place]In the event this information is protected by the Federal Confidentiality of Alcohol and Drug Abuse Patient Records regulations: The Federal rules restrict any use of the information to criminally investigate or prosecute any alcohol or drug abuse patient.[facility] [place]In the event this information is protected by the Federal Confidentiality of Alcohol and Drug Abuse Patient Records regulations: The Federal rules restrict any use of the information to criminally investigate or prosecute any alcohol or drug abuse patient.[facility] [place]In the event this information is protected by the Federal Confidentiality of Alcohol and Drug Abuse Patient Records regulations: The Federal rules restrict any use of the information to criminally investigate or prosecute any alcohol or drug abuse patient.[facility] [place]In the event this information is protected by the Federal Confidentiality of Alcohol and Drug Abuse Patient Records regulations: The Federal rules restrict any use of the information to criminally investigate or prosecute any alcohol or drug abuse patient.[facility] [place]In the event this information is protected by the Federal Confidentiality of Alcohol and Drug Abuse Patient Records regulations: The Federal rules restrict any use of the information to criminally investigate or prosecute any alcohol or drug abuse patient.[facility] [place]In the event this information is protected by the Federal Confidentiality of Alcohol and Drug Abuse Patient Records regulations: The Federal rules restrict any use of the information to criminally investigate or prosecute any alcohol or drug abuse patient.[facility] [place]In the event this information is protected by the Federal Confidentiality of Alcohol and Drug Abuse Patient Records regulations: The Federal rules restrict any use of the information to criminally investigate or prosecute any alcohol or drug abuse patient.[facility] [place]In the event this information is protected by the Federal Confidentiality of Alcohol and Drug Abuse Patient Records regulations: The Federal rules restrict any use of the information to criminally investigate or prosecute any alcohol or drug abuse patient.[facility] [place]In the event this information is protected by the Federal Confidentiality of Alcohol and Drug Abuse Patient Records regulations: The Federal rules restrict any use of the information to criminally investigate or prosecute any alcohol or drug abuse patient.[facility] [place]In the event this information is protected by the Federal Confidentiality of Alcohol and Drug Abuse Patient Records regulations: The Federal rules restrict any use of the information to criminally investigate or prosecute any alcohol or drug abuse patient.[facility] [place]In the event this information is protected by the Federal Confidentiality of Alcohol and Drug Abuse Patient Records regulations: The Federal rules restrict any use of the information to criminally investigate or prosecute any alcohol or drug abuse patient.[facility] [place]In the event this information is protected by the Federal Confidentiality of Alcohol and Drug Abuse Patient Records regulations: The Federal rules restrict any use of the information to criminally investigate or prosecute any alcohol or drug abuse patient.[facility] [place]In the event this information is protected by the Federal Confidentiality of Alcohol and Drug Abuse Patient Records regulations: The Federal rules restrict any use of the information to criminally investigate or prosecute any alcohol or drug abuse patient.[facility] [place]In the event this information is protected by the Federal Confidentiality of Alcohol and Drug Abuse Patient Records regulations: The Federal rules restrict any use of the information to criminally investigate or prosecute any alcohol or drug abuse patient.[facility] [place]In the event this information is protected by the Federal Confidentiality of Alcohol and Drug Abuse Patient Records regulations: The Federal rules restrict any use of the information to criminally investigate or prosecute any alcohol or drug abuse patient.[facility] [place]In the event this information is protected by the Federal Confidentiality of Alcohol and Drug Abuse Patient Records regulations: The Federal rules restrict any use of the information to criminally investigate or prosecute any alcohol or drug abuse patient.[facility] [place]In the event this information is protected by the Federal Confidentiality of Alcohol and Drug Abuse Patient Records regulations: The Federal rules restrict any use of the information to criminally investigate or prosecute any alcohol or drug abuse patient.[facility] [place]In the event this information is protected by the Federal Confidentiality of Alcohol and Drug Abuse Patient Records regulations: The Federal rules restrict any use of the information to criminally investigate or prosecute any alcohol or drug abuse patient.[facility] [place]In the event this information is protected by the Federal Confidentiality of Alcohol and Drug Abuse Patient Records regulations: The Federal rules restrict any use of the information to criminally investigate or prosecute any alcohol or drug abuse patient.[facility] [place]In the event this information is protected by the Federal Confidentiality of Alcohol and Drug Abuse Patient Records regulations: The Federal rules restrict any use of the information to criminally investigate or prosecute any alcohol or drug abuse patient.[facility] [place]In the event this information is protected by the Federal Confidentiality of Alcohol and Drug Abuse Patient Records regulations: The Federal rules restrict any use of the information to criminally investigate or prosecute any alcohol or drug abuse patient.[facility] [place]In the event this information is protected by the Federal Confidentiality of Alcohol and Drug Abuse Patient Records regulations: The Federal rules restrict any use of the information to criminally investigate or prosecute any alcohol or drug abuse patient.[facility] [place]In the event this information is protected by the Federal Confidentiality of Alcohol and Drug Abuse Patient Records regulations: The Federal rules restrict any use of the information to criminally investigate or prosecute any alcohol or drug abuse patient.[facility] [place]In the event this information is protected by the Federal Confidentiality of Alcohol and Drug Abuse Patient Records regulations: The Federal rules restrict any use of the information to criminally investigate or prosecute any alcohol or drug abuse patient.[facility] [place]In the event this information is protected by the Federal Confidentiality of Alcohol and Drug Abuse Patient Records regulations: The Federal rules restrict any use of the information to criminally investigate or prosecute any alcohol or drug abuse patient.[facility] [place]In the event this information is protected by the Federal Confidentiality of Alcohol and Drug Abuse Patient Records regulations: The Federal rules restrict any use of the information to criminally investigate or prosecute any alcohol or drug abuse patient.[facility] [place]In the event this information is protected by the Federal Confidentiality of Alcohol and Drug Abuse Patient Records regulations: The Federal rules restrict any use of the information to criminally investigate or prosecute any alcohol or drug abuse patient.[facility] [place]In the event this information is protected by the Federal Confidentiality of Alcohol and Drug Abuse Patient Records regulations: The Federal rules restrict any use of the information to criminally investigate or prosecute any alcohol or drug abuse patient.[facility] [place]In the event this information is protected by the Federal Confidentiality of Alcohol and Drug Abuse Patient Records regulations: The Federal rules restrict any use of the information to criminally investigate or prosecute any alcohol or drug abuse patient.[facility] [place]In the event this information is protected by the Federal Confidentiality of Alcohol and Drug Abuse Patient Records regulations: The Federal rules restrict any use of the information to criminally investigate or prosecute any alcohol or drug abuse patient.[facility] [place]In the event this information is protected by the Federal Confidentiality of Alcohol and Drug Abuse Patient Records regulations: The Federal rules restrict any use of the information to criminally investigate or prosecute any alcohol or drug abuse patient.[facility] [place]In the event this information is protected by the Federal Confidentiality of Alcohol and Drug Abuse Patient Records regulations: The Federal rules restrict any use of the information to criminally investigate or prosecute any alcohol or drug abuse patient.[facility] [place]In the event this information is protected by the Federal Confidentiality of Alcohol and Drug Abuse Patient Records regulations: The Federal rules restrict any use of the information to criminally investigate or prosecute any alcohol or drug abuse patient.[facility] [place]In the event this information is protected by the Federal Confidentiality of Alcohol and Drug Abuse Patient Records regulations: The Federal rules restrict any use of the information to criminally investigate or prosecute any alcohol or drug abuse patient.[facility] [place]In the event this information is protected by the Federal Confidentiality of Alcohol and Drug Abuse Patient Records regulations: The Federal rules restrict any use of the information to criminally investigate or prosecute any alcohol or drug abuse patient.[facility] OhioIn the event this information is protected by the Federal Confidentiality of Alcohol and Drug Abuse Patient Records regulations: The Federal rules restrict any use of the information to criminally investigate or prosecute any alcohol or drug abuse patient.[facility] [place]In the event this information is protected by the Federal Confidentiality of Alcohol and Drug Abuse Patient Records regulations: The Federal rules restrict any use of the information to criminally investigate or prosecute any alcohol or drug abuse patient.[facility] [place]In the event this information is protected by the Federal Confidentiality of Alcohol and Drug Abuse Patient Records regulations: The Federal rules restrict any use of the information to criminally investigate or prosecute any alcohol or drug abuse patient.[facility] [place]In the event this information is protected by the Federal Confidentiality of Alcohol and Drug Abuse Patient Records regulations: The Federal rules restrict any use of the information to criminally investigate or prosecute any alcohol or drug abuse patient.[facility] [place]In the event this information is protected by the Federal Confidentiality of Alcohol and Drug Abuse Patient Records regulations: The Federal rules restrict any use of the information to criminally investigate or prosecute any alcohol or drug abuse patient.[facility] [place]In the event this information is protected by the Federal Confidentiality of Alcohol and Drug Abuse Patient Records regulations: The Federal rules restrict any use of the information to criminally investigate or prosecute any alcohol or drug abuse patient.[facility] OhioIn the event this information is protected by the Federal Confidentiality of Alcohol and Drug Abuse Patient Records regulations: The Federal rules restrict any use of the information to criminally investigate or prosecute any alcohol or drug abuse patient.[facility] [place]In the event this information is protected by the Federal Confidentiality of Alcohol and Drug Abuse Patient Records regulations: The Federal rules restrict any use of the information to criminally investigate or prosecute any alcohol or drug abuse patient.[facility] [place]In the event this information is protected by the Federal Confidentiality of Alcohol and Drug Abuse Patient Records regulations: The Federal rules restrict any use of the information to criminally investigate or prosecute any alcohol or drug abuse patient.[facility] [place]In the event this information is protected by the Federal Confidentiality of Alcohol and Drug Abuse Patient Records regulations: The Federal rules restrict any use of the information to criminally investigate or prosecute any alcohol or drug abuse patient.[facility] [place]In the event this information is protected by the Federal Confidentiality of Alcohol and Drug Abuse Patient Records regulations: The Federal rules restrict any use of the information to criminally investigate or prosecute any alcohol or drug abuse patient.[facility] [place]In the event this information is protected by the Federal Confidentiality of Alcohol and Drug Abuse Patient Records regulations: The Federal rules restrict any use of the information to criminally investigate or prosecute any alcohol or drug abuse patient.[facility] [place]In the event this information is protected by the Federal Confidentiality of Alcohol and Drug Abuse Patient Records regulations: The Federal rules restrict any use of the information to criminally investigate or prosecute any alcohol or drug abuse patient.[facility] [place] Reason for Visit (unrecogniz ed section and content) Reason Comments New Specialty Diagnoses / Procedures Referred By Contac t Referred To Contact Orthopedics Diagnoses Post-traumatic osteoarthritis of right hip Procedures CONSULT TO ORTHOPAEDICS OFFICE/OUTPATIENT NEW HIGH MDM 60 MINUTES Ed Montana MD [address] [place] [address] Phone: tel: fax: Josh Koo MD [address] [place] [address] Phone: tel: fax: Referral ID Status Reason Start Date Expiration Date Visits Re quested Visits Authorized [id number] Closed 01/13/2025 04/13/2025 1 1 Reason Comments Appointment Reason Comments Established Patient Follow Up Reason Comments Orders Reason Comments Injections Reason Comments Patient Update Specialty Diagnoses / Procedures Referred By Carissa t Referred To Contact Diagnoses Post-traumatic osteoarthritis of left hip Procedures ARTHROCENTESIS ASPIR&/INJ MAJOR JT/BURSA W/O US INJECT HIP LEFT [place] Interventional Radiology [address] [place] [address] Referral ID Status Reason Start Date Expiration Date Visits Re quested Visits Authorized [id number] 1 1 Reason Comments Established Patient Reason Onset Date Comments PreOp Call 09/21/2023 Reason Onset Date Comments PreOp Call 09/28/2023 Reason Comments Home Care CONFIRMATION CALL Specialty Diagnoses / Procedures Referred By Carissa t Referred To Contact [facility] Home Care [address] [place] [address] Referral ID Status Reason Start Date Expiration Date Visits Re quested Visits Authorized [id number] 1 1 Reason Onset Date Comments Post [...] Reason Onset Date Comments PreOp Call 05/12/2025 Reason Comments Home Care Delayed SOC Reason Comments Home Care Medication interacti on Reason Comments Home Care Bandage removal Reason Onset Date Comments Post Op Call 05/22/2025 Reason Comments Refill Request Reason Onset Date Comments Post Op Call 05/27/2025 Care Teams (unrecognized sec tion and content) [employer] Relationship Specialty Start Date End Date Nico Maldonado MD PCP - General Family Medicine 07/12/17 [employer] Principal Relationship Specialty Start Date End Date Nico Maldonado MD PCP - General Family Medicine 07/12/17 [employer] Principal Relationship Specialty Start Date End Date Nico Maldonado MD PCP - General Family Medicine 07/12/17 [employer] Principal Relationship Specialty Start Date End Date Nico Maldonado MD PCP - General Family Medicine 07/12/17 Team Status: Active Member Role Status Dates Dr. Macho Aburto DO Family Provider Active Dr. Macho Aburto DO Primary Care Provider Active Team Status: Inactive Member Role Status Dates Dr. Macho Aburto DO Primary Care Provider, Referrin g Provider Active Dr. Jimenez Nowak MD Attending Provider Active Team Status: Active Member Role Status Dates Dr. Macho Aburto DO Primary Care Provider Active Dr. Jimenez Nowak MD Attending Provider, Other Provide r Active Team Status: Inactive Member Role Status Dates Dr. Macho Aburto DO Primary Care Provider Active Dr. Cullen Solorzano DC Attending Provider, Referring P bhargav Active Team Status: Inactive Member Role Status Dates Dr. Macho Aburto DO Primary Care Provider, Attendin g Provider Active Team Status: Inactive Member Role Status Dates Dr. Macho Aburto DO Primary Care Provider Active Dr. Jimenez Nowak MD Attending Provider Active [employer] Relationship Specialty Start Date End Date Nico Maldonado MD PCP - General Family Medicine 07/12/17 Team Status: Inactive Member Role Status Dates Dr. Macho Aburto DO Primary Care Provider, Attendin g Provider Active Dr. Dale Feldman MD Referring Provider Active [employer] Principal Relationship Specialty Start Date End Date Nico Maldonado MD PCP - General Family Medicine 07/12/17 [employer] Principal Relationship Specialty Start Date End Date Nico Maldonado MD PCP - General Family Medicine 07/12/17 [employer] Principal Relationship Specialty Start Date End Date Nico Maldonado MD PCP - General Family Medicine 07/12/17 [employer] Principal Relationship Specialty Start Date End Date Nico Maldonado MD PCP - General Family Medicine 07/12/17 [employer] Principal Relationship Specialty Start Date End Date Nico Maldonado MD PCP - General Family Medicine 07/12/17 [employer] Principal Relationship Specialty Start Date End Date Nico Maldonado MD PCP - General Family Medicine 07/12/17 Team Status: Inactive Member Role Status Dates Dr. Macho Aburto DO Primary Care Provider, Referrin g Provider Active Vidhi MONDRAGON, [place] Attending Provider Active [employer] Principal Relationship Specialty Start Date End Date Nico Maldonado MD PCP - General Family Medicine 07/12/17 Team Status: Inactive Member Role Status Dates Dr. Macho Aburto DO Primary Care Prov ider, Attending Provider, Referring Provider Active [employer] Principal Relationship Specialty Start Date End Date Nico Maldonado MD PCP - General Family Medicine 07/12/17 [employer] Principal Relationship Specialty Start Date End Date Macho Aburto DO [address] [place] [address] PCP - General Family Medicine 12/19/23 Jacqui Waters, ADRIANNE Specialty International Marketing Coordinator Orthopedics 12/19/23 01/26/24 Ed Montana MD [address] [address] Home Care Provider Orthopedics 12/20/23 Mallika Paris, JULIETA.OFFSET ASSISTANT PRESS OPERATOR [address] [place] [address] Referring Internal Medicine 12/20/23 Melanie Sotelo, PT [address] [place] [address] Terminal Operations Supervisor Post Acute Care 12/20/23 [employer] Principal Relationship Specialty Start Date End Date Macho Aburto DO [address] [employer] [facility] [place] [address] PCP - General Family Medicine 12/19/23 Jacqui Waters, ADRIANNE Specialty International Marketing Coordinator Orthopedics 12/19/23 01/26/24 Ed Montana MD [address] [address] Home Care Provider Orthopedics 12/20/23 Mallika Paris APRN.OFFSET ASSISTANT PRESS OPERATOR [address] [place] [address] Referring Internal Medicine 12/20/23 Melanie Sotelo, PT [address] [place] [address] Terminal Operations Supervisor Post Acute Care 12/20/23 [employer] Principal Relationship Specialty Start Date End Date Macho Aburto DO [address] [employer] [facility] [place] [address] PCP - General Family Medicine 12/19/23 Jacqui Waters, ADRIANNE Specialty International Marketing Coordinator Orthopedics 12/19/23 01/26/24 Ed Montana MD [address] [address] Home Care Provider Orthopedics 12/20/23 Mallika Paris APRN.OFFSET ASSISTANT PRESS OPERATOR [address] [place] [address] Referring Internal Medicine 12/20/23 Melanie Sotelo, PT [address] [place] [address] Terminal Operations Supervisor Post Acute Care 12/20/23 [employer] Principal Relationship Specialty Start Date End Date CriseldaMacho DO [address] [employer] [facility] [place] [address] PCP - General Family Medicine 12/19/23 Jacqui Waters, ADRIANNE Specialty International Marketing Coordinator Orthopedics 12/19/23 01/26/24 Ed Montana MD [address] [address] Home Care Provider Orthopedics 12/20/23 Mallika Paris APRN.OFFSET ASSISTANT PRESS OPERATOR [address] [place] [address] Referring Internal Medicine 12/20/23 Melanie Sotelo, PT [address] [place] [address] Terminal Operations Supervisor Post Acute Care 12/20/23 [employer] Principal Relationship Specialty Start Date End Date Macho Aburto DO [address] [employer] [place] [address] PCP - General Family Medicine 12/19/23 Jacqui Waters, ADRIANNE Specialty International Marketing Coordinator Orthopedics 12/19/23 01/26/24 Ed Montana MD [address] [address] Home Care Provider Orthopedics 12/20/23 Mallika Paris APRN.OFFSET ASSISTANT PRESS OPERATOR [address] [place] [address] Referring Internal Medicine 12/20/23 Melanie Sotelo, PT [address] [place] [address] Terminal Operations Supervisor Post Acute Care 12/20/23 [employer] Principal Relationship Specialty Start Date End Date Macho Aburto DO [address] [employer] [facility] [place] [address] PCP - General Family Medicine 12/19/23 Jacqui Waters, ADRIANNE Specialty International Marketing Coordinator Orthopedics 12/19/23 01/26/24 Ed Montana MD [address] [address] Home Care Provider Orthopedics 12/20/23 Mallika Paris APRN.OFFSET ASSISTANT PRESS OPERATOR [address] [place] [address] Referring Internal Medicine 12/20/23 Melanie Sotelo, PT [address] [place] [address] Terminal Operations Supervisor Post Acute Care 12/20/23 [employer] Principal Relationship Specialty Start Date End Date Macho Aburto DO [address] [employer] [facility] [place] [address] PCP - General Family Medicine 12/19/23 Jacqui Waters, ADRIANNE Specialty International Marketing Coordinator Orthopedics 12/19/23 01/26/24 Ed Montana MD [address] [address] Home Care Provider Orthopedics 12/20/23 Mallika Paris APRN.OFFSET ASSISTANT PRESS OPERATOR [address] [place] [address] Referring Internal Medicine 12/20/23 Melanie Sotelo, PT [address] [place] [address] Terminal Operations Supervisor Post Acute Care 12/20/23 [employer] Principal Relationship Specialty Start Date End Date CriseldaMacho DO [address] [employer] [place], [place] [address] PCP - General Family Medicine 12/19/23 Jacqui Waters, ADRIANNE Specialty International Marketing Coordinator Orthopedics 12/19/23 01/26/24 Ed Montana MD [address] [place] [address] Home Care Provider Orthopedics 12/20/23 Mallika Paris APRN.OFFSET ASSISTANT PRESS OPERATOR [address] [place] [address] Referring Internal Medicine 12/20/23 Melanie Sotelo, PT [address] [place] [address] Terminal Operations Supervisor Post Acute Care 12/20/23 [employer] Principal Relationship Specialty Start Date End Date CriseldaMacho DO [address] [employer] [place] [address] PCP - General Family Medicine 12/19/23 Ed Montana MD [address] [place] [address] Home Care Provider Orthopedics 12/20/23 Mallika Paris APRN.OFFSET ASSISTANT PRESS OPERATOR [address] [place], [place] [id number] Referring Internal Medicine 12/20/23 Melanie Sotelo, PT [address] [place], [place] [address] Terminal Operations Supervisor Post Acute Care 12/20/23 [employer] Principal Relationship Specialty Start Date End Date Nico Maldonado MD PCP - General Family Medicine 07/12/17 12/18/23 Macho Aburto DO [address] [place], [place] [address] PCP - General Family Medicine 12/19/23 Jacqui Waters, ADRIANNE Specialty International Marketing Coordinator Orthopedics 12/19/23 01/26/24 Ed Montana MD [address] [place] [address] Home Care Provider Orthopedics 12/20/23 Mallika Paris, JULIETA.OFFSET ASSISTANT PRESS OPERATOR [address] [place] [address] Referring Internal Medicine 12/20/23 Melanie Sotelo, PT [address] [place], [place] [address] Terminal Operations Supervisor Post Acute Care 12/20/23 [employer] Principal Relationship Specialty Start Date End Date Macho Aburto DO [address] [place] [address] PCP - General Family Medicine 12/19/23 Ed Montana MD [address] [place] [address] Home Care Provider Orthopedics 12/20/23 Mallika Paris, JULIETA.OFFSET ASSISTANT PRESS OPERATOR [address] [place] [address] Referring Internal Medicine 12/20/23 Melanie Sotelo, PT [address] [place] [address] Terminal Operations Supervisor Post Acute Care 12/20/23 [employer] Principal Relationship Specialty Start Date End Date Macho Aburto DO [address] [place] [address] PCP - General Family Medicine 12/19/23 Ed Montana MD [address] [place] [address] Home Care Provider Orthopedics 12/20/23 Mallika Paris APRN.OFFSET ASSISTANT PRESS OPERATOR [address] [place] [address] Referring Internal Medicine 12/20/23 Melanie Sotelo, PT [address] [place] [address] Terminal Operations Supervisor Post Acute Care 12/20/23 [employer] Principal Relationship Specialty Start Date End Date Macho Aburto DO [address] [place] [address] PCP - General Family Medicine 12/19/23 Ed Montana MD [address] [place] [address] Home Care Provider Orthopedics 12/20/23 Mallika Paris APRN.OFFSET ASSISTANT PRESS OPERATOR [address] [place] [address] Referring Internal Medicine 12/20/23 Melanie Sotelo, PT [address] [place] [address] Terminal Operations Supervisor Post Acute Care 12/20/23 [employer] Principal Relationship Specialty Start Date End Date Macho Aburto DO [address] [place] [address] PCP - General Family Medicine 12/19/23 Ed Montana MD [address] [address] Home Care Provider Orthopedics 12/20/23 Mallika Paris APRN.OFFSET ASSISTANT PRESS OPERATOR [address] [place] [address] Referring Internal Medicine 12/20/23 [employer] Principal Relationship Specialty Start Date End Date Macho Aburto DO [address] [place], [place] [address] PCP - General Family Medicine 12/19/23 Ed Montana MD [address] [address] Home Care Provider Orthopedics 12/20/23 Mallika Paris APRN.OFFSET ASSISTANT PRESS OPERATOR [address] [place] [address] Referring Internal Medicine 12/20/23 [employer] Principal Relationship Specialty Start Date End Date Macho Aburto DO [address] [place] [address] PCP - General Family Medicine 12/19/23 Ed Montana MD [address] [address] Home Care Provider Orthopedics 12/20/23 Mallika Paris APRN.OFFSET ASSISTANT PRESS OPERATOR [address] [facility] [place] [address] Referring Internal Medicine 12/20/23 [employer] Principal Relationship Specialty Start Date End Date Macho Aburto DO [address] [place] [address] PCP - General Family Medicine 12/19/23 Ed Montana MD [address] [address] Home Care Provider Orthopedics 12/20/23 Mallika Paris APRN.OFFSET ASSISTANT PRESS OPERATOR [address] [place] [address] Referring Internal Medicine 12/20/23 [employer] Principal Relationship Specialty Start Date End Date Macho Aburto DO [address] [place] [address] PCP - General Family Medicine 12/19/23 Ed Montana MD [address] [address] Home Care Provider Orthopedics 12/20/23 Mallika Paris APRN.OFFSET ASSISTANT PRESS OPERATOR [address] [place] [address] Referring Internal Medicine 12/20/23 [employer] Principal Relationship Specialty Start Date End Date Macho Aburto DO [address] [place] [address] PCP - General Family Medicine 12/19/23 Ed Montana MD [address] [place] [id number] Home Care Provider Orthopedics 12/20/23 Mallika Paris APRN.OFFSET ASSISTANT PRESS OPERATOR [address] [place], [place] [id number] Referring Internal Medicine 12/20/23 K [employer] Principal Relationship Specialty Start Date End Date Macho Aburto DO [address] [place] [address] PCP - General Family Medicine 12/19/23 Ed Montana MD [address] [address] Home Care Provider Orthopedics 12/20/23 Mallika Paris APRN.OFFSET ASSISTANT PRESS OPERATOR [address] [place], [place] [address] Referring Internal Medicine 12/20/23 K [employer] Principal Relationship Specialty Start Date End Date Macho Aburto DO [address] [employer] [place] [address] PCP - General Family Medicine 12/19/23 Ed Montana MD [address] [address] Home Care Provider Orthopedics 12/20/23 Mallika Paris APRN.OFFSET ASSISTANT PRESS OPERATOR [address] [place], [place] [address] Referring Internal Medicine 12/20/23 K 8 [employer] Principal Relationship Specialty Start Date End Date Macho Aburto DO [address] [place], [place] [address] PCP - General Family Medicine 12/19/23 Ed Montana MD [address] [place] [address] Home Care Provider Orthopedics 12/20/23 Mallika Paris APRN.OFFSET ASSISTANT PRESS OPERATOR [address] [place], [place] [id number] Referring Internal Medicine 12/20/23 [employer] Principal Relationship Specialty Start Date End Date aMcho Aburto DO [address] [place], [place] [address] PCP - General Family Medicine 12/19/23 Jacqui Waters, ADRIANNE Specialty International Marketing Coordinator Orthopedics 05/14/25 06/19/25 Ed Montana MD [address] [address] Home Care Provider Orthopedics 05/14/25 Ed Montana MD [address] [address] Referring Orthopedics 05/14/25 Melanie Sotelo, PT [address] [place] [address] Terminal Operations Supervisor Post Acute Care 05/16/25 [employer] Principal Relationship Specialty Start Date End Date Macho Aburto DO [address] [place] [address] PCP - General Family Medicine 12/19/23 Jacqui Waters, ADRIANNE Specialty International Marketing Coordinator Orthopedics 05/14/25 06/19/25 Ed Montana MD [address] [place] [address] Home Care Provider Orthopedics 05/14/25 Ed Montana MD [address] [place] [address] Referring Orthopedics 05/14/25 Melanie Sotelo, PT [address] [place], [place] [address]31 Terminal Operations Supervisor Post Acute Care 05/16/25 [employer] Principal Relationship Specialty Start Date End Date Macho Aburto DO [address] [place], [place] [address] PCP - General Family Medicine 12/19/23 Jacqui Waters RN Specialty International Marketing Coordinator Orthopedics 05/14/25 06/19/25 Ed Montana MD [address] [place] [address] Home Care Provider Orthopedics 05/14/25 Ed Montana MD [address] [place] [address] Referring Orthopedics 05/14/25 Melanie Sotelo, PT [address] [place], [place] [id number] Terminal Operations Supervisor Post Acute Care 05/16/25 K [employer] Principal Relationship Specialty Start Date End Date Macho Aburto DO [address] [place], [place] [address] PCP - General Family Medicine 12/19/23 Jacqui Waters, ADRIANNE Specialty International Marketing Coordinator Orthopedics 05/14/25 06/19/25 Ed Montana MD [address] [place] [address] Home Care Provider Orthopedics 05/14/25 Ed Montana MD [address] [place] [address] Referring Orthopedics 05/14/25 Melanie Sotelo, PT [address] [place], [place] [id number] Terminal Operations Supervisor Post Acute Care 05/16/25 Team Status: Active Member Role/Relationship Status Dates Dr. Macho Aburto DO Primary Care Provider Active Team Status: Inactive Member Role/Relationship Status Dates Dr. Macho Aburto DO Primary Care Provider Active Start: May 13, 2025 End: May 13, 2025 Dr. Cullen Solorzano DC Attending Provider Active Start: May 13, 2025 End: May 13, 2025 Dr. Cullen Solorzano DC Referring Provider Active Start: May 13, 2025 End: May 13, 2025 [employer] Principal Relationship Specialty Start Date End Date Macho Aburto DO [facility] [place] [address] PCP - General Family Medicine 12/19/23 Jacqui Waters, ADRIANNE Specialty International Marketing Coordinator Orthopedics 05/14/25 06/19/25 Ed Montana MD [address] [place] [address] Home Care Provider Orthopedics 05/14/25 Ed Montana MD [address] [place] [address] Referring Orthopedics 05/14/25 Melanie Sotelo, PT [address] [place], [place] [id number] Terminal Operations Supervisor Post Acute Care 05/16/25 K [employer] Principal Relationship Specialty Start Date End Date Macho Aburto DO [address] [employer] [place], [place] [address] PCP - General Family Medicine 12/19/23 Jacqui Waters, ADRIANNE Specialty International Marketing Coordinator Orthopedics 05/14/25 06/19/25 Ed Montana MD [address] [place] [address] Home Care Provider Orthopedics 05/14/25 Ed Montana MD [address] [place] [address] Referring Orthopedics 05/14/25 Melanie Sotelo, PT [address] [place] [address] Terminal Operations Supervisor Post Acute Care 05/16/25 K [employer] Principal Relationship Specialty Start Date End Date Macho Aburto DO [address] [facility] [place] [address] PCP - General Family Medicine 12/19/23 Jacqui Waters, ADRIANNE Specialty International Marketing Coordinator Orthopedics 05/14/25 06/19/25 Ed Montana MD [address] [place] [address] Home Care Provider Orthopedics 05/14/25 Ed Montana MD [address] [place] [address] Referring Orthopedics 05/14/25 Melanie Sotelo, PT [address] [place] [address] Terminal Operations Supervisor Post Acute Care 05/16/25 K [employer] Principal Relationship Specialty Start Date End Date Macho Aburto DO [address] [place] [address] PCP - General Family Medicine 12/19/23 Jacqui Waters, RN Specialty International Marketing Coordinator Orthopedics 05/14/2509/02 Ed Montana MD [address] [place] [address] Home Care Provider Orthopedics 05/14/25 Ed Montana MD [address] [place] [address] Referring Orthopedics 05/14/25 [employer] Principal Relationship Specialty Start Date End Date Macho Aburto DO [address] [place] [address] PCP - General Family Medicine 12/19/23 Jacqui Waters RN Specialty International Marketing Coordinator Orthopedics 05/14/2509/02 Ed Montana MD [address] [place] [address] Home Care Provider Orthopedics 05/14/25 Ed Montana MD [address] [place] [address] Referring Orthopedics 05/14/25 [employer] Principal Relationship Specialty Start Date End Date Macho Aburto DO [address] [place] [address] PCP - General Family Medicine 12/19/23 Jacqui Waters, ADRIANNE Specialty International Marketing Coordinator Orthopedics 05/14/2509/02 Ed Montana MD [address] [place] [address] Home Care Provider Orthopedics 05/14/25 Ed Montana MD [address] [address] Referring Orthopedics 05/14/25 Goals (unrecognized section and content) Goals may [...] PRN, Starting on Mon03/27/23 at 1004, Until Tu03/28/23 at 0303, Intraprocedure 1004 (Given - Provid er: Aurelio Gabriel APRN.CNP) lidocaine (PF) 10 mg/mL (1 %) injection (XYLOCAINE) SUBCUTANEOUS, X (OR/PROCEDURE) PRN, Starting on Mon03/27/23 at 1006, Until Tu03/28/23 at 0303, Intraprocedure 1006 (Given - Provid er: Aurelio Gabriel APRN.CNP - Comment: joint space) triamcinolone acetonide injection (KeNALog 40) INTRA-ARTICULAR, X (OR/PROCEDURE) PRN, Starting on Mon03/27/23 at 1007, Until Tu03/28/23 at 0303, Intraprocedure 1007 (Given - Provid er: Aurelio Nitz, WEB DEVELOPER.OFFSET ASSISTANT PRESS OPERATOR) FOR RECORDS PERTAINING TO PATIENTS WHO ARE [...] BE BASED ON THE PRIMARY CLINICAL RECORDS. [facility] [employer] [facility]. provides no warranty or guarantee of the accuracy or completeness of information in this document.
--- OUTSIDE RECORDS SUMMARY | 2025-07-25 15:21 | XMS RPT_ITS | CCD ---
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 jessi pants with contamination consultant Toileting Minimal Assistance Mobility Assist Level Additional [...] Good Good (more content not included)... Normal [facility] ANES POSTPROC EVALon 025 ANES POSTPROC EVAL HNO ID: [id number] Author: ALEX HILLIARD MD Service: Anesthesiology Author [...] May 14, 2025 TIME: 4:11 PM CSN: [id number] [facility] ANES PRE-OPon 05-14-2025 ANES PRE-OP HNO ID: [id number] Author: DANNY BAL DO Service: Anesthesiology Author [...] and consent discussed: yes. Patient / Responsible Libertarian agrees to proceed: yes Patient / Surrogate [...] by mouth once (more content not included)... [facility] MALDONADO BRION[facility] ([id number]) 1960 M Date Time Provider Department 05/14/25 [facility] During your visit today, we recorded the following information about you: Licha Bae PSS 05/14/2025 9:19 AM Signed Date/Time: 05/14/2025 9:14 AM Attempt Messages: patient's and Emi Briones (Spouse) . BLAIR Rich Cathy Jo PSS 05/14/2025 4:49 PM Signed I attempted to reach patient on room phone [phone]. answered and said it is not a good time, and she will call us back in the morning. Ghada Sapp, PSS 05/14/2025 4:49 PM Ghada Sapp, PSS 05/15/2025 3:04 PM Signed Date/Time: 05/15/2025 3:01 PM Spoke with albino Middleton @ phone #: room phone [phone] - Preferred # for contact: [phone] or Emi [phone] Have you received help from a home care company in the last 60 days? no Are you agreeable to [facility] services? yes What address will we be seeing you at? [address] [facility] [address] Do you have any upcoming appointments or [...] Date 05/14/2025 Noted Resolved CELLULITIS OF ARM [[id number]] 05/23/2005 Unspecified essential hypertension [I10] 10/18/2005 Pure [...] 10/12/2011 Hypotestosteroni (more content not included)... Normal [facility] HISTORY PHYSICALon HISTORY PHYSICAL HNO ID: [id number] Author: ED MONTANA MD Service: Orthopaedic Surgery [...] May 14, 2025 TIME: 10:11 AM Normal [facility] NURSING PROGon 05-14-2025 NURSING PROG HNO ID: [id number] Author: MARY MORELAND RN Service: Nursing Author [...] PACU nurse, response received. Patient and updated. [facility] OPERATIVE NOon 05-14-2025 OPERATIVE NO HNO ID: [id number] Author: ED MONTANA MD Service: Orthopaedic Surgery Author Type: Physician Type: Operative Report Filed: 05/14/2025 13:30 Note Text: [email or web address] [facility] [address] [facility]. [place], [place] [address] OPERATIVE/PROCEDURE REPORT LOG ID: [id number] SURGERY/PROCEDURE DATE: 05/14/2025 INCISION/PROCEDURE START TIME: 10:44 AM INCISION CLOSE/PROCEDURE END TIME: NAME: Maldonado Briones Attending: Ed Montana MD MR:[id number] OPE RATIVE REPORT PREOPERATIVE DIAGNOSIS: Right hip advanced degenerative joint disease; retained orthopedic hardware, intertrochanteric hip fracture with malunion POSTOPERATIVE DIAGNOSIS: Right hip advanced degenerative joint disease; retained orthopedic hardware, intertrochanteric hip fracture with malunion OPERATION: Right conversion of previous hip surgery to POSTERIOR total hip arthroplasty using the hinduism modular revision hip system, 20mm x 155mm stem, 21 mm +0mm body, 58 mmTrident II Acetabular component, 36mm X3 ten degree polyethylene liner, 36mm +0mm Biolox Delta ceramic Head. SURGEON AND ASSISTANTS: Surgeons and Role: * Ed Montana MD - Primary * Evan Walters MD - Resident - Assisting Roofing Machine Operator: Robi Childers SA POULTRY HATCHERY MAN: Roofing Machine Operator: Roib Childers SA ANESTHESIA: General plus local ESTIMATED [...] 20 mm reamer for a 155mm stem hinduism modular. Preparation was then done for a [...] implant size, (more content not included)... Normal [facility] Pathology biopsy report Chetan (Tiss)on 05-14-2025 CASE REPORT Normal [facility] Comment on above: Order Comment: Speci reza Type: DEVICE SPECIMENOrdering Facility: [facility] Address: [address] [place] [address] Result Comment: Surg [facility] Pathology Report Case: [id number] Authorizing Provider: Ed Montana MD Collected: 05/14/2025 12:14 PM Ordering Location: [facility] Surgery Received: 05/14/2025 02:25 PM Pathologist: Frankie Cervantes MD Specimen: Hardware/Device/Foreign Body, Retained hardware right hip, for gross exam Performed By: #### 6 6121-5 ####[facility] LABORATORYCLIA [id number] [address] CLINICAL HISTORY Normal [facility] Comment on above: Order Comment: Speci reza Type: DEVICE SPECIMENOrdering Facility: [facility] Address: [address] [place] [address] Result Comment: Pre- op diagnosis: Post-traumatic osteoarthritis of right hip [M16.51] Performed By: #### 6 6121-5 ####[facility] LABORATORYCLIA [id number] [address] [place] FINAL DIAGNOSIS Normal [facility] Comment on above: Order Comment: Speci men Type: DEVICE SPECIMENOrdering Facility: [facility] Address: [address] [place] [address] Result Comment: Hard melgoza/device, right hip, explantation: -Orthopedic hardware including rods and screw; gross diagnosis only. at 1505 EDT Performed By: #### 6 6121-5 ####[facility] LABORATORYCLIA [id number] [address] OF [facility] FINAL PERFORMING LAB Normal [facility] Comment on above: Order Comment: Speci men Type: DEVICE SPECIMENOrdering Facility: [facility] Address: [address] [place] [address] Result Comment: Diag nostic interpretation performed at: [facility], [address] [place] [address] CLIA# [id number] Child Care Worker: Krissy Fountain MD Performed By: #### 6 6121-5 ####[facility] LABORATORYCLIA [id number] [address] GROSS DESCRIPTION Normal [facility] Comment on above: Order Comment: Speci men Type: DEVICE SPECIMENOrdering Facility: [facility] Address: [address] [place] [address] Result Comment: A. H ardware/Device/Foreign Body Received fresh and designated retained hardware right hip for gross exam is medical hardware grossly consistent with 2 rods, 10.7 x 1.0 x 1.0 cm and 17.0 x 1.5 x 1.5 cm. Also received is a screw, 3.6 x 0.6 x 0.6 cm. No tissue is identified. Gross only. Gross examination performed at [facility] [address] [place] [address] KMM 05/14/25 2:47 PM Performed By: #### 6 6121-5 ####[facility] LABORATORYCLIA [id number] [address] MICROSCOPIC DESCRIPTION Gross examination only. Normal [facility] Comment on above: Order Comment: Speci men Type: DEVICE SPECIMENOrdering Facility: [facility] Address: [address] [place] [address] Performed By: #### 6 6121-5 ####[facility] LABORATORYCLIA [id number] [place] [address] [place] XR FLUOROSCOPYon 05-14-2025 [...] Please see operative report for complete details Hot Press Operator: [facility] Transcribe Date/Time: May 14 2025 1:11P Dictated by : CAITLIN PEARL MD This examination was interpreted and the report reviewed and electronically signed by: CAITLIN PEARL MD on May 14 2025 1:12PM EST [id number] [facility] XR HIP 1V RTon 05-14-2025 XR HIP [...] Intraoperative radiographs obtained during right hip arthroplasty. Hot Press Operator: [facility] Transcribe Date/Time: May 14 2025 1:12P Dictated by : CAITLIN PEARL MD This examination was interpreted and the report reviewed and electronically signed by: CAITLIN PEARL MD on May 14 2025 1:13PM EST [id number] [facility] XR PELVIS 1V APon 05-14-2025 XR PELVIS [...] changes status post right hip arthroplasty revision Hot Press [facility] Transcribe Date/Time: May 14 2025 2:41P Dictated by : CAITLIN PEARL MD This examination was interpreted and the report reviewed and electronically signed by: CAITLIN PEARL MD on May 14 2025 2:41PM EST [id number] [facility] Foot min 3 Viewson Foot min 3 Views [facility] Imaging Services [address] [place] [id number] Foot min 3 Views MR#: [id number] Acct: [id number] Name: MALDONADO BRIONES Rep #: [id number] : 1960 M 65 From: Bc arana MD PCP: Dr. Macho Aburto, Status: REG CLI Study: Foot min 3 Views Date of Exam: 05/13/25 Exam# [id number] Ordering Dr: Cullen Solorzano D.C. PROCEDURE: FOOT [...] hallux valgus deformity. Calcaneal spurs. Reading Location: [id number] CC: [place] Dr. Cullen Solorzano; Dr. Macho Aburto DO Hot Press Operator: Signed Normal [facility] 05-12-[address] [facility] Telephone (AK52B) MALDONADO BRIONES ([id number]) 1960 M Date Time Provider Department 05/12/25 JACQUI WATERS AK52B During your visit today, we recorded the following information about you: Jacqui Waters, ADRIANNE 05/12/2025 12:55 PM Signed Spoke with patient regarding surgery on 05/14 at [facility]. Discussed [facility] set up, he used [facility] for previous hip surgery and would like to do the same. [facility] referral placed. I will follow up with him at home. Allergies As of Date: 05/12/2025 Noted Allergy Reaction LIPITOR (ATORVASTATIN CALCIUM) 04/30/2009 5 - Intolerance 17 - Myalgia POISON MAYRA 05/23/2005 9 - Itching Date Reviewed: 05/01/2025 Reviewed by: Trinidad Springer RN - Fully Assessed Reason for Visit: PreOp Call [2624] Prescriptions as of 05/12/2025 - naproxen sodium [...] Date 05/12/2025 Noted Resolved CELLULITIS OF ARM [EFM1623] 05/23/2005 Unspecified essential hypertension [I10] 10/18/2005 Pure [...] Encounter Status:Closed by JACQUI WATERS on 05/12/25 [facility] CNPN Telephone (AK52B) MALDONADO BRIONES ([id number]) 1960 M Date Time Provider Department 05/12/25 JACQUI WATERS AK52B During your visit today, we recorded the following information about you: Allergies As of Date: 05/12/2025 Noted Allergy Reaction LIPITOR (ATORVASTATIN CALCIUM) 04/30/2009 5 - Intolerance 17 - Myalgia POISON MAYRA 05/23/2005 9 - Itching Date Reviewed: 05/01/2025 Reviewed by: Trinidad Springer, RN - Fully Assessed Reason for Visit: Home Care Arrangements [[id number]] Primary Visit Diagnosis: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] Other Visit Diagnoses:S/P total right hip arthroplasty [Z96.641] Aftercare following right hip joint replacement surgery [Z47.1, Z96.641] Order(s):CONSULT TO [facility] HOME [[id number]] Order #: [id number]: 1 Prescriptions as of 05/12/2025 - naproxen [...] Date 05/12/2025 Noted Resolved CELLULITIS OF ARM [CZK1304] 05/23/2005 Unspecified essential hypertension [I10] 10/18/2005 Pure [...] Status:Closed by ED MONTANA on 05/12/25 Normal [facility] Basic metabolic 2000 panelon 05-01-2025 Anion gap [Moles/Vol] 9 mmol/L 5 - 16 mmol/L [facility] Calcium [Mass/Vol] 9.5 mg/dL 8.5 - 10. 5 mg/dL [facility] Chloride [Moles/Vol] 101 mmol/L 98 - 10 7 mmol/L [facility] CO2 [Moles/Vol] 30 mmol/L 21 - 32 mmol/L [facility] Creatinine [Mass/Vol] 1.16 mg/dL 0.50 - 1.40 mg/dL [facility] Comment on above: Patients receiving e ither N-Acetylcysteine (NAC) or Metamizole prior to venipuncture, may have falsely depressed results. GFR/1.73 sq M.predicted among non-blacks MDRD (S/P/Bld) [Vol rate/Area] 70 mL/min/{1.73_m2} - PINF [facility] Comment on above: Estimated Glomerular Filtration Rate [...] [Mass/Vol] 96 mg/dL 70 - 100 mg/dL [facility] Comment on above: The [place] Diabete s Association (ADA) provides guidance for [...] Standards of Medical Care in Diabetes 2016, [place] Diabetes Association. Diabetes Care. 2016.39(Suppl 1). Results may be falsely elevated after the administration of Sulfapyridine. Results may be falsely depressed after the administration of Sulfasalazine. Interpretation and review of laboratory results Normal [facility] Potassium [Moles/Vol] 4.6 mmol/L 3.5 - 5.1 mmol/L [facility] Sodium [Moles/Vol] 140 mmol/L 136 - 145 mmol/L [facility] Urea nitrogen [Mass/Vol] 22 mg/dL 7 - 26 mg/dL [facility] Anion gap [Moles/Vol] 9 mmol/L Normal 5-16 [facility] Comment on above: Order Comment: Harman cobb Type: BLOOD SPECIMEN [facility] Address: [address] [place] [address] Performed By: #### 2 4321-2 #### [facility] CLIA [id number] [address] [place] [address] [place] Calcium [Mass/Vol] 9.5 mg/dL Normal 8.5-10.5 [facility] Comment on above: Order Comment: Harman cobb Type: BLOOD SPECIMEN [facility] Address: [address] [place] [address] Performed By: #### 2 4321-2 #### [facility] CLIA [id number] [address] [place], [place] [address] [place] Chloride [Moles/Vol] 101 mmol/L Normal 98-107 [facility] Comment on above: Order Comment: Criseldai reza Type: BLOOD SPECIMEN [facility] Address: [address] [place] [address] Performed By: #### 2 4321-2 #### [facility] CLIA [id number] [address] [place] [address] [place] CO2 [Moles/Vol] 30 mmol/L Normal 21-32 [facility] Comment on above: Order Comment: Criseldai reza Type: BLOOD SPECIMEN [facility] Address: [address] [place] [address] Performed By: #### 2 4321-2 #### [facility] CLIA [id number] [address] [place], [place] [address] [place] Creatinine [Mass/Vol] 1.16 mg/dL Normal 0.50-1.40 [facility] Comment on above: Order Comment: Specbigg cobb Type: BLOOD SPECIMEN [facility] Address: [address] [place] [address] Result Comment: Caitlin ents receiving either N-Acetylcysteine (NAC) or Metamizole prior to venipuncture, may have falsely depressed results. Performed By: #### 2 4321-2 #### [facility] CLIA [id number] [address] [place] [address] [place] eGFRcr SerPlBld CKD-EPI 2020 70 mL/min/1.73m??? Normal >=60 [facility] Comment on above: Order Comment: Harman cobb Type: BLOOD SPECIMEN [facility] Address: [address] [place] [address] Result Comment: Ana mated Glomerular Filtration Rate [...] GFR. Performed By: #### 2 4321-2 #### [facility] CLIA [id number] [address] [place] [address] [place] Glucose [Mass/Vol] 96 mg/dL Normal 70-100 [facility] Comment on above: Order Comment: Harman cobb Type: BLOOD SPECIMEN [facility] Address: [address] [place] [address] Result Comment: The [place] Diabetes Association (ADA) provides guidance for cutoff [...] Standards of Medical Care in Diabetes 2016, [place] Diabetes Association. Diabetes Care. 2016.39(Suppl 1). Results may be falsely elevated after the administration of Sulfapyridine. Results may be falsely depressed after the administration of Sulfasalazine. Performed By: #### 2 4321-2 #### [facility] CLIA [id number] [address] [place] [address] [place] Potassium [Moles/Vol] 4.6 mmol/L Normal 3.5-5.1 [facility] Comment on above: Order Comment: Harman cobb Type: BLOOD SPECIMEN [facility] Address: [address] [place] [address] Performed By: #### 2 4321-2 #### [facility] CLIA [id number] [address] [place] [address] [place] Sodium [Moles/Vol] 140 mmol/L Normal 136-145 [facility] Comment on above: Order Comment: Harman cobb Type: BLOOD SPECIMEN [facility] Address: [address] [place] [address] Performed By: #### 2 4321-2 #### [facility] CLIA [id number] [address] [place] [address] [place] Urea nitrogen [Mass/Vol] 22 mg/dL Normal 7-26 [facility] Comment on above: Order Comment: Harman cobb Type: BLOOD SPECIMEN [facility] Address: [address] [place] [address] Performed By: #### 2 4321-2 #### [facility] CLIA [id number] [address] [place] [address] [place] CBC panel Auto (Bld)on 05-01 Erythrocyte distribution width (RBC) [Ratio] 12.2 % 11.5 - 15.0 % [facility] Hematocrit (Bld) [Volume fraction] 43.9 % 39.0 - 51.0 % [facility] Hemoglobin (Bld) [Mass/Vol] 14.6 g/dL 13.0 - 17.0 g/dL [facility] Interpretation and review of laboratory results Normal [facility] MCH (RBC) [Entitic mass] 31.1 pg 26.0 - 34.0 pg [facility] MCHC (RBC) [Mass/Vol] 33.3 g/dL 30.5 - 36.0 g/dL [facility] MCV (RBC) [Entitic vol] 93.6 fL 80.0 - 100.0 fL [facility] Nucleated RBC (Bld) [#/Vol] NINF [facility] Platelet mean volume (Bld) [Entitic vol] 9.3 fL 9.0 - 12.7 fL [facility] Platelets (Bld) [#/Vol] 198 10*3/uL [facility] RBC (Bld) [#/Vol] 4.69 10*6/uL 4.20 - 6.0 0 m/uL [facility] WBC (Bld) [#/Vol] 5.07 10*3/uL [facility] Erythrocyte distribution width (RBC) [Ratio] 12.2 % Normal 11.5-15.0 [facility] Comment on above: Order Comment: Speci men Type: BLOOD SPECIMEN [facility] Address: [address] [place] [address] Performed By: #### 5 8410-2 #### [facility] CLIA [id number] [address] [place] [address] Hematocrit (Bld) [Volume fraction] 43.9 % Normal 39.0-51.0 [facility] Comment on above: Order Comment: Speci men Type: BLOOD SPECIMEN [facility] Address: [address] [place] [address] Performed By: #### 5 8410-2 #### [facility] CLIA [id number] [address] [place] [address] OF [facility] Hemoglobin (Bld) [Mass/Vol] 14.6 g/dL Normal 13.0-17.0 [facility] Comment on above: Order Comment: Speci men Type: BLOOD SPECIMEN [facility] Address: [address] [place] [address] Performed By: #### 5 8410-2 #### [facility] CLIA [id number] [address] [place] [address] [place] MCH (RBC) [Entitic mass] 31.1 pg Normal 26.0-34.0 [facility] Comment on above: Order Comment: Speci men Type: BLOOD SPECIMEN [facility] Address: [address] [place] [address] Performed By: #### 5 8410-2 #### [facility] CLIA [id number] [address] [place] [address] [place] MCHC (RBC) [Mass/Vol] 33.3 g/dL Normal 30.5-36.0 [facility] Comment on above: Order Comment: Speci men Type: BLOOD SPECIMEN [facility] Address: [address] [place] [address] Performed By: #### 5 8410-2 #### [facility] CLIA [id number] [address] [place] [address] OF [place] MCV (RBC) [Entitic vol] 93.6 fL Normal 80.0-100.0 [facility] Comment on above: Order Comment: Speci men Type: BLOOD SPECIMEN [facility] Address: [address] [place] [address] Performed By: #### 5 8410-2 #### [facility] CLIA [id number] [address] [place] [address] [place] Nucleated RBC (Bld) [#/Vol] 10*3/uL Normal <0.01 [facility] Comment on above: Order Comment: Speci men Type: BLOOD SPECIMEN [facility] Address: [address] [place] [address] Performed By: #### 5 8410-2 #### [facility] CLIA [id number] [address] [place] [address] [place] Platelet mean volume (Bld) [Entitic vol] 9.3 fL Normal 9.0-12.7 [facility] Comment on above: Order Comment: Speci men Type: BLOOD SPECIMEN [facility] Address: [address] [place], [place] [address] Performed By: #### 5 8410-2 #### [facility] CLIA [id number] [address] [place] [address] [place] Platelets (Bld) [#/Vol] 198 10*3/uL Normal 150-400 [facility] Comment on above: Order Comment: Speci men Type: BLOOD SPECIMEN [facility] Address: [address] [place] [address] Performed By: #### 5 8410-2 #### [facility] CLIA [id number] [address] [place] [address] [place] RBC (Bld) [#/Vol] 4.69 10*6/uL Normal 4.20-6.00 [facility] Comment on above: Order Comment: Speci men Type: BLOOD SPECIMEN [facility]ing Facility[facility] Address: [address] [place], [place] [address] Performed By: #### 5 8410-2 #### [facility] CLIA [id number] [address] [place] [address] [place] WBC (Bld) [#/Vol] 5.07 10*3/uL Normal 3.70-11.00 [facility] Comment on above: Order Comment: Speci men Type: BLOOD SPECIMEN Ordering Facility: [facility] Address: [address] [place], [place] [address] Performed By: #### 5 8410-2 #### [facility] CLIA [id number] [address] [place], [place] [id number] [place] EKGon 05-01-2025 Atrial Rate 58 BPM [facility] Calculated P Swiss 34 degrees [facility] Calculated R Swiss 9 degrees [facility] Calculated T Swiss 11 degrees [facility] P-R Interval 226 ms [facility] QRS Duration 116 ms [facility] QT Interval 412 ms [facility] QTC Calculation (Bazett) 404 ms [facility] Ventricular Rate 58 BPM [facility] Sinus bradycardia 1s t degree AV block Otherwise normal ECG No previous ECGs available Confirmed by SHAILA COOPER MD ([id number]) on 05/01/2025 7:21:06 PM [facility] NAME : MALDONADO BRIONES PID : [id number] : 1960 Gender : Male Race : ORD : Procedure Date : May 01 2025 10:36:34 Edit Date : May 01 2025 19:21:08 Diagnosis: Sinus bradycardia 1st degree AV block Otherwise normal ECG No previous ECGs available Confirmed by SHAILA COOPER MD ([id number]) on 05/01/2025 7:21:06 PM Test Reason : Location : 2 : PEAT Overread By : SHAILA COOPER MD Edited By : SHAILA COOPER MD Referred By : EMILIANO, Acquired by : [facility], [facility] Electrocardiogram Ventricular Rate : 5 8 BPM Atrial Rate : 58 BPM P-R Interval : 226 ms QRS Duration : 116 ms Q-T Interval : 412 ms QTC Calculation(Bazett) : 404 ms Calculated P Swiss : 34 degrees Calculated R Swiss : 9 degrees Calculated T Swiss : 11 degrees Sinus bradycardia 1st degree AV block Otherwise normal ECG No previous ECGs available Confirmed by SHAILA COOPER MD ([id number]) on 05/01/2025 7:21:06 PM NAME : MALDONADO BRIONES PID : [id number] : 1960 Gender : Male Race : ORD : Procedure Date : May 01 2025 10:36:34 Edit Date : May 01 2025 19:21:08 Diagnosis: Sinus bradycardia 1st degree AV block Otherwise normal ECG No previous ECGs available Confirmed by SHAILA COOPER MD ([id number]) on 05/01/2025 7:21:06 PM Test Reason : Location : 2 : PEAT Overread By : SHAILA COOPER MD Edited By : SHAILA COOPER MD Referred By : EMILIANO, Acquired by : [facility], [facility] HbA1c (Bld)on 05-01-2025 Average glucose Estimated from glycated hemoglobin (Bld) [Mass/Vol] 97 mg/dL Normal [facility] Comment on above: Order Comment: Harman cobb Type: BLOOD SPECIMENOrdering Facility: [facility] Address: [address] [place] [address] Result Comment: eAG: (Estimated average glucose) is a calculated value from HgbA1c and is sales representative publications of the average blood glucose level in the last 2-3 month period. Performed By: #### 5 5454-3 ####[facility] [id number] [place] [address] [place] HbA1c (Bld) [Mass fraction] 5.0 % Normal 4.3-5.6 [facility] Comment on above: Order Comment: Harman cobb Type: BLOOD SPECIMENOrdering Facility: [facility] Address: [address] [place] [address] Result Comment: Amer ican Diabetes Association guidelines indicate that patients with HgbA1c in the range 5.7-6.4% are at increased risk for development of diabetes, and intervention by lifestyle modification may be beneficial. HgbA1c greater or equal to 6.5% is considered diagnostic of diabetes. Performed By: #### 5 5454-3 ####[facility] [id number] [address] [place] PT panel Coag (PPP)on 2024 INR Coag (PPP) [Relative time] 1 {INR} 0.9 - 1.3 [facility] Comment on above: Vitamin K Antagonist (VKA) Therapeutic Range: INR 2 to 3 (Target INR of 2.5) Note: For patients treated with VKA drugs, such as warfarin, the [place] [employer] 2012 Guideline recommends [...] Chest 2012, 141:7S-47S Zofia REGALADO et shalini. [facility] 2017, 70: 252-289 Interpretation and review of laboratory results Normal [facility] PT Coag (PPP) [Time] 11.1 s [facility] INR Coag (PPP) [Relative time] 1.0 {INR} Normal 0.9-1.3 [facility] Comment on above: Order Comment: Harman cobb Type: BLOOD SPECIMEN [facility] Address: [address] [place] [address] Result Comment: Tory min K Antagonist (VKA) Therapeutic Range: INR 2 to 3 (Target INR of 2.5) Note: For patients treated with VKA drugs, such as warfarin, the [employer] 2012 Guideline recommends [...] Chest 2012, 141:7S-47S Zofia REGALADO et al. [facility] 2017, 70: 252-289 Performed By: #### 3 4528-0 #### [facility] CLIA [id number] [address] [place] [address] [place] PT Coag (PPP) [Time] 11.1 s Normal 9.7-13.0 [facility] Comment on above: Order Comment: Harman cobb Type: BLOOD SPECIMEN [facility] Address: [address] [place] [address] Performed By: #### 3 4528-0 #### [facility] CLIA [id number] [address] [email or web address] [address] [place] CNCOon 04-30-2025 CNCO Letter Text Normal [facility] CNPMaria Victoria 04-22-2025 CNPN Telephone (AK52B) MALDONADO BRIONES ([id number]) 1960 M Date Time Provider Department 04/22/25 [...] PM Patient is planning discharge home with [facility], to be there to assist. He [...] Date 04/22/2025 Noted Resolved CELLULITIS OF ARM [[id number]] 05/23/2005 Unspecified essential hypertension [I10] 10/18/2005 Pure [...] Encounter Status:Closed by JACQUI WATERS on 04/22/25 [facility] CNCOon 04-18-2025 CNCO Letter Text [facility] CNOVon 04-17-2025 CNOV Office Visit (AGHWW1 ) MALDONADO BRIONES ([id number]) 1960 M Date Time Provider Department 04/17/25 [...] diagnosis) Sta (more content not included)... Normal [facility] XR Pelvis APon 04-17-2025 [facility] Radiology Study observation (narrative) [facility] CNOVon 01-27-2025 CNOV Office Visit (AGHWN) MALDONADO BRIONES ([id number]) 1960 M Date Time Provider Department 01/27/25 2:45 PM [facility] During your visit today, we recorded the [...] presenting for a hip injection. Recording using [employer] software for draft documentation of the visit was discussed with the patient/authorized sales representative publications; all questions welcomed and answered. 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 199 mg/dL High 200 - 499 mg/dL Very High > or = 500 mg/dL WBC (Bld) [#/Vol] 4.9 10*3/uL 4.4-11.0 [facility] Blood erythrocytes count (nu mber/volume)Ordered By: Dr. Aburto on 08-19-2022 RBC (Bld) [#/Vol] 4.68 10*6/uL 4.6-6.2 [facility] Blood hemoglobin measurement (mass/volume)Ordered By: Dr. Aburto on 08-19-2022 Hemoglobin (Bld) [Mass/Vol] 14.7 g/dL 13.0-16.5 [facility] Blood lymphocytes/100 leukoc ytesOrdered By: Dr. Aburto on 08-19-2022 Lymphocytes/100 WBC (Bld) 18.0 % 19-41 [facility] Blood monocytes/100 leukocyt esOrdered By: Dr. Aburto on 08-19-2022 Monocytes/100 WBC (Bld) 8.8 % 0-10 [facility] Blood platelet mean volumeOr dered By: Dr. Aburto on 08-19-2022 Platelet mean volume (Bld) [Entitic vol] 9.5 fL 6.2-12.0 [facility] Determination of erythrocyte mean corpuscular volume (MCV)Ordered By: Dr. Aburto on 08-19-2022 MCV (RBC) [Entitic vol] 93.2 fL 80-94 [facility] Hematocrit Auto (Bld) [Volum e fraction]Ordered By: Dr. Aburto on 08-19-2022 Hematocrit (Bld) [Volume fraction] 43.6 % 40-54 [facility] - Chemistry and C hemistry - challengeOrdered By: Dr. Aburto on 08-19-2022 ALP [Catalytic activity/Vol] 114 U/L 45-117 [facility] ALT [Catalytic activity/Vol] 27 U/L 16-61 [facility] CO2 [Moles/Vol] 27.0 mmol/L 21.0-32.0 [facility] Globulin (S) [Mass/Vol] 3.7 g/dL 2.2-4.2 [facility] Urea nitrogen/Creatinine [Mass ratio] 20.7 mg/mg 10-20 [facility] - Hematology and Cell countsOrdered By: Dr. Aburto on 08-19-2022 Erythrocyte distribution width (RBC) [Entitic vol] 40.9 fL 35.1-43.9 [facility] Erythrocyte distribution width (RBC) [Ratio] 11.9 % 11.6-14.6 [facility] Immature granulocytes/100 WBC (Bld) 1.600 % 0.0-0.9 [facility] Comment on above: IG% - Immature Granu locytes (promyelocytes, myelocytes and metamyelocytes) > 1% indicates that a LEFT SHIFT is Present. MCH (RBC) [Entitic mass] 31.4 pg 27.0-32.0 [facility] Nucleated RBC/100 WBC (Bld) [Ratio] 0 % 0-5 [facility] MCHC Auto (RBC) [Mass/Vol]Or dered By: Dr. Aburto on 08-19-2022 MCHC (RBC) [Mass/Vol] 33.7 g/dL 32-36 [facility] No Panel InformationOrdered By: Dr. Aburto on 08-19-2022 Estimated GFR (MDRD) Amer 66 mL/min >60 [facility] Comment on above: GFR Calc Estimated GFR (MDRD) Non-Af Amer 55 mL/min >60 [facility] Comment on above: Non- GFR Calc Prostate Specific Antigen Screen 1.66 ng/mL 0.00-4.00 [facility] Comment on above: This test was perfor med using the TPSA assay method for the[employer] chemistry system. Values obtained with differentassay methods cannot be used interchangably.When changing PSA assays in the course of monitoring apatient, additional sequential testing should be carriedout to confirm baseline values. Platelets bldOrdered By: Dr. Aburto on 08-19-2022 Platelets (Bld) [#/Vol] 224 10*3/uL 150-450 [facility] Serum or plasma albumin andrea urement (mass/volume)Ordered By: Dr. Aburto on 08-19-2022 Albumin [Mass/Vol] 3.9 g/dL 3.2-5.0 [facility] Serum or plasma albumin/glob ulin mass ratioOrdered By: Dr. Aburto on 08-19-2022 Albumin/Globulin [Mass ratio] 1.1 {ratio} 0.9-2.4 [facility] Serum or plasma calcium andrea urement (mass/volume)Ordered By: Dr. Aburto on 08-19-2022 Calcium [Mass/Vol] 9.0 mg/dL 8.5-10.1 [facility] Serum or plasma cholesterol in HDL measurement (mass/volume)Ordered By: Dr. Aburto on 08-19-2022 Cholesterol in HDL [Mass/Vol] 58 mg/dL >40 [facility] Comment on above: The drugs N-Acetylcy steine and Metamizole may falsely depress this assay. Reference Range HDL <40 mg/dL Low HDL Cholesterol HDL >or= 60 mg/dL High HDL Cholesterol Serum or plasma cholesterol in VLDL measurement (mass/volume)Ordered By: Dr. Aburto on 08-19-2022 Cholesterol in VLDL [Mass/Vol] 9 mg/dL 5-40 [facility] Serum or plasma creatinine m easurement (mass/volume)Ordered By: Dr. Aburto on 08-19-2022 Creatinine [Mass/Vol] 1.40 mg/dL 0.70-1.30 [facility] Comment on above: The validity of the calculated GFR & GFRAA in patients over 70 years has not been determined. Clinical correlation is essential. Serum or plasma low density lipoprotein (LDL) cholesterol measurement (mass/volume)Ordered By: Dr. Aburto on 08-19-2022 Cholesterol in LDL [Mass/Vol] 73 mg/dL 0-130 [facility] Serum or plasma urea nitroge n measurement (mass/volume)Ordered By: Dr. Aburto on 08-19-2022 Urea nitrogen [Mass/Vol] 29 mg/dL 7-18 [facility] Thin prep Papanicolaou smear with manual screeningOrdered By: Dr. Aburto on 08-19-2022 Thin prep Papanicolaou smear with manual screening 21 U/L 15-37 [facility] Thin prep Papanicolaou smear with manual screening 8 5-15 [facility] BMPon 12-04-2020 Anion gap [Moles/Vol] 3 mmol/L Low 5-16 [facility] Comment on above: Order Comment: Chelsey s: M Performed By: #### L 500.52812, L500.89094 #### [facility] [address] [place] [address] Calcium [Mass/Vol] 9.7 mg/dL Normal 8.5-10.5 [facility] Comment on above: Order Comment: Campu s: M Result Comment: NOTE NEW NORMAL RANGE DUE TO REAGENT CHANGE Performed By: #### L 500.01135, L500.39307 #### [facility] [address] [place] [address] Chloride [Moles/Vol] 110 mmol/L High 98-107 [facility] Comment on above: Order Comment: Campu s: M Performed By: #### L 500.11489, L500.73641 #### [facility] [address] [place] [address] CO2 [Moles/Vol] 30.0 mmol/L Normal 21-32 [facility] Comment on above: Order Comment: Campu s: M Performed By: #### L 500.16666, L500.55087 #### [facility] [address] [place] [address] Creatinine [Mass/Vol] 1.22 mg/dL Normal 0.5-1.4 [facility] Comment on above: Order Comment: Campu s: M Result Comment: NOTE NEW NORMAL RANGE DUE TO REAGENT CHANGE Patients receiving either N-Acetylcysteine (NAC) or Metamizole prior to venipuncture, may have falsely depressed results. Performed By: #### L 500.71695, L500.77982 #### [facility] [address] [place], [place] [id number] Glucose [Mass/Vol] 103 mg/dL High 70-100 [facility] Comment on above: Order Comment: Campu s: M Result Comment: 70-1 00- Normal Fasting; 100-125 Impaired Fasting; greater than 126 on more than one result- Diabetes. ADA guidelines. Results may be falsely elevated after the administration of Sulfapyridine. Results may be falsely depressed after the administration of Sulfasalazine. Performed By: #### L 500.99113, L500.50355 #### [facility] [address] [place] [address] Potassium [Moles/Vol] 4.7 mmol/L Normal 3.5-5.1 [facility] Comment on above: Order Comment: Campu s: M Performed By: #### L 500.07799, L500.71737 #### [facility] [address] [place] [address] Sodium [Moles/Vol] 142 mmol/L Normal 136-145 [facility] Comment on above: Order Comment: Campu s: M Performed By: #### L 500.80049, L500.36815 #### [facility] [address] [place] [address] Urea nitrogen [Mass/Vol] 29 mg/dL High 7-26 [facility] Comment on above: Order Comment: Campu s: M Performed By: #### L 500.39207, L500.48959 #### [facility] [address] [place] [address] Urea nitrogen/Creatinine [Mass ratio] 24 mg/mg Normal 15-24 [facility] Comment on above: Order Comment: Campu s: M Performed By: #### L 500.13949, L500.29802 #### [facility] [address] [place] [address] CBC W/DIFFon 12-04-2020 BASO ABS 0.10 K/CU MM Normal 0-0.2 [facility] Comment on above: Order Comment: Campu s: M Performed By: #### L 200.99069 #### [facility] [address] [place], [place] [id number] Basophils/100 WBC (Bld) 1.0 % Normal 0-2 [facility] Comment on above: Order Comment: Campu s: M Performed By: #### L 200.18187 #### [facility] [address] [place], [place] [id number] EOS ABS 0.30 K/CU MM Normal 0-0.5 [facility] Comment on above: Order Comment: Campu s: M Performed By: #### L 200.57467 #### [facility] [address] [place] [address] Eosinophils/100 WBC (Bld) 5.0 % Normal 0-5 [facility] Comment on above: Order Comment: Campu s: M Performed By: #### L 200.21707 #### [facility] [address] [place] [address] Erythrocyte distribution width (RBC) [Ratio] 12.3 % Normal 11-14.5 [facility] Comment on above: Order Comment: Campu s: M Performed By: #### L 200.16464 #### [facility] [address] [place] [address] Hematocrit (Bld) [Volume fraction] 45.4 % Normal 41.0-53.0 [facility] Comment on above: Order Comment: Campu s: M Performed By: #### L 200.72647 #### [facility] [address] [place] [address] Hemoglobin (Bld) [Mass/Vol] 14.8 g/dL Normal 13.5-17.5 [facility] Comment on above: Order Comment: Campu s: M Performed By: #### L 200.36912 #### [facility] [address] [place] [address] IMMATR GRAN ABS 0.00 K/CU MM Normal Less than 2 [facility] Comment on above: Order Comment: Campu s: M Performed By: #### L [id number] #### [facility] [address] [place] [address] IMMATURE GRAN % 0.2 % Normal Less than 2 [facility] Comment on above: Order Comment: Campu s: M Performed By: #### L 200.42143 #### [facility] [address] [place] [address] Lymphocytes (Bld) [#/Vol] 1.00 K/CU MM Normal 0.9-4.4 [facility] Comment on above: Order Comment: Campu s: M Performed By: #### L [id number] #### [facility] [address] [place] [address] Lymphocytes/100 WBC (Bld) 18.9 % Low 20-40 [facility] Comment on above: Order Comment: Campu s: M Performed By: #### L [id number] #### [facility] [address] [place] [address] MCHC (RBC) [Mass/Vol] 32.6 g/dL Normal 32.0-36.0 [facility] Comment on above: Order Comment: Campu s: M Performed By: #### L [id number] #### [facility] [address] [place] [address] MCV (RBC) [Entitic vol] 93.0 fL Normal 80.0-99.0 [facility] Comment on above: Order Comment: Campu s: M Performed By: #### L [id number] #### [facility] [address] [place] [address] MONO ABS 0.40 K/CU MM Normal 0.1-1.1 [facility] Comment on above: Order Comment: Campu s: M Performed By: #### L [id number] #### [facility] [address] [place] [address] Monocytes/100 WBC (Bld) 8.3 % Normal 2-10 [facility] Comment on above: Order Comment: Campu s: M Performed By: #### L [id number] #### [facility] [address] [place] [address] NEUTROPHIL ABS 3.40 K/CU MM Normal 2.0-8.3 [facility] Comment on above: Order Comment: Campu s: M Performed By: #### L [id number] #### [facility] [address] [place] [address] Neutrophils/100 WBC (Bld) 66.6 % Normal 45-75 [facility] Comment on above: Order Comment: Campu s: M Performed By: #### L [id number] #### [facility] [address] [place] [address] Nucleated RBC/100 WBC (Bld) [Ratio] 0.0 % Normal Less than 1 [facility] Comment on above: Order Comment: Campu s: M Performed By: #### L [id number] #### [facility] [address] [place] [address] Platelet mean volume (Bld) [Entitic vol] 9.1 fL Low 9.4-12.4 [facility] Comment on above: Order Comment: Campu s: M Performed By: #### L [id number] #### [facility] [address] [place] [address] Platelets (Bld) [#/Vol] 206 K/CU MM Normal 150-450 [facility] Comment on above: Order Comment: Campu s: M Performed By: #### L [id number] #### [facility] [address] [place] [address] RBC (Bld) [#/Vol] 4.88 M/CU MM Normal 4.50-6.00 [facility] Comment on above: Order Comment: Campu s: M Performed By: #### L [id number] #### [facility] [facility] [address] [place] [address] WBC (Bld) [#/Vol] 5.0 K/CUMM Normal 4.5-11.0 [facility] Comment on above: Order Comment: Campu s: M Performed By: #### L [id number] #### [facility] [address] [place] [address] GFR ESTon 12-04-2020 IF AMER Greater than 60 Normal [facility] Comment on above: Order Comment: Campu s: M Performed By: #### L [id number], [id number] #### [facility] [address] [place] [id number] IF non-AFR AMER Greater than 60 Normal [facility] Comment on above: Order Comment: Campu s: M Performed By: #### L [id number], [id number] #### [facility] [address] [place] [address] OR.OPRPTon 12-04-2020 Operative Report Normal [facility] OR.OPRPT [facility] Patient Name: MALDONADO BRIONES [address] [place] [address] Date of : [address] [address] Unit Number: [id number] Operative Report Patient Status[place] [facility] Attending Doctor: Dale Feldman MD Service Date: 12/04/20 1106 Operative Report Procedure Date: 12/04/20 Attending Physician: Dale Feldman MD Procedure: Preoperative Diagnosis: PAD right leg Postoperative Diagnosis: Same Procedure Type: 1. Ultrasound-guided access retrograde left common femoral artery. 2. Right lower extremity angiogram catheter placed into the popliteal artery. 3. Balloon angioplasty SFA to popliteal with a 5 mm [place]. 4. Closure with Vascade Anesthesia: Sedation Complications: None Procedure Details: Patient brought to the operating room. Underwent the appropriate timeout consent. Patient was prepped and draped in a sterile fashion. We did ultrasound- guided access retrograde left common femoral artery. Put a Glidewire up and then a 6 [place] sheath. Gave 5000 units of heparin and then an additional 2000 to heparin. We got up and over the bifurcation and then down the right leg. We then brought in a long 6 [place] sheath. We did the angiogram and it [...] SFA to popliteal with a 5 mm [place] for over 2 minutes. Completion was improved [...] Dale Feldman MD Verified/Reviewed by 12/04/20 1114 [facility] Cult and Smr JOLENE and AERon 0 11-03-2017 Cult and Smr JOLENE and AER Test performed at [facility] No anaerobic organisms cultured Rare WBC No organisms seen ORGANISM: Staphylococcus species not aureus (ID: 1) Few Normal [facility] Comment on above: Performed By: #### C _ANA ####[address] [address] Hemogram/Diffon 11-03-2017 Abs Immature Grans 0.02 thou/cmm Normal 0.00-0.05 [facility] Comment on above: Performed By: #### C BCD1 ####[place] [address] Abs. Baso 0.03 thou/cmm Normal 0.01-0.08 [facility] Comment on above: Performed By: #### C BCD1 ####[facility] [place], [place] [address] Abs. [place] 0.50 thou/cmm Normal 0.30-0.82 [facility] Comment on above: Performed By: #### C BCD1 ####[address] [address] Abs. Neut 5.56 thou/cmm High 1.78-5.38 [facility] Comment on above: Performed By: #### C BCD1 ####[place] [address] Basophils/100 WBC Auto (Bld) 0.4 % Normal [facility] Comment on above: Performed By: #### C BCD1 ####[place] [address] Eosinophils Auto #/vol (Bld) 0.15 thou/cmm Normal 0.04-0.54 [facility] Comment on above: Performed By: #### C BCD1 ####[place] [address] Eosinophils/100 WBC Auto (Bld) 2.1 % Normal [facility] Comment on above: Performed By: #### C BCD1 ####[place] [address] Erythrocyte distribution width Auto Ratio (RBC) 11.6 % Normal 11.6-14.4 [facility] Comment on above: Performed By: #### C BCD1 ####[place] [address] Hematocrit Auto Volume Fraction (Bld) 37.9 % Low 40.1-51.0 [facility] Comment on above: Performed By: #### C BCD1 ####[place] [address] Hemoglobin mass conc (Bld) 12.8 g/dL Low 13.7-17.5 [facility] Comment on above: Performed By: #### C BCD1 ####[place] [address] Immature Grans 0.30 % Normal [facility] Comment on above: Performed By: #### C BCD1 ####[address] [address] Lymphocytes Auto #/vol (Bld) 0.93 thou/cmm Normal 0.84-2.85 [facility] Comment on above: Performed By: #### C BCD1 ####[address] [address] Lymphocytes/100 WBC Auto (Bld) 12.9 % Normal [facility] Comment on above: Performed By: #### C BCD1 ####[address] [address] MCH Auto Entitic mass (RBC) 28.9 pg Normal 25.7-32.2 [facility] Comment on above: Performed By: #### C BCD1 ####[address] [address] MCHC Auto mass conc (RBC) 33.8 % Normal 32.3-36.5 [facility] Comment on above: Performed By: #### C BCD1 ####[address] [address] MCV Auto Entitic volume (RBC) 85.6 fL Normal 83.2-95.6 [facility] Comment on above: Performed By: #### C BCD1 ####[address] [address] Monocytes/100 WBC Auto (Bld) 7.0 % Normal [facility] Comment on above: Performed By: #### C BCD1 ####[address] [address] Platelet mean volume Auto Entitic volume (Bld) 9.3 fL Normal 8.7-12.0 [facility] Comment on above: Performed By: #### C BCD1 ####[address] [address] Platelets Auto #/vol (Bld) 301 thou/cmm Normal 141-365 [facility] Comment on above: Performed By: #### C BCD1 ####[address], [place] [address] RBC Auto #/vol (Bld) 4.43 mil/cmm Low 4.63-6.08 [facility] Comment on above: Performed By: #### C BCD1 ####[facility] [place], [place] [address] RDW SD 36.1 fl Normal 36.1-45.8 [facility] Comment on above: Performed By: #### C BCD1 ####[facility] [place], [place] [address] Seg Neutrophil 77.3 % Normal [facility] Comment on above: Performed By: #### C BCD1 ####[facility] [place], [place] [address] WBC Auto #/vol (Bld) 7.19 thou/cmm Normal 4.23-9.07 [facility] Comment on above: Performed By: #### C BCD1 ####[address] [address] [address] HIP WO CONTRAST LTon 10-10 CT HIP WO CONTRAST LT Performed at [facility] APPROVED BY: Tyson Fallon MD EXAM [...] known left acetabular and sacral fractures. Normal [facility] No Panel Information [facility] Vital Signs Date Time Vital Sign Value Performing Clinician Facility 06-16-2025 14:03-0400 Body height 182.9 cm Ed Montana MD Work Phone: [facility] 06-16-2025 14:03-0400 Body mass index (BMI) [Ratio] 31.87 kg/m2 Ed Montana MD Work Phone: [facility] 06-16-2025 14:03-0400 Body weight 106.59 kg Ed Montana MD Work Phone: [facility] 06-16-2025 14:03-0400 Respiratory rate 18 /min Ed Montana MD Work Phone: [facility] 06-02-2025 14:270400 Body height 182.9 cm Ed Montana MD Work Phone: [facility] 06-02-2025 14:27-0400 Body mass index (BMI) [Ratio] 31.87 kg/m2 Ed Montana MD Work Phone: [facility] 06-02-2025 14:27-0400 Body weight 106.59 kg Ed Montana MD Work Phone: [facility] 06-02-2025 14:27-0400 Respiratory rate 17 /min Ed Montana MD Work Phone: [facility] 05-29-2025 15:41-0400 Body temperature 97.3 [degF] Melanie BenitezBurch PT Work Phone: [facility] 05-29-2025 15:41-0400 Diastolic blood pressure 72 mm[Hg] Melanie HalbriannaavaniBurch PT Work Phone: [facility] 05-29-2025 15:41-0400 Heart rate 62 /min Melanie HalbriannaGutierrez PT Work Phone: [facility] 05-29-2025 15:41-0400 Respiratory rate 16 /min Melanie Sotelo PT Work Phone: [facility] 05-29-2025 15:41-0400 SaO2% (BldA) [Mass fraction] 96 % Melanie Sotelo PT Work Phone: [facility] 05-29-2025 15:41-0400 Systolic blood pressure 110 mm[Hg] Melanie HalbriannaGutierrez PT Work Phone: [facility] 05-26-2025 09:15-0400 Body temperature 97.3 [degF] Porsha Sadia ICU NURSE Work Phone: [facility] 05-26-2025 09:15-0400 Diastolic blood pressure 66 mm[Hg] Porsha Sadia ICU NURSE Work Phone: [facility] 05-26-2025 09:15-0400 Heart rate 74 /min Porsha Sadia ICU NURSE Work Phone: [facility] 05-26-2025 09:15-0400 Respiratory rate 18 /min Porsha Sadia ICU NURSE Work Phone: [facility] 05-26-2025 09:15-0400 SaO2% (BldA) [Mass fraction] 95 % Porsha Sadia ICU NURSE Work Phone: [facility] 05-26-2025 09:15-0400 Systolic blood pressure 110 mm[Hg] Porsha Sadia ICU NURSE Work Phone: [facility] 05-23-2025 09:25-0400 Body temperature 97.3 [degF] Porsha Sadia ICU NURSE Work Phone: [facility] 05-23-2025 09:25-0400 Diastolic blood pressure 68 mm[Hg] Porsha Sadia ICU NURSE Work Phone: [facility] 05-23-2025 09:25-0400 Heart rate 68 /min Porsha Sadia ICU NURSE Work Phone: [facility] 05-23-2025 09:25-0400 Respiratory rate 18 /min Porsha Sadia ICU NURSE Work Phone: [facility] 05-23-2025 09:25-0400 SaO2% (BldA) [Mass fraction] 95 % Porsha Sadia ICU NURSE Work Phone: [facility] 05-23-2025 09:25-0400 Systolic blood pressure 110 mm[Hg] Porsha Sadia ICU NURSE Work Phone: [facility] 05-21-2025 11:10-0400 Body temperature 97.3 [degF] Porsha Sadia ICU NURSE Work Phone: [facility] 05-21-2025 11:10-0400 Diastolic blood pressure 70 mm[Hg] Porsha Sadia ICU NURSE Work Phone: [facility] 05-21-2025 11:10-0400 Heart rate 84 /min Porsha Sadia ICU NURSE Work Phone: [facility] 05-21-2025 11:10-0400 Respiratory rate 18 /min Porsha Sadia ICU NURSE Work Phone: [facility] 05-21-2025 11:10-0400 SaO2% (BldA) [Mass fraction] 98 % Porsha Sadia ICU NURSE Work Phone: [facility] 05-21-2025 11:10-0400 Systolic blood pressure 110 mm[Hg] Porsha Sadia ICU NURSE Work Phone: [facility] 05-19-2025 13:58-0400 Body temperature 97.3 [degF] Melanie Sotelo PT Work Phone: [facility] 05-19-2025 13:58-0400 Diastolic blood pressure 80 mm[Hg] Melanie Halderman-Burch PT Work Phone: [facility] 05-19-2025 13:58-0400 Heart rate 95 /min Melanie Russoman-Burch PT Work Phone: [facility] 05-19-2025 13:58-0400 Respiratory rate 16 /min Melanie Owusuderman-Burch PT Work Phone: [facility] 05-19-2025 13:58-0400 SaO2% (BldA) [Mass fraction] 96 % Melanie Owusuderman-Burch PT Work Phone: [facility] 05-19-2025 13:58-0400 Systolic blood pressure 134 mm[Hg] Melanie Halderman-Burch PT Work Phone: [facility] 05-01-2025 10:12-0400 Diastolic blood pressure 77 mm[Hg] Pacc 2 Work Phone: [facility] 05-01-2025 10:12-0400 Systolic blood pressure 123 mm[Hg] Pacc 2 Work Phone: [facility] 05-01-2025 10:08-0400 Body mass index (BMI) [Ratio] 34.12 kg/m2 Pacc 2 Work Phone: [facility] 05-01-2025 10:08-0400 Body weight 114.13 kg Pacc 2 Work Phone: [facility] 05-01-2025 10:08-0400 Heart rate 63 /min Pacc 2 Work Phone: [facility] 05-01-2025 10:08-0400 Respiratory rate 18 /min Pacc 2 Work Phone: [facility] 05-01-2025 10:08-0400 SaO2% (BldA) [Mass fraction] 95 % Pacc 2 Work Phone: [facility] 04-17-2025 14:52-0400 Body height 182.9 cm Ed Montana MD Work Phone: [facility] 04-17-2025 14:52-0400 Body mass index (BMI) [Ratio] 33.23 kg/m2 Ed Montana MD Work Phone: [facility] 04-17-2025 14:52-0400 Body weight 111.13 kg Ed Montana MD Work Phone: [facility] 04-17-2025 14:52-0400 Respiratory rate 16 /min Ed Montana MD Work Phone: [facility] 01-27-2025 14:36-0400 Body height 182.9 cm Josh Koo MD Work Phone: [facility] 01-27-2025 14:36-0400 Body mass index (BMI) [Ratio] 32.55 kg/m2 Josh Koo MD Work Phone: [facility] 01-27-2025 14:36-0400 Body weight 108.86 kg Josh Koo MD Work Phone: [facility] 01-27-2025 14:36-0400 Respiratory rate 16 /min Josh Koo MD Work Phone: [facility] 01-13-2025 10:38-0400 Body height 182.9 cm Ed Montana MD Work Phone: [facility] 01-13-2025 10:38-0400 Body mass index (BMI) [Ratio] 32.55 kg/m2 Ed Montana MD Work Phone: [facility] 01-13-2025 10:38-0400 Body weight 108.86 kg Ed Montana MD Work Phone: [facility] 01-13-2025 10:38-0400 Respiratory rate 18 /min Ed Montana MD Work Phone: [facility] 01-29-2024 15:01-0400 Body height 182.9 cm Ed Montana MD Work Phone: [facility] 01-29-2024 15:01-0400 Body mass index (BMI) [Ratio] 32.55 kg/m2 Ed Montana MD Work Phone: [facility] 01-29-2024 15:010400 Body weight 108.86 kg Ed Montana MD Work Phone: [facility] 01-29-2024 15:010400 Respiratory rate 18 /min Ed Montana MD Work Phone: [facility] 01-08-2024 15:040400 Body height 182.9 cm Ed Montana MD Work Phone: [facility] 01-08-2024 15:040400 Body weight 108.86 kg Ed Montana MD Work Phone: [facility] 01-08-2024 15:040400 Respiratory rate 18 /min Ed Montana MD Work Phone: [facility] 12-29-2023 14:29-0400 Body temperature 97.39 [degF] Melanie Sotelo PT Work Phone: [facility] 12-29-2023 14:29-0400 Diastolic blood pressure 64 mm[Hg] Melanie Sotelo PT Work Phone: [facility] 12-29-2023 14:29-0400 Heart rate 78 /min Melanie Sotelo PT Work Phone: [facility] 12-29-2023 14:29-0400 Respiratory rate 18 /min Melanie Sotelo PT Work Phone: [facility] 12-29-2023 14:29-0400 SaO2% (BldA) [Mass fraction] 98 % Melanie Sotelo PT Work Phone: [facility] 12-29-2023 14:29-0400 Systolic blood pressure 122 mm[Hg] Melanie Sotelo PT Work Phone: [facility] 12-27-2023 16:27-0400 Body temperature 97.2 [degF] Melanie Sotelo PT Work Phone: [facility] 12-27-2023 16:27-0400 Diastolic blood pressure 80 mm[Hg] Melanie UmerbriannajonesRocío PT Work Phone: [facility] 12-27-2023 16:27-0400 Heart rate 67 /min Melanie OwusubriannajonesRocío PT Work Phone: [facility] 12-27-2023 16:27-0400 Respiratory rate 18 /min Melanie HalbriannajonesRocío PT Work Phone: [facility] 12-27-2023 16:27-0400 SaO2% (BldA) [Mass fraction] 98 % Melanie HalbriannajonesRocío PT Work Phone: [facility] 12-27-2023 16:27-0400 Systolic blood pressure 120 mm[Hg] Melanie Umerbriannajones-Burch PT Work Phone: [facility] 12-25-2023 10:05-0400 Body temperature 98.01 [degF] Porsha Sadia ICU NURSE Work Phone: [facility] 12-25-2023 10:05-0400 Diastolic blood pressure 66 mm[Hg] Porsha Sadia ICU NURSE Work Phone: [facility] 12-25-2023 10:05-0400 Heart rate 66 /min Porsha Sadia ICU NURSE Work Phone: [facility] 12-25-2023 10:05-0400 Respiratory rate 18 /min Porsha Sadia ICU NURSE Work Phone: [facility] 12-25-2023 10:05-0400 SaO2% (BldA) [Mass fraction] 96 % Porsha Sadia ICU NURSE Work Phone: [facility] 12-25-2023 10:05-0400 Systolic blood pressure 108 mm[Hg] Porsha Sadia ICU NURSE Work Phone: [facility] 12-21-2023 14:08-0400 Body temperature 97.7 [degF] Melanie Pineda-Burch PT Work Phone: [facility] 12-21-2023 14:08-0400 Diastolic blood pressure 60 mm[Hg] Melanie Sotelo PT Work Phone: [facility] 12-21-2023 14:08-0400 Heart rate 63 /min Melanie Sotelo PT Work Phone: [facility] 12-21-2023 14:08-0400 Respiratory rate 18 /min Melanie Sotelo PT Work Phone: [facility] 12-21-2023 14:08-0400 SaO2% (BldA) [Mass fraction] 96 % Melanie Sotelo PT Work Phone: [facility] 12-21-2023 14:08-0400 Systolic blood pressure 110 mm[Hg] Melanie Sotelo PT Work Phone: [facility] 08-18-2023 09:03-0500 Diastolic blood pressure 90 mm[Hg] Dr. Macho Aburto Work Phone: [facility] 08-18-2023 09:03-0500 Systolic blood pressure 128 mm[Hg] Dr. Macho Aburto Work Phone: [facility] 08-18-2023 08:31-0500 Body height 182.[address] Macho Aburto Work Phone: [facility] 08-18-2023 08:31-0500 Body mass index (BMI) [Ratio] 32 kg/m2 Dr. Macho Aburto Work Phone: [facility] 08-18-2023 08:31-0500 Body weight 107.[address] Macho Aburto Work Phone: [facility] 08-18-2023 08:31-0500 Heart rate 53 /min Dr. Macho Aburto Work Phone: [facility] 08-18-2023 08:31-0500 Respiratory rate 18 /min Dr. Macho Aburto Work Phone: [facility] 08-18-2023 08:31-0500 SaO2% (BldA) [Mass fraction] 96 % Dr. Macho Aburto Work Phone: [facility] 06-29-2023 07:53-0400 Body height 182.9 cm Ed Montana MD Work Phone: [facility] 06-29-2023 07:53-0400 Body weight 111.13 kg Ed Montana MD Work Phone: [facility] 06-29-2023 07:53-0400 Respiratory rate 16 /min Ed Montana MD Work Phone: [facility] 05-10-2023 09:20-0400 Body height 182.9 cm Jarad Phelan MD Work Phone: [facility] 05-10-2023 09:20-0400 Body weight 111.13 kg Jarad Phelan MD Work Phone: [facility] 05-10-2023 09:20-0400 Respiratory rate 16 /min Jarad Phelan MD Work Phone: [facility] 08-24-2022 09:55-0500 Body height 182.[address] Macho Aburto Work Phone: [facility] 08-24-2022 09:52-0500 Body mass index (BMI) [Ratio] 33 kg/m2 Dr. Macho Aburto Work Phone: [facility] 08-24-2022 09:52-0500 Body weight 110.[address] Macho Aburto Work Phone: [facility] 08-24-2022 09:52-0500 Diastolic blood pressure 84 mm[Hg] Dr. Macho Aburto Work Phone: [facility] 08-24-2022 09:52-0500 Heart rate 60 /min Dr. Macho Aburto Work Phone: [facility] 08-24-2022 09:52-0500 Respiratory rate 16 /min Dr. Macho Aburto Work Phone: [facility] 08-24-2022 09:52-0500 Systolic blood pressure 128 mm[Hg] Dr. Macho Aburto Work Phone: [facility] 07-07-2022 14:19-0400 Body height 182.9 cm Jarad Phelan MD Work Phone: [facility] 07-07-2022 14:19-040 Body weight 111.13 kg Jarad Phelan MD Work Phone: [facility] 07-07-2022 14:190400 Respiratory rate 20 /min Jarad Phelan MD Work Phone: [facility] Encounters Encounter Date Encounter Type Care Provider Facility Start: 08-04-2025 ambulatory Dale Feldman Facility :[facility] Start: 07-22-2025 End: 07-22-2025 ambulatory ROCHELLE LUND Facility:[facility] Start: 07-18-2025 End: 07-18-2025 ambulatory MACHO ABURTO Facility:[facility] Start: 06-16-2025 End: 06-16-2025 ambulatory ED [place] Facility:[facility] Start: 06-16-2025 End: 06-16-2025 Patient encounter procedure Ed Montana MD Work Phone: [employer] [facility] [employer] [facility] Comment on above: Status post total hi p replacement, right (Primary Dx) Start: 06-03-2025 End: 06-03-2025 Refill Ed Montana MD Work Phone: [facility] Comment on above: Refill Request Start: 06-02-2025 End: 06-02-2025 Patient encounter procedure Ed Montana MD Work Phone: [employer] [facility] Comment on above: Status post total hi p replacement, right (Primary Dx) Start: 06-02-2025 End: 06-02-2025 ambulatory ED [place] Facility:[facility] Start: 05-29-2025 End: 05-29-2025 Home visit Melanie Sotelo PT Work Phone: [facility] Comment on above: PT AGENCY DC W VISIT Start: 05-28-2025 End: 05-28-2025 Home visit Melanie Sotelo PT Work Phone: [facility] Comment on above: PT ATTEMPTED VISIT Start: 05-27-2025 End: 05-27-2025 Telephone encounter Jacqui Waters RN [facility] Comment on above: Post Op Call Start: 05-26-2025 End: 05-26-2025 Home visit Porsha Finnegan ICU NURSE Work Phone: [facility] Comment on above: ICU NURSE ROUTINE Start: 05-23-2025 End: 05-23-2025 Home visit Porsha Vegaion ICU NURSE Work Phone: [facility] Comment on above: ICU NURSE ROUTINE Start: 05-22-2025 End: 05-22-2025 Telephone encounter Jacqui Waters RN [facility] Comment on above: Post Op Call Start: 05-21-2025 End: 05-21-2025 Telephone encounter Porsha Finnegan ICU NURSE Work Phone: [facility] Comment on above: Home Care (Bandage r emoval) Start: 05-21-2025 End: 05-23-2025 Home visit Porsha Vegaion ICU NURSE Work Phone: [facility] Comment on above: ICU NURSE ROUTINE CARE COORDINATION Refill Request Start: 05-19-2025 End: 05-19-2025 Telephone encounter Melanie Sotelo PT Work Phone: [facility] Comment on above: Home Care (Medicatio n interaction) Start: 05-19-2025 End: 05-19-2025 Home visit Melanie Sotelo PT Work Phone: [facility] Comment on above: PT SOC Start: 05-18-2025 End: 05-18-2025 Telephone encounter Ed Montana MD Work Phone: [facility] Comment on above: Home Care (Delayed S OC) Start: 05-17-2025 End: 05-17-2025 Home visit Luis Carmona PT Work Phone: [facility] Comment on above: PT ATTEMPTED VISIT Start: 05-14-2025 End: 05-16-2025 Evaluation and management of inpatient ED [place] Facility:[id number] Start: 05-13-2025 End: 05-13-[address] Macho Aburto DO Work Phone: [facility] Start: 05-13-2025 End: 05-13-[address] Cullen Solorzano [place] [facility] Work Phone: Start: 05-13-2025 End: 05-13-2025 ambulatory Cullen Solorzano Facility:[facility] Start: 05-12-2025 End: 05-12-2025 Telephone encounter Jacqui Waters [facility] Comment on above: Home Care Arrangemen ts PreOp Call Start: 05-01-2025 Encounter for other preprocedural examination MACHO [facility] Start: 05-01-2025 End: 05-01-2025 Office outpatient new 45 minutes [place] [address] Work Phone: Pre Anesthesia Comment on above: [...] atrial flutter (HCC); Coronary artery disease involving tununak coronary artery of tununak heart without angina pectoris; Arthritis of right hip; Left foot drop; Antiplatelet or antithrombotic long-term use Start: 05-01-2025 End: 05-01-2025 Patient encounter status Pacc 2 Work Phone: [facility] Work Phone: Start: 05-01-2025 End: 05-01-2025 Preoperative state Pac 2 Work Phone: [facility] Start: 05-01-2025 End: 05-01-2025 ambulatory MACHO MORRELLMAN Facility:[phone] Start: 05-01-2025 Encounter for other preprocedural examination [facility] Start: 04-22-2025 End: 04-22-2025 Telephone encounter Jacqui Waters [facility] Comment on above: PreOp Call Start: 04-18-2025 End: 04-20-2025 Orders Only Ed Montana MD Work Phone: [facility] Comment on above: Post-traumatic osteo arthritis of right hip (Primary Dx) Primary osteoarthrit is of right hip (Primary Dx); Preoperative clearance Start: 04-18-2025 End: 04-20-2025 Preoperative state Ed Montana MD Work Phone: [facility] Work Phone: Start: 04-17-2025 End: 04-17-2025 ambulatory ED [place] Facility:[facility] Start: 04-17-2025 End: 04-17-2025 Patient encounter procedure Ed Montana MD Work Phone: [facility] Comment on above: Post-traumatic osteo arthritis of right hip (Primary Dx); Status post left hip replacement Start: 01-27-2025 End: 01-27-2025 Patient encounter procedure Josh Koo MD Work Phone: [facility] Comment on above: Post-traumatic osteo arthritis of right hip (Primary Dx) Start: 01-27-2025 End: 01-27-2025 ambulatory JOSH KOO [facility] Start: 01-14-2025 End: 01-14-2025 Emergency department patient visit NONE PHYSICIAN Facility:[facility] Start: 01-13-2025 End: 01-13-2025 Patient encounter procedure Ed Montana MD Work Phone: [facility] Comment on above: Status post left hip replacement (Primary Dx); Post-traumatic osteoarthritis of right hip Start: 01-13-2025 End: 01-13-2025 ambulatory ED [place] Facility:[facility] Start: 11-07-2024 Encounter for alie l adult medical examination without abnormal findings [facility] Start: 10-24-2024 End: 10-24-2024 ambulatory Jimenez Nowak Facility:[facility] Start: 10-24-2024 End: 10-24-2024 ambulatory [facility] Facility:[facility] Start: 10-14-2024 End: 10-14-2024 ambulatory [facility] Facility:[facility] Start: 03-06-2024 Telephone encounter Ed garcia MD Work Phone: [facility] Start: 02-12-2024 Telephone encounter Ed garcia MD Work Phone: [facility] Comment on above: Patient Question Start: 01-29-2024 End: 01-29-2024 Patient encounter procedure Ed Montana MD Work Phone: [employer] [facility] Comment on above: Status post left hip replacement (Primary Dx) Start: 01-08-2024 End: 01-08-2024 Patient encounter procedure Ed Montana MD Work Phone: [facility] Comment on above: Status post left hip replacement (Primary Dx) Start: 01-01-2024 [place] [id number] [facility]EDIC Comment on above: Post Op Call Start: 12-29-2023 End: 12-29-2023 Home visit Melanie Sotelo PT Work Phone: [facility] Comment on above: PT AGENCY DC W VISIT Start: 12-28-2023 Refill Ed Montana MD Work Phone: [facility] Comment on above: Refill Request Start: 12-27-2023 End: 12-27-2023 Home visit Melanie Sotelo PT Work Phone: [facility] Comment on above: PT ROUTINE Start: 12-27-2023 Telephone encounter Melanie Sotelo PT Work Phone: [facility] Comment on above: Home Care (Dressing removal ) Start: 12-25-2023 Tele[place] [id number] [facility]OPEDIC Comment on above: Post Op Call Start: 12-25-2023 End: 12-25-2023 Home visit Porsha Finnegan ICU NURSE Work Phone: [facility] Comment on above: ICU NURSE ROUTINE Start: 12-22-2023 Home visit Marcela (Rn) Leah agarwal RN Work Phone: [facility] Comment on above: CARE COORDINATION Start: 12-22-2023 Telephone encounter Ed garcia MD Work Phone: [facility] Start: 12-21-2023 End: 12-21-2023 Home visit Melanie Sotelo PT Work Phone: [facility] Comment on above: PT SOC Start: 12-20-2023 Telephone encounter Licha Bae PSS [facility] Comment on above: Home Care (CONFIRMAT ION CALL) Start: 12-18-2023 Telephone encounter Ed garcia MD Work Phone: [facility] Start: 10-23-2023 End: 10-23-[address] Macho Aburto Work Phone: [facility] Work Phone: Start: 10-23-2023 End: 10-23-[address] Macho Aburto Work Phone: [facility], [place] Work Phone: Start: 10-10-2023 Preprocedural examination done Ed Montana MD Work Phone: [facility] Work Phone: Start: 09-28-2023 Tele[place] [id number] OR[place]OPEDIC Comment on above: PreOp Call Start: 09-25-2023 End: 09-25-[address] Macho Aburto Work Phone: [facility] Work Phone: Start: 09-25-2023 End: 09-25-[address] Macho Aburto Work Phone: [facility]-Sofie Stevens [facility] Start: 09-21-2023 Tele[place] [id number] [facility]IC Comment on above: PreOp Call Start: 08-18-2023 End: 08-18-[address] Macho Aburto Work Phone: [facility] Work Phone: Start: 06-29-2023 End: 06-29-2023 Patient encounter procedure Ed Montana MD Work Phone: [facility] Comment on above: Post-traumatic osteo arthritis of left hip (Primary Dx) Start: 05-10-2023 End: 05-10-2023 Patient encounter procedure Jarad Phelan MD Work Phone: [facility] Comment on above: Closed displaced fra cture of posterior column of left acetabulum with routine healing, subsequent encounter (Primary Dx); Post-traumatic osteoarthritis of left hip Start: 04-27-2023 Telephone encounter Jarad Phelan MD Work Phone: [facility] Comment on above: Appointment Start: 03-27-2023 End: 03-27-2023 Subsequent hospital visit by physician Aurelio Gabriel APRN.RETURNING OFFICER Work Phone: [facility] Comment on above: Post-traumatic osteo arthritis of left hip [M16.52] Start: 02-10-2023 Telephone encounter Jarad Phelan MD Work Phone: [facility] Comment on above: Orders Start: 01-27-2023 End: 01-27-[address] Macho Aburto Work Phone: [facility] Work Phone: Start: 01-27-2023 End: 01-27-[address] Macho Aburto Work Phone: [facility] Start: 11-25-2022 Telephone encounter Jarad Phelan MD Work Phone: [facility] Comment on above: Patient Update Start: 10-24-2022 Non-patient / Non-visit Dr. Jose Aburto Work Phone: [facility] Start: 10-24-2022 End: 10-24-[address] Macho Aburto Work Phone: [facility] Work Phone: Start: 10-24-2022 End: 10-24-[address] Macho Aburto Work Phone: [facility] Start: 08-24-2022 End: 08-24-[address] Macho Aburto Work Phone: [facility] Start: 08-19-2022 Telephone encounter Jarad Phelan MD Work Phone: [facility] Comment on above: Injections Start: 08-19-2022 End: 08-19-2022 ambulatory [facility] Work Phone: Start: 08-19-2022 End: 08-19-2022 Patient encounter procedure [facility]Labor[facility] Sofie Ruckerclaudio [facility] Start: 08-15-2022 Telephone encounter Jarad Phelan MD Work Phone: [facility] Comment on above: Orders Start: 07-07-2022 End: 07-07-2022 Patient encounter procedure Jarad Phelan MD Work Phone: [facility] Comment on above: Closed displaced fra cture of posterior column of left acetabulum with routine healing, subsequent encounter (Primary Dx); Post-traumatic osteoarthritis of left hip Start: 07-05-2022 Telephone encounter Ag Orth Work Phone: [facility] Comment on above: Appointment Start: 07-05-2022 End: 07-05-2022 ambulatory [facility] Work Phone: Start: 07-05-2022 End: 07-05-2022 Patient encounter procedure [facility], [facility] Start: 08-15-2018 End: 08-15-2018 Patient encounter procedure JARAD DINICOLA Facility:[facility] Start: 07-25-2018 Patient encounter procedure JARAD DINICOLA Facility:[facility] Start: 04-25-2018 End: 04-25-2018 Patient encounter procedure JARAD DINICOLA Facility:[facility] Start: 01-24-2018 Patient encounter procedure JARAD DINICOLA Facility:[facility] Start: 01-11-2018 End: 01-11-2018 Patient encounter procedure JARAD DINICOLA Facility:[facility] Start: 11-15-2017 End: 11-15-2017 Patient encounter procedure JARAD DINICOLA Facility:[facility] Start: 11-03-2017 Patient encounter procedure JARAD DINICOLA Facility:[facility] Start: 11-03-2017 End: 11-03-2017 Evaluation and management of inpatient JARAD DINICOLA Facility:[facility] Start: 10-31-2017 Patient encounter procedure JARAD DINICOLA Facility:[facility] Start: 10-27-2017 Patient encounter procedure JARAD DINICOLA Facility:[facility] Start: 10-26-2017 End: 10-26-2017 Patient encounter procedure JARAD DINICOLA Facility:[facility] Start: 07-09-2017 Ambulatory [facility] Procedures Date Procedure Procedure Detail Performing [...] coronary artery stent placement Comment on above: RNO-IEN-Jarf OM1 w/ 2.5 x 12 mm MiniVision Stent 01/31/2007 Plan of Treatment Date Care Activity Detail Author Start: 02-27-2035 RSV Vaccine (1 - 1-d ose 75+ series) RSV Vaccine (1 - 1-dose 75+ series) [facility] Start: 05-15-2028 Diabetes Screening Diabetes Screen[facility] Start: 05-01-2028 Diabetes Screening Diabetes Screenin [facility] Start: 05-07-2027 Urine microalbumin profile DTaP,Tdap,Td Vaccine (3 - Td or Tdap) [facility] Start: 12-19-2026 Diabetes Screening Diabetes Screenin g [facility] Start: 12-04-2026 Diabetes Screening Diabetes Screenin g [facility] Start: 05-15-2026 Creatinine measurement Serum Creatin ine [facility] Start: 05-01-2026 Creatinine measurement Serum Creatin ine [facility] Start: 08-01-2025 End: 08-01-2025 Patient encounter procedure 08/01/2025 1:45 PM EDT Office Visit [facility] [address] [place] [address] Ed Montana MD [address] [place] [place] [address] [phone] right hip sx 05-14-25 [facility]TH [facility] Comment on above: right hip sx 05-14-25 Start: 06-16-2025 End: 06-16-2025 Patient encounter procedure 06/16/2025 2:00 PM EDT Office Visit [facility] [address] [place], [place] [id number] Ed Montana MD [address] [place] [address] [place] [address] [phone] R SADAF sx:05-14-25 wound check [facility] Comment on above: R SADAF sx:05-14-25 woun d check Start: 06-09-2025 Influenza vaccination Influenza Vacc ine (#1) [facility] Start: 06-05-2025 End: 06-05-2025 Patient encounter procedure 06/05/2025 3:00 PM EDT Office Visit [facility] [address] [place], [place] [id number] Ed Montana MD [address] [place] [place] [id number] RIGHT HUP SX 05/14 [facility] Comment on above: RIGHT HUP SX 05/14 Start: 06-02-2025 End: 06-02-2025 Patient encounter procedure 06/02/2025 2:30 PM EDT Office Visit [facility] [address] [place] [address] [phone] Ed Montana MD [address] [place] [place] [address] [phone] RIGHT HUP SX 8/6 [facility] Comment on above: RIGHT HUP SX 8/6 Start: 05-14-2025 End: 08-13-2025 Basic metabolic 2000 panel - Serum or Plasma BASIC METABOLIC PANEL Lab Routine Primary osteoarthritis of right hip Expected: 05/14/2025 (Approximate), Expires: 08/13/2025 [facility] Comment on above: Expected: 05/14/2025 (Approximate), Expires: 08/13/2025 Start: 05-14-2025 End: 08-13-2025 CBC panel - Blood by Automated count COMPLETE BLOOD COUNT Lab Routine Primary osteoarthritis of right hip Preoperative clearance Expected: 05/14/2025 (Approximate), Expires: 08/13/2025 [facility] Work Phone: Comment on above: Expected: 05/14/2025 (Approximate), Expires: 08/13/2025 Start: 05-14-2025 End: 05-14-2025 Admission to same day surgery center [facility] Comment on above: ARTHROPLASTY TOTAL H IP CONVERSION AFTER PREVIOUS HIP SURG Start: 05-14-2025 End: 05-14-2025 Conv prev hip tot hip arthrp w/wo agrft/algrft MR OR Start: 05-14-2025 Subsequent hospital visit by physician [facility] Comment on above: Post-traumatic osteo arthritis of right hip [M16.51] Start: 05-01-2025 End: 07-31-2025 Hemoglobin A1c in Blood [facility] Work Phone: Comment on above: Expected: 05/01/2025 , Expires: 07/31/2025 Start: 05-01-2025 End: 05-01-2025 Anesthesia consultation 05/01/2025 10:00 AM EDT PAT Pre [facility]hesia [address] [place] [address] ARTHROPLASTY TOTAL HIP CONVERSION AFTER PREVIOUS HIP SURG [55] - Hip - Right/emiliano-05/14 Pre Anesthesia Comment on above: ARTHROPLASTY TOTAL H IP CONVERSION AFTER PREVIOUS HIP SURG [6655] - Hip - Right/emiliano-05/14 Start: 02-27-2025 Advance Directive Discussion Advance Directive Discussion [facility] Start: 01-27-2025 End: 01-27-2025 Patient encounter procedure 01/27/2025 2:45 PM EDT Office Visit [facility] [address] [place] [address] Josh Koo MD [address] [place] [address] RT HIP US INJ [facility] Comment on above: RT HIP US INJ Start: 12-28-2024 BP Controlled (<130/80) BP Controlle d (<130/80) [facility] Start: 12-24-2024 BP Controlled (<130/80) BP Controlle d (<130/80) [facility] Start: 12-20-2024 BP Controlled (<130/80) BP Controlle d (<130/80) [facility] Start: 12-16-2024 End: 12-16-2024 Patient encounter procedure 12/16/2024 9:45 AM EDT Office Visit ORTH [facility] [address] [place] [address] Ed Montana MD [address] [place] [address] LEFT HIP SX 12-19-23 [facility] Comment on above: LEFT HIP SX 12-19-23 Start: 12-04-2024 BP Controlled (<130/80) BP Controlle d (<130/80) [facility] Start: 07-07-2024 Urine microalbumin profile [facility] Start: 06-09-2024 Covid-19 Vaccine ( season) Covid-19 Vaccine ( season) [facility] Start: 06-09-2024 Influenza vaccination [facility] Start: 12-04-2023 DIABETES SCREEN DIABETES SCREEN [facility] Start: 12-04-2023 Diabetes Screening Diabetes Screenin g [facility] Start: 10-11-2023 End: 12-11-2023 Basic metabolic 2000 panel - Serum or Plasma BASIC METABOLIC PNL Lab Routine Post-traumatic osteoarthritis of left hip Expected: 10/11/2023, Expires: 12/11/2023 [facility] Work Phone: Comment on above: Expected: 10/11/2023 , Expires: 12/11/2023 Start: 10-11-2023 End: 12-11-2023 CBC panel - Blood by Automated count CBC Lab Routine Post-traumatic osteoarthritis of left hip Expected: 10/11/2023, Expires: 12/11/2023 [facility] Work Phone: Comment on above: Expected: 10/11/2023 , Expires: 12/11/2023 Start: 10-11-2023 End: 12-11-2023 PT panel - Platelet poor plasma by Coagulation assay PROTHROMBIN TIME/PT Lab Routine Post-traumatic osteoarthritis of left hip Expected: 10/11/2023, Expires: 12/11/2023 [facility] Work Phone: Comment on above: Expected: 10/11/2023 , Expires: 12/11/2023 Start: 10-09-2023 Behavioral Health Screening Behavioral Health Screening [facility] Start: 10-09-2023 Depression Assessment Depression Ass [facility] Start: 06-09-2023 Covid-19 Vaccine ( season) Covid-19 Vaccine ( season) [facility] Start: 06-09-2023 Influenza vaccination [facility] Start: 10-09-2022 DEPRESSION ASSESSMENT DEPRESSION ASS ESSMENT [facility] Start: 06-09-2022 Influenza vaccination INFLUENZA (#1) [facility] Start: 10-09-2021 DEPRESSION ASSESSMENT DEPRESSION ASS ESSMENT [facility] Start: 08-24-2021 COVID-19 VACCINE (3 - Booster for Pfizer series) COVID-19 VACCINE (3 - Booster for Pfizer series) [facility] Start: 08-24-2021 COVID-19 VACCINE (3 - Pfizer series) COVID-19 VACCINE (3 - Pfizer series) [facility] Start: 11-10-2020 Lipid 1996 panel - S rad or Plasma Lipid Screening [facility] Start: 11-10-2020 Lipid panel Lipid Screening [facility] Start: 11-10-2020 LIPID SCREEN LIPID SCREEN [facility] Start: 2020 RSV Vaccine (1 - 1-d ose 60+ series) RSV Vaccine (1 - 1-dose 60+ series) [facility] Start: 2020 RSV Vaccine (1 - Ris k 60-74 years 1-dose series) RSV Vaccine (1 - Risk 60-74 years 1-dose series) [facility] Start: 11-02-2018 PROSTATE CANCER SCREENING DISCUSSION PROSTATE CANCER SCREENING DISCUSSION [facility] Start: 11-02-2018 Prostate specific antigen measurement Prostate Cancer Screening Discussion [facility] Start: 11-02-2014 Hepatitis B surface antibody level LDL CHOLESTEROL [facility] Start: 02-27-2010 Pneumococcal Vaccine : 50+ (1 of 1 - PCV) Pneumococcal Vaccine: 50+ (1 of 1 - PCV) [facility] Start: 02-27-2010 SHINGRIX VACCINE (1 of 2) SHINGRIX VACCINE (1 of 2) [facility] Start: 02-27-2005 COLOGUARD (FIT-DNA) COLOGUARD (FIT-D NA) [facility] Start: 02-27-2005 Colonoscopy COLONOSCOPY [facility] Start: 02-27-2005 COLORECTAL CANCER SCREENING COLORECTAL CANCER SCREENING [facility] Start: 02-27-[address] COLONOGRAPHY [facility] Start: 02-27-2005 FECAL OCCULT BLOOD FECAL OCCULT BLOO D [facility] Start: 02-27-2005 Screening for malign ant neoplasm of colon [facility] Start: 02-27-2005 SIGMOIDOSCOPY SIGMOIDOSCOPY [facility] Start: 02-27-1978 ANNUAL PCP TEAM HEAD WAITER LUNA DISEASE VISIT ANNUAL PCP TEAM CHRONIC DISEASE VISIT [facility] Start: 02-27-1978 Anxiety Screening Anxiety Screening [facility] Start: 02-27-1978 BP CONTROLLED (<130/80) BP CONTROLLE D (<130/80) [facility] Start: 02-27-1978 Depression Screening Depression Scre ening [facility] Start: 02-27-1978 HEPATITIS C SCREENING HEPATITIS C [facility] Start: 02-27-1978 Hepatitis C screening Hepatitis C [facility] Start: 02-27-1978 HIV SCREENING HIV SCREENING [facility] Start: 02-27-1978 HIV screening HIV Screening [facility] Start: 1960 COVID-19 VACCINE (#1) COVID-19 VACCI NE (#1) [facility] ECG B/O W INTERP (ME D OFFICE) ECG B/O W INTERP (MED OFFICE) ECG Routine Preop testing Ordered: 04/30/2025 [facility] Comment on above: Ordered: 04/30/2025 INJECTION HIP JOINT (AG) INJECTI ON HIP JOINT (AG) Radiology Routine Post-traumatic osteoarthritis of left hip Ordered: 08/15/2022 [facility] Work Phone: Comment on above: Ordered: 08/15/2022 XR Pelvis AP XR PELVIS 1V AP Radiology Routine Status post left hip replacement Ordered: 01/08/2024 [facility] Work Phone: Comment on above: Ordered: 01/08/2024 XR Pelvis AP XR PELVIS 1V AP Radiology Routine Status post left hip replacement Post-traumatic osteoarthritis of right hip Ordered: 01/13/2025 [facility] Work Phone: Comment on above: Ordered: 01/13/2025 XR Pelvis AP XR PELVIS 1V AP Radiology Routine Status post total hip replacement, right Ordered: 06/02/2025 [facility] Work Phone: Comment on above: Ordered: 06/02/2025 [facility] [place] [facility] Immunizations Immunization Date Immunization Notes Care Provider [facility] 05-07-2017 tetanus toxoid, redu ashok diphtheria toxoid, and acellular pertussis vaccine, adsorbed [facility] 04-12-2016 influenza virus vaccine, unspecified formulation Ed Montana MD Work Phone: [facility] 07-07-2014 tetanus toxoid, redu ashok diphtheria toxoid, and acellular pertussis vaccine, adsorbed [facility] Work Phone: [facility] Payers Date Payer Category Payer Miscellaneous or Other [employer] [id number] 2025 Unknown [id number] 2025 Unknown [id number] 2024 Self-pay [id number] 2019 Medicare [id number] 2019 Medicare [id number] 2016 [facility] FEP PPO [id number] 2016 Unknown 2016 Unknown [id number] 1960 Unknown [id number] 2.0.1.035159.3.579.2. 278 1960 Unknown [id number] 2.0.1.160279.3.579.2. 278 1960 Unknown [id number] 2.0.1.670066.3.579.2. 278 1960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 restrict any use of the information to criminally investigate or prosecute any alcohol or drug abuse patient.[facility] CenterIn the event this information is protected by the Federal Confidentiality of Alcohol and Drug Abuse Patient Records regulations: The Federal rules restrict any use of the information to criminally investigate or prosecute any alcohol or drug abuse patient.[facility] CenterIn the event this information is protected by the Federal Confidentiality of Alcohol and Drug Abuse Patient Records regulations: The Federal rules restrict any use of the information to criminally investigate or prosecute any alcohol or drug abuse patient.[facility] CenterIn the event this information is protected by the Federal Confidentiality of Alcohol and Drug Abuse Patient Records regulations: The Federal rules restrict any use of the information to criminally investigate or prosecute any alcohol or drug abuse patient.[facility] CenterIn the event this information is protected by the Federal Confidentiality of Alcohol and Drug Abuse Patient Records regulations: The Federal rules restrict any use of the information to criminally investigate or prosecute any alcohol or drug abuse patient.[facility] CenterIn the event this information is protected by the Federal Confidentiality of Alcohol and Drug Abuse Patient Records regulations: The Federal rules restrict any use of the information to criminally investigate or prosecute any alcohol or drug abuse patient.[facility] CenterIn the event this information is protected by the Federal Confidentiality of Alcohol and Drug Abuse Patient Records regulations: The Federal rules restrict any use of the information to criminally investigate or prosecute any alcohol or drug abuse patient.[facility] CenterIn the event this information is protected by the Federal Confidentiality of Alcohol and Drug Abuse Patient Records regulations: The Federal rules restrict any use of the information to criminally investigate or prosecute any alcohol or drug abuse patient.[facility] CenterIn the event this information is protected by the Federal Confidentiality of Alcohol and Drug Abuse Patient Records regulations: The Federal rules restrict any use of the information to criminally investigate or prosecute any alcohol or drug abuse patient.[facility] CenterIn the event this information is protected by the Federal Confidentiality of Alcohol and Drug Abuse Patient Records regulations: The Federal rules restrict any use of the information to criminally investigate or prosecute any alcohol or drug abuse patient.[facility] CenterIn the event this information is protected by the Federal Confidentiality of Alcohol and Drug Abuse Patient Records regulations: The Federal rules restrict any use of the information to criminally investigate or prosecute any alcohol or drug abuse patient.[facility] CenterIn the event this information is protected by the Federal Confidentiality of Alcohol and Drug Abuse Patient Records regulations: The Federal rules restrict any use of the information to criminally investigate or prosecute any alcohol or drug abuse patient.[facility] CenterIn the event this information is protected by the Federal Confidentiality of Alcohol and Drug Abuse Patient Records regulations: The Federal rules restrict any use of the information to criminally investigate or prosecute any alcohol or drug abuse patient.[facility] CenterIn the event this information is protected by the Federal Confidentiality of Alcohol and Drug Abuse Patient Records regulations: The Federal rules restrict any use of the information to criminally investigate or prosecute any alcohol or drug abuse patient.[facility] CenterIn the event this information is protected by the Federal Confidentiality of Alcohol and Drug Abuse Patient Records regulations: The Federal rules restrict any use of the information to criminally investigate or prosecute any alcohol or drug abuse patient.[facility] CenterIn the event this information is protected by the Federal Confidentiality of Alcohol and Drug Abuse Patient Records regulations: The Federal rules restrict any use of the information to criminally investigate or prosecute any alcohol or drug abuse patient.[facility] CenterIn the event this information is protected by the Federal Confidentiality of Alcohol and Drug Abuse Patient Records regulations: The Federal rules restrict any use of the information to criminally investigate or prosecute any alcohol or drug abuse patient.[facility] CenterIn the event this information is protected by the Federal Confidentiality of Alcohol and Drug Abuse Patient Records regulations: The Federal rules restrict any use of the information to criminally investigate or prosecute any alcohol or drug abuse patient.[facility] CenterIn the event this information is protected by the Federal Confidentiality of Alcohol and Drug Abuse Patient Records regulations: The Federal rules restrict any use of the information to criminally investigate or prosecute any alcohol or drug abuse patient.[facility] CenterIn the event this information is protected by the Federal Confidentiality of Alcohol and Drug Abuse Patient Records regulations: The Federal rules restrict any use of the information to criminally investigate or prosecute any alcohol or drug abuse patient.[facility] CenterIn the event this information is protected by the Federal Confidentiality of Alcohol and Drug Abuse Patient Records regulations: The Federal rules restrict any use of the information to criminally investigate or prosecute any alcohol or drug abuse patient.[facility] CenterIn the event this information is protected by the Federal Confidentiality of Alcohol and Drug Abuse Patient Records regulations: The Federal rules restrict any use of the information to criminally investigate or prosecute any alcohol or drug abuse patient.[facility] CenterIn the event this information is protected by the Federal Confidentiality of Alcohol and Drug Abuse Patient Records regulations: The Federal rules restrict any use of the information to criminally investigate or prosecute any alcohol or drug abuse patient.[facility] CenterIn the event this information is protected by the Federal Confidentiality of Alcohol and Drug Abuse Patient Records regulations: The Federal rules restrict any use of the information to criminally investigate or prosecute any alcohol or drug abuse patient.[facility] CenterIn the event this information is protected by the Federal Confidentiality of Alcohol and Drug Abuse Patient Records regulations: The Federal rules restrict any use of the information to criminally investigate or prosecute any alcohol or drug abuse patient.[facility] CenterIn the event this information is protected by the Federal Confidentiality of Alcohol and Drug Abuse Patient Records regulations: The Federal rules restrict any use of the information to criminally investigate or prosecute any alcohol or drug abuse patient.[facility] CenterIn the event this information is protected by the Federal Confidentiality of Alcohol and Drug Abuse Patient Records regulations: The Federal rules restrict any use of the information to criminally investigate or prosecute any alcohol or drug abuse patient.[facility] CenterIn the event this information is protected by the Federal Confidentiality of Alcohol and Drug Abuse Patient Records regulations: The Federal rules restrict any use of the information to criminally investigate or prosecute any alcohol or drug abuse patient.[facility] CenterIn the event this information is protected by the Federal Confidentiality of Alcohol and Drug Abuse Patient Records regulations: The Federal rules restrict any use of the information to criminally investigate or prosecute any alcohol or drug abuse patient.[facility] CenterIn the event this information is protected by the Federal Confidentiality of Alcohol and Drug Abuse Patient Records regulations: The Federal rules restrict any use of the information to criminally investigate or prosecute any alcohol or drug abuse patient.[facility] CenterIn the event this information is protected by the Federal Confidentiality of Alcohol and Drug Abuse Patient Records regulations: The Federal rules restrict any use of the information to criminally investigate or prosecute any alcohol or drug abuse patient.[facility] CenterIn the event this information is protected by the Federal Confidentiality of Alcohol and Drug Abuse Patient Records regulations: The Federal rules restrict any use of the information to criminally investigate or prosecute any alcohol or drug abuse patient.[facility] CenterIn the event this information is protected by the Federal Confidentiality of Alcohol and Drug Abuse Patient Records regulations: The Federal rules restrict any use of the information to criminally investigate or prosecute any alcohol or drug abuse patient.[facility] CenterIn the event this information is protected by the Federal Confidentiality of Alcohol and Drug Abuse Patient Records regulations: The Federal rules restrict any use of the information to criminally investigate or prosecute any alcohol or drug abuse patient.[facility] CenterIn the event this information is protected by the Federal Confidentiality of Alcohol and Drug Abuse Patient Records regulations: The Federal rules restrict any use of the information to criminally investigate or prosecute any alcohol or drug abuse patient.[facility] CenterIn the event this information is protected by the Federal Confidentiality of Alcohol and Drug Abuse Patient Records regulations: The Federal rules restrict any use of the information to criminally investigate or prosecute any alcohol or drug abuse patient.[facility] CenterIn the event this information is protected by the Federal Confidentiality of Alcohol and Drug Abuse Patient Records regulations: The Federal rules restrict any use of the information to criminally investigate or prosecute any alcohol or drug abuse patient.[facility] CenterIn the event this information is protected by the Federal Confidentiality of Alcohol and Drug Abuse Patient Records regulations: The Federal rules restrict any use of the information to criminally investigate or prosecute any alcohol or drug abuse patient.[facility] CenterIn the event this information is protected by the Federal Confidentiality of Alcohol and Drug Abuse Patient Records regulations: The Federal rules restrict any use of the information to criminally investigate or prosecute any alcohol or drug abuse patient.[facility] CenterIn the event this information is protected by the Federal Confidentiality of Alcohol and Drug Abuse Patient Records regulations: The Federal rules restrict any use of the information to criminally investigate or prosecute any alcohol or drug abuse patient.[facility] CenterIn the event this information is protected by the Federal Confidentiality of Alcohol and Drug Abuse Patient Records regulations: The Federal rules restrict any use of the information to criminally investigate or prosecute any alcohol or drug abuse patient.[facility] CenterIn the event this information is protected by the Federal Confidentiality of Alcohol and Drug Abuse Patient Records regulations: The Federal rules restrict any use of the information to criminally investigate or prosecute any alcohol or drug abuse patient.[facility] CenterIn the event this information is protected by the Federal Confidentiality of Alcohol and Drug Abuse Patient Records regulations: The Federal rules restrict any use of the information to criminally investigate or prosecute any alcohol or drug abuse patient.[facility] CenterIn the event this information is protected by the Federal Confidentiality of Alcohol and Drug Abuse Patient Records regulations: The Federal rules restrict any use of the information to criminally investigate or prosecute any alcohol or drug abuse patient.[facility] CenterIn the event this information is protected by the Federal Confidentiality of Alcohol and Drug Abuse Patient Records regulations: The Federal rules restrict any use of the information to criminally investigate or prosecute any alcohol or drug abuse patient.[facility] CenterIn the event this information is protected by the Federal Confidentiality of Alcohol and Drug Abuse Patient Records regulations: The Federal rules restrict any use of the information to criminally investigate or prosecute any alcohol or drug abuse patient.[facility] CenterIn the event this information is protected by the Federal Confidentiality of Alcohol and Drug Abuse Patient Records regulations: The Federal rules restrict any use of the information to criminally investigate or prosecute any alcohol or drug abuse patient.[facility] CenterIn the event this information is protected by the Federal Confidentiality of Alcohol and Drug Abuse Patient Records regulations: The Federal rules restrict any use of the information to criminally investigate or prosecute any alcohol or drug abuse patient.[facility] CenterIn the event this information is protected by the Federal Confidentiality of Alcohol and Drug Abuse Patient Records regulations: The Federal rules restrict any use of the information to criminally investigate or prosecute any alcohol or drug abuse patient.[facility] CenterIn the event this information is protected by the Federal Confidentiality of Alcohol and Drug Abuse Patient Records regulations: The Federal rules restrict any use of the information to criminally investigate or prosecute any alcohol or drug abuse patient.[facility] CenterIn the event this information is protected by the Federal Confidentiality of Alcohol and Drug Abuse Patient Records regulations: The Federal rules restrict any use of the information to criminally investigate or prosecute any alcohol or drug abuse patient.[facility] CenterIn the event this information is protected by the Federal Confidentiality of Alcohol and Drug Abuse Patient Records regulations: The Federal rules restrict any use of the information to criminally investigate or prosecute any alcohol or drug abuse patient.[facility] CenterIn the event this information is protected by the Federal Confidentiality of Alcohol and Drug Abuse Patient Records regulations: The Federal rules restrict any use of the information to criminally investigate or prosecute any alcohol or drug abuse patient.[facility] CenterIn the event this information is protected by the Federal Confidentiality of Alcohol and Drug Abuse Patient Records regulations: The Federal rules restrict any use of the information to criminally investigate or prosecute any alcohol or drug abuse patient.[facility] CenterIn the event this information is protected by the Federal Confidentiality of Alcohol and Drug Abuse Patient Records regulations: The Federal rules restrict any use of the information to criminally investigate or prosecute any alcohol or drug abuse patient.[facility] CenterIn the event this information is protected by the Federal Confidentiality of Alcohol and Drug Abuse Patient Records regulations: The Federal rules restrict any use of the information to criminally investigate or prosecute any alcohol or drug abuse patient.[facility] CenterIn the event this information is protected by the Federal Confidentiality of Alcohol and Drug Abuse Patient Records regulations: The Federal rules restrict any use of the information to criminally investigate or prosecute any alcohol or drug abuse patient.[facility] Reason for Visit (unrecogniz ed section and content) Reason Comments New Specialty Diagnoses / Procedures Referred By Contac t Referred To Contact Orthopedics Diagnoses Post-traumatic osteoarthritis of right hip Procedures CONSULT TO ORTHOPAEDICS OFFICE/OUTPATIENT NEW HIGH MDM 60 MINUTES Ed Montana MD [address] [place] [id number] Phone: tel: fax: Josh Koo MD [address] [place] [address] Phone: tel: fax: Referral ID Status Reason Start Date Expiration Date Visits Re quested Visits Authorized [id number] Closed 01/13/2025 04/13/2025 1 1 Reason Comments Appointment Reason Comments Established Patient Follow Up Reason Comments Orders Reason Comments Injections Reason Comments Patient Update Specialty Diagnoses / Procedures Referred By Carissa t Referred To Contact Diagnoses Post-traumatic osteoarthritis of left hip Procedures ARTHROCENTESIS ASPIR&/INJ MAJOR JT/BURSA W/O US INJECT HIP LEFT [place] [facility] [address] [place] [address] Referral ID Status Reason Start Date Expiration Date Visits Re quested Visits Authorized [id number] 1 1 Reason Comments Established Patient Reason Onset Date Comments PreOp Call 09/21/2023 Reason Onset Date Comments PreOp Call 09/28/2023 Reason Comments Home Care CONFIRMATION CALL Specialty Diagnoses / Procedures Referred By Carissa t Referred To Contact [facility] [address] [place] [id number] Referral ID Status Reason Start Date Expiration Date Visits Re quested Visits Authorized [id number] 1 1 Reason Onset Date Comments Post [...] Care Teams (unrecognized sec tion and content) Esthetician/Spa Coordinator Relationship Specialty Start Date End Date Nico Maldonado MD PCP - General Family Medicine 07/12/17 Esthetician/Spa Coordinator Relationship Specialty Start Date End Date Nico Maldonado MD PCP - General Family Medicine 07/12/17 Esthetician/Spa Coordinator Relationship Specialty Start Date End Date Nico Maldonado MD PCP - General Family Medicine 07/12/17 Esthetician/Spa Coordinator Relationship Specialty Start Date End Date Nico [...] Dr. Jimenez Nowak MD Attending Provider Active Esthetician/Spa Coordinator Relationship Specialty Start Date End Date Nico Maldonado MD PCP - General Family Medicine 07/12/17 Team Status: Inactive Member Role Status Dates Dr. Macho Aburto DO Primary Care Provider, Attendin g Provider Active Dr. Dale Feldman MD Referring Provider Active Esthetician/Spa Coordinator Relationship Specialty Start Date End Date Nico Maldonado MD PCP - General Family Medicine 07/12/17 Esthetician/Spa Coordinator Relationship Specialty Start Date End Date Nico Maldonado MD PCP - General Family Medicine 07/12/17 Esthetician/Spa Coordinator Relationship Specialty Start Date End Date Nico Maldonado MD PCP - General Family Medicine 07/12/17 Esthetician/Spa Coordinator Relationship Specialty Start Date End Date Nico Maldonado MD PCP - General Family Medicine 07/12/17 Esthetician/Spa Coordinator Relationship Specialty Start Date End Date Nico Maldonado MD PCP - General Family Medicine 07/12/17 Esthetician/Spa Coordinator Relationship Specialty Start Date End Date Nico Maldonado MD PCP - General Family Medicine 07/12/17 Team Status: Inactive Member Role Status Dates Dr. Macho Aburto DO Primary Care Provider, Referrin g Provider Active Vidhi MONDRAGON, PA Attending Provider Active Esthetician/Spa Coordinator Relationship Specialty Start Date End Date Nico Maldonado MD PCP - General Family Medicine 07/12/17 Team Status: Inactive Member Role Status Dates Dr. Macho Aburto DO Primary Care Prov ider, Attending Provider, Referring Provider Active Esthetician/Spa Coordinator Relationship Specialty Start Date End Date Nico Maldonado MD PCP - General Family Medicine 07/12/17 Esthetician/Spa Coordinator Relationship Specialty Start Date End Date Macho Aburto DO [address] [place] [address] PCP - General Family Medicine 12/19/23 Jacqui Waters, ADRIANNE Specialty Stonework Supervisor Orthopedics 12/19/23 01/26/24 Ed Montana MD [address] [address] Home Care Provider Orthopedics 12/20/23 Mallika Paris, JULIETA.RETURNING OFFICER [address] [place] [address] Referring Internal Medicine 12/20/23 Melanie Sotelo, PT [address] [place] [address] Coremaking Supervisor Post Acute Care 12/20/23 Esthetician/Spa Coordinator Relationship Specialty Start Date End Date Macho Aburto DO [address] [facility] [place] [address] PCP - General Family Medicine 12/19/23 Jacqui Waters, ADRIANNE Specialty Stonework Supervisor Orthopedics 12/19/23 01/26/24 Ed Montana MD [address] [address] Home Care Provider Orthopedics 12/20/23 Mallika Paris APRN.RETURNING OFFICER [address] [place] [address] Referring Internal Medicine 12/20/23 Melanie Sotelo, PT [address] [place] [address] Coremaking Supervisor Post Acute Care 12/20/23 Esthetician/Spa Coordinator Relationship Specialty Start Date End Date Macho Aburto DO [address] [facility] [place] [address] PCP - General Family Medicine 12/19/23 Jacqui Waters, ADRIANNE Specialty Stonework Supervisor Orthopedics 12/19/23 01/26/24 Ed Montana MD [address] [address] Home Care Provider Orthopedics 12/20/23 Mallika Paris APRN.RETURNING OFFICER [address] [place] [address] Referring Internal Medicine 12/20/23 Melanie Sotelo, PT [address] [place] [address] Coremaking Supervisor Post Acute Care 12/20/23 Esthetician/Spa Coordinator Relationship Specialty Start Date End Date CriseldaMacho DO [address] [facility] [place] [address] PCP - General Family Medicine 12/19/23 Jacqui Waters, ADRIANNE Specialty Stonework Supervisor Orthopedics 12/19/23 01/26/24 Ed Montana MD [address] [address] Home Care Provider Orthopedics 12/20/23 Mallika Paris APRN.RETURNING OFFICER [address] [place] [address] Referring Internal Medicine 12/20/23 Melanie Sotelo, PT [address] [place] [address] Coremaking Supervisor Post Acute Care 12/20/23 Esthetician/Spa Coordinator Relationship Specialty Start Date End Date Macho Aburto DO [address] [place] [address] PCP - General Family Medicine 12/19/23 Jacqui Waters, ADRIANNE Specialty Stonework Supervisor Orthopedics 12/19/23 01/26/24 Ed Montana MD [address] [address] Home Care Provider Orthopedics 12/20/23 Mallika Paris APRN.RETURNING OFFICER [address] [place] [address] Referring Internal Medicine 12/20/23 Melanie Sotelo, PT [address] [place] [address] Coremaking Supervisor Post Acute Care 12/20/23 Esthetician/Spa Coordinator Relationship Specialty Start Date End Date Macho Aburto DO [address] [facility] [place] [address] PCP - General Family Medicine 12/19/23 Jacqui Waters, ADRIANNE Specialty Stonework Supervisor Orthopedics 12/19/23 01/26/24 Ed Montana MD [address] [address] Home Care Provider Orthopedics 12/20/23 Mallika Paris APRN.RETURNING OFFICER [address] [place] [address] Referring Internal Medicine 12/20/23 Melanie Sotelo, PT [address] [place] [address] Coremaking Supervisor Post Acute Care 12/20/23 Esthetician/Spa Coordinator Relationship Specialty Start Date End Date Macho Aburto DO [address] [facility] [place] [address] PCP - General Family Medicine 12/19/23 Jacqui Waters, ADRIANNE Specialty Stonework Supervisor Orthopedics 12/19/23 01/26/24 Ed Montana MD [address] [address] Home Care Provider Orthopedics 12/20/23 Mallika Paris APRN.RETURNING OFFICER [address] [place] [address] Referring Internal Medicine 12/20/23 Melanie Sotelo, PT [address] [place] [address] Coremaking Supervisor Post Acute Care 12/20/23 Esthetician/Spa Coordinator Relationship Specialty Start Date End Date CriseldaMacho DO [address] [employer] [place], [place] [address] PCP - General Family Medicine 12/19/23 Jacqui Waters, ADRIANNE Specialty Stonework Supervisor Orthopedics 12/19/23 01/26/24 Ed Montana MD [address] [place] [place] [address] Home Care Provider Orthopedics 12/20/23 Mallika Paris APRN.RETURNING OFFICER [address] [place] [address] Referring Internal Medicine 12/20/23 Melanie Sotelo, PT [address] [place] [address] Coremaking Supervisor Post Acute Care 12/20/23 Esthetician/Spa Coordinator Relationship Specialty Start Date End Date CriseldaMacho DO [address] [place] [address] PCP - General Family Medicine 12/19/23 Ed Montana MD [address] [place] [place] [address] Home Care Provider Orthopedics 12/20/23 Mallika Paris APRN.RETURNING OFFICER [address] [place], [place] [id number] Referring Internal Medicine 12/20/23 Melanie Sotelo, PT [address] [place], [place] [id number] Coremaking Supervisor Post Acute Care 12/20/23 Esthetician/Spa Coordinator Relationship Specialty Start Date End Date Nico Maldonado MD PCP - General Family Medicine 07/12/17 12/18/23 Macho Aburto DO [address] [place] [address] [place], [place] [address] PCP - General Family Medicine 12/19/23 Jacqui Waters, ADRIANNE Specialty Stonework Supervisor Orthopedics 12/19/23 01/26/24 Ed Montana MD [address] [place] [address] Home Care Provider Orthopedics 12/20/23 Mallika Paris, JULIETA.RETURNING OFFICER [address] [place] [address] Referring Internal Medicine 12/20/23 Melanie Sotelo, PT [address] [place], [place] [id number] Coremaking Supervisor Post Acute Care 12/20/23 Esthetician/Spa Coordinator Relationship Specialty Start Date End Date Macho Aburto DO [address] [place] [address] PCP - General Family Medicine 12/19/23 Ed Montana MD [address] [place] [address] Home Care Provider Orthopedics 12/20/23 Mallika Paris, JULIETA.RETURNING OFFICER [address] [place] [address] Referring Internal Medicine 12/20/23 Melanie Sotelo, PT [address] [place] [address] Coremaking Supervisor Post Acute Care 12/20/23 Esthetician/Spa Coordinator Relationship Specialty Start Date End Date Macho Aburto DO [address] [place] [address] PCP - General Family Medicine 12/19/23 Ed Montana MD [address] [place] [place] [address] Home Care Provider Orthopedics 12/20/23 Mallika Paris APRN.RETURNING OFFICER [address] [place] [address] Referring Internal Medicine 12/20/23 Melanie Sotelo, PT [address] [place] [address] Coremaking Supervisor Post Acute Care 12/20/23 Esthetician/Spa Coordinator Relationship Specialty Start Date End Date Macho Aburto DO [address] [place] [address] PCP - General Family Medicine 12/19/23 Ed Montana MD [address] [place] [address] [place] [address] Home Care Provider Orthopedics 12/20/23 Mallika Paris APRN.RETURNING OFFICER [address] [place] [address] Referring Internal Medicine 12/20/23 Melanie Sotelo, PT [address] [place] [address] Coremaking Supervisor Post Acute Care 12/20/23 Esthetician/Spa Coordinator Relationship Specialty Start Date End Date Macho Aburto DO [address] [place] [address] PCP - General Family Medicine 12/19/23 Ed Montana MD [address] [address] Home Care Provider Orthopedics 12/20/23 Mallika Paris APRN.RETURNING OFFICER [address] [place] [address] Referring Internal Medicine 12/20/23 Esthetician/Spa Coordinator Relationship Specialty Start Date End Date Macho Aburto DO [address] [place], [place] [address] PCP - General Family Medicine 12/19/23 Ed Montana MD [address] [address] Home Care Provider Orthopedics 12/20/23 Mallika Paris APRN.RETURNING OFFICER [address] [place] [address] Referring Internal Medicine 12/20/23 Esthetician/Spa Coordinator Relationship Specialty Start Date End Date Macho Aburto DO [address] [place] [address] PCP - General Family Medicine 12/19/23 Ed Montana MD [address] [address] Home Care Provider Orthopedics 12/20/23 Mallika Paris APRN.RETURNING OFFICER 1 [facility] [place] [address] Referring Internal Medicine 12/20/23 Esthetician/Spa Coordinator Relationship Specialty Start Date End Date Macho Aburto DO [address] [place] [address] PCP - General Family Medicine 12/19/23 Ed Montana MD [address] [address] Home Care Provider Orthopedics 12/20/23 Mallika Paris APRN.RETURNING OFFICER [address] [place] [address] Referring Internal Medicine 12/20/23 Esthetician/Spa Coordinator Relationship Specialty Start Date End Date Macho Aburto DO [address] [place] [address] PCP - General Family Medicine 12/19/23 Ed Montana MD [address] [address] Home Care Provider Orthopedics 12/20/23 Mallika Paris APRN.RETURNING OFFICER [address] [place] [address] Referring Internal Medicine 12/20/23 Esthetician/Spa Coordinator Relationship Specialty Start Date End Date Macho Aburto DO [address] [place] [address] PCP - General Family Medicine 12/19/23 Ed Montana MD [address] [place] [place] [id number] Home Care Provider Orthopedics 12/20/23 Mallika Paris APRN.RETURNING OFFICER [address] [place], [place] [id number] Referring Internal Medicine 12/20/23 Esthetician/Spa Coordinator Relationship Specialty Start Date End Date Macho Aburto DO [address] [place] [address] PCP - General Family Medicine 12/19/23 Ed Montana MD [address] [address] Home Care Provider Orthopedics 12/20/23 Mallika Paris APRN.RETURNING OFFICER [address] [place], [place] [id number] Referring Internal Medicine 12/20/23 Esthetician/Spa Coordinator Relationship Specialty Start Date End Date Macho Aburto DO [address] [place] [address] PCP - General Family Medicine 12/19/23 Ed Montana MD [address] [address] Home Care Provider Orthopedics 12/20/23 Mallika Paris APRN.RETURNING OFFICER [address] [place], [place] [id number] Referring Internal Medicine 12/20/23 Esthetician/Spa Coordinator Relationship Specialty Start Date End Date Macho Aburto DO [address] [place] [place], [place] [address] PCP - General Family Medicine 12/19/23 Ed Montana MD [address] [place] [place] [address] Home Care Provider Orthopedics 12/20/23 Mallika Paris APRN.RETURNING OFFICER [address] [place], [place] [id number] Referring Internal Medicine 12/20/23 Esthetician/Spa Coordinator Relationship Specialty Start Date End Date Macho Aburto DO [address] [place], [place] [address] PCP - General Family Medicine 12/19/23 Jacqui Waters, ADRIANNE Specialty Stonework Supervisor Orthopedics 05/14/25 06/19/25 dE Montana MD [address] [address] Home Care Provider Orthopedics 05/14/25 Ed Montana MD [address] [address] Referring Orthopedics 05/14/25 Melanie Sotelo, PT [address] [place] [address] Coremaking Supervisor Post Acute Care 05/16/25 Esthetician/Spa Coordinator Relationship Specialty Start Date End Date Macho Aburto DO [address] [place] [address] PCP - General Family Medicine 12/19/23 Jacqui Waters, ADRIANNE Specialty Stonework Supervisor Orthopedics 05/14/25 06/19/25 Ed Montana MD [address] [place] [address] Home Care Provider Orthopedics 05/14/25 Ed Montana MD [address] [place] [address] Referring Orthopedics 05/14/25 Melanie Sotelo, PT [address] [place], [place] [id number] Coremaking Supervisor Post Acute Care 05/16/25 Esthetician/Spa Coordinator Relationship Specialty Start Date End Date Macho Aburto DO [address] [place] [place], [place] [address] PCP - General Family Medicine 12/19/23 Jacqui Waters RN Specialty Stonework Supervisor Orthopedics 05/14/25 06/19/25 Ed Montana MD [address] [place] [place] [address] Home Care Provider Orthopedics 05/14/25 Ed Montana MD [address] [place] [address] Referring Orthopedics 05/14/25 Melanie Sotelo, PT [address] [place], [place] [phone] Coremaking Supervisor Post Acute Care 05/16/25 Esthetician/Spa Coordinator Relationship Specialty Start Date End Date Macho Aburto DO [address] [place] [place], [place] [address] PCP - General Family Medicine 12/19/23 Jacqui Waters, ADRIANNE Specialty Stonework Supervisor Orthopedics 05/14/25 06/19/25 Ed Montana MD [address] [place] [address] Home Care Provider Orthopedics 05/14/25 Ed Montana MD [address] [place] [address] Referring Orthopedics 05/14/25 Melanie Sotelo, PT [address] [place], [place] [phone] Coremaking Supervisor Post Acute Care 05/16/25 Team Status: [...] May 13, 2025 End: May 13, 2025 Esthetician/Spa Coordinator Relationship Specialty Start Date End Date Macho Aburto DO [facility] [place] [address] PCP - General Family Medicine 12/19/23 Jacqui Waters, ADRIANNE Specialty Stonework Supervisor Orthopedics 05/14/25 06/19/25 Ed Montana MD [address] [place] [address] Home Care Provider Orthopedics 05/14/25 Ed Montana MD [address] [place] [address] Referring Orthopedics 05/14/25 Melanie Sotelo, PT [address] [place], [place] [phone] Coremaking Supervisor Post Acute Care 05/16/25 Esthetician/Spa Coordinator Relationship Specialty Start Date End Date Macho Aburto DO [address] [place], [place] [address] PCP - General Family Medicine 12/19/23 Jacqui Waters, ADRIANNE Specialty Stonework Supervisor Orthopedics 05/14/25 06/19/25 Ed Montana MD [address] [place] [address] Home Care Provider Orthopedics 05/14/25 Ed Montana MD [address] [place] [address] Referring Orthopedics 05/14/25 Melanie Sotelo, PT [address] [place] [address] Coremaking Supervisor Post Acute Care 05/16/25 Esthetician/Spa Coordinator Relationship Specialty Start Date End Date Macho Aburto DO [address] [facility] [place] [address] PCP - General Family Medicine 12/19/23 Jacqui Waters, ADRIANNE Specialty Stonework Supervisor Orthopedics 05/14/25 06/19/25 Ed Montana MD [address] [place] [address] Home Care Provider Orthopedics 05/14/25 Ed Montana MD [address] [place] [address] Referring Orthopedics 05/14/25 Melanie Sotelo, PT [address] [place] [address] Coremaking Supervisor Post Acute Care 05/16/25 Esthetician/Spa Coordinator Relationship Specialty Start Date End Date Macho Aburto DO [address] [place] [address] PCP - General Family Medicine 12/19/23 Jacqui Waters, RN Specialty Stonework Supervisor Orthopedics 05/14/2509/02 Ed Montana MD [address] [place] [address] Home Care Provider Orthopedics 05/14/25 Ed Montana MD [address] [place] [address] Referring Orthopedics 05/14/25 Esthetician/Spa Coordinator Relationship Specialty Start Date End Date Macho Aburto DO [address] [place] [address] PCP - General Family Medicine 12/19/23 Jacqui Waters RN Specialty Stonework Supervisor Orthopedics 05/14/2509/02 Ed Montana MD [address] [place] [address] Home Care Provider Orthopedics 05/14/25 Ed Montana MD [address] [place] [address] Referring Orthopedics 05/14/25 Esthetician/Spa Coordinator Relationship Specialty Start Date End Date Macho Aburto DO [address] [place] [address] PCP - General Family Medicine 12/19/23 Jacqui Waters, ADRIANNE Specialty Stonework Supervisor Orthopedics 05/14/2509/02 Ed Montana MD [address] [place] [address] Home Care Provider Orthopedics 05/14/25 Ed Montana MD [address] [address] Referring Orthopedics 05/14/25 Goals (unrecognized section and [...] 1007 (Given - Provid er: Aurelio Nitz, GLUTEN SETTLING TENDER.RETURNING OFFICER) FOR RECORDS PERTAINING TO PATIENTS WHO ARE [...] BE BASED ON THE PRIMARY CLINICAL RECORDS. [facility] [employer] [facility]. provides no warranty or guarantee of the accuracy or completeness of information in this document.
[2025-07-25 15:45] LABS: Cytology, Body Fluid / CSF SEE PATHOLOGY REPORT
== END | disposition home or self-care (01) ==
LOC: LABSPEC 15:00
PROVIDERS: PCP Family Medicine; Referring Provider Family Medicine; Visit Provider Family Medicine
DX: R31.9 Hematuria, unspecified (principal)
CPT/HCPCS: 87086; 88108; 88313

== ENCOUNTER → 2025-08-04 | Outpatient (CLI) | payer BC, SELFPAY ==
--- NOTE | 2025-08-04 10:02 | ART_ITS ---
Reason For Study Reason For Study: Aftercare Procedure A bilateral lower extremity continuous wave Doppler with analog waveform analysis and ankle brachial indexes. Left Segmental Pressures Left brachial= 121mmHg. Left posterior tibial artery = >254mmHg. Left dorsalis pedis artery = >254mmHg. Left digit = 127 mmHg. Right Segmental Pressures Right brachial= 133mmHg. Right posterior tibial artery = 101mmHg. Right dorsalis pedis artery = 152mmHg. Right digit = 24 mmHg. Indices The right ankle brachial index by the posterior tibial artery is 0.76. The right ankle brachial index by the dorsalis pedis is 1.14. The right digital-brachial index is 0.18. The left ankle brachial index by the posterior tibial artery is NC. The left ankle brachial index by the dorsalis pedis is NC. The left digital- brachial index is 0.95. VL/Ankle Brachial Index Interpretation Summary Right normal RYAN at 1.14 DP and PT mild at 0.76 but monophasic flow noted. LEFT NC but has triphasic flow. DBI 0.18 and 0.96. Ordering Physician: Dale Gill Referring Physician: Dale Colvin Performed By: Theresa Mishra RDCS/RVT
== END | disposition home or self-care (01) ==
LOC: CVS 10:01
PROVIDERS: PCP Family Medicine; Referring Provider Surgery Vascular Surgery; Visit Provider Surgery Vascular Surgery
DX: I70.235 Atherosclerosis of native arteries of right leg with ulceration of other part of foot (principal); Z48.812 Encounter for surgical aftercare following surgery on the circulatory system; I77.1 Stricture of artery; M79.606 Pain in leg, unspecified; M79.89 Other specified soft tissue disorders; I10 Essential (primary) hypertension
CPT/HCPCS: 93922